=== PATIENT | female | born 1945 | race Caucasian/White ===

== ENCOUNTER → 2017-04-04 | Outpatient (CLI) | payer MEDICARE ==
--- NOTE | 2017-04-04 14:03 | MM ---
Reason for exam: follow-up at short interval from prior study. Last mammogram was performed 6 months ago. History: Patient is postmenopausal. Family history of breast cancer in sister at age 50. Benign US LT VAD breast biopsy of the left breast, May 16, 2012. Benign core biopsy of the left breast, 2009. 2 excisional biopsies of the left breast. Took hormonal contraceptives for 5 years. Took estrogen for 31 years. Physical Findings: Nurse did not find any significant physical abnormalities on exam. MG 3D Diag Mammo W/Cad LT CC and MLO view(s) were taken of the left breast. Prior study comparison: September 28, 2016, left breast US breast workup LT. September 27, 2016, bilateral MG 3d screening mammo w/cad. July 04, 2015, bilateral MG screening mammo w CAD. June 16, 2014, bilateral MG screening mammo w CAD. Stable grouped calcifications adjacent to the patient's 3 o'clock biopsy clip. No significant new findings when compared with previous films. These results were verbally communicated with the patient and result sheet given to the patient on 04/04/17. ASSESSMENT: Negative, BI-RAD 1 RECOMMENDATION: Return to routine screening mammogram schedule for both breasts. Back on schedule.
== END | disposition home or self-care (01) ==
LOC: RADMAMWWP 12:53
PROVIDERS: ATTEND Internal Medicine
DX: R92.8 Other abnormal and inconclusive findings on diagnostic imaging of breast (principal)
CPT/HCPCS: G0206; G0279

== ENCOUNTER → 2017-04-17 | Outpatient (CLI) | payer MEDICARE ==
--- NOTE | 2017-04-17 14:17 | US ---
EXAMINATION TYPE: US kidneys/renal and bladder DATE OF EXAM: 04/17/2017 COMPARISON: 09/21 US CLINICAL HISTORY: 71-year-old female R30.0 DYSURIA. Large habitus, incontinence, recurring renal and bladder infections. TECHNIQUE: Multiple sonographic images of the kidneys and bladder were obtained. FINDINGS: Right Kidney: 10.0 x 5.8 x 5.4cm with mild hydronephrosis. There is renal cortical thinning and lobu lated kidney contour. Left Kidney: 11.5 x 6.1 x 6.2cm with mild hydronephrosis. There is renal cortical thinning and lobul ated contour. There is also a 1.4 cm cortical cyst at the mid to upper pole. Initial urine distended bladder shows no gross abnormality. Either ureteral jet is seen during the co urse of the exam. There is not much emptying of the bladder with voiding. Post Void Residual Volume: 327ml, increased. IMPRESSION: 1. Mild bilateral hydronephrosis. 2. Parenchymal changes suggesting underlying chronic medical renal disease. 3. Neither ureteral jet was seen during the course of the exam. 4. Marked urinary retention (post void bladder volume 327 mL). Consider catheterization if indicated.
== END | disposition home or self-care (01) ==
LOC: RADUSWWP 12:10
PROVIDERS: ATTEND Internal Medicine
DX: N13.30 Unspecified hydronephrosis (principal); R33.9 Retention of urine, unspecified; N28.89 Other specified disorders of kidney and ureter
CPT/HCPCS: 76770

== ENCOUNTER → 2017-11-30 | Outpatient (CLI) | payer MEDICARE ==
--- NOTE | 2017-11-30 14:13 | MM ---
Reason for exam: clinical finding. Last mammogram was performed 8 months ago. History: Patient is postmenopausal. Family history of breast cancer in sister at age 50. Benign US LT VAD breast biopsy of the left breast, May 16, 2012. Benign core biopsy of the left breast, 2009. 2 excisional biopsies of the left breast. Took hormonal contraceptives for 5 years. Took estrogen for 31 years. Indicated problem(s): pain in the left breast. Physical Findings: Nurse did not find any significant physical abnormalities on exam. MG 3D Diag Mammo W/Cad ANGELINE Bilateral CC and MLO view(s) were taken. Prior study comparison: April 04, 2017, left breast MG 3d diag mammo w/cad LT. September 27, 2016, bilateral MG 3d screening mammo w/cad. There are scattered fibroglandular densities. Benign oil cyst calcification on the left breast. Previous mammotome biopsy in the left breast. Asymmetric density centrally right MLO view does not persist on 3D images or the end compression MLO. These results were verbally communicated with the patient and result sheet given to the patient on 11/30/17. ASSESSMENT: Negative, BI-RAD 1 RECOMMENDATION: Routine screening mammogram of both breasts in 1 year.
== END | disposition home or self-care (01) ==
LOC: RADMAMWWP 13:03
PROVIDERS: ATTEND Internal Medicine
DX: N64.4 Mastodynia (principal)
CPT/HCPCS: 77066; G0279

== ENCOUNTER → 2018-06-25 | Outpatient (CLI) | payer MEDICARE ==
--- NOTE | 2018-06-25 23:15 | CT ---
EXAMINATION TYPE: CT abdomen pelvis wo con DATE OF EXAM: 06/25/2018 COMPARISON: 06/03/2015 HISTORY: 72-year-old female right sided pain with history of bowel/bladder fistula CT DLP: 1116 mGycm. Automated exposure control for dose reduction was used. TECHNIQUE: Contiguous axial scanning of the abdomen and pelvis without IV contrast. Coronal and sagit candido reconstructions performed. FINDINGS: Heart normal size without pericardial effusion. Coronary vessel calcifications are present. Calcified peripheral left basilar pulmonary nodule compatible with prior granulomatous disease. Tiny hiatal hernia. Noncontrast appearance of the liver, adrenal glands, spleen, and pancreas show no gross abnormality. Gallbladder surgically absent. Bilateral mild renal cortical thinning and bilateral extrarenal pelves are unchanged. Stable 1.4 cm c ortical cyst anterolateral left kidney. Moderate atherosclerotic calcifications abdominal aorta and iliac arteries. No dilated small bowel, free fluid, or free air. Moderate ingested debris within the stomach. No mesenteric or retroperitoneal lymphadenopathy. Mild stool burden with scattered mild colonic diverticulosis. Prior resection and reanastomosis along the mid to distal sigmoid. Streak and beam hardening artifact from the patient's right hip total arthroplasty limiting assessmen t of the pelvis. There is pelvic floor relaxation with bulging convexity of the biliary ninth musculature and projecti on of the inferior margin of the bladder approximately 4 cm below the pubococcygeal line. No abnormal fluid collection in the pelvis or pelvic lymphadenopathy. Uterus surgically absent. Ovaries not sakshi rly seen. Nodularity within the subcutaneous fat along the buttocks suggesting prior injections. Bones: Right hip total arthroplasty. Mild degenerative changes of the hips. No osseous destructive pr ocess. IMPRESSION: 1. Interval resection and reanastomosis along the mid to distal sigmoid colon. 2. Fairly marked pelvic floor relaxation with the inferior margin of the bladder located approximate ly 4 cm below the pubococcygeal line. 3. Mild scattered colonic diverticulosis.
== END | disposition home or self-care (01) ==
LOC: RADCTMAIN 16:27
PROVIDERS: ATTEND Internal Medicine
DX: K57.30 Diverticulosis of large intestine without perforation or abscess without bleeding (principal)
CPT/HCPCS: 74176

== ENCOUNTER → 2019-01-30 | Outpatient (CLI) | payer MEDICARE ==
--- NOTE | 2019-01-30 11:40 | MM ---
Reason for exam: additional evaluation requested from prior study. Last mammogram was performed 1 year and 2 months ago. History: Patient is postmenopausal. Family history of breast cancer in sister at age 50. Benign US LT VAD breast biopsy of the left breast, May 16, 2012. Benign core biopsy of the left breast, 2009. 2 excisional biopsies of the left breast. Took hormonal contraceptives for 5 years. Took estrogen for 31 years. Physical Findings: Nurse did not find any significant physical abnormalities on exam. MG 3D Diag Mammo W/Cad ANGELINE Bilateral CC and MLO view(s) were taken. XCCL view(s) were taken of the left breast. Prior study comparison: November 30, 2017, bilateral MG 3d diag mammo w/cad ANGELINE. April 04, 2017, left breast MG 3d diag mammo w/cad LT. There are scattered fibroglandular densities. Left biopsy marker noted adjacent to calcifications. These results were verbally communicated with the patient and result sheet given to the patient on 01/30/19. ASSESSMENT: Benign, BI-RAD 2 RECOMMENDATION: Routine screening mammogram of both breasts in 1 year.
== END | disposition home or self-care (01) ==
LOC: RADMAMWWP 09:57
PROVIDERS: ATTEND Internal Medicine
DX: N60.11 Diffuse cystic mastopathy of right breast (principal); N60.12 Diffuse cystic mastopathy of left breast
CPT/HCPCS: 77066; G0279; 77062

== ENCOUNTER → 2019-06-12 | Outpatient (CLI) | payer MEDICARE | END | disposition home or self-care (01) | LOC: LABPAT 13:53 | PROVIDERS: ATTEND Obstetrics & Gynecology | DX: Z01.812 Encounter for preprocedural laboratory examination (principal) | CPT/HCPCS: 93005 ==

== ENCOUNTER → 2019-06-12 | Outpatient (CLI) | payer MEDICARE ==
--- NOTE | 2019-06-13 06:56 | ECHOF ---
Referral Reason:R10.9 Unspecified abdominal pain, R01.1 Cardiac MEASUREMENTS -------- HEIGHT: 165.1 cm WEIGHT: 96.2 kg BP: IVSd: 1.4 cm (0.6 - 1.1) LVIDd: 4.8 cm (3.9 - 5.3) LVPWd: 1.4 cm (0.6 - 1.1) IVSs: 1.4 cm LVIDs: 3.5 cm LVPWs: 1.5 cm LA Diam: 3.7 cm (2.7 - 3.8) LAESV Index (A-L): 30.32 ml/m Ao Diam: 2.5 cm (2.0 - 3.7) AV Cusp: 1.5 cm (1.5 - 2.6) LA Diam: 3.9 cm (2.7 - 3.8) MV EXCURSION: 20.477 mm (> 18.000) MV EF SLOPE: 32 mm/s (70 - 150) EPSS: 0.6 cm MV E Kar: 0.63 m/s MV DecT: 181 ms MV A Kar: 0.86 m/s MV E/A Ratio: 0.73 AV maxP.68 mmHg AV meanP.76 mmHg RAP: 5.00 mmHg RVSP: 22.70 mmHg FINDINGS -------- Sinus rhythm. This was a technically adequate study. The left ventricular size is normal. There is moderate concentric left ventricular hypertrophy. O verall left ventricular systolic function is normal with, an EF between 55 - 60 %. The right ventricle is normal in size. The left atrium is mildly dilated. LA is midly dilated 29-33ml/m2. The right atrial size is normal. There is mild aortic stenosis present. Peak/mean gradient across the Aortic Valve is 16.68mmHg / 7. 76mmHg. Mild mitral annular calcification present. Mild mitral regurgitation is present. Mild tricuspid regurgitation present. There is no evidence of pulmonary hypertension. The right v entricular systolic pressure, as measured by Doppler, is 22.70mmHg. There is no pulmonic regurgitation present. The aortic root size is normal. There is no pericardial effusion. CONCLUSIONS -------- 1. Sinus rhythm. 2. This was a technically adequate study. 3. The left ventricular size is normal. 4. There is moderate concentric left ventricular hypertrophy. 5. Overall left ventricular systolic function is normal with, an EF between 55 - 60 %. 6. The right ventricle is normal in size. 7. The left atrium is mildly dilated. 8. LA is midly dilated 29-33ml/m2. 9. The right atrial size is normal. 10. There is mild aortic stenosis present. 11. Peak/mean gradient across the Aortic Valve is 16.68mmHg / 7.76mmHg. 12. Mild mitral annular calcification present. 13. Mild mitral regurgitation is present. 14. Mild tricuspid regurgitation present. 15. There is no evidence of pulmonary hypertension. 16. The right ventricular systolic pressure, as measured by Doppler, is 22.70mmHg. 17. There is no pulmonic regurgitation present. 18. The aortic root size is normal. 19. There is no pericardial effusion. DRIVER'S EDUCATION INSTRUCTOR: Hanna Ferraro RDCS
--- NOTE | 2019-06-13 08:15 | US ---
EXAMINATION TYPE: US kidneys/renal and bladder DATE OF EXAM: 06/12/2019 COMPARISON: 7 CLINICAL HISTORY: R10.9 Unspecified abdominal pain, R01.1 Cardiac. Pain. EXAM MEASUREMENTS: Right Kidney: 9.5 x 4.9 x 4.1 cm Left Kidney: 11 x 4.4 x 4.5 cm Right Kidney: No hydronephrosis or masses seen Left Kidney: Hypoechoic area seen mid pole 1.8 x 1.4 x .7 cm. Bladder: wnl Bilateral Jets seen: No There is no evidence for hydronephrosis at this point in time. No nephrolithiasis is seen. The urin walker bladder is anechoic. IMPRESSION: No evidence of overt hydronephrosis today's exam. Hypoechoic nodule in the left kidney likely related to small renal cyst
== END | disposition home or self-care (01) ==
LOC: RADECHMAIN 14:47
PROVIDERS: ATTEND Internal Medicine
DX: I08.1 Rheumatic disorders of both mitral and tricuspid valves (principal); R10.9 Unspecified abdominal pain
CPT/HCPCS: 76770; 93306

== ENCOUNTER → 2019-06-17 | Outpatient (CLI) | payer MEDICARE ==
[2019-06-17 15:08] LABS: Basophils % (A) 1 %; Eosinophils # (A) 0.2 k/uL (0-0.7); Eosinophils % (A) 4 %; HCT 43.2 % (34.0-46.0); HGB 14.1 gm/dL (11.4-16.0); Lymphocytes # (A) 1.4 k/uL (1.0-4.8); Lymphocytes % (A) 32 %; MCH 29.5 pg (25.0-35.0); MCHC 32.6 g/dL (31.0-37.0); MCV 90.6 fL (80.0-100.0); Mean Platelet Volume 6.9; Monocytes # (A) 0.3 k/uL (0-1.0); Monocytes % (A) 6 %; Neutrophils # (A) 2.5 k/uL (1.3-7.7); Neutrophils % (A) 55 %; Platelet Count 325 k/uL (150-450); RBC 4.77 m/uL (3.80-5.40); RDW 14.5 % (11.5-15.5); WBC 4.5 k/uL (3.8-10.6)
[2019-06-17 15:17] LABS: Potassium 3.9 mmol/L (3.5-5.1)
== END ==
LOC: LABATLAS 13:46
PROVIDERS: ATTEND Obstetrics & Gynecology
DX: Z01.812 Encounter for preprocedural laboratory examination (principal); N81.10 Cystocele, unspecified
CPT/HCPCS: 36415; 80051; 82565; 84520; 85025; 87086

== ENCOUNTER 2019-06-24 06:01 | Day surgery (SDC) | payer MEDICARE ==
[~2019-06-24 06:01] MED LIST: DEXAMETHASONE SOD PHOSPHATE 10 MG/ML 1 ML VIAL IV ONE; LIDOCAINE 1% 20 ML VIAL (10MG/ML) FOR IV START INTRADERMA PRN; ONDANSETRON 4 MG/2 ML VIAL IVP ONE
[2019-06-24 06:34] LABS: Glucose,Whole Blood 94 mg/dL (75-99)
[2019-06-24] MEDS ORDERED: LACTATED RINGERS 1,000 ML IV ONE ×2 (06:35→09:19)
[2019-06-24] MEDS ORDERED: PROPOFOL 10 MG/ML 20 ML VIAL IV ONE (07:20)
[2019-06-24] MEDS ORDERED: fentaNYL (PF) 50 MCG/ML 2 ML AMP ONE (07:20)
[2019-06-24] MEDS ORDERED: ePHEDrine SULFATE/0.9% NACL/PF 50 MG/5 ML SYRINGE IV ONE (07:20)
[2019-06-24] MEDS ORDERED: LIDOCAINE 1% INJ 10MG/ML (20 ML MDV) ONE (07:20)
[2019-06-24] MEDS ORDERED: MIDAZOLAM 2 MG/2 ML VIAL ONE (07:20)
[2019-06-24] MEDS ORDERED: METOCLOPRAMIDE 5 MG/ML 2 ML VIAL IVP PRN (07:25)
[2019-06-24] MEDS ORDERED: IBUPROFEN 600 MG TAB PO PRN (07:25)
[2019-06-24] MEDS ORDERED: ONDANSETRON 4 MG/2 ML VIAL IVP PRN (07:25)
[2019-06-24] MEDS ORDERED: diphenhydrAMINE 50 MG/ML 1 ML VIAL IVP PRN (07:25)
[2019-06-24] MEDS ORDERED: SIMETHICONE 80 MG CHEWABLE PO PRN (07:25)
[2019-06-24] MEDS ORDERED: VASOPRESSIN 20 UNIT/ML 1 ML VIAL SQ ONE (07:50)
[2019-06-24] MEDS ORDERED: BACITRACIN 500 UNIT/GM OINT 28.4 GM TUBE TOPICAL ONE (08:00)
--- NOTE | 2019-06-24 08:25 | P.OP ---
Date of Procedure: 06/24/19 Preoperative Diagnosis: #1. Symptomatic grade 3 cystocele #2. Recurrent urinary tract infections Postoperative Diagnosis: Same plus #3. Likely neurogenic urinary retention Procedure(s) Performed: #1. Anterior colporrhaphy Anesthesia: other (Gen. by LMA) Surgeon: Evangelista Goncalves Assisted Living Assistant #1: Annita Soria Estimated Blood Loss (ml): 5 IV fluids (ml): 400 Urine output (ml): 600 Pathology: none sent Condition: stable Disposition: PACU Operative Findings: Preoperatively, the patient was found to have a grade 3 cystocele present with reasonable apical support as well as support of the rectum. She additionally has large hemorrhoids present. Prior to beginning the surgery, she was catheterized of 600 mL of clear lizzy urine despite having emptied her bladder immediately prior to proceeding to the operating room. Repair itself appeared to be excellent and urine was clear at the end of the case. Description of Procedure: The patient was prepped and draped in usual fashion after general anesthesia was administered by the anesthesiologist. A weighted speculum was placed and the bladder drained of approximate 600 mL of clear lizzy urine suggesting the possibility of a neurogenic cause for urinary retention given that she had voided immediately prior to proceeding to the operating room. The apical uterosacral dimples were grasped with Allis clamps bilaterally and the vesicovaginal mucosa infused with diluted vasopressin solution, 20 units in 60 mL of saline. A transverse incision was made in the apex of the vagina from dimple to dimple allowing replacement of the Allises onto the incision. The vesicovaginal mucosa was undermined in the midline from the apex of the vagina to the urethral apex and divided using a Metzenbaum scissors. The mucosa was re flected from the underlying tissues were bluntly and sharply. Serial Stephanie plication stitches were placed from the urethral apex to the apex of the vagina using 2-0 Vicryl. Once the defect had been entirely closed, the vaginal mucosa was trimmed and then closed with a running locking stitch of 2-0 Vicryl from apex to apex without difficulty. The catheter was placed and there was minimal but clear urine noted. The vagina was packed with one-inch iodophor gauze covered with bacitracin ointment. Estimated blood loss for the entire case was approximate 5 mL. There were no complications. All sponge, instrument, and needle counts were correct. The patient tolerated the procedure well and proceeded to the recovery room in stable condition.
[2019-06-24] MEDS: KETOROLAC 30 MG/ML 1 ML VIAL IVP PRN ×2 (08:48→16:35)
[2019-06-24] MEDS ORDERED: MEPERIDINE 50 MG/ML SYRINGE IVP ONE (09:01)
[2019-06-24] MEDS: LACTATED RINGERS 1,000 ML IV SCH ×3 (10:55→23:30)
[2019-06-24 16:15] VITALS: BMI 35.0
[2019-06-24] MEDS: SENNOSIDES-DOCUSATE SODIUM 1 EACH TAB PO SCH (23:04)
[2019-06-25] MEDS: SENNOSIDES-DOCUSATE SODIUM 1 EACH TAB PO SCH ×3 (03:35→12:55)
[2019-06-25] MEDS: KETOROLAC 30 MG/ML 1 ML VIAL IVP PRN (04:43)
[2019-06-25] MEDS: LACTATED RINGERS 1,000 ML IV SCH (04:50)
[2019-06-25 07:26] LABS: Basophils % (A) 0 %; Eosinophils # (A) 0.1 k/uL (0-0.7); Eosinophils % (A) 1 %; HCT 37.4 % (34.0-46.0); HGB 12.5 gm/dL (11.4-16.0); Lymphocytes # (A) 1.3 k/uL (1.0-4.8); Lymphocytes % (A) 15 %; MCH 29.8 pg (25.0-35.0); MCHC 33.4 g/dL (31.0-37.0); MCV 89.2 fL (80.0-100.0); Mean Platelet Volume 6.8; Monocytes # (A) 0.5 k/uL (0-1.0); Monocytes % (A) 6 %; Neutrophils # (A) 6.7 k/uL (1.3-7.7); Neutrophils % (A) 77 %; Platelet Count 286 k/uL (150-450); RDW 13.2 % (11.5-15.5); WBC 8.7 k/uL (3.8-10.6)
--- NOTE | 2019-06-25 08:49 | P.DS ---
Providers Expected date of discharge: 06/25/19 Attending physician: Evangelista Goncalves Primary care physician: Shahid Stewart - Discharge Diagnosis(es) (1) Cystocele Current Visit: Yes Status: Acute Hospital Course: The patient is a 73-year-old woman who presented to the office with complaint of cystocele causing discomfort and an additional concern of with inability to adequately empty her bladder. She does have a urologist who feels that some of her problem is the anatomy itself making it more difficult to completely empty. We did have a discussion regarding the potential problem of a neurogenic bladder as the source of her retention as well. Nevertheless, the patient requested surgical repair. She was taken the operating room where she underwent surgical repair of a symptomatic grade 3 cystocele and uncomplicated fashion. Her postoperative course was unremarkable with vital signs remaining stable and her temperature was afebrile throughout. The morning following surgery, she had her packing and Torres catheter removed. She was able to void more than 200 mL of urine with a residual less than 100 and was thus deemed stable for discharge having tolerated regular diet and having no other concerns. She was discharged home to follow-up in the office in 2 weeks for recheck and 6 weeks routinely. Discharge instructions included primarily abstaining from any straining or heavy lifting for the next 6 weeks time. She is additionally instructed to do no driving until off of all pain medications or 2 weeks' time, whichever came first. She also is instructed to have nothing in the vagina for at least 6 weeks time. She understood her instructions and agrees to follow up as noted above. Discharge medications included any home medications as well as [id number] analgesic pain medications. She was additionally instructed to continue using Estrace cream 1-2 times weekly over the next several weeks to aid in healing. Discharge hemoglobin was stable at above 12.0. Procedures: #1. Anterior colporrhaphy Patient Condition at Discharge: Stable Plan - Discharge Summary Discharge Rx Participant: No New Discharge Prescriptions: No Action Famotidine [Pepcid] 40 mg PO BID Albuterol Sulfate [Proventil Hfa] 1 - 2 puff INHALATION RT-Q6H PRN PRN Reason: sob ALPRAZolam [Xanax] 0.25 mg PO BID PRN PRN Reason: Vertigo NIFEdipine XL [Procardia XL] 30 mg PO DAILY Ezetimibe [Zetia] 10 mg PO DAILY Potassium Chloride 20 meq PO BID Cholecalciferol [Vitamin D3 (25 Mcg = 1000 Iu)] 2,000 unit PO DAILY@1200 Multivit-Min/FA/Lycopen/Lutein [Centrum Silver Tablet] 1 each PO DAILY metFORMIN HCL [Glucophage] 500 mg PO DAILY Aspirin 81 mg PO HS Vitamin B Complex 1 tab PO DAILY Magnesium Chloride [Slow Mag] 64 mg PO DAILY Niacin [Niaspan] 500 mg PO DAILY Cranberry Fruit Extract [Cranberry] 200 mg PO BID Furosemide [Lasix] 20 mg PO DAILY Biotin 2 tab PO DAILY Estradiol Cream [Estrace Cream 0.01%] 1 gm VAGINAL DIRECTED Discharge Medication List ALPRAZolam [Xanax] 0.25 mg PO BID PRN 02/17/14 [History] Albuterol Sulfate [Proventil Hfa] 1 - 2 puff INHALATION RT-Q6H PRN 02/17/14 [History] Ezetimibe [Zetia] 10 mg PO DAILY 02/17/14 [History] Famotidine [Pepcid] 40 mg PO BID 02/17/14 [History] NIFEdipine XL [Procardia XL] 30 mg PO DAILY 02/17/14 [History] Potassium Chloride 20 meq PO BID 02/17/14 [History] Aspirin 81 mg PO HS 07/30/15 [History] Cholecalciferol [Vitamin D3 (25 Mcg = 1000 Iu)] 2,000 unit PO DAILY@1200 07/30/15 [History] Multivit-Min/FA/Lycopen/Lutein [Centrum Silver Tablet] 1 each PO DAILY 07/30/15 [History] metFORMIN HCL [Glucophage] 500 mg PO DAILY 07/30/15 [History] Biotin 2 tab PO DAILY 06/14/19 [History] Cranberry Fruit Extract [Cranberry] 200 mg PO BID 06/14/19 [History] Estradiol Cream [Estrace Cream 0.01%] 1 gm VAGINAL DIRECTED 06/14/19 [History] Furosemide [Lasix] 20 mg PO DAILY 06/14/19 [History] Magnesium Chloride [Slow Mag] 64 mg PO DAILY 06/14/19 [History] Niacin [Niaspan] 500 mg PO DAILY 06/14/19 [History] Vitamin B Complex 1 tab PO DAILY 06/14/19 [History] Follow up Appointment(s)/Referral(s): Evangelista Goncalves MD [STAFF PHYSICIAN] - 2 Weeks Discharge Disposition: HOME SELF-CARE
[2019-06-25 08:54] VITALS: PULSE 64
[2019-06-25 08:55] VITALS: BP 138/67; RESP 20; TEMP 98.4
[2019-06-25] MEDS ORDERED: ACETAMINOPHEN TAB 500 MG TAB PO PRN (11:17)
== END 2019-06-25 13:05 | disposition home or self-care (01) ==
LOC: OR 06:01 → 4FBP 08:59 → OR 06-25 13:05
PROVIDERS: ATTEND Obstetrics & Gynecology
DX: N81.10 Cystocele, unspecified (principal); Z87.440 Personal history of urinary (tract) infections; J45.909 Unspecified asthma, uncomplicated; E78.00 Pure hypercholesterolemia, unspecified; I10 Essential (primary) hypertension; E78.5 Hyperlipidemia, unspecified; Z86.73 Personal history of transient ischemic attack (TIA), and cerebral infarction without residual deficits; Z96.649 Presence of unspecified artificial hip joint; Z90.49 Acquired absence of other specified parts of digestive tract; E66.9 Obesity, unspecified; Z88.5 Allergy status to narcotic agent; Z88.8 Allergy status to other drugs, medicaments and biological substances; Z88.1 Allergy status to other antibiotic agents; Z91.041 Radiographic dye allergy status; Z82.49 Family history of ischemic heart disease and other diseases of the circulatory system; Z84.1 Family history of disorders of kidney and ureter; Z83.6 Family history of other diseases of the respiratory system; Z87.891 Personal history of nicotine dependence; Z68.35 Body mass index [BMI] 35.0-35.9, adult; Z79.84 Long term (current) use of oral hypoglycemic drugs; Z79.899 Other long term (current) drug therapy; Z79.82 Long term (current) use of aspirin
CPT/HCPCS: 86900; 86901; 85025; 86850; 57240; J2250; J1200; J1100; J2175; J0690; J2405; J2001; J3010; J1885 ×2; J2704

== ENCOUNTER 2019-12-09 13:25 | Emergency (ER) | payer MEDICARE ==
[2019-12-09 13:30] VITALS: TEMP 98.3
[2019-12-09] MEDS ORDERED: NITROGLYCERIN OINT 1 INCH/GM PACKET TOPICAL STA (14:06)
[2019-12-09] MEDS ORDERED: ASPIRIN 81 MG PO STA (14:06)
[2019-12-09 14:21] LABS: Basophils # (A) 0.1 k/uL (0-0.2); Basophils % (A) 1 %; Eosinophils # (A) 0.2 k/uL (0-0.7); Eosinophils % (A) 3 %; HCT 47.3 % (34.0-46.0); HGB 15.5 gm/dL (11.4-16.0); Lymphocytes % (A) 27 %; MCH 29.8 pg (25.0-35.0); MCHC 32.7 g/dL (31.0-37.0); MCV 91.2 fL (80.0-100.0); Mean Platelet Volume 7.2; Monocytes # (A) 0.3 k/uL (0-1.0); Monocytes % (A) 4 %; Neutrophils # (A) 4.9 k/uL (1.3-7.7); Neutrophils % (A) 64 %; Platelet Count 319 k/uL (150-450); RBC 5.19 m/uL (3.80-5.40); RDW 13.2 % (11.5-15.5); WBC 7.6 k/uL (3.8-10.6)
[2019-12-09 14:26] LABS: INR 0.9 (<1.2); Partial Thromboplastin Time 23.2 sec (22.0-30.0); Prothrombin Time 9.4 sec (9.0-12.0)
[2019-12-09 14:34] LABS: Albumin 4.7 g/dL (3.5-5.0); Calcium 9.9 mg/dL (8.4-10.2); Magnesium 2.1 mg/dL (1.6-2.3); Potassium 4.2 mmol/L (3.5-5.1); Total Bilirubin 0.4 mg/dL (0.2-1.3)
--- NOTE | 2019-12-09 14:51 | XR ---
EXAMINATION TYPE: XR chest 2V DATE OF EXAM: 12/09/2019 COMPARISON: 07/30/2015 TECHNIQUE: PA and lateral views submitted. HISTORY: Chest pain FINDINGS: The lungs are clear and there is no pneumothorax, pleural effusion, or focal pneumonia. Biapical pl eural thickening. Calcified lymph node in the left costophrenic angle. Surgical clips right upper julian drant. IMPRESSION: 1. No acute process.
--- NOTE | 2019-12-09 15:02 | ED ---
General Adult HPI - General Chief complaint: Dizziness Stated complaint: neuro/poss stroke Time Seen by Provider: 12/09/19 13:30 Source: patient, RN notes reviewed, old records reviewed Mode of arrival: wheelchair Limitations: no limitations - History of Present Illness Initial comments: This is a 74-year-old female who comes in stating that she has had some episodes of dizziness that, and lasts a few minutes and then go away. Patient states she also has some blurred vision when this occurs. Patient states she also has had some chest palpitations while this is occurring. Patient states she did not feel like she is given a passout but she had to hold onto something because she felt as though she might follow her. She's had multiple previous episodes over the last week but today's episode occurred in [facility]. Patient denies any chest pain. Patient denies any difficulty breathing or shortness of breath. Patient denies any recent fever chills or cough. Patient states he has no abdominal pain. Patient denies any nausea vomiting. Patient denies any headache or numbness or weakness - Related Data Home Medications Medication Instructions Recorded Confirmed ALPRAZolam [Xanax] 0.25 mg PO BID PRN 02/17/14 06/14/19 Albuterol Sulfate [Proventil Hfa] 1 - 2 puff INHALATION RT-Q6H PRN 02/17/14 06/14/19 Ezetimibe [Zetia] 10 mg PO DAILY 02/17/14 06/14/19 Famotidine [Pepcid] 40 mg PO BID 02/17/14 06/14/19 NIFEdipine XL [Procardia XL] 30 mg PO DAILY 02/17/14 06/14/19 Potassium Chloride 20 meq PO BID 02/17/14 06/14/19 Aspirin 81 mg PO HS 07/30/15 06/14/19 Cholecalciferol [Vitamin D3 (25 2,000 unit PO DAILY@1200 07/30/15 06/14/19 Mcg = 1000 Iu)] Multivit-Min/FA/Lycopen/Lutein 1 each PO DAILY 07/30/15 06/14/19 [Centrum Silver Tablet] metFORMIN HCL [Glucophage] 500 mg PO DAILY 07/30/15 06/14/19 Biotin 2 tab PO DAILY 06/14/19 06/14/19 Cranberry Fruit Extract [Cranberry] 200 mg PO BID 06/14/19 06/14/19 Estradiol Cream [Estrace Cream 1 gm VAGINAL DIRECTED 06/14/19 06/14/19 0.01%] Furosemide [Lasix] 20 mg PO DAILY 06/14/19 06/14/19 Magnesium Chloride [Slow Mag] 64 mg PO DAILY 06/14/19 06/14/19 Niacin [Niaspan] 500 mg PO DAILY 06/14/19 06/14/19 Vitamin B Complex 1 tab PO DAILY 06/14/19 06/14/19 Allergies Allergy/AdvReac Type Severity Reaction Status Date / Time adhesive Allergy skin Verified 12/09/19 13:31 blisters Influenza Virus Vaccines Allergy Unknown Verified 12/09/19 13:31 Iodinated Contrast Media Allergy Anaphylaxis Verified 12/09/19 13:31 [Iodinated Contrast Media - IV Dye] morphine Allergy Unknown Verified 12/09/19 13:31 pneumococcal vaccine Allergy Unknown Verified 12/09/19 13:31 povidone-iodine Allergy Rash/Hives Verified 12/09/19 13:31 [From Betadine] soap [From Betadine] Allergy Rash/Hives Verified 12/09/19 13:31 codeine AdvReac Nausea & Verified 12/09/19 13:31 Vomiting hydromorphone HCl AdvReac Nausea & Verified 12/09/19 13:31 [From Dilaudid] Vomiting antibiotics AdvReac Unknown Uncoded 12/09/19 13:31 Review of Systems ROS Statement: Those systems with pertinent positive or pertinent negative responses have been documented in the HPI. ROS Other: All systems not noted in ROS Statement are negative. Past Medical History Past Medical History: Hyperlipidemia, Hypertension Additional Past Medical History / Comment(s): hypoglycemia, arrythmia hx., h- pylori hx., hx. 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 History of Any Multi-Drug Resistant Organisms: None Reported Past Surgical History: Appendectomy, Breast Surgery, Section, Cholecystectomy, Heart Catheterization, Hysterectomy, Joint Replacement Additional Past Surgical History / Comment(s): right hip surg(HAS SEVERE INFECTION-NOT MRSA-, AFTER FIRST SX) x 3 in last 7 mos.RT CAROTID ENDARTERECTOMY, X 5 BX LT, BREAST BENIGN, RT BREAST X2 LUMPS REMOVED(BENIGN), CATARACTS, BENIGN TUMOR REMOVED RT ELBOW AREA. Past Anesthesia/Blood Transfusion Reactions: Motion Sickness, Postoperative Nausea & Vomiting (PONV) Additional Past Anesthesia/Blood Transfusion Reaction / Comment(s): severe ponv Past Psychological History: No Psychological Hx Reported Smoking Status: Former smoker Past Alcohol Use History: None Reported Past Drug Use History: None Reported - Past Family History Mother Family Medical History: Congestive Heart Failure (CHF), COPD, Deep Vein Thrombosis (DVT), Pulmonary Embolus Sister(s) Family Medical History: Blood Disorder, Cancer Additional Family Medical History / Comment(s): pancreatic cancer,brain cancer. sister states has hemophilia Father Family Medical History: Renal Disease Additional Family Medical History / Comment(s): age 28 from aortic aneurysm General Exam - General Exam Comments Initial Comments: GENERAL: Patient is well-developed and well-nourished. Patient is nontoxic and well- hydrated and is in mild distress. ENT: Neck is soft and supple. No significant lymphadenopathy is noted. Oropharynx is clear. Moist mucous membranes. Neck has full range of motion without eliciting any pain. EYES: The sclera were anicteric and conjunctiva were pink and moist. Extraocular movements were intact and pupils were equal round and reactive to light. Eyelids were unremarkable. PULMONARY: Unlabored respirations. Good breath sounds bilaterally. No audible rales rhonchi or wheezing was noted. CARDIOVASCULAR: There is a regular rate and rhythm without any murmurs gallops or rubs. ABDOMEN: Soft and nontender with normal bowel sounds. SKIN: Skin is clear with no lesions or rashes and otherwise unremarkable. NEUROLOGIC: Patient is alert and oriented x3. Cranial nerves II through XII are grossly intact. Motor and sensory are also intact. Normal speech, volume and content. Symmetrical smile. MUSCULOSKELETAL: Normal extremities with adequate strength and full range of motion. No lower extremity swelling or edema. No calf tenderness. LYMPHATICS: No significant lymphadenopathy is noted PSYCHIATRIC: Normal psychiatric evaluation. Limitations: no limitations Course Vital Signs 12/09/19 12/09/19 12/09/19 13:28 14:54 15:30 Temperature 98.3 F Pulse Rate 68 54 L Respiratory 18 16 Rate Blood Pressure 177/76 148/65 163/63 O2 Sat by Pulse 98 100 98 Oximetry 12/09/19 16:00 Temperature Pulse Rate 61 Respiratory 19 Rate Blood Pressure 165/64 O2 Sat by Pulse 97 Oximetry Medical Decision Making - Medical Decision Making EKG shows sinus bradycardia 53 bpm IA interval is 166 QRS is 152 QT interval 460 QTC is 431 patient has a left bundle branch block. Chest heaviness. Patient remained asymptomatic throughout her ED stay. I spoke with some physicians agreed to admit the patient admitted the patient wrote admitting orders and consult cardiology. - Lab Data Result diagrams: 12/09/19 14:08 12/09/19 14:08 Lab Results 12/09/19 12/09/19 12/09/19 Range/Units 14:08 14:08 14:08 WBC 7.6 (3.8-10.6) k/uL RBC 5.19 (3.80-5.40) m/uL Hgb 15.5 (11.4-16.0) gm/dL Hct 47.3 H (34.0-46.0) % MCV 91.2 (80.0-100.0) fL MCH 29.8 (25.0-35.0) pg MCHC 32.7 (31.0-37.0) g/dL RDW 13.2 (11.5-15.5) % Plt Count 319 (150-450) k/uL Neutrophils % 64 % Lymphocytes % 27 % Monocytes % 4 % Eosinophils % 3 % Basophils % 1 % Neutrophils # 4.9 (1.3-7.7) k/uL Lymphocytes # 2.0 (1.0-4.8) k/uL Monocytes # 0.3 (0-1.0) k/uL Eosinophils # 0.2 (0-0.7) k/uL Basophils # 0.1 (0-0.2) k/uL PT 9.4 (9.0-12.0) sec INR 0.9 (<1.2) APTT 23.2 (22.0-30.0) sec Sodium 140 (137-145) mmol/L Potassium 4.2 (3.5-5.1) mmol/L Chloride 101 (98-107) mmol/L Carbon Dioxide 30 (22-30) mmol/L Anion Gap 9 mmol/L BUN 24 H (7-17) mg/dL Creatinine 0.80 (0.52-1.04) mg/dL Est GFR (CKD-EPI)AfAm 83 (>60 ml/min/1.73 sqM) Est GFR (CKD-EPI)NonAf 72 (>60 ml/min/1.73 sqM) Glucose 105 H (74-99) mg/dL Calcium 9.9 (8.4-10.2) mg/dL Magnesium 2.1 (1.6-2.3) mg/dL Total Bilirubin 0.4 (0.2-1.3) mg/dL AST 35 (14-36) U/L ALT 19 (4-34) U/L Alkaline Phosphatase 92 (38-126) U/L Troponin I (0.000-0.034) ng/mL Total Protein 8.0 (6.3-8.2) g/dL Albumin 4.7 (3.5-5.0) g/dL TSH 0.134 L (0.465-4.680) mIU/L Free T4 1.00 (0.78-2.19) ng/dL 12/09/19 Range/Units 14:08 WBC (3.8-10.6) k/uL RBC (3.80-5.40) m/uL Hgb (11.4-16.0) gm/dL Hct (34.0-46.0) % MCV (80.0-100.0) fL MCH (25.0-35.0) pg MCHC (31.0-37.0) g/dL RDW (11.5-15.5) % Plt Count (150-450) k/uL Neutrophils % % Lymphocytes % % Monocytes % % Eosinophils % % Basophils % % Neutrophils # (1.3-7.7) k/uL Lymphocytes # (1.0-4.8) k/uL Monocytes # (0-1.0) k/uL Eosinophils # (0-0.7) k/uL Basophils # (0-0.2) k/uL PT (9.0-12.0) sec INR (<1.2) APTT (22.0-30.0) sec Sodium (137-145) mmol/L Potassium (3.5-5.1) mmol/L Chloride (98-107) mmol/L Carbon Dioxide (22-30) mmol/L Anion Gap mmol/L BUN (7-17) mg/dL Creatinine (0.52-1.04) mg/dL Est GFR (CKD-EPI)AfAm (>60 ml/min/1.73 sqM) Est GFR (CKD-EPI)NonAf (>60 ml/min/1.73 sqM) Glucose (74-99) mg/dL Calcium (8.4-10.2) mg/dL Magnesium (1.6-2.3) mg/dL Total Bilirubin (0.2-1.3) mg/dL AST (14-36) U/L ALT (4-34) U/L Alkaline Phosphatase (38-126) U/L Troponin I <0.012 (0.000-0.034) ng/mL Total Protein (6.3-8.2) g/dL Albumin (3.5-5.0) g/dL TSH (0.465-4.680) mIU/L Free T4 (0.78-2.19) ng/dL Disposition Clinical Impression: Chest pain, Dizziness Disposition: ADMITTED IP TO THIS [facility] Referrals: Shahid Stewart MD [Primary Care Provider] - 1-2 days Time of Disposition: 16:15
[2019-12-09] MEDS ORDERED: SODIUM CHLORIDE 0.9% 500 ML 500 ML IV ONE (15:31)
[2019-12-09 16:03] VITALS: BP 165/64; PULSE 61; RESP 19
[2019-12-09] MEDS ORDERED: ACETAMINOPHEN TAB 325 MG TAB PO STA (16:14)
[2019-12-09] MEDS ORDERED: NITROGLYCERIN SL TABS 0.4 MG TAB SUBLINGUAL PRN (16:19)
[2019-12-09] MEDS ORDERED: NALOXONE 0.4 MG/ML 1 ML VIAL IV PRN (17:14)
[2019-12-09] MEDS ORDERED: ALPRAZolam 0.25 MG TAB PO PRN (17:15)
--- NOTE | 2019-12-09 17:29 | P.HPIM ---
History of Present Illness H&P Date: 12/09/19 Chief Complaint: Chest pain 74-year-old female who comes in stating that she has had some episodes of dizziness that, and lasts a few minutes and then go away. During these episodes she experiences right-sided headache, slurred speech, blurred vision, chest pressure, shortness of breath, palpitations, severe dizziness that feels like lightheadedness and imbalance where she has to hold onto something to prevent falling and passing out. She thought that those episodes might be due to low sugars but she checked her blood sugars yesterday and they were normal. Those spells have been occurring over the past several weeks. Patient denies any recent fever chills or cough. Patient states he has no abdominal pain. Patient denies any nausea vomiting. Patient denies focal numbness or weakness. Patient does have history of bilateral carotid stenosis, she is status post right-sided carotid endarterectomy. She states that she follows up with vascular surgery and did a regular checkup every 6 months, on the left side she has 75% stenosis, no intervention was recommended for that. Review of Systems Complete review of system performed, pertinent positives per HPI otherwise negative Past Medical History Past Medical History: Hyperlipidemia, Hypertension Additional Past Medical History / Comment(s): hypoglycemia, arrythmia hx., h- pylori hx., hx. 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 History of Any Multi-Drug Resistant Organisms: None Reported Past Surgical History: Appendectomy, Breast Surgery, Section, Cholecystectomy, Heart Catheterization, Hysterectomy, Joint Replacement Additional Past Surgical History / Comment(s): right hip surg(HAS SEVERE INFECTION-NOT MRSA-, AFTER FIRST SX) x 3 in last 7 mos.RT CAROTID ENDARTERECTOMY, X 5 BX LT, BREAST BENIGN, RT BREAST X2 LUMPS REMOVED(BENIGN), CATARACTS, BENIGN TUMOR REMOVED RT ELBOW AREA. Past Anesthesia/Blood Transfusion Reactions: Motion Sickness, Postoperative Nausea & Vomiting (PONV) Additional Past Anesthesia/Blood Transfusion Reaction / Comment(s): severe ponv Past Psychological History: No Psychological Hx Reported Smoking Status: Former smoker Past Alcohol Use History: None Reported Past Drug Use History: None Reported - Past Family History Mother Family Medical History: Congestive Heart Failure (CHF), COPD, Deep Vein Thrombos is (DVT), Pulmonary Embolus Sister(s) Family Medical History: Blood Disorder, Cancer Additional Family Medical History / Comment(s): pancreatic cancer,brain cancer. sister states has hemophilia Father Family Medical History: Renal Disease Additional Family Medical History / Comment(s): age 28 from aortic aneurysm Medications and Allergies Home Medications Medication Instructions Recorded Confirmed Type ALPRAZolam [Xanax] 0.25 mg PO BID PRN 02/17/14 06/14/19 History Albuterol Sulfate [Proventil Hfa] 1 - 2 puff INHALATION RT-Q6H PRN 02/17/14 06/14/19 History Ezetimibe [Zetia] 10 mg PO DAILY 02/17/14 06/14/19 History Famotidine [Pepcid] 40 mg PO BID 02/17/14 06/14/19 History NIFEdipine XL [Procardia XL] 30 mg PO DAILY 02/17/14 06/14/19 History Potassium Chloride 20 meq PO BID 02/17/14 06/14/19 History Aspirin 81 mg PO HS 07/30/15 06/14/19 History Cholecalciferol [Vitamin D3 (25 2,000 unit PO DAILY@1200 07/30/15 06/14/19 History Mcg = 1000 Iu)] Multivit-Min/FA/Lycopen/Lutein 1 each PO DAILY 07/30/15 06/14/19 History [Centrum Silver Tablet] metFORMIN HCL [Glucophage] 500 mg PO DAILY 07/30/15 06/14/19 History Biotin 2 tab PO DAILY 06/14/19 06/14/19 History Cranberry Fruit Extract [Cranberry] 200 mg PO BID 06/14/19 06/14/19 History Estradiol Cream [Estrace Cream 1 gm VAGINAL DIRECTED 06/14/19 06/14/19 History 0.01%] Furosemide [Lasix] 20 mg PO DAILY 06/14/19 06/14/19 History Magnesium Chloride [Slow Mag] 64 mg PO DAILY 06/14/19 06/14/19 History Niacin [Niaspan] 500 mg PO DAILY 06/14/19 06/14/19 History Vitamin B Complex 1 tab PO DAILY 06/14/19 06/14/19 History Allergies Allergy/AdvReac Type Severity Reaction Status Date / Time adhesive Allergy skin Verified 12/09/19 13:31 blisters Influenza Virus Vaccines Allergy Unknown Verified 12/09/19 13:31 Iodinated Contrast Media Allergy Anaphylaxis Verified 12/09/19 13:31 [Iodinated Contrast Media - IV Dye] morphine Allergy Unknown Verified 12/09/19 13:31 pneumococcal vaccine Allergy Unknown Verified 12/09/19 13:31 povidone-iodine Allergy Rash/Hives Verified 12/09/19 13:31 [From Betadine] soap [From Betadine] Allergy Rash/Hives Verified 12/09/19 13:31 codeine AdvReac Nausea & Verified 12/09/19 13:31 Vomiting hydromorphone HCl AdvReac Nausea & Verified 12/09/19 13:31 [From Dilaudid] Vomiting antibiotics AdvReac Unknown Uncoded 12/09/19 13:31 Physical Exam Vitals: Vital Signs Temp Pulse Resp BP Pulse Ox 12/09/19 16:00 61 19 165/64 97 12/09/19 15:30 163/63 98 12/09/19 14:54 54 L 16 148/65 100 12/09/19 13:28 98.3 F 68 18 177/76 98 Intake and Output 12/09/19 12/09/19 12/09/19 06:59 14:59 22:59 Other: Weight 92.986 kg Constitutional: No acute distress, conversant, pleasant Eyes:Anicteric sclerae, moist conjunctiva, no lid-lag, PERRLA, ENMT: Oropharynx clear, no erythema, exudates Neck: Supple, FROM, no masses, or JVD, No carotid bruits, No thyromegaly Lungs: Clear to auscultation, Clear to percussion, Normal respiratory effort, no accessory muscle use Cardiovascular: Heart regular in rate and rhythm, No murmurs, gallops, or rubs, No peripheral edema Abdominal: Soft, Nontender, no guarding, rebound or rigidity, Normoactive bowel sounds, No hepatomegaly, No splenomegaly, No palpable mass Skin: Normal temperature, tone, texture, turgor, no induration, No subcutaneous nodules, No rash, lesions, No ulcers Extremities: No digital cyanosis, No clubbing, Pedal pulses intact and symmetrical, Radial pulses intact and symmetrical, No calf tenderness Psychiatric: Alert and oriented to person, place and time, appropriate affect, intact judgement Neuro: Muscles Strength 5/5 in all 4 extremities, Sensation to light touch grossly present throughout, Cranial nerves II-XII grossly intact, no focal sensory deficits Results CBC & Chem 7: 12/09/19 14:08 12/09/19 14:08 Labs: Abnormal Lab Results - Last 24 Hours (Table) 12/09/19 12/09/19 Range/Units 14:08 14:08 Hct 47.3 H (34.0-46.0) % BUN 24 H (7-17) mg/dL Glucose 105 H (74-99) mg/dL TSH 0.134 L (0.465-4.680) mIU/L Assessment and Plan Plan: Blurred vision, slurred speech, right-sided headaches Symptoms could be related to her chronic migraine, rule out TIA/stroke MRI brain Carotid Doppler Echo Monitor on telemetry Palpitations Rule out arrhythmias Monitor in telemetry Chronic History of carotid stenosis Hyperlipidemia, Hypertension L4-L5 BULGING DISC CHEMICAL INDUCED ASTHMA All stable Resume meds She'll be admitted to observation, Expected length of stay less than 2 midnights
[2019-12-09] MEDS ORDERED: INSULIN ASPART (NovoLOG) 100 UNIT/ML VIAL SQ SCH (17:30)
--- NOTE | 2019-12-09 18:34 | MR ---
EXAMINATION TYPE: MR brain wo con DATE OF EXAM: 12/09/2019 COMPARISON: 01/12/2013 HISTORY: Dizziness. Headache. Multiplanar multiecho imaging of the brain was performed without contrast. There is cerebral cortical atrophy. There is no mass effect nor midline shift. There is no sign of in tracranial hemorrhage. Corpus callosum appears intact. Brainstem is intact. Diffusion images show no sign of acute cortical infarct. There are few scattered white matter high signal foci that measure up to 4 mm in both cerebral hemispheres. Total number is less than 10. Sella turcica appears normal. IMPRESSION: Mild atrophy. There are a few scattered relatively small white matter high signal foci which are nons pecific. No significant change compared to old exam. No acute intracranial abnormality.
[2019-12-09] MEDS ORDERED: FAMOTIDINE 20 MG TAB PO SCH (21:00)
[2019-12-09] MEDS ORDERED: NITROGLYCERIN OINT 1 INCH/GM PACKET TOPICAL SCH (21:00)
[2019-12-09] MEDS ORDERED: ASPIRIN 81 MG PO SCH (21:00)
[2019-12-10] MEDS ORDERED: FUROSEMIDE 20 MG TAB PO SCH (09:00)
[2019-12-10] MEDS ORDERED: metFORMIN 500 MG TAB PO SCH (09:00)
[2019-12-10] MEDS ORDERED: ASPIRIN 325 MG TAB PO SCH (09:00)
[2019-12-10] MEDS ORDERED: EZETIMIBE 10 MG TAB PO SCH (09:00)
[2019-12-10] MEDS ORDERED: NIFEdipine XL 30 MG TAB.ER.24 PO SCH (09:00)
--- NOTE | 2019-12-11 19:34 | P.PN ---
Progress Note - Text Progress Note Date: 12/11/19 Of note patient left AMA from the emergency department.
== END 2019-12-09 19:43 | disposition home or self-care (01) ==
LOC: EC 13:25 → UNDOADMOB 16:19 → 1SOBS 16:19 → EC 19:43
DX: R42 Dizziness and giddiness (principal); R07.89 Other chest pain; R00.1 Bradycardia, unspecified; I44.7 Left bundle-branch block, unspecified; H53.8 Other visual disturbances; R00.2 Palpitations; E78.5 Hyperlipidemia, unspecified; I10 Essential (primary) hypertension; Z95.818 Presence of other cardiac implants and grafts; Z96.89 Presence of other specified functional implants; Z87.891 Personal history of nicotine dependence; Z82.49 Family history of ischemic heart disease and other diseases of the circulatory system; Z79.82 Long term (current) use of aspirin; Z79.84 Long term (current) use of oral hypoglycemic drugs; Z79.890 Hormone replacement therapy; Z79.899 Other long term (current) drug therapy; Z91.048 Other nonmedicinal substance allergy status; Z88.7 Allergy status to serum and vaccine; Z91.041 Radiographic dye allergy status; Z88.5 Allergy status to narcotic agent; Z88.1 Allergy status to other antibiotic agents
CPT/HCPCS: 36415; 70551; 71046; 80053; 83735; 84439; 84443; 84484; 85025; 85610; 85730; 93005; 96360; 99285

== ENCOUNTER 2020-01-05 15:20 | Emergency (ER) | payer MEDICARE ==
--- NOTE | 2020-01-05 15:41 | ED ---
General Adult HPI - General Chief complaint: Fall Stated complaint: Fall Time Seen by Provider: 01/05/20 15:40 Source: patient, family, EMS Mode of arrival: EMS Limitations: no limitations - History of Present Illness Initial comments: Patient presents the ED by ambulance for evaluation with her at bedside. Patient was placed in a c-collar by EMS. Patient reports that she went downstairs in her basement to put in a load of laundry this afternoon when she "turned my ankle", causing her to fall down. Patient states that she had a brief episode of LOC after falling. Patient states that she is unsure if she sustained a head injury. Patient is currently complaining of having neck pain, upper back pain and lower back pain. Patient states that she was able to get herself back up the stairs when she regained consciousness. Patient's states that he left her for about 1.5-2 hours this afternoon, and when he returned, he found her on the floor. He states that after the patient told him what had happened, he called for an ambulance. Patient denies any other injury or site of pain, fever or chills, cough or cold symptoms, dysuria or urinary symptoms, headache, focal numbness/weakness/neuro deficit, visual changes, speech difficulty, chest pain, dyspnea, palpitations, abdominal pain, nausea/vomiting/diarrhea, bloody or melanotic stool, or any other symptoms or complaints. Patient states that she is unsure of her last tetanus shot. - Related Data Home Medications Medication Instructions Recorded Confirmed Albuterol Sulfate [Proventil Hfa] 2 puff INHALATION RT-QID PRN 02/17/14 12/09/19 Ezetimibe [Zetia] 10 mg PO DAILY 02/17/14 12/09/19 Famotidine [Pepcid] 40 mg PO BID 02/17/14 12/09/19 NIFEdipine XL [Procardia XL] 30 mg PO DAILY 02/17/14 12/09/19 Potassium Chloride 20 meq PO BID 02/17/14 12/09/19 Aspirin 162 mg PO HS 07/30/15 12/09/19 Cholecalciferol [Vitamin D3 (25 2,000 unit PO DAILY 07/30/15 12/09/19 Mcg = 1000 Iu)] Multivit-Min/FA/Lycopen/Lutein 1 tab PO DAILY 07/30/15 12/09/19 [Centrum Silver Tablet] metFORMIN HCL [Glucophage] 500 mg PO DAILY 07/30/15 12/09/19 Biotin 10,000 mcg PO DAILY 06/14/19 12/09/19 Estradiol Cream [Estrace Cream 1 gm VAGINAL MOFR 06/14/19 12/09/19 0.01%] Vitamin B Complex 1 tab PO DAILY 06/14/19 12/09/19 Albuterol Nebulized [Ventolin 2.5 mg INHALATION RT-QID PRN 12/09/19 12/09/19 Nebulized] Celecoxib [CeleBREX] 200 mg PO DAILY PRN 12/09/19 12/09/19 Clotrimazole/Betamethasone Dip 1 applic TOPICAL BID PRN 12/09/19 12/09/19 [Lotrisone Cream] Cranberry Fruit Extract [Cranberry] 500 mg PO BID 12/09/19 12/09/19 Diclofenac Sodium [Voltaren Gel] 2 - 4 gram TOPICAL QID PRN 12/09/19 12/09/19 Fluocinolone Acetonide Oil 5 drops BOTH EARS BID PRN 12/09/19 12/09/19 [Dermotic] Fluticasone/Salmeterol [Advair 1 puff INHALATION RT-BID 12/09/19 12/09/19 250-50 Diskus] Furosemide [Lasix] 20 mg PO DAILY 12/09/19 12/09/19 Hydrocortisone Cream 1 applic TOPICAL BID PRN 12/09/19 12/09/19 [Hydrocortisone 1% Cream] Ketoconazole 2% Cream [Nizoral 2%] 1 applic TOPICAL DAILY PRN 12/09/19 12/09/19 Lactobacillus Acidophilus 460 mg PO DAILY 12/09/19 12/09/19 [Florajen] Niacin 500 mg PO DAILY 12/09/19 12/09/19 Polyethylene Glycol 3350 [Miralax] 17 gm PO DAILY 12/09/19 12/09/19 Sennosides-Docusate Sodium 2 tab PO DAILY@1400 12/09/19 12/09/19 [Senokot-S] Vitamin E 400 unit PO DAILY 12/09/19 12/09/19 Allergies Allergy/AdvReac Type Severity Reaction Status Date / Time adhesive Allergy skin Verified 12/09/19 17:40 blisters Influenza Virus Vaccines Allergy Unknown Verified 12/09/19 17:40 Iodinated Contrast Media Allergy Anaphylaxis Verified 12/09/19 17:40 [Iodinated Contrast Media - IV Dye] morphine Allergy Unknown Verified 12/09/19 17:40 pneumococcal vaccine Allergy Unknown Verified 12/09/19 17:40 povidone-iodine Allergy Rash/Hives Verified 12/09/19 17:40 [From Betadine] soap [From Betadine] Allergy Rash/Hives Verified 12/09/19 17:40 codeine AdvReac Nausea & Verified 12/09/19 17:40 Vomiting hydromorphone HCl AdvReac Nausea & Verified 12/09/19 17:40 [From Dilaudid] Vomiting antibiotics AdvReac Unknown Uncoded 12/09/19 17:40 Review of Systems ROS Statement: Those systems with pertinent positive or pertinent negative responses have been documented in the HPI. ROS Other: All systems not noted in ROS Statement are negative. Past Medical History Past Medical History: Hyperlipidemia, Hypertension Additional Past Medical History / Comment(s): hypoglycemia, arrythmia hx., h- pylori hx., hx. 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 History of Any Multi-Drug Resistant Organisms: None Reported Past Surgical History: Appendectomy, Breast Surgery, Section, Cholecystectomy, Heart Catheterization, Hysterectomy, Joint Replacement Additional Past Surgical History / Comment(s): right hip surg(HAS SEVERE INFECTION-NOT MRSA-, AFTER FIRST SX) x 3 in last 7 mos.RT CAROTID ENDARTERECTOMY, X 5 BX LT, BREAST BENIGN, RT BREAST X2 LUMPS REMOVED(BENIGN), CATARACTS, BENIGN TUMOR REMOVED RT ELBOW AREA. Past Anesthesia/Blood Transfusion Reactions: Motion Sickness, Postoperative Nausea & Vomiting (PONV) Additional Past Anesthesia/Blood Transfusion Reaction / Comment(s): severe ponv Past Psychological History: No Psychological Hx Reported Smoking Status: Former smoker Past Alcohol Use History: None Reported Past Drug Use History: None Reported - Past Family History Mother Family Medical History: Congestive Heart Failure (CHF), COPD, Deep Vein Thrombosis (DVT), Pulmonary Embolus Sister(s) Family Medical History: Blood Disorder, Cancer Additional Family Medical History / Comment(s): pancreatic cancer,brain cancer. sister states has hemophilia Father Family Medical History: Renal Disease Additional Family Medical History / Comment(s): age 28 from aortic aneurysm General Exam Limitations: no limitations General appearance: alert, in no apparent distress Head exam: Present: atraumatic, normocephalic Eye exam: Present: normal appearance, PERRL, EOMI ENT exam: Present: mucous membranes moist, TM's normal bilaterally Neck exam: Present: other (C-collar is in place; trachea is in midline; diffuse posterior neck tenderness; no step-off deformity is appreciated) Respiratory exam: Present: normal lung sounds bilaterally. Absent: respiratory distress, wheezes, rales, rhonchi, chest wall tenderness Cardiovascular Exam: Present: regular rate, normal rhythm, normal heart sounds, other (Normal radial and dorsalis pedis pulses bilaterally) GI/Abdominal exam: Present: soft. Absent: distended, tenderness, guarding Extremities exam: Present: other (Pelvis is stable and nontender; patient has full range motion at bilateral hips; an abrasion is noted to the ventral surface of the patient's left first toe). Absent: tenderness, pedal edema, calf tenderness Back exam: Present: normal inspection, other (Patient has diffuse tenderness along her spinal column; no step-off deformity is appreciated) Neurological exam: Present: alert, oriented X3, CN II-XII intact. Absent: motor sensory deficit Psychiatric exam: Present: anxious Skin exam: Present: warm, dry, normal color Course Vital Signs 01/05/20 15:22 Temperature 98.2 F Pulse Rate 72 Respiratory 18 Rate Blood Pressure 217/91 O2 Sat by Pulse 96 Oximetry - Reevaluation(s) Reevaluation #1: 01/05/20 18:19 Patient denies development of any new pain or symptoms while in the ED. Patient remains alert and breathing comfortably. Patient and are aware of the patient's test results, and patient feels comfortable going home with her at this time. EKG Findings - EKG Comments: EKG Findings:: Normal sinus rhythm, ventricular rate of 65 bpm, no ectopy, normal [place] interval, normal QT interval, QRS duration of 148 ms, left bundle bra nch block, no significant change from 12/09/2019 EKG Medical Decision Making - Medical Decision Making Patient's labs are fairly unremarkable. Patient's imaging studies are only remarkable for a right L1 transverse process fracture. I suspect that the patient may have suffered a concussion. Patient and were counseled about vertebral transverse process fractures and concussions. Patient was clearly explained return and follow-up instructions. Patient was instructed to return to the ED should she develop new or worsening pain, chest pain, dyspnea, vomiting, feeling dizzy or faint, or new or worsening symptoms. She was instructed to avoid any contact activities, and to follow up closely with her primary care provider. She feels comfortable with this plan. - Lab Data Result diagrams: 01/05/20 15:20 01/05/20 15:20 Lab Results 01/05/20 01/05/20 01/05/20 Range/Units 15:20 15:20 15:20 WBC 9.9 (3.8-10.6) k/uL RBC 5.14 (3.80-5.40) m/uL Hgb 15.2 (11.4-16.0) gm/dL Hct 46.4 H (34.0-46.0) % MCV 90.4 (80.0-100.0) fL MCH 29.7 (25.0-35.0) pg MCHC 32.8 (31.0-37.0) g/dL RDW 13.2 (11.5-15.5) % Plt Count 369 (150-450) k/uL Neutrophils % 74 % Lymphocytes % 17 % Monocytes % 7 % Eosinophils % 0 % Basophils % 1 % Neutrophils # 7.4 (1.3-7.7) k/uL Lymphocytes # 1.7 (1.0-4.8) k/uL Monocytes # 0.7 (0-1.0) k/uL Eosinophils # 0.0 (0-0.7) k/uL Basophils # 0.1 (0-0.2) k/uL PT 9.6 (9.0-12.0) sec INR 0.9 (<1.2) APTT 22.3 (22.0-30.0) sec Sodium 136 L (137-145) mmol/L Potassium 4.1 (3.5-5.1) mmol/L Chloride 99 (98-107) mmol/L Carbon Dioxide 29 (22-30) mmol/L Anion Gap 8 mmol/L BUN 32 H (7-17) mg/dL Creatinine 0.77 (0.52-1.04) mg/dL Est GFR (CKD-EPI)AfAm 87 (>60 ml/min/1.73 sqM) Est GFR (CKD-EPI)NonAf 75 (>60 ml/min/1.73 sqM) Glucose 108 H (74-99) mg/dL POC Glucose (mg/dL) (75-99) mg/dL POC Glu Mica Builder ID Calcium 10.2 (8.4-10.2) mg/dL Total Bilirubin 0.5 (0.2-1.3) mg/dL AST 33 (14-36) U/L ALT 21 (4-34) U/L Alkaline Phosphatase 97 (38-126) U/L Troponin I (0.000-0.034) ng/mL Total Protein 7.6 (6.3-8.2) g/dL Albumin 4.4 (3.5-5.0) g/dL 01/05/20 01/05/20 Range/Units 15:20 18:14 WBC (3.8-10.6) k/uL RBC (3.80-5.40) m/uL Hgb (11.4-16.0) gm/dL Hct (34.0-46.0) % MCV (80.0-100.0) fL MCH (25.0-35.0) pg MCHC (31.0-37.0) g/dL RDW (11.5-15.5) % Plt Count (150-450) k/uL Neutrophils % % Lymphocytes % % Monocytes % % Eosinophils % % Basophils % % Neutrophils # (1.3-7.7) k/uL Lymphocytes # (1.0-4.8) k/uL Monocytes # (0-1.0) k/uL Eosinophils # (0-0.7) k/uL Basophils # (0-0.2) k/uL PT (9.0-12.0) sec INR (<1.2) APTT (22.0-30.0) sec Sodium (137-145) mmol/L Potassium (3.5-5.1) mmol/L Chloride (98-107) mmol/L Carbon Dioxide (22-30) mmol/L Anion Gap mmol/L BUN (7-17) mg/dL Creatinine (0.52-1.04) mg/dL Est GFR (CKD-EPI)AfAm (>60 ml/min/1.73 sqM) Est GFR (CKD-EPI)NonAf (>60 ml/min/1.73 sqM) Glucose (74-99) mg/dL POC Glucose (mg/dL) 81 (75-99) mg/dL POC Glu Mica Builder Ciel[place]oun Calcium (8.4-10.2) mg/dL Total Bilirubin (0.2-1.3) mg/dL AST (14-36) U/L ALT (4-34) U/L Alkaline Phosphatase (38-126) U/L Troponin I <0.012 (0.000-0.034) ng/mL Total Protein (6.3-8.2) g/dL Albumin (3.5-5.0) g/dL - Radiology Data Radiology results: report reviewed (Noncontrast head CT shows no acute intracranial abnormality; noncontrast cervical spine CT is negative for acute fracture or dislocation, but does show an incidental 1.2 cm left thyroid nodule; noncontrast CT thoracic/lumbar spine shows a nondisplaced transverse process fracture on the right of L1), image reviewed (Chest x-ray is negative) Disposition Clinical Impression: Fall, Neck pain, Back pain, Toe abrasion, Lumbar transverse process fracture Narrative: Suspected concussion Disposition: HOME SELF-CARE Condition: Stable Instructions (If sedation given, give patient instructions): Concussion (ED), Abrasion (ED), Back Pain (ED), Fall Prevention (ED), Neck Pain (ED) Additional Instructions: Return to the ER immediately should you develop new or worsening pain, chest pain, shortness of breath, feeling dizzy or faint, vomiting, or new or worsening symptoms. Follow up closely with your primary care provider. Is patient prescribed a controlled substance at d/c from ED?: No Referrals: None,Stated [REFERRING] - 1-2 days Time of Disposition: 18:21
[2020-01-05] MEDS ORDERED: MORPHINE SULFATE 4 MG/ML SYRINGE IV STA (15:50)
[2020-01-05] MEDS ORDERED: ONDANSETRON 4 MG/2 ML VIAL IVP STA (15:50)
[2020-01-05] MEDS ORDERED: DIPH,PERTUS(ACELL)TETVAC-LF 0.5 ML VIAL IM ONE (15:53)
[2020-01-05 16:19] LABS: Basophils # (A) 0.1 k/uL (0-0.2); Basophils % (A) 1 %; Eosinophils % (A) 0 %; HCT 46.4 % (34.0-46.0); HGB 15.2 gm/dL (11.4-16.0); Lymphocytes # (A) 1.7 k/uL (1.0-4.8); Lymphocytes % (A) 17 %; MCH 29.7 pg (25.0-35.0); MCHC 32.8 g/dL (31.0-37.0); MCV 90.4 fL (80.0-100.0); Mean Platelet Volume 7.2; Monocytes # (A) 0.7 k/uL (0-1.0); Monocytes % (A) 7 %; Neutrophils # (A) 7.4 k/uL (1.3-7.7); Neutrophils % (A) 74 %; Platelet Count 369 k/uL (150-450); RBC 5.14 m/uL (3.80-5.40); RDW 13.2 % (11.5-15.5); WBC 9.9 k/uL (3.8-10.6)
[2020-01-05 16:37] LABS: Albumin 4.4 g/dL (3.5-5.0); Calcium 10.2 mg/dL (8.4-10.2); Potassium 4.1 mmol/L (3.5-5.1); Total Bilirubin 0.5 mg/dL (0.2-1.3); Total Protein 7.6 g/dL (6.3-8.2)
[2020-01-05 16:38] LABS: INR 0.9 (<1.2); Partial Thromboplastin Time 22.3 sec (22.0-30.0); Prothrombin Time 9.6 sec (9.0-12.0)
--- NOTE | 2020-01-05 17:12 | CT ---
EXAMINATION TYPE: CT brain cspine wo con DATE OF EXAM: 01/05/2020 COMPARISON: 08/12/2016 HISTORY: fall with subsequent head and neck pain CT DLP: 1401.8 mGycm. Automated Exposure Control for Dose Reduction was Utilized. TECHNIQUE: CT scan of the head and cervical spine are performed without contrast. FINDINGS: There is no acute intracranial hemorrhage, mass effect, or midline shift identified. The ventricles and sulci are symmetrically prominent compatible with age-related volume loss. The globe s are intact and the visualized sinuses are clear. Cervical spine is visualized in its entirety from C1 through upper thoracic levels and demonstrates s atisfactory alignment without evidence of acute fracture or dislocation. Prevertebral soft tissue ap pears within normal limits. Mild multilevel degenerative change of the spine with small posterior dis c osteophyte complex at C5-C6. Straightening of usual cervical lordosis less likely positional. The C 1-C2 articulation is unremarkable. Atherosclerosis noted of the left carotid artery. Incidentally not ed indeterminate 1.2 cm left thyroid nodule and overall heterogeneity of the enlarged thyroid gland. Mild atelectasis in the right lung apex. IMPRESSION: 1. There is no acute fracture or dislocation evident in the cervical spine. 2. No acute intracranial hemorrhage, mass effect, or midline shift is seen. 3. Incidentally noted 1.2 cm left thyroid nodule. Nonemergent follow-up thyroid ultrasound is recomme nded for further characterization. Thyroid gland is overall heterogenous and enlarged.
--- NOTE | 2020-01-05 17:21 | CT ---
EXAMINATION TYPE: CT thor lumbar spine wo con DATE OF EXAM: 01/05/2020 COMPARISON: CT abdomen pelvis dated 06/25/2018 HISTORY: fall with subsequent back pain CT DLP: 1186 mGycm Automated exposure control for dose reduction was used. TECHNIQUE: Standard unenhanced CT was performed of the thoracolumbar spine. FINDINGS: No compression deformity is seen of the thoracolumbar spine. Overall mild multilevel degenerative samra nge. There is a lucent lesion seen of the T2 vertebral body measuring 1.3 cm in sagittal image 37. Mi nimal multilevel facet arthropathy and small anterior osteophytes. Few levels of vacuum disc disease. Subtle fracture deformity is seen of the transverse process of L1 on the right on image 109. This is not well-corticated and therefore could be acute. Correlate for point tenderness. Visualized portions of the lungs are well aerated. The pulmonary artery is enlarged measuring 3.4 cm suggesting underlying pulmonary arterial hypertension. Coronary calcifications and cardiomegaly are p artially visualized. Lobular contour of the left kidney is seen with fluid attenuated 1.6 cm left satya al cyst. There is blunting of the left major calyces and engorgement of the renal pelvis. Findings ar e similar on the right. Mild bilateral hydronephrosis of indeterminate etiology. Right inferior pole cortical renal cyst measures 1.1 cm. Extensive atherosclerosis of the abdominal aorta and its branche s. Gallbladder is surgically absent. Lucency in the left hemipelvis on the last image in the sacrum o n image 169 could relate to volume averaging or lytic lesion. IMPRESSION: 1. NONDISPLACED TRANSVERSE PROCESS FRACTURE ON THE RIGHT OF L1 WITHOUT CALLUS FORMATION. CORRELATE FO R POINT TENDERNESS TO DETERMINE ACUITY 2. NO ACUTE COMPRESSION DEFORMITY OF THE THORACOLUMBAR SPINE. 3. LUCENT LESION OF L2 IS STABLE DATING BACK TO 2018 AND LUCENT LESION OF THE LEFT HEMISACRUM IS ALSO RELATIVELY STABLE FROM 2018 ALTHOUGH ONLY PARTIALLY VISUALIZED ON TODAY'S EXAM.
--- NOTE | 2020-01-05 17:54 | XR ---
EXAMINATION TYPE: XR chest 2V DATE OF EXAM: 01/05/2020 COMPARISON: 12/09/2019 HISTORY: Altered mental status after fall TECHNIQUE: Frontal and lateral views of the chest are obtained. FINDINGS: There is no focal air space opacity, pleural effusion, or pneumothorax seen. Stable calci fied left basilar granuloma. The cardiac silhouette size is within normal limits. The osseous struc tures are intact. IMPRESSION: No acute cardiopulmonary process.
[2020-01-05 18:15] LABS: Glucose,Whole Blood 81 mg/dL (75-99)
[2020-01-05 18:44] VITALS: BP 158/70; PULSE 70; RESP 16; TEMP 98.4
== END 2020-01-05 18:43 | disposition home or self-care (01) ==
LOC: EC 15:20
DX: S32.019A Unspecified fracture of first lumbar vertebra, initial encounter for closed fracture (principal); S90.412A Abrasion, left great toe, initial encounter; M54.2 Cervicalgia; M54.6 Pain in thoracic spine; E78.5 Hyperlipidemia, unspecified; I10 Essential (primary) hypertension; J45.998 Other asthma; Z87.891 Personal history of nicotine dependence; Z88.1 Allergy status to other antibiotic agents; Z88.5 Allergy status to narcotic agent; Z88.7 Allergy status to serum and vaccine; Z91.041 Radiographic dye allergy status; Z91.048 Other nonmedicinal substance allergy status; Z79.51 Long term (current) use of inhaled steroids; Z79.82 Long term (current) use of aspirin; Z79.84 Long term (current) use of oral hypoglycemic drugs; Z79.899 Other long term (current) drug therapy; Z86.39 Personal history of other endocrine, nutritional and metabolic disease; W19.XXXA Unspecified fall, initial encounter; Y93.89 Activity, other specified; Y92.000 Kitchen of unspecified non-institutional (private) residence as the place of occurrence of the external cause; Z53.20 Procedure and treatment not carried out because of patient's decision for unspecified reasons
CPT/HCPCS: 36415; 80053; 84484; 85025; 85610; 85730; 71046; 72128; 72125; 72131; 70450; 99284; 96374; J2405

== ENCOUNTER → 2020-03-20 | Outpatient (CLI) | payer MEDICARE ==
--- NOTE | 2020-03-20 14:02 | US ---
EXAMINATION TYPE: US thyroid st tissue head/neck DATE OF EXAM: 03/20/2020 COMPARISON: NONE CLINICAL HISTORY: E04.1 nontoxic single thyroid nodule. GLAND SIZE: Right Lobe: 4.6 x 1.8 x 1.4 cm Overall Parenchyma: heterogenous Left Lobe: 4.7 x 1.8 x 1.5 cm Overall Parenchyma: heterogeneous Isthmus Thickness: 0.5 cm NODULES RIGHT: # of nodules measured on right: Innumerable subcentimeter nodules visualized, largest two me asurin. 1.8 X 1.0 x 1.5 cm hypoechoic mixed nodule at the lower pole with well-defined margins; . This nodule is wider than tall and shows intranodular vascularity. Prior size: No previous 2. 1.3 X 0.9 x 1.1 cm hypoechoic cystic nodule at the upper pole with well-defined margins; . This nodule is wider than tall and shows no intranodular vascularity. Prior size: No previous LEFT: # of nodules measured on left: Innumerable subcentimeter nodules visualized, largest two me asurin. 1.6 X 1.3 x 1.4 cm hypoechoic mixed nodule at the lower pole with well-defined margins; . This nodule is wider than tall and shows intranodular vascularity. Prior size: No previous 2. 1.1 X 0.9 x 1.1 cm hypoechoic cystic nodule at the upper pole with well-defined margins; . This nodule is wider than tall and shows no intranodular vascularity. Prior size: No previous ISTHMUS: # of nodules measured in the isthmus: 0 Bilateral neck scanned, no evidence of lymphadenopathy. Innumerable bilateral thyroid nodules IMPRESSION: 1. Numerous bilateral thyroid nodules compatible with multinodular thyroid. Largest nodules measure 1 .8 cm on the right and 1.67 m on the left. 2. Correlate for thyroiditis.
== END | disposition home or self-care (01) ==
LOC: RADUSWWP 13:22
PROVIDERS: ATTEND Internal Medicine
DX: E04.2 Nontoxic multinodular goiter (principal)
CPT/HCPCS: 76536

== ENCOUNTER → 2020-05-12 | Outpatient (CLI) | payer MEDICARE ==
--- NOTE | 2020-05-12 11:08 | MM ---
Reason for exam: additional evaluation requested from prior study. Last mammogram was performed 1 year and 3 months ago. History: Patient is postmenopausal. Family history of breast cancer in sister at age 50. Benign US LT VAD breast biopsy of the left breast, May 16, 2012. Benign core biopsy of the left breast, 2009. 2 excisional biopsies of the left breast. Took hormonal contraceptives for 5 years. Took estrogen for 31 years. Physical Findings: Nurse did not find any significant physical abnormalities on exam. MG 3D Diag Mammo W/Cad ANGELINE Bilateral CC and MLO view(s) were taken. XCCL view(s) were taken of the left breast. Prior study comparison: January 30, 2019, bilateral MG 3d diag mammo w/cad ANGELINE. November 30, 2017, bilateral MG 3d diag mammo w/cad ANGELINE. The breast tissue is almost entirely fat. Stable benign calcifications. Previous mammotome biopsy in the left breast. There is no discrete abnormality. No significant new findings when compared with previous films. These results were verbally communicated with the patient and result sheet given to the patient on 05/12/20. ASSESSMENT: Benign, BI-RAD 2 RECOMMENDATION: Routine screening mammogram of both breasts in 1 year. Manage patient on a clinical basis.
== END | disposition home or self-care (01) ==
LOC: RADMAMWWP 10:21
PROVIDERS: ATTEND Internal Medicine
DX: N64.4 Mastodynia (principal)
CPT/HCPCS: 77066; G0279; 77062

== ENCOUNTER 2020-09-06 22:59 | Inpatient (IN) | payer MEDICARE ==
[2020-09-06] MEDS ORDERED: SODIUM CHLORIDE 0.9% 500 ML 500 ML IV STA (23:15)
[2020-09-06] MEDS ORDERED: fentaNYL (PF) 50 MCG/ML 2 ML AMP IVP STA (23:28)
[2020-09-06] MEDS ORDERED: ONDANSETRON 4 MG/2 ML VIAL IVP STA (23:29)
[2020-09-06 23:53] LABS: Basophils # (A) 0.1 k/uL (0-0.2); Basophils % (A) 2 %; Eosinophils # (A) 0.1 k/uL (0-0.7); Eosinophils % (A) 2 %; HCT 47.4 % (34.0-46.0); HGB 15.9 gm/dL (11.4-16.0); Lymphocytes # (A) 1.5 k/uL (1.0-4.8); Lymphocytes % (A) 29 %; MCH 30.5 pg (25.0-35.0); MCHC 33.5 g/dL (31.0-37.0); MCV 90.9 fL (80.0-100.0); Mean Platelet Volume 6.8; Monocytes # (A) 0.3 k/uL (0-1.0); Monocytes % (A) 6 %; Neutrophils # (A) 2.9 k/uL (1.3-7.7); Neutrophils % (A) 57 %; Platelet Count 382 k/uL (150-450); RBC 5.22 m/uL (3.80-5.40); RDW 13.9 % (11.5-15.5); WBC 5.1 k/uL (3.8-10.6)
[2020-09-07 00:07] LABS: INR 0.9 (<1.2); Prothrombin Time 9.6 sec (9.0-12.0)
--- NOTE | 2020-09-07 00:14 | CT ---
EXAMINATION TYPE: CT abdomen pelvis wo con DATE OF EXAM: 09/07/2020 COMPARISON: 06/25/2018 HISTORY: Abd Pain CT DLP: 1317.80 mGycm Automated exposure control for dose reduction was used. Lung bases are clear. There is no pleural effusion. Heart size is normal. There is no pericardial eff usion. There are clips from cholecystectomy. Liver shows no focal defect. Spleen is intact. The stomach is i ntact. There is no evidence of pancreatic mass. The bile ducts are not dilated. Common bile duct is p rominent and measures 10 mm. There is no adrenal mass. Kidneys show normal size. There is no hydronephrosis. Ureters are not dilat ed. There is 1.5 cm cortical cyst anterior left kidney. There is no retroperitoneal adenopathy. Bladd er distends smoothly. There is no inguinal hernia. There is no free fluid in the pelvis. There is rig ht hip prosthesis. There is no evidence of pelvic mass. There is no evidence of thickened appendix. There is fat stranding and wall thickening involving a lo op of mid small bowel. There are some extraluminal air bubbles adjacent to the small bowel. There are clips apparently from sigmoid colon resection. I see no evidence of a bowel obstruction. The lumbar vertebra have normal alignment. There is no compression fracture. Bony pelvis is intact. IMPRESSION: Inflammatory changes with wall thickening and localized perforation of small bowel with mesenteric ai r bubbles in the mid abdomen. There are a few small bowel diverticula. This could relate to diverticulitis or nonspecific enteritis. There are a few large bowel diverticula without diverticulitis. Abnormalities appear new compared to old exam.
[2020-09-07 00:15] LABS: Partial Thromboplastin Time 19.7 sec (22.0-30.0)
[2020-09-07] MEDS ORDERED: metroNIDAZOLE-NS PMX 500 MG in SALINE 1 100ML.BAG IVPB STA (00:24)
[2020-09-07] MEDS ORDERED: cefTRIAXone IN SWFI 1,000 MG/10 ML SYRINGE IVP STA (00:24)
[2020-09-07 00:34] LABS: Calcium 10.2 mg/dL (8.4-10.2); Total Bilirubin 0.6 mg/dL (0.2-1.3)
--- NOTE | 2020-09-07 00:48 | ED ---
Abdominal Pain HPI - General Chief Complaint: Abdominal Pain Stated Complaint: LAY Time Seen by Provider: 09/06/20 23:00 Source: patient Mode of arrival: wheelchair Limitations: no limitations - History of Present Illness Initial Comments: Patient is a 75-year-old female past medical history asthma, hypertension, hyperlipidemia and diverticulitis who presents emergency room with reported epigastric abdominal pain. States that the pain started several days ago. Last night it got worse when she attempted to go to sleep. States that she woke up screaming in pain. Reports that the pain radiates up to her chest and down to her lower abdomen. No history of similar in the past. He does not take any medications for her symptoms. Admits to nausea with bilious vomiting. No fevers or chills. Denies hematemesis. Reports to constipation. No diarrhea or melenic stools. Admits to increased frequency of urination. Patient has had cholecystectomy, hysterectomy and appendectomy. Also reports to bowel resection, cystocele and rectocele repair. No other alleviating, precipitating or modifying factors - Related Data Home Medications Medication Instructions Recorded Confirmed Albuterol Sulfate [Proventil Hfa] 2 puff INHALATION RT-QID PRN 02/17/14 09/07/20 Ezetimibe [Zetia] 10 mg PO DAILY 02/17/14 09/07/20 Famotidine [Pepcid] 40 mg PO BID 02/17/14 09/07/20 NIFEdipine XL [Procardia XL] 30 mg PO DAILY 02/17/14 09/07/20 Potassium Chloride 20 meq PO BID 02/17/14 09/07/20 Aspirin 162 mg PO HS 07/30/15 09/07/20 Cholecalciferol [Vitamin D3 (25 2,000 unit PO DAILY 07/30/15 09/07/20 Mcg = 1000 Iu)] Multivit-Min/FA/Lycopen/Lutein 1 tab PO DAILY 07/30/15 09/07/20 [Centrum Silver Tablet] Biotin 10,000 mcg PO DAILY 06/14/19 09/07/20 Vitamin B Complex 1 tab PO DAILY 06/14/19 09/07/20 Albuterol Nebulized [Ventolin 2.5 mg INHALATION RT-QID PRN 12/09/19 09/07/20 Nebulized] Celecoxib [CeleBREX] 200 mg PO DAILY PRN 12/09/19 09/07/20 Clotrimazole/Betamethasone Dip 1 applic TOPICAL BID PRN 12/09/19 09/07/20 [Lotrisone Cream] Cranberry Fruit Extract [Cranberry] 500 mg PO BID 12/09/19 09/07/20 Diclofenac Sodium [Voltaren Gel] 2 - 4 gram TOPICAL QID PRN 12/09/19 09/07/20 Fluocinolone Acetonide Oil 5 drops BOTH EARS BID PRN 12/09/19 09/07/20 [Dermotic] Fluticasone/Salmeterol [Advair 1 puff INHALATION RT-BID 12/09/19 09/07/20 250-50 Diskus] Furosemide [Lasix] 20 mg PO DAILY 12/09/19 09/07/20 Hydrocortisone Cream 1 applic TOPICAL BID PRN 12/09/19 09/07/20 [Hydrocortisone 1% Cream] Ketoconazole 2% Cream [Nizoral 2%] 1 applic TOPICAL DAILY PRN 12/09/19 09/07/20 Lactobacillus Acidophilus 460 mg PO DAILY 12/09/19 09/07/20 [Florajen] Niacin 500 mg PO DAILY 12/09/19 09/07/20 Sennosides-Docusate Sodium 2 tab PO DAILY@1400 12/09/19 09/07/20 [Senokot-S] Vitamin E 400 unit PO DAILY 12/09/19 09/07/20 polyethylene glycoL 3350 [Miralax] 17 gm PO DAILY 12/09/19 09/07/20 Estrogens, Conjugated Cream 0.5 applicator VAGINAL MOWEFR 09/07/20 09/07/20 [Premarin Cream] Allergies Allergy/AdvReac Type Severity Reaction Status Date / Time adhesive Allergy skin Verified 09/07/20 06:40 blisters Influenza Virus Vaccines Allergy Unknown Verified 09/07/20 06:40 Iodinated Contrast Media Allergy Anaphylaxis Verified 09/07/20 06:40 [Iodinated Contrast Media - IV Dye] morphine Allergy Unknown Verified 09/07/20 06:40 pneumococcal vaccine Allergy Unknown Verified 09/07/20 06:40 povidone-iodine Allergy Rash/Hives Verified 09/07/20 06:40 [From Betadine] soap [From Betadine] Allergy Rash/Hives Verified 09/07/20 06:40 codeine AdvReac Nausea & Verified 09/07/20 06:40 Vomiting hydromorphone HCl AdvReac Nausea & Verified 09/07/20 06:40 [From Dilaudid] Vomiting antibiotics AdvReac Unknown Uncoded 09/07/20 06:40 Review of Systems ROS Statement: Those systems with pertinent positive or pertinent negative responses have been documented in the HPI. ROS Other: All systems not noted in ROS Statement are negative. Past Medical History Past Medical History: Asthma, Hyperlipidemia, Hypertension Additional Past Medical History / Comment(s): hypoglycemia, arrythmia hx., h- pylori hx., hx. 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 History of Any Multi-Drug Resistant Organisms: None Reported Past Surgical History: Appendectomy, Breast Surgery, Section, Cholecystectomy, Heart Catheterization, Hysterectomy, Joint Replacement Additional Past Surgical History / Comment(s): right hip surg(HAS SEVERE INFECTION-NOT MRSA-, AFTER FIRST SX) x 3 in last 7 mos.RT CAROTID ENDARTERECTOMY, X 5 BX LT, BREAST BENIGN, RT BREAST X2 LUMPS REMOVED(BENIGN), CATARACTS, BENIGN TUMOR REMOVED RT ELBOW AREA. Past Anesthesia/Blood Transfusion Reactions: Motion Sickness, Postoperative Nausea & Vomiting (PONV) Additional Past Anesthesia/Blood Transfusion Reaction / Comment(s): severe ponv Past Psychological History: No Psychological Hx Reported Smoking Status: Never smoker Past Alcohol Use History: None Reported Past Drug Use History: None Reported - Past Family History Mother Family Medical History: Congestive Heart Failure (CHF), COPD, Deep Vein Thrombo sis (DVT), Pulmonary Embolus Sister(s) Family Medical History: Blood Disorder, Cancer Additional Family Medical History / Comment(s): pancreatic cancer,brain cancer. sister states has hemophilia Father Family Medical History: Renal Disease Additional Family Medical History / Comment(s): age 28 from aortic aneurysm General Exam Limitations: no limitations General appearance: alert, in distress Head exam: Present: atraumatic, normocephalic, normal inspection Eye exam: Present: normal appearance, PERRL, EOMI. Absent: scleral icterus, conjunctival injection, periorbital swelling Neck exam: Present: normal inspection. Absent: tenderness, meningismus, lymphadenopathy Respiratory exam: Present: normal lung sounds bilaterally. Absent: respiratory distress, wheezes, rales, rhonchi, stridor Cardiovascular Exam: Present: regular rate, normal rhythm, normal heart sounds. Absent: systolic murmur, diastolic murmur, rubs, gallop, clicks GI/Abdominal exam: Present: distended, tenderness (epigastric) Extremities exam: Present: normal inspection, full ROM, normal capillary refill. Absent: tenderness, pedal edema, joint swelling, calf tenderness Back exam: Present: normal inspection Psychiatric exam: Present: anxious Skin exam: Present: warm Course Vital Signs 09/06/20 09/07/20 09/07/20 23:00 00:00 01:00 Temperature 98.2 F Pulse Rate 93 75 80 Respiratory 22 16 18 Rate Blood Pressure 223/96 179/83 O2 Sat by Pulse 99 97 96 Oximetry 09/07/20 09/07/20 03:35 07:00 Temperature 99.4 F 100.7 F H Pulse Rate 89 102 H Respiratory 16 16 Rate Blood Pressure 156/76 131/54 O2 Sat by Pulse 96 95 Oximetry - Reevaluation(s) Reevaluation #1: Paged Dr. Ledesma 09/07/20 01:34 Reevaluation #2: Spoke with Dr. Ledesma who agreed to admit the patient - antibiotics, pain meds, antiemetics 09/07/20 01:43 Medical Decision Making - Medical Decision Making Upon arrival the patient is placed into room 3. A thorough history and physical exam was performed. Patient does have multiple drug ALLERGIES. Peripheral IV is established and she is given 100 g of fentanyl as well as 4 mg of Zofran. Laboratory studies were conducted and the patient went or a CT for abdomen and pelvis without contrast that she states that if she does have contrast she will have a cardiac arrest. Laboratory studies are unremarkable. Patient has yet to provide a urine sample. CT of the patient's abdomen and pelvis does demonstrate inflammatory changes with wall thickening and localized perforation of small bowel with mesenteric air bubbles in the mid abdomen. The results are discussed with the patient. I also discussed them with Dr. Ledesma. He recommends antibiotics, pain control and antiemetics. Patient will be admitted to his service and he will evaluate the patient. This is discussed with the patient. She is made nothing by mouth and she is currently awaiting evaluation by Dr. Ledesma - Lab Data Result diagrams: 09/11/20 08:44 09/11/20 08:44 Lab Results 09/06/20 09/06/20 09/06/20 Range/Units 23:33 23:33 23:33 WBC 5.1 (3.8-10.6) k/uL RBC 5.22 (3.80-5.40) m/uL Hgb 15.9 (11.4-16.0) gm/dL Hct 47.4 H (34.0-46.0) % MCV 90.9 (80.0-100.0) fL MCH 30.5 (25.0-35.0) pg MCHC 33.5 (31.0-37.0) g/dL RDW 13.9 (11.5-15.5) % Plt Count 382 (150-450) k/uL MPV 6.8 Neutrophils % 57 % Lymphocytes % 29 % Monocytes % 6 % Eosinophils % 2 % Basophils % 2 % Neutrophils # 2.9 (1.3-7.7) k/uL Lymphocytes # 1.5 (1.0-4.8) k/uL Monocytes # 0.3 (0-1.0) k/uL Eosinophils # 0.1 (0-0.7) k/uL Basophils # 0.1 (0-0.2) k/uL PT 9.6 (9.0-12.0) sec INR 0.9 (<1.2) APTT 19.7 L (22.0-30.0) sec Sodium 134 L (137-145) mmol/L Potassium 4.8 (3.5-5.1) mmol/L Chloride 102 (98-107) mmol/L Carbon Dioxide 28 (22-30) mmol/L Anion Gap 4 mmol/L BUN 26 H (7-17) mg/dL Creatinine 0.85 (0.52-1.04) mg/dL Est GFR (CKD-EPI)AfAm 77 (>60 ml/min/1.73 sqM) Est GFR (CKD-EPI)NonAf 67 (>60 ml/min/1.73 sqM) Glucose 115 H (74-99) mg/dL Plasma Lactic Acid Mark (0.7-2.0) mmol/L Calcium 10.2 (8.4-10.2) mg/dL Total Bilirubin 0.6 (0.2-1.3) mg/dL AST 53 H (14-36) U/L ALT 24 (4-34) U/L Alkaline Phosphatase 65 (38-126) U/L Troponin I (0.000-0.034) ng/mL Total Protein 7.1 (6.3-8.2) g/dL Albumin 3.8 (3.5-5.0) g/dL Lipase 223 (23-300) U/L Urine Color Urine Appearance (Clear) Urine pH (5.0-8.0) Ur Specific [place] (1.001-1.035) Urine Protein (Negative) Urine Glucose (UA) (Negative) Urine Ketones (Negative) Urine Blood (Negative) Urine Nitrite (Negative) Urine Bilirubin (Negative) Urine Urobilinogen (<2.0) mg/dL Ur Leukocyte Esterase (Negative) 09/06/20 09/06/20 09/06/20 Range/Units 23:33 23:33 23:40 WBC (3.8-10.6) k/uL RBC (3.80-5.40) m/uL Hgb (11.4-16.0) gm/dL Hct (34.0-46.0) % MCV (80.0-100.0) fL MCH (25.0-35.0) pg MCHC (31.0-37.0) g/dL RDW (11.5-15.5) % Plt Count (150-450) k/uL MPV Neutrophils % % Lymphocytes % % Monocytes % % Eosinophils % % Basophils % % Neutrophils # (1.3-7.7) k/uL Lymphocytes # (1.0-4.8) k/uL Monocytes # (0-1.0) k/uL Eosinophils # (0-0.7) k/uL Basophils # (0-0.2) k/uL PT (9.0-12.0) sec INR (<1.2) APTT (22.0-30.0) sec Sodium (137-145) mmol/L Potassium (3.5-5.1) mmol/L Chloride (98-107) mmol/L Carbon Dioxide (22-30) mmol/L Anion Gap mmol/L BUN (7-17) mg/dL Creatinine (0.52-1.04) mg/dL Est GFR (CKD-EPI)AfAm (>60 ml/min/1.73 sqM) Est GFR (CKD-EPI)NonAf (>60 ml/min/1.73 sqM) Glucose (74-99) mg/dL Plasma Lactic Acid Mark 1.1 (0.7-2.0) mmol/L Calcium (8.4-10.2) mg/dL Total Bilirubin (0.2-1.3) mg/dL AST (14-36) U/L ALT (4-34) U/L Alkaline Phosphatase (38-126) U/L Troponin I <0.012 (0.000-0.034) ng/mL Total Protein (6.3-8.2) g/dL Albumin (3.5-5.0) g/dL Lipase (23-300) U/L Urine Color Light Yellow Urine Appearance Clear (Clear) Urine pH 6.5 (5.0-8.0) Ur Specific [place] 1.007 (1.001-1.035) Urine Protein Negative (Negative) Urine Glucose (UA) Negative (Negative) Urine Ketones 1+ H (Negative) Urine Blood Negative (Negative) Urine Nitrite Negative (Negative) Urine Bilirubin Negative (Negative) Urine Urobilinogen <2.0 (<2.0) mg/dL Ur Leukocyte Esterase Negative (Negative) - EKG Data EKG Comments: EKG demonstrates a sinus rhythm with occasional PVCs. Rate of 82. ID interval 144. QRS 140. QTC of 436. Left bundle branch block present which was present on patient's previous EKG. Negative for sgarbossa criteria Disposition Clinical Impression: Abdominal pain, Perforated small intestine, Diverticulitis Disposition: ADMITTED IP TO THIS [facility] Condition: Serious Is patient prescribed a controlled substance at d/c from ED?: No Decision to Admit Reason: Admit from EC Decision Date: 09/07/20 Decision Time: 01:44
[2020-09-07] MEDS ORDERED: METOCLOPRAMIDE 5 MG/ML 2 ML VIAL IVP STA (00:51)
[2020-09-07] MEDS ORDERED: diphenhydrAMINE 50 MG/ML 1 ML VIAL IVP STA (00:51)
[2020-09-07 01:18] LABS: Albumin 3.8 g/dL (3.5-5.0); Potassium 4.8 mmol/L (3.5-5.1); Total Protein 7.1 g/dL (6.3-8.2)
[2020-09-07] MEDS ORDERED: NALOXONE 0.4 MG/ML 1 ML VIAL IV PRN ×2 (01:46→14:20)
[2020-09-07] MEDS: SODIUM CHLORIDE 0.9% 1,000 ML IV SCH ×3 (03:38→21:11)
[2020-09-07] MEDS: fentaNYL (PF) 50 MCG/ML 2 ML AMP IVP PRN ×2 (03:38→14:22)
[2020-09-07] MEDS ORDERED: ACETAMINOPHEN IV (For NPO) 1,000 MG in EMPTY BAG 1 BAG IVPB STA (07:09)
[2020-09-07] MEDS ORDERED: ALBUTEROL NEBULIZED 2.5 MG/3 ML INHALATION PRN (09:27)
[2020-09-07] MEDS ORDERED: ALBUTEROL HFA INHALER INHALATION PRN (09:27)
[2020-09-07] MEDS: metroNIDAZOLE-NS PMX 500 MG in SALINE 1 100ML.BAG IVPB SCH ×2 (09:40→17:38)
--- NOTE | 2020-09-07 09:49 | P.GSHP ---
History of Present Illness H&P Date: 09/07/20 CHIEF COMPLAINT: Abdominal pain HISTORY OF PRESENT ILLNESS: This is a 75-year-old female with a known history of diverticulitis with prior bowel resection about 4 years ago, peptic ulcer disease, cholecystectomy, appendectomy, hysterectomy and bladder suspension. She also has a history of asthma, hypertension, hyperlipidemia and diverticulitis. Patient presented to the emergency room with complaints of epigastric abdominal pain. She reports she's had this pain for about one week. She felt that her abdomen was going to "burst." Patient reports that her stomach is been distended and is hurting all over now. She had not been having satisfied bowel movements. Yesterday she took a enema and her abdominal pain increased. She is rating her pain a 10 out of 10. She is currently an 8 out of 10. She had been vomiting fecal material. She had a computed tomography scan of the abdomen and pelvis completed showing inflammatory changes with wall thickening and localized perforation of small bowel with mesenteric air bubbles in the mid abdomen. There are a few small bowel diverticula. This could relate to diverticulitis or nonspecific enteritis. Patient had a temp of 100.7 on admission. She is scheduled for exploratory laparotomy today. She denies any cardiac history. PAST MEDICAL HISTORY: See list. PAST SURGICAL HISTORY: See list. MEDICATIONS: See list. ALLERGIES: See list. SOCIAL HISTORY: No illicit drug use. REVIEW OF SYSTEMS: CONSTITUTIONAL: Denies fever or chills. HEENT: Denies blurred vision, vision changes, or eye pain. Denies hemoptysis CARDIOVASCULAR: Denies chest pain or pressure. RESPIRATORY: No shortness of breath. GASTROINTESTINAL: See HPI for pertinent findings HEMATOLOGIC: Denies bleeding disorders. GENITOURINARY: Denies any blood in urine or increased urinary frequency. SKIN: Denies pruitis. Denies rash. PHYSICAL EXAM: VITAL SIGNS: Reviewed GENERAL: Well-developed in no acute distress. HEENT: No sclera icterus. Extraocular movements grossly intact. Moist buccal mucosa. Head is atraumatic, normocephalic. No nasal drainage. ABDOMEN: Soft. Distended. Diffuse tenderness but more so on the epigastric area. NEUROLOGIC: Alert and oriented. Cranial nerves II through XII grossly intact. LABORATORY DATA: WBC 5.1 hemoglobin 15.9 platelets 382 sodium 134 potassium 4.8 glucose 115 lactic 1.1 AST 53 ALT 24 troponin negative lipase 223 IMAGING: computed tomography scan of the abdomen and pelvis completed showing inflammatory changes with wall thickening and localized perforation of small bowel with mesenteric air bubbles in the mid abdomen. There are a few small bowel diverticula. This could relate to diverticulitis or nonspecific enteritis. ASSESSMENT: 1. Small bowel perforation 2. Epigastric abdominal pain 3. Prior history of diverticulitis and bowel resection 4. Prior history of peptic ulcer disease PLAN: -Keep patient nothing by mouth -Patient scheduled for exploratory laparotomy today with Dr. Ledesma -Patient started on IV Zosyn and IV Flagyl -Increase IV fluids to 125 mL per hour -Consult medicine for medical management -IV Tylenol added for pain Physician Schedule Planning Manager note has been reviewed by physician. Signing provider agrees with the documented findings, assessment, and plan of care. Past Medical History Past Medical History: Asthma, Hyperlipidemia, Hypertension Additional Past Medical History / Comment(s): hypoglycemia, arrythmia hx., h- pylori hx., hx. 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 History of Any Multi-Drug Resistant Organisms: None Reported Past Surgical History: Appendectomy, Breast Surgery, Section, Cholecystectomy, Heart Catheterization, Hysterectomy, Joint Replacement Additional Past Surgical History / Comment(s): right hip surg(HAS SEVERE INFECTION-NOT MRSA-, AFTER FIRST SX) x 3 in last 7 mos.RT CAROTID ENDARTERECTOMY, X 5 BX LT, BREAST BENIGN, RT BREAST X2 LUMPS REMOVED(BENIGN), CATARACTS, BENIGN TUMOR REMOVED RT ELBOW AREA. Past Anesthesia/Blood Transfusion Reactions: Motion Sickness, Postoperative N ausea & Vomiting (PONV) Additional Past Anesthesia/Blood Transfusion Reaction / Comment(s): severe ponv Past Psychological History: No Psychological Hx Reported Smoking Status: Never smoker Past Alcohol Use History: None Reported Past Drug Use History: None Reported - Past Family History Mother Family Medical History: Congestive Heart Failure (CHF), COPD, Deep Vein Thrombosis (DVT), Pulmonary Embolus Sister(s) Family Medical History: Blood Disorder, Cancer Additional Family Medical History / Comment(s): pancreatic cancer,brain cancer. sister states has hemophilia Father Family Medical History: Renal Disease Additional Family Medical History / Comment(s): age 28 from aortic aneurysm Medications and Allergies Home Medications Medication Instructions Recorded Confirmed Type Albuterol Sulfate [Proventil Hfa] 2 puff INHALATION RT-QID PRN 02/17/14 09/07/20 History Ezetimibe [Zetia] 10 mg PO DAILY 02/17/14 09/07/20 History Famotidine [Pepcid] 40 mg PO BID 02/17/14 09/07/20 History NIFEdipine XL [Procardia XL] 30 mg PO DAILY 02/17/14 09/07/20 History Potassium Chloride 20 meq PO BID 02/17/14 09/07/20 History Aspirin 162 mg PO HS 07/30/15 09/07/20 History Cholecalciferol [Vitamin D3 (25 2,000 unit PO DAILY 07/30/15 09/07/20 History Mcg = 1000 Iu)] Multivit-Min/FA/Lycopen/Lutein 1 tab PO DAILY 07/30/15 09/07/20 History [Centrum Silver Tablet] Biotin 10,000 mcg PO DAILY 06/14/19 09/07/20 History Vitamin B Complex 1 tab PO DAILY 06/14/19 09/07/20 History Albuterol Nebulized [Ventolin 2.5 mg INHALATION RT-QID PRN 12/09/19 09/07/20 History Nebulized] Celecoxib [CeleBREX] 200 mg PO DAILY PRN 12/09/19 09/07/20 History Clotrimazole/Betamethasone Dip 1 applic TOPICAL BID PRN 12/09/19 09/07/20 History [Lotrisone Cream] Cranberry Fruit Extract [Cranberry] 500 mg PO BID 12/09/19 09/07/20 History Diclofenac Sodium [Voltaren Gel] 2 - 4 gram TOPICAL QID PRN 12/09/19 09/07/20 History Fluocinolone Acetonide Oil 5 drops BOTH EARS BID PRN 12/09/19 09/07/20 History [Dermotic] Fluticasone/Salmeterol [Advair 1 puff INHALATION RT-BID 12/09/19 09/07/20 History 250-50 Diskus] Furosemide [Lasix] 20 mg PO DAILY 12/09/19 09/07/20 History Hydrocortisone Cream 1 applic TOPICAL BID PRN 12/09/19 09/07/20 History [Hydrocortisone 1% Cream] Ketoconazole 2% Cream [Nizoral 2%] 1 applic TOPICAL DAILY PRN 12/09/19 09/07/20 History Lactobacillus Acidophilus 460 mg PO DAILY 12/09/19 09/07/20 History [Florajen] Niacin 500 mg PO DAILY 12/09/19 09/07/20 History Sennosides-Docusate Sodium 2 tab PO DAILY@1400 12/09/19 09/07/20 History [Senokot-S] Vitamin E 400 unit PO DAILY 12/09/19 09/07/20 History polyethylene glycoL 3350 [Miralax] 17 gm PO DAILY 12/09/19 09/07/20 History Estrogens, Conjugated Cream 0.5 applicator VAGINAL MOWEFR 09/07/20 09/07/20 History [Premarin Cream] Allergies Allergy/AdvReac Type Severity Reaction Status Date / Time adhesive Allergy skin Verified 09/07/20 06:40 blisters Influenza Virus Vaccines Allergy Unknown Verified 09/07/20 06:40 Iodinated Contrast Media Allergy Anaphylaxis Verified 09/07/20 06:40 [Iodinated Contrast Media - IV Dye] morphine Allergy Unknown Verified 09/07/20 06:40 pneumococcal vaccine Allergy Unknown Verified 09/07/20 06:40 povidone-iodine Allergy Rash/Hives Verified 09/07/20 06:40 [From Betadine] soap [From Betadine] Allergy Rash/Hives Verified 09/07/20 06:40 codeine AdvReac Nausea & Verified 09/07/20 06:40 Vomiting hydromorphone HCl AdvReac Nausea & Verified 09/07/20 06:40 [From Dilaudid] Vomiting antibiotics AdvReac Unknown Uncoded 09/07/20 06:40 Surgical - Exam Vital Signs Temp Pulse Resp BP Pulse Ox 98.2 F 93 22 223/96 99 09/06/20 23:00 09/06/20 23:00 09/06/20 23:00 09/06/20 23:00 09/06/20 23:00 Results - Labs 09/06/20 23:33 09/06/20 23:33 Abnormal Lab Results - Last 24 Hours (Table) 09/06/20 09/06/20 09/06/20 Range/Units 23:33 23:33 23:33 Hct 47.4 H (34.0-46.0) % APTT 19.7 L (22.0-30.0) sec Sodium 134 L (137-145) mmol/L BUN 26 H (7-17) mg/dL Glucose 115 H (74-99) mg/dL AST 53 H (14-36) U/L Diabetes panel 09/06/20 Range/Units 23:33 Sodium 134 L (137-145) mmol/L Potassium 4.8 (3.5-5.1) mmol/L Chloride 102 (98-107) mmol/L Carbon Dioxide 28 (22-30) mmol/L BUN 26 H (7-17) mg/dL Creatinine 0.85 (0.52-1.04) mg/dL Glucose 115 H (74-99) mg/dL Calcium 10.2 (8.4-10.2) mg/dL AST 53 H (14-36) U/L ALT 24 (4-34) U/L Alkaline Phosphatase 65 (38-126) U/L Total Protein 7.1 (6.3-8.2) g/dL Albumin 3.8 (3.5-5.0) g/dL Calcium panel 09/06/20 Range/Units 23:33 Calcium 10.2 (8.4-10.2) mg/dL Albumin 3.8 (3.5-5.0) g/dL Pituitary panel 09/06/20 Range/Units 23:33 Sodium 134 L (137-145) mmol/L Potassium 4.8 (3.5-5.1) mmol/L Chloride 102 (98-107) mmol/L Carbon Dioxide 28 (22-30) mmol/L BUN 26 H (7-17) mg/dL Creatinine 0.85 (0.52-1.04) mg/dL Glucose 115 H (74-99) mg/dL Calcium 10.2 (8.4-10.2) mg/dL Adrenal panel 09/06/20 Range/Units 23:33 Sodium 134 L (137-145) mmol/L Potassium 4.8 (3.5-5.1) mmol/L Chloride 102 (98-107) mmol/L Carbon Dioxide 28 (22-30) mmol/L BUN 26 H (7-17) mg/dL Creatinine 0.85 (0.52-1.04) mg/dL Glucose 115 H (74-99) mg/dL Calcium 10.2 (8.4-10.2) mg/dL Total Bilirubin 0.6 (0.2-1.3) mg/dL AST 53 H (14-36) U/L ALT 24 (4-34) U/L Alkaline Phosphatase 65 (38-126) U/L Total Protein 7.1 (6.3-8.2) g/dL Albumin 3.8 (3.5-5.0) g/dL
[2020-09-07] MEDS: PANTOPRAZOLE 40 MG/10 ML VIAL IVP SCH (10:00)
[2020-09-07] MEDS ORDERED: IV FLUID CONTINUATION 400 ML IV ONE (10:31)
[2020-09-07] MEDS ORDERED: HEPARIN SODIUM,PORCINE 5,000 UNIT/ML 1 ML VIAL ONE (11:10)
[2020-09-07] MEDS: PIPERACILLIN-TAZOBACTAM 3.375 GM in SODIUM CHLORIDE 0.9% 100 ML IVPB SCH ×3 (11:10→17:37)
[2020-09-07] MEDS ORDERED: DEXAMETHASONE SOD PHOSPHATE 4 MG/ML 1 ML VIAL IV ONE (11:12)
[2020-09-07] MEDS ORDERED: ONDANSETRON 4 MG/2 ML VIAL IVP ONE (11:13)
[2020-09-07] MEDS ORDERED: HEPARIN SODIUM,PORCINE 5,000 UNIT/ML 1 ML VIAL SQ ONE (11:27)
[2020-09-07] MEDS ORDERED: ROCURONIUM 10 MG/ML (10 ML VIAL) IV ONE (12:06)
[2020-09-07] MEDS ORDERED: NEOSTIGMINE 1 MG/ML 10 ML VIAL ONE (12:06)
[2020-09-07] MEDS ORDERED: PROPOFOL 10 MG/ML 20 ML VIAL IV ONE (12:06)
[2020-09-07] MEDS ORDERED: GLYCOPYRROLATE 0.2 MG/ML 2 ML VIAL ONE (12:06)
[2020-09-07] MEDS ORDERED: SUCCINYLCHOLINE CHLORIDE 100 MG/5 ML SYR IV ONE (12:06)
[2020-09-07] MEDS ORDERED: fentaNYL (PF) 50 MCG/ML 2 ML AMP ONE (12:06)
[2020-09-07] MEDS ORDERED: LIDOCAINE 1% INJ 10MG/ML (20 ML MDV) ONE (12:06)
[2020-09-07] MEDS ORDERED: LACTATED RINGERS 1,000 ML IV ONE ×3 (12:35→14:20)
[2020-09-07] MEDS ORDERED: fentaNYL (PF) 50 MCG/ML 2 ML AMP IVP ONE (13:55)
--- NOTE | 2020-09-07 14:18 | P.OP ---
Date of Procedure: 09/07/20 Preoperative Diagnosis: Small bowel perforation Postoperative Diagnosis: Small bowel perforation Procedure(s) Performed: Exploratory laparotomy Lysis of adhesion Small bowel resection Anesthesia: FRANCISCO Surgeon: Remi Ledesma Estimated Blood Loss (ml): 10 Pathology: other (Jejunum, omentum) Condition: stable Disposition: PACU Description of Procedure: The patient was placed on the operating table in the supine position. She received general anesthesia. Her abdomen was prepped and draped in usual sterile fashion. The abdomen was entered through a midline incision. There were adhesions from her. Laparotomy scar. These were lysed with sharp dissection. The omentum was then dissected off the abdominal wall. The small bowel examined. And appeared to be evidence of a perforation just distal to ligament of Treitz and the proximal jejunum. This point the small bowel was divided proximally distally using the BENJAMIN stapler and then using the Enseal device the mesentery the bowel was divided and then the specimen sent to pathology. A [id number] functional end-to-end staple anastomosis was then created using the BENJAMIN and TA stapler. A 3-0 GI silk sutures as a crotch stitch. The abdomen was areas of bleeding seen. The omentum was examined there is a nonviable piece of omentum which was transected with the incidental device. The abdomen was entered no bleeding seen. The fascia was then closed with looped #1 PDS suture. Skin was closed redd. Patient top she will was sent to recovery room in stable condition.
[2020-09-07] MEDS ORDERED: PROMETHAZINE 25 MG TAB PO PRN (14:20)
[2020-09-07] MEDS ORDERED: METOCLOPRAMIDE 5 MG/ML 2 ML VIAL IVP PRN (14:20)
[2020-09-07] MEDS ORDERED: ALBUTEROL NEBULIZED 1.25 MG/3 ML INHALATION ONE (14:23)
[2020-09-07] MEDS: ACETAMINOPHEN IV (For NPO) 1,000 MG in EMPTY BAG 1 BAG IVPB SCH ×2 (17:16→21:10)
[2020-09-07] MEDS: ONDANSETRON 4 MG/2 ML VIAL IVP PRN (17:26)
[2020-09-07] MEDS: HYDROmorphone 0.5 MG/0.5 ML SYRINGE IVP PRN (17:27)
[2020-09-07] MEDS: KETOROLAC 15 MG/ML 1 ML VIAL IVP SCH (17:28)
[2020-09-07] MEDS: SYMBICORT 80-4.5 MCG INHALER INHALATION SCH (21:24)
--- NOTE | 2020-09-07 22:20 | P.CONS ---
History of Present Illness - Reason for Consult Consult date: 09/07/20 medical management Requesting physician: Remi Ledesma - Chief Complaint Abdominal pain - History of Present Illness Consultation: This is a pleasant 75-year-old patient of Dr. Shahid Stewart. 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 Patient started having abdominal pain for about a week the progressively got worse she notices abdomen to become more distended. Yesterday evening she went to lie down and woke up with severe pain in the abdomen and going up in the chest. Started having nausea vomiting with what she described as a fecal matter. Never had Trinity pain. Came into the ER. It showed inflammatory changes within the and wall thickening and localized perforation small bowel admin centric air bubbles in the midabdomen. Just proximal to the jejunum that was perforation. A [id number] functional end-to-end stapled anastomosis of dissection was carried out. Postprocedure patient laying in bed. Somewhat tired but able to answer some questions. Review of systems: GEN.: Tired EYES: [None] HEENT: [None] NECK: [None] RESPIRATORY: [None] CARDIOVASCULAR: [None] GASTROINTESTINAL: [As above] GENITOURINARY: [None] MUSCULOSKELETAL: [None] LYMPHATICS: [None] HEMATOLOGICAL: [None] PSYCHIATRY: [None] NEUROLOGICAL: [None] Past medical history to include: Asthma, hyperlipidemia, hypertension, L4-L5 herniated disc, left carotid 70% blockage, Social history: Does not smoke. No alcohol. . Physical examination: VITAL SIGNS: 98.6, 77, 16, 116/60, 94% on 2 L GENERAL: BMI 35.8, laying in bed, tired somnolent but arousable. EYES: Pupils equal. Conjunctiva normal. HEENT: External appearance of nose and ears normal, oral cavity grossly normal. NECK: JVD not raised; masses not palpable. HEART: First and second heart sounds are normal; no edema. LUNGS:[ Respiratory rate normal; decreased breath sounds. ABDOMEN: Soft, tender, midline incision is a dressing and a binder, liver spleen not palpable, no masses palpable. PSYCH: Sleepy but arousablel. NEUROLOGICAL: Cranial nerves grossly intact; no facial asymmetry, power and sensation grossly intact. LYMPHATICS: No lymph nodes palpable in the axilla and neck INVESTIGATIONS, reviewed in the clinical context: White count 5.1 hemoglobin 15.9 platelets 382 potassium 4.8 creatinine 0.85 Computed tomography scan of the abdomen-perforated small bowel Assessment: -Acute perforation of small bowel just proximal to the jejunum, with small bowel resection with end-to-end anastomosis. -Possibly secondary peritonitis from bowel perforation -Moderate persistent asthma -Hyperlipidemia -Essential hypertension -Chronic L4-L5 herniated disc -Obesity BMI 35.8 -Primary osteoarthritis Plan: Patient has been nothing by mouth today. Getting IV fluids. Pain control in place. Home medications be resumed except for oral medications. Patient is on IV Flagyl and Zosyn. Thank you Dr. Ledesma Past Medical History Past Medical History: Asthma, Hyperlipidemia, Hypertension Additional Past Medical History / Comment(s): hypoglycemia, arrythmia hx., h- pylori hx., hx. 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 History of Any Multi-Drug Resistant Organisms: None Reported Past Surgical History: Appendectomy, Breast Surgery, Section, Cholecystectomy, Heart Catheterization, Hysterectomy, Joint Replacement Additional Past Surgical History / Comment(s): right hip surg(HAS SEVERE INFECTION-NOT MRSA-, AFTER FIRST SX) x 3 in last 7 mos.RT CAROTID ENDARTERECTOMY, X 5 BX LT, BREAST BENIGN, RT BREAST X2 LUMPS REMOVED(BENIGN), CATARACTS, BENIGN TUMOR REMOVED RT ELBOW AREA. Past Anesthesia/Blood Transfusion Reactions: Motion Sickness, Postoperative Naus ea & Vomiting (PONV) Additional Past Anesthesia/Blood Transfusion Reaction / Comm: severe ponv Past Psychological History: No Psychological Hx Reported Smoking Status: Never smoker Past Alcohol Use History: None Reported Past Drug Use History: None Reported - Past Family History Mother Family Medical History: Congestive Heart Failure (CHF), COPD, Deep Vein Thrombosis (DVT), Pulmonary Embolus Sister(s) Family Medical History: Blood Disorder, Cancer Additional Family Medical History / Comment(s): pancreatic cancer,brain cancer. sister states has hemophilia Father Family Medical History: Renal Disease Additional Family Medical History / Comment(s): age 28 from aortic aneurysm Medications and Allergies Home Medications Medication Instructions Recorded Confirmed Type Albuterol Sulfate [Proventil Hfa] 2 puff INHALATION RT-QID PRN 02/17/14 09/07/20 History Ezetimibe [Zetia] 10 mg PO DAILY 02/17/14 09/07/20 History Famotidine [Pepcid] 40 mg PO BID 02/17/14 09/07/20 History NIFEdipine XL [Procardia XL] 30 mg PO DAILY 02/17/14 09/07/20 History Potassium Chloride 20 meq PO BID 02/17/14 09/07/20 History Aspirin 162 mg PO HS 07/30/15 09/07/20 History Cholecalciferol [Vitamin D3 (25 2,000 unit PO DAILY 07/30/15 09/07/20 History Mcg = 1000 Iu)] Multivit-Min/FA/Lycopen/Lutein 1 tab PO DAILY 07/30/15 09/07/20 History [Centrum Silver Tablet] Biotin 10,000 mcg PO DAILY 06/14/19 09/07/20 History Vitamin B Complex 1 tab PO DAILY 06/14/19 09/07/20 History Albuterol Nebulized [Ventolin 2.5 mg INHALATION RT-QID PRN 12/09/19 09/07/20 History Nebulized] Celecoxib [CeleBREX] 200 mg PO DAILY PRN 12/09/19 09/07/20 History Clotrimazole/Betamethasone Dip 1 applic TOPICAL BID PRN 12/09/19 09/07/20 History [Lotrisone Cream] Cranberry Fruit Extract [Cranberry] 500 mg PO BID 12/09/19 09/07/20 History Diclofenac Sodium [Voltaren Gel] 2 - 4 gram TOPICAL QID PRN 12/09/19 09/07/20 History Fluocinolone Acetonide Oil 5 drops BOTH EARS BID PRN 12/09/19 09/07/20 History [Dermotic] Fluticasone/Salmeterol [Advair 1 puff INHALATION RT-BID 12/09/19 09/07/20 History 250-50 Diskus] Furosemide [Lasix] 20 mg PO DAILY 12/09/19 09/07/20 History Hydrocortisone Cream 1 applic TOPICAL BID PRN 12/09/19 09/07/20 History [Hydrocortisone 1% Cream] Ketoconazole 2% Cream [Nizoral 2%] 1 applic TOPICAL DAILY PRN 12/09/19 09/07/20 History Lactobacillus Acidophilus 460 mg PO DAILY 12/09/19 09/07/20 History [Florajen] Niacin 500 mg PO DAILY 12/09/19 09/07/20 History Sennosides-Docusate Sodium 2 tab PO DAILY@1400 12/09/19 09/07/20 History [Senokot-S] Vitamin E 400 unit PO DAILY 12/09/19 09/07/20 History polyethylene glycoL 3350 [Miralax] 17 gm PO DAILY 12/09/19 09/07/20 History Estrogens, Conjugated Cream 0.5 applicator VAGINAL MOWEFR 09/07/20 09/07/20 History [Premarin Cream] Allergies Allergy/AdvReac Type Severity Reaction Status Date / Time adhesive Allergy skin Verified 09/07/20 06:40 blisters Influenza Virus Vaccines Allergy Unknown Verified 09/07/20 06:40 Iodinated Contrast Media Allergy Anaphylaxis Verified 09/07/20 06:40 [Iodinated Contrast Media - IV Dye] morphine Allergy Unknown Verified 09/07/20 06:40 pneumococcal vaccine Allergy Unknown Verified 09/07/20 06:40 povidone-iodine Allergy Rash/Hives Verified 09/07/20 06:40 [From Betadine] soap [From Betadine] Allergy Rash/Hives Verified 09/07/20 06:40 codeine AdvReac Nausea & Verified 09/07/20 06:40 Vomiting hydromorphone HCl AdvReac Nausea & Verified 09/07/20 06:40 [From Dilaudid] Vomiting antibiotics AdvReac Unknown Uncoded 09/07/20 06:40 Physical Exam Vitals: Vital Signs Temp Pulse Pulse Resp BP BP Pulse Ox 09/07/20 07:46 98.9 F 105 H 19 116/71 99 09/07/20 07:00 100.7 F H 102 H 16 131/54 95 09/07/20 03:35 99.4 F 89 16 156/76 96 09/07/20 01:00 80 18 179/83 96 09/07/20 00:00 75 16 97 09/06/20 23:00 98.2 F 93 22 223/96 99 Intake and Output 09/06/20 09/07/20 09/07/20 22:59 06:59 14:59 Other: Weight 97.522 kg Results CBC & Chem 7: 09/06/20 23:33 09/06/20 23:33 Labs: Abnormal Lab Results - Last 24 Hours (Table) 09/06/20 09/06/20 09/06/20 Range/Units 23:33 23:33 23:33 Hct 47.4 H (34.0-46.0) % APTT 19.7 L (22.0-30.0) sec Sodium 134 L (137-145) mmol/L BUN 26 H (7-17) mg/dL Glucose 115 H (74-99) mg/dL AST 53 H (14-36) U/L
[2020-09-08] MEDS: KETOROLAC 15 MG/ML 1 ML VIAL IVP SCH ×5 (01:57→23:36)
[2020-09-08] MEDS: metroNIDAZOLE-NS PMX 500 MG in SALINE 1 100ML.BAG IVPB SCH ×4 (02:00→23:35)
[2020-09-08] MEDS: PIPERACILLIN-TAZOBACTAM 3.375 GM in SODIUM CHLORIDE 0.9% 100 ML IVPB SCH ×4 (02:00→23:36)
[2020-09-08] MEDS: SODIUM CHLORIDE 0.9% 1,000 ML IV SCH ×3 (02:56→20:17)
[2020-09-08] MEDS: ACETAMINOPHEN IV (For NPO) 1,000 MG in EMPTY BAG 1 BAG IVPB SCH ×2 (03:01→10:46)
[2020-09-08 06:47] LABS: Basophils % (A) 0 %; Eosinophils % (A) 0 %; HCT 40.6 % (34.0-46.0); HGB 13.6 gm/dL (11.4-16.0); Lymphocytes # (A) 0.7 k/uL (1.0-4.8); Lymphocytes % (A) 7 %; MCH 31.4 pg (25.0-35.0); MCHC 33.5 g/dL (31.0-37.0); MCV 93.7 fL (80.0-100.0); Mean Platelet Volume 7.2; Monocytes # (A) 0.4 k/uL (0-1.0); Monocytes % (A) 4 %; Neutrophils # (A) 8.9 k/uL (1.3-7.7); Neutrophils % (A) 88 %; Platelet Count 282 k/uL (150-450); RBC 4.34 m/uL (3.80-5.40); RDW 14.3 % (11.5-15.5); WBC 10.1 k/uL (3.8-10.6)
[2020-09-08] MEDS: SYMBICORT 80-4.5 MCG INHALER INHALATION SCH ×2 (07:23→19:16)
[2020-09-08] MEDS: ENOXAPARIN 40 MG/0.4 ML SYRINGE SQ SCH (08:19)
[2020-09-08] MEDS: PANTOPRAZOLE 40 MG/10 ML VIAL IVP SCH (08:19)
[2020-09-08] MEDS: NIFEdipine XL 30 MG TAB.ER.24 PO SCH (08:20)
[2020-09-08 08:24] LABS: Glucose,Whole Blood 112 mg/dL (75-99)
[2020-09-08 10:14] LABS: African American GFR (CKD) 71.5 (60.0-200.0); Albumin 2.9 g/dL (3.80-4.90); Albumin/Globulin Ratio 1.93 (1.60-3.17); Anion Gap 5.6 mmol/L (4.00-12.00); BUN/Creat Ratio 27.78 Ratio (12.00-20.00); Calcium 8.7 mg/dL (8.7-10.3); Carbon Dioxide 24.4 mmol/L (21.6-31.8); Globulin 1.5 g/dL (1.6-3.3); Non-African American GFR(CKD) 61.7 (60.0-200.0); Potassium 4.5 mmol/L (3.5-5.5); Total Bilirubin 0.4 mg/dL (0.2-1.2); Total Protein 4.4 g/dL (6.2-8.2)
--- NOTE | 2020-09-08 13:18 | P.PN ---
Subjective Progress Note Date: 09/08/20 CHIEF COMPLAINT: Small bowel perforation HISTORY OF PRESENT ILLNESS: Patient is status post exploratory laparotomy, lysis of adhesions and small bowel resection for small bowel perforation. Postop day #1. Patient reports her pain is controlled. She denies any nausea or vomiting. She is currently on a clear liquid diet. Denies any flatus or bowel movement yet. Patient reevaluated this afternoon because she her dressing was saturated with blood. She has 2 areas of better losing blood 1 at the distal aspect of the incision and one above the umbilicus. Patient is afebrile. Hemoglobin 13.6 WBC 10.1 PHYSICAL EXAM: VITAL SIGNS: Reviewed. GENERAL: Well-developed in no acute distress. HEENT: No sclera icterus. Extraocular movements grossly intact. Moist buccal mucosa. Head is atraumatic, normocephalic. ABDOMEN: Soft. Nondistended. There are 2 areas of the incision sites that are oozing blood. One is at the distal aspect and the other above the umbilicus. NEUROLOGIC: Alert and oriented. Cranial nerves II through XII grossly intact. ASSESSMENT: 1. Small bowel perforation status post exploratory laparotomy, lysis of adhesions and small bowel resection. Postop day #1 PLAN: -Continue IV antibiotics -Medicine consult appreciated -Incision site will be covered with gauze and ABDs. And patient is to wear abdominal binder -Encourage incentive spirometer use -Continue clear liquid diet Physician Aircraft [employer] note has been reviewed by physician. Signing provider agrees with the documented findings, assessment, and plan of care. Objective - Vital Signs Vital signs: Vital Signs Temp 97.7 F 09/08/20 08:00 Pulse 64 09/08/20 08:00 Resp 20 09/08/20 08:00 BP 134/72 09/08/20 08:00 Pulse Ox 94 L 09/08/20 08:00 Intake & Output 09/07/20 09/08/20 09/08/20 18:59 06:59 18:59 Intake Total 1400 Output Total 400 350 Balance 1000 -350 Weight 97.522 kg Intake: IV 1400 Output: Urine 350 350 Estimated Blood Loss 50 Other: Voiding Method Indwelling Catheter Indwelling Catheter # Bowel Movements 0 - Labs CBC & Chem 7: 09/08/20 05:45 09/08/20 05:45 Labs: Abnormal Lab Results - Last 24 Hours (Table) 09/08/20 09/08/20 09/08/20 Range/Units 05:45 05:45 08:13 Neutrophils # 8.9 H (1.3-7.7) k/uL Lymphocytes # 0.7 L (1.0-4.8) k/uL BUN/Creatinine Ratio 27.78 H (12.00-20.00) Ratio Glucose 131 H (70-110) mg/dL POC Glucose (mg/dL) 112 H (75-99) mg/dL Alkaline Phosphatase 40 L (41-126) U/L Total Protein 4.4 L (6.2-8.2) g/dL Albumin 2.90 L (3.80-4.90) g/dL Globulin 1.5 L (1.6-3.3) g/dL Microbiology - Last 24 Hours (Table) 09/07/20 00:23 Blood Culture - Preliminary Blood No Growth after 24 hours
[2020-09-08] MEDS: ONDANSETRON 4 MG/2 ML VIAL IVP PRN (14:35)
--- NOTE | 2020-09-08 20:03 | P.PN ---
Progress Note - Text Progress Note Date: 09/08/20 - Chief Complaint Abdominal pain Consultation: This is a pleasant 75-year-old patient of Dr. Shahid Stewart. 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 Patient started having abdominal pain for about a week the progressively got worse she notices abdomen to become more distended. Yesterday evening she went to lie down and woke up with severe pain in the abdomen and going up in the chest. Started having nausea vomiting with what she described as a fecal matter. Never had Trinity pain. Came into the ER. It showed inflammatory changes within the and wall thickening and localized perforation small bowel admin centric air bubbles in the midabdomen. Just proximal to the jejunum that was perforation. A [id number] functional end-to-end stapled anastomosis of dissection was carried out. Today-laying in bed. Some drainage of blood from the lower incision site. Dressing pad on the same. Surgery elevated. Did sit up in a chair. No nausea vomiting. Did not pass any flatus Review of systems: Was done for constitutional, cardiovascular, GI, pulmonary. relevant finding as above Active Medications Hydrocodone Bitart/Acetaminophen (Hydrocodone/Apap 5-325mg 1 Each Tab) 2 each PO Q6HR PRN PRN Reason: Moderate to Severe Pain Albuterol Sulfate (Albuterol Nebulized 2.5 Mg/3 Ml) 2.5 mg INHALATION RT-QID PRN PRN Reason: Abdominal Distention Budesonide/Formoterol Fumarate (Symbicort 80-4.5 Mcg Inhaler) 2 puff INHALATION RT-BID [facility] Last Admin: 09/08/20 19:16 Dose: 2 puff Documented by: Enoxaparin Sodium (Enoxaparin 40 Mg/0.4 Ml Syringe) 40 mg SQ DAILY [facility] Last Admin: 09/08/20 08:19 Dose: 40 mg Documented by: Fentanyl Citrate (Fentanyl (Pf) 50 Mcg/Ml 2 Ml Amp) 50 mcg IVP ONCE PRN PRN Reason: Severe Pain Last Admin: 09/07/20 14:22 Dose: 50 mcg Documented by: Hydromorphone HCl (Hydromorphone 0.5 Mg/0.5 Ml Syringe) 0.5 mg IVP Q3HR PRN PRN Reason: Moderate to Severe Pain Last Admin: 09/07/20 17:27 Dose: 0.5 mg Documented by: Sodium Chloride (Saline 0.9%) 1,000 mls @ 125 mls/hr IV .Q8H [facility] Last Admin: 09/08/20 17:24 Dose: 125 mls/hr Documented by: Piperacillin Sod/Tazobactam (Sod 3.375 gm/ Sodium Chloride) 100 mls @ 25 mls/hr IVPB Q8HR [facility] Last Admin: 09/08/20 17:31 Dose: 25 mls/hr Documented by: Metronidazole 500 mg/ IV (Solution) 100 mls @ 100 mls/hr IVPB Q8HR [facility] Last Admin: 09/08/20 17:17 Dose: 100 mls/hr Documented by: Ketorolac Tromethamine (Ketorolac 15 Mg/Ml 1 Ml Vial) 15 mg IVP Q6HR [facility] Stop: 09/09/20 12:01 Last Admin: 09/08/20 17:23 Dose: 15 mg Documented by: Metoclopramide HCl (Metoclopramide 5 Mg/Ml 2 Ml Vial) 10 mg IVP Q6H PRN PRN Reason: Nausea And Vomiting Naloxone HCl (Naloxone 0.4 Mg/Ml 1 Ml Vial) 0.2 mg IV Q2M PRN PRN Reason: Opioid Reversal Naloxone HCl (Naloxone 0.4 Mg/Ml 1 Ml Vial) 0.2 mg IV Q2M PRN PRN Reason: Opioid Reversal Nifedipine (Nifedipine Xl 30 Mg Tab.Er.24) 30 mg PO DAILY [facility] Last Admin: 09/08/20 08:20 Dose: 30 mg Documented by: Ondansetron HCl (Ondansetron 4 Mg/2 Ml Vial) 4 mg IVP Q8HR PRN PRN Reason: Nausea And Vomiting Last Admin: 09/08/20 14:35 Dose: 4 mg Documented by: Ondansetron HCl (Ondansetron 4 Mg/2 Ml Vial) 4 mg IVP Q6HR PRN PRN Reason: Nausea And Vomiting Pantoprazole Sodium (Pantoprazole 40 Mg/10 Ml Vial) 40 mg IVP DAILY [facility] Last Admin: 09/08/20 08:19 Dose: 40 mg Documented by: Promethazine HCl (Promethazine 25 Mg Tab) 12.5 mg PO Q6HR PRN PRN Reason: Nausea And Vomiting . Physical examination: VITAL SIGNS: 98.0, 72, 18, 153/69, 93% on room air GENERAL: BMI 35.8, laying in bed, tired awake EYES: Pupils equal. Conjunctiva normal. NECK: JVD not raised; masses not palpable. HEART: First and second heart sounds are normal; no edema. LUNGS:[ Respiratory rate normal; decreased breath sounds. ABDOMEN: Soft, tender, midline incision with dressing and a binder, liver spleen not palpable, no masses palpable. PSYCH: Alert and oriented 3, mood and affect normal. INVESTIGATIONS, reviewed in the clinical context: White count 10.1 hemoglobin 13.6 potassium 4.5 creatinine 0.9 White count 5.1 hemoglobin 15.9 platelets 382 potassium 4.8 creatinine 0.85 Computed tomography scan of the abdomen-perforated small bowel Assessment: -Acute perforation of small bowel just proximal to the jejunum, with small bowel resection with end-to-end anastomosis. -Possibly secondary peritonitis from bowel perforation -Moderate persistent asthma -Hyperlipidemia -Essential hypertension -Chronic L4-L5 herniated disc -Obesity BMI 35.8 -Primary osteoarthritis Plan: Continue IV Flagyl and Zosyn. IV fluids. Started on clear liquids. Discussed with patient. Thank you Dr. Ledesma
[2020-09-08] MEDS: HYDROcodone/APAP 5-325MG 1 EACH TAB PO PRN (21:41)
[2020-09-08] MEDS: HYDROmorphone 0.5 MG/0.5 ML SYRINGE IVP PRN (21:54)
[2020-09-09] MEDS: SODIUM CHLORIDE 0.9% 1,000 ML IV SCH ×3 (03:59→21:25)
[2020-09-09] MEDS: KETOROLAC 15 MG/ML 1 ML VIAL IVP SCH ×2 (05:00→12:22)
[2020-09-09] MEDS: ONDANSETRON 4 MG/2 ML VIAL IVP PRN ×2 (05:01→18:15)
[2020-09-09 07:39] LABS: Basophils % (A) 0 %; Eosinophils # (A) 0.1 k/uL (0-0.7); Eosinophils % (A) 2 %; HCT 36.9 % (34.0-46.0); HGB 11.9 gm/dL (11.4-16.0); Lymphocytes # (A) 0.7 k/uL (1.0-4.8); Lymphocytes % (A) 9 %; MCHC 32.3 g/dL (31.0-37.0); Monocytes # (A) 0.3 k/uL (0-1.0); Monocytes % (A) 4 %; Neutrophils % (A) 85 %; Platelet Count 260 k/uL (150-450); RBC 3.85 m/uL (3.80-5.40); RDW 14.2 % (11.5-15.5); WBC 8.2 k/uL (3.8-10.6)
[2020-09-09] MEDS: SYMBICORT 80-4.5 MCG INHALER INHALATION SCH ×2 (07:59→19:17)
[2020-09-09] MEDS: metroNIDAZOLE-NS PMX 500 MG in SALINE 1 100ML.BAG IVPB SCH ×3 (08:45→23:15)
[2020-09-09] MEDS: PANTOPRAZOLE 40 MG/10 ML VIAL IVP SCH (08:47)
[2020-09-09] MEDS: ENOXAPARIN 40 MG/0.4 ML SYRINGE SQ SCH (08:47)
[2020-09-09] MEDS: NIFEdipine XL 30 MG TAB.ER.24 PO SCH (08:47)
--- NOTE | 2020-09-09 11:09 | P.PN ---
Subjective Progress Note Date: 09/09/20 CHIEF COMPLAINT: Small bowel perforation HISTORY OF PRESENT ILLNESS: Patient is status post exploratory laparotomy, lysis of adhesions and small bowel resection for small bowel perforation. Patient reports her pain is controlled. She denies any nausea or vomiting. She is currently on a clear liquid diet. Denies any flatus or bowel movement yet. Patient has had some bleeding from her incision. The bleeding that was at the umbilicus above the umbilicus is resolved. She still had small amount of bleeding from the the distal incision. Afebrile. WBC 8.2 hemoglobin 11.9 PHYSICAL EXAM: VITAL SIGNS: Reviewed. GENERAL: Well-developed in no acute distress. HEENT: No sclera icterus. Extraocular movements grossly intact. Moist buccal mucosa. Head is atraumatic, normocephalic. ABDOMEN: Soft. Nondistended. Incision site clean dry and intact. There is a small area at the distal aspects of incision that has had a small amount of blood leaking. NEUROLOGIC: Alert and oriented. Cranial nerves II through XII grossly intact. ASSESSMENT: 1. Small bowel perforation status post exploratory laparotomy, lysis of adhesions and small bowel resection. Postop day #2 PLAN: -Continue IV antibiotics -Medicine consult appreciated -Incision site will be covered with gauze and ABDs. And patient is to wear abdominal binder -Encourage incentive spirometer use -Continue clear liquid diet -Encourage patient to ambulate Physician [employer] note has been reviewed by physician. Signing provider agrees with the documented findings, assessment, and plan of care. Objective - Vital Signs Vital signs: Vital Signs Temp 98.3 F 09/09/20 07:34 Pulse 58 L 09/09/20 07:34 Resp 18 09/09/20 07:34 BP 138/63 09/09/20 07:34 Pulse Ox 98 09/09/20 07:34 Intake & Output 09/08/20 09/09/20 09/09/20 18:59 06:59 18:59 Intake Total 500 Output Total 450 Balance -450 500 Intake: Oral 500 Output: Urine 450 Other: Voiding Method Indwelling Catheter Indwelling Catheter Bedside Commode # Voids 1 # Bowel Movements 0 0 - Labs CBC & Chem 7: 09/09/20 07:18 09/08/20 05:45 Labs: Abnormal Lab Results - Last 24 Hours (Table) 09/09/20 Range/Units 07:18 Lymphocytes # 0.7 L (1.0-4.8) k/uL Microbiology - Last 24 Hours (Table) 09/07/20 00:23 Blood Culture - Preliminary Blood No Growth after 48 hours
[2020-09-09 11:24] LABS: African American GFR (CKD) 96.9 (60.0-200.0); Albumin 2.8 g/dL (3.80-4.90); Albumin/Globulin Ratio 1.75 (1.60-3.17); Anion Gap 7.1 mmol/L (4.00-12.00); Calcium 8.1 mg/dL (8.7-10.3); Carbon Dioxide 24.9 mmol/L (21.6-31.8); Globulin 1.6 g/dL (1.6-3.3); Non-African American GFR(CKD) 83.6 (60.0-200.0); Total Bilirubin 0.4 mg/dL (0.3-1.2); Total Protein 4.4 g/dL (6.2-8.2)
[2020-09-09] MEDS: HYDROcodone/APAP 5-325MG 1 EACH TAB PO PRN (13:38)
[2020-09-09] MEDS: HYDROmorphone 0.5 MG/0.5 ML SYRINGE IVP PRN (16:19)
[2020-09-09] MEDS: PIPERACILLIN-TAZOBACTAM 3.375 GM in SODIUM CHLORIDE 0.9% 100 ML IVPB SCH ×2 (16:19→23:15)
--- NOTE | 2020-09-09 22:17 | P.PN ---
Progress Note - Text Progress Note Date: 09/09/20 - Chief Complaint Abdominal pain Consultation: This is a pleasant 75-year-old patient of Dr. Shahid Stewart. 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 Patient started having abdominal pain for about a week the progressively got worse she notices abdomen to become more distended. Yesterday evening she went to lie down and woke up with severe pain in the abdomen and going up in the chest. Started having nausea vomiting with what she described as a fecal matter. Never had Trinity pain. Came into the ER. It showed inflammatory changes within the and wall thickening and localized perforation small bowel admin centric air bubbles in the midabdomen. Just proximal to the jejunum that was perforation. A [id number] functional end-to-end stapled anastomosis of dissection was carried out. Today-l patient was started on clear liquids yesterday. Some abdominal pain. Has been up in a chair. Has not posterity flatus. No nausea vomiting. Pain control. Review of systems: Was done for constitutional, cardiovascular, GI, pulmonary. relevant finding as above Active Medications Hydrocodone Bitart/Acetaminophen (Hydrocodone/Apap 5-325mg 1 Each Tab) 2 each PO Q6HR PRN PRN Reason: Moderate to Severe Pain Albuterol Sulfate (Albuterol Nebulized 2.5 Mg/3 Ml) 2.5 mg INHALATION RT-QID PRN PRN Reason: Abdominal Distention Budesonide/Formoterol Fumarate (Symbicort 80-4.5 Mcg Inhaler) 2 puff INHALATION RT-BID [facility] Last Admin: 09/09/20 19:17 Dose: Not Given Documented by: Enoxaparin Sodium (Enoxaparin 40 Mg/0.4 Ml Syringe) 40 mg SQ DAILY [facility] Last Admin: 09/09/20 08:47 Dose: 40 mg Documented by: Fentanyl Citrate (Fentanyl (Pf) 50 Mcg/Ml 2 Ml Amp) 50 mcg IVP ONCE PRN PRN Reason: Severe Pain Last Admin: 09/07/20 14:22 Dose: 50 mcg Documented by: Hydromorphone HCl (Hydromorphone 0.5 Mg/0.5 Ml Syringe) 0.5 mg IVP Q3HR PRN PRN Reason: Moderate to Severe Pain Last Admin: 09/09/20 16:19 Dose: 0.5 mg Documented by: Sodium Chloride (Saline 0.9%) 1,000 mls @ 125 mls/hr IV .Q8H [facility] Last Admin: 09/09/20 21:25 Dose: Not Given Documented by: Piperacillin Sod/Tazobactam (Sod 3.375 gm/ Sodium Chloride) 100 mls @ 25 mls/hr IVPB Q8HR [facility] Last Admin: 09/09/20 16:19 Dose: 25 mls/hr Documented by: Metronidazole 500 mg/ IV (Solution) 100 mls @ 100 mls/hr IVPB Q8HR [facility] Last Admin: 09/09/20 15:35 Dose: 100 mls/hr Documented by: Metoclopramide HCl (Metoclopramide 5 Mg/Ml 2 Ml Vial) 10 mg IVP Q6H PRN PRN Reason: Nausea And Vomiting Last Admin: 09/08/20 21:41 Dose: 10 mg Documented by: Naloxone HCl (Naloxone 0.4 Mg/Ml 1 Ml Vial) 0.2 mg IV Q2M PRN PRN Reason: Opioid Reversal Naloxone HCl (Naloxone 0.4 Mg/Ml 1 Ml Vial) 0.2 mg IV Q2M PRN PRN Reason: Opioid Reversal Nifedipine (Nifedipine Xl 30 Mg Tab.Er.24) 30 mg PO DAILY [facility] Last Admin: 09/09/20 08:47 Dose: 30 mg Documented by: Ondansetron HCl (Ondansetron 4 Mg/2 Ml Vial) 4 mg IVP Q8HR PRN PRN Reason: Nausea And Vomiting Last Admin: 09/09/20 18:15 Dose: 4 mg Documented by: Ondansetron HCl (Ondansetron 4 Mg/2 Ml Vial) 4 mg IVP Q6HR PRN PRN Reason: Nausea And Vomiting Pantoprazole Sodium (Pantoprazole 40 Mg/10 Ml Vial) 40 mg IVP DAILY [facility] Last Admin: 09/09/20 08:47 Dose: 40 mg Documented by: Promethazine HCl (Promethazine 25 Mg Tab) 12.5 mg PO Q6HR PRN PRN Reason: Nausea And Vomiting Physical examination: VITAL SIGNS: 98, 77, 18, 155/69, 95% on room air GENERAL: BMI 35.8, laying in bed, awake EYES: Pupils equal. Conjunctiva normal. NECK: JVD not raised; masses not palpable. HEART: First and second heart sounds are normal; no edema. LUNGS:[ Respiratory rate normal; decreased breath sounds. ABDOMEN: Soft, tender, midline incision with dressing and a binder, liver spleen not palpable, no masses palpable. PSYCH: Alert and oriented 3, mood and affect normal. INVESTIGATIONS, reviewed in the clinical context: White count 8.2 hemoglobin 11.9 potassium 4 creatinine 0.7 Previous testing White count 5.1 hemoglobin 15.9 platelets 382 potassium 4.8 creatinine 0.85 Computed tomography scan of the abdomen-perforated small bowel Assessment: -Acute perforation of small bowel just proximal to the jejunum, with small bowel resection with end-to-end anastomosis. -secondary peritonitis from bowel perforation -Moderate persistent asthma -Hyperlipidemia -Essential hypertension -Chronic L4-L5 herniated disc -Obesity BMI 35.8 -Primary osteoarthritis -Acute postprocedure blood loss anemia, expected from surgery Plan: Continue IV Flagyl and Zosyn. IV fluids. Continue clear liquids. Activity as tolerated. Thank you Dr. Ledesma
[2020-09-10] MEDS: ONDANSETRON 4 MG/2 ML VIAL IVP PRN ×2 (04:26→21:08)
[2020-09-10] MEDS: HYDROmorphone 0.5 MG/0.5 ML SYRINGE IVP PRN (04:27)
[2020-09-10] MEDS: SODIUM CHLORIDE 0.9% 1,000 ML IV SCH ×2 (05:08→13:57)
[2020-09-10 06:18] LABS: Basophils % (A) 1 %; Eosinophils # (A) 0.1 k/uL (0-0.7); Eosinophils % (A) 2 %; HCT 38.3 % (34.0-46.0); HGB 12.8 gm/dL (11.4-16.0); Lymphocytes # (A) 0.7 k/uL (1.0-4.8); Lymphocytes % (A) 11 %; MCH 31.6 pg (25.0-35.0); MCHC 33.4 g/dL (31.0-37.0); MCV 94.6 fL (80.0-100.0); Mean Platelet Volume 6.9; Monocytes # (A) 0.4 k/uL (0-1.0); Monocytes % (A) 6 %; Neutrophils # (A) 5.4 k/uL (1.3-7.7); Neutrophils % (A) 80 %; Platelet Count 293 k/uL (150-450); RBC 4.05 m/uL (3.80-5.40); RDW 14.2 % (11.5-15.5); WBC 6.7 k/uL (3.8-10.6)
[2020-09-10] MEDS: SYMBICORT 80-4.5 MCG INHALER INHALATION SCH ×2 (07:40→20:52)
[2020-09-10] MEDS: PIPERACILLIN-TAZOBACTAM 3.375 GM in SODIUM CHLORIDE 0.9% 100 ML IVPB SCH ×3 (07:41→23:46)
[2020-09-10] MEDS: metroNIDAZOLE-NS PMX 500 MG in SALINE 1 100ML.BAG IVPB SCH ×3 (07:41→23:43)
[2020-09-10] MEDS: PANTOPRAZOLE 40 MG/10 ML VIAL IVP SCH (09:19)
[2020-09-10] MEDS: ENOXAPARIN 40 MG/0.4 ML SYRINGE SQ SCH (09:19)
[2020-09-10] MEDS: NIFEdipine XL 30 MG TAB.ER.24 PO SCH (09:19)
[2020-09-10 09:56] LABS: African American GFR (CKD) 101.9 (60.0-200.0); Albumin 2.9 g/dL (3.80-4.90); Albumin/Globulin Ratio 1.81 (1.60-3.17); Anion Gap 7.4 mmol/L (4.00-12.00); Calcium 8.2 mg/dL (8.7-10.3); Carbon Dioxide 26.6 mmol/L (21.6-31.8); Globulin 1.6 g/dL (1.6-3.3); Non-African American GFR(CKD) 87.9 (60.0-200.0); Potassium 3.4 mmol/L (3.5-5.5); Total Bilirubin 0.5 mg/dL (0.3-1.2); Total Protein 4.5 g/dL (6.2-8.2)
--- NOTE | 2020-09-10 10:35 | P.PN ---
Subjective Progress Note Date: 09/10/20 CHIEF COMPLAINT: Small bowel perforation HISTORY OF PRESENT ILLNESS: Patient is status post exploratory laparotomy, lysis of adhesions and small bowel resection for small bowel perforation. Patient is complaining of abdominal pain. She refuses to take [place] because it makes her sick. The nursing staff has diluted the IV Dilaudid. She had severe nausea yesterday after the Dilaudid. She denies passing gas or bowel movement. She's worked with physical therapy. She is currently on a clear liquid diet. Patient has decreased appetite. She reports only eating a Popsicle throughout the day. Afebrile. WBC 6.7 hemoglobin 12.8 PHYSICAL EXAM: VITAL SIGNS: Reviewed. GENERAL: Well-developed in no acute distress. HEENT: No sclera icterus. Extraocular movements grossly intact. Moist buccal mucosa. Head is atraumatic, normocephalic. ABDOMEN: Soft. Nondistended. Incision site clean dry and intact. There is blood noted on the dressing at the distal aspect of the incision. NEUROLOGIC: Alert and oriented. Cranial nerves II through XII grossly intact. ASSESSMENT: 1. Small bowel perforation status post exploratory laparotomy, lysis of adhesions and small bowel resection. Postop day #3 PLAN: -Continue IV antibiotics -Incision site will be covered with gauze and ABDs. And patient is to wear abdominal binder -Encourage incentive spirometer use -Continue clear liquid diet -Encourage patient to ambulate -Add oral Tylenol to help with pain -Decreased IV fluids to 50 mL an hour Physician Waste Elimination note has been reviewed by physician. Signing provider agrees with the documented findings, assessment, and plan of care. Objective - Vital Signs Vital signs: Vital Signs Temp 98.3 F 09/10/20 07:59 Pulse 73 09/10/20 07:59 Resp 14 09/10/20 07:59 BP 176/73 09/10/20 07:59 Pulse Ox 95 09/10/20 07:59 Intake & Output 09/09/20 09/10/20 09/10/20 18:59 06:59 18:59 Intake Total 1450 Balance 1450 Intake: Intake, IV Titration 1450 Amount Piperacillin-Tazobactam 3 100 .375 gm In Sodium Chloride 0.9% 100 ml @ 25 mls/hr IVPB Q8HR [facility] Rx# :[id number] Sodium Chloride 0.9% 1, 1250 000 ml @ 125 mls/hr IV . Q8H [facility] Rx#:[id number] metroNIDAZOLE-NS PMX 500 100 mg In Saline 1 100ml.bag @ 100 mls/hr IVPB Q8HR [facility] Rx#:[id number] Other: Voiding Method Bedside Commode Bedside Commode Bedside Commode # Voids 4 2 - Labs CBC & Chem 7: 09/10/20 05:54 09/10/20 05:54 Labs: Abnormal Lab Results - Last 24 Hours (Table) 09/09/20 09/10/20 09/10/20 Range/Units 07:18 05:54 05:54 Lymphocytes # 0.7 L (1.0-4.8) k/uL Potassium 3.4 L (3.5-5.5) mmol/L BUN/Creatinine Ratio 30.00 H (12.00-20.00) Ratio Calcium 8.1 L 8.2 L (8.7-10.3) mg/dL Total Protein 4.4 L 4.5 L (6.2-8.2) g/dL Albumin 2.80 L 2.90 L (3.80-4.90) g/dL Microbiology - Last 24 Hours (Table) 09/07/20 00:23 Blood Culture - Preliminary Blood No Growth after 72 hours
[2020-09-10] MEDS: ACETAMINOPHEN TAB 500 MG TAB PO PRN ×2 (13:55→21:13)
--- NOTE | 2020-09-10 21:34 | P.PN ---
Progress Note - Text Progress Note Date: 09/10/20 - Chief Complaint Abdominal pain Consultation: This is a pleasant 75-year-old patient of Dr. Shahid Stewart. 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 Patient started having abdominal pain for about a week the progressively got worse she notices abdomen to become more distended. Yesterday evening she went to lie down and woke up with severe pain in the abdomen and going up in the chest. Started having nausea vomiting with what she described as a fecal matter. Never had Trinity pain. Came into the ER. It showed inflammatory changes within the and wall thickening and localized perforation small bowel admin centric air bubbles in the midabdomen. Just proximal to the jejunum that was perforation. A [id number] functional end-to-end stapled anastomosis of dissection was carried out. Today-. Remains on a clear liquid diet. Has been up in a chair and ambulating. Not had any flatus. Pain control. Review of systems: Was done for constitutional, cardiovascular, GI, pulmonary. relevant finding as above Active Medications Acetaminophen (Acetaminophen Tab 500 Mg Tab) 1,000 mg PO Q6HR PRN PRN Reason: Fever and/ or Mild Pain Last Admin: 09/10/20 21:13 Dose: 1,000 mg Documented by: Hydrocodone Bitart/Acetaminophen (Hydrocodone/Apap 5-325mg 1 Each Tab) 2 each PO Q6HR PRN PRN Reason: Moderate to Severe Pain Albuterol Sulfate (Albuterol Nebulized 2.5 Mg/3 Ml) 2.5 mg INHALATION RT-QID PRN PRN Reason: Abdominal Distention Budesonide/Formoterol Fumarate (Symbicort 80-4.5 Mcg Inhaler) 2 puff INHALATION RT-BID [facility] Last Admin: 09/10/20 20:52 Dose: 2 puff Documented by: Enoxaparin Sodium (Enoxaparin 40 Mg/0.4 Ml Syringe) 40 mg SQ DAILY [facility] Last Admin: 09/10/20 09:19 Dose: 40 mg Documented by: Fentanyl Citrate (Fentanyl (Pf) 50 Mcg/Ml 2 Ml Amp) 50 mcg IVP ONCE PRN PRN Reason: Severe Pain Last Admin: 09/07/20 14:22 Dose: 50 mcg Documented by: Hydromorphone HCl (Hydromorphone 0.5 Mg/0.5 Ml Syringe) 0.5 mg IVP Q3HR PRN PRN Reason: Moderate to Severe Pain Last Admin: 09/10/20 04:27 Dose: 0.5 mg Documented by: Piperacillin Sod/Tazobactam (Sod 3.375 gm/ Sodium Chloride) 100 mls @ 25 mls/hr IVPB Q8HR [facility] Last Admin: 09/10/20 16:07 Dose: 25 mls/hr Documented by: Metronidazole 500 mg/ IV (Solution) 100 mls @ 100 mls/hr IVPB Q8HR [facility] Last Admin: 09/10/20 16:07 Dose: 100 mls/hr Documented by: Sodium Chloride (Saline 0.9%) 1,000 mls @ 50 mls/hr IV .Q20H [facility] Last Admin: 09/10/20 13:57 Dose: 50 mls/hr Documented by: Metoclopramide HCl (Metoclopramide 5 Mg/Ml 2 Ml Vial) 10 mg IVP Q6H PRN PRN Reason: Nausea And Vomiting Last Admin: 09/08/20 21:41 Dose: 10 mg Documented by: Naloxone HCl (Naloxone 0.4 Mg/Ml 1 Ml Vial) 0.2 mg IV Q2M PRN PRN Reason: Opioid Reversal Naloxone HCl (Naloxone 0.4 Mg/Ml 1 Ml Vial) 0.2 mg IV Q2M PRN PRN Reason: Opioid Reversal Nifedipine (Nifedipine Xl 30 Mg Tab.Er.24) 30 mg PO DAILY [facility] Last Admin: 09/10/20 09:19 Dose: 30 mg Documented by: Ondansetron HCl (Ondansetron 4 Mg/2 Ml Vial) 4 mg IVP Q8HR PRN PRN Reason: Nausea And Vomiting Last Admin: 09/10/20 21:08 Dose: 4 mg Documented by: Ondansetron HCl (Ondansetron 4 Mg/2 Ml Vial) 4 mg IVP Q6HR PRN PRN Reason: Nausea And Vomiting Pantoprazole Sodium (Pantoprazole 40 Mg/10 Ml Vial) 40 mg IVP DAILY [facility] Last Admin: 09/10/20 09:19 Dose: 40 mg Documented by: Promethazine HCl (Promethazine 25 Mg Tab) 12.5 mg PO Q6HR PRN PRN Reason: Nausea And Vomiting Physical examination: VITAL SIGNS: 98.1, 73, 18, 147/74, 98% room air GENERAL: BMI 35.8, laying in bed, awake EYES: Pupils equal. Conjunctiva normal. NECK: JVD not raised; masses not palpable. HEART: First and second heart sounds are normal; no edema. LUNGS:[ Respiratory rate normal; decreased breath sounds. ABDOMEN: Soft, tender, midline incision with dressing and a binder, liver spleen not palpable, no masses palpable. Sluggish bowel sounds PSYCH: Alert and oriented 3, mood and affect normal. INVESTIGATIONS, reviewed in the clinical context: September 10: White count 6.7 hemoglobin 12.8 potassium 3.4 creatinine 0.6 White count 8.2 hemoglobin 11.9 potassium 4 creatinine 0.7 Previous testing White count 5.1 hemoglobin 15.9 platelets 382 potassium 4.8 creatinine 0.85 Computed tomography scan of the abdomen-perforated small bowel Assessment: -Acute perforation of small bowel just proximal to the jejunum, with small bowel resection with end-to-end anastomosis. -secondary peritonitis from bowel perforation -Moderate persistent asthma -Hyperlipidemia -Essential hypertension -Chronic L4-L5 herniated disc -Obesity BMI 35.8 -Primary osteoarthritis -Acute postprocedure blood loss anemia, expected from surgery Plan: Continue IV Flagyl and Zosyn. IV fluids. Continue clear liquids. Chewing gum prescribed. Discussed with patient Thank you Dr. Ledesma
[2020-09-11 00:12] LABS: Appearance,Urine Clear (Clear); Bilirubin,Urine Negative (Negative); Blood,Urine Negative (Negative); Color,Urine Light Yellow; Glucose,Urine (UA) Negative (Negative); Ketones,Urine 1+ (Negative); Leukocyte Esterase,Urine Negative (Negative); Nitrite,Urine Negative (Negative); PH, Urine 6.5 (5.0-8.0); Protein,Urine Negative (Negative); Specific Gravity,Urine 1.007 (1.001-1.035); Urobilinogen,Urine <2.0 mg/dL (<2.0)
[2020-09-11 06:27] LABS: Glucose,Whole Blood 89 mg/dL (75-99)
[2020-09-11] MEDS: SYMBICORT 80-4.5 MCG INHALER INHALATION SCH ×2 (07:43→20:18)
[2020-09-11 07:47] LABS: Glucose,Whole Blood 111 mg/dL (75-99)
[2020-09-11] MEDS ORDERED: POTASSIUM CHLORIDE ER 20 MEQ TAB.ER PO STA ×3 (08:04→10:27)
[2020-09-11] MEDS: ONDANSETRON 4 MG/2 ML VIAL IVP PRN ×2 (08:10→21:47)
[2020-09-11] MEDS: PANTOPRAZOLE 40 MG/10 ML VIAL IVP SCH (08:10)
[2020-09-11] MEDS: PIPERACILLIN-TAZOBACTAM 3.375 GM in SODIUM CHLORIDE 0.9% 100 ML IVPB SCH ×3 (08:11→23:46)
[2020-09-11] MEDS: metroNIDAZOLE-NS PMX 500 MG in SALINE 1 100ML.BAG IVPB SCH ×3 (08:11→23:46)
[2020-09-11 09:25] LABS: African American GFR (CKD) >90 (>60 ml/min/1.73 sqM); Anion Gap 4 mmol/L; Blood Urea Nitrogen 9 mg/dL (7-17); Calcium 8.6 mg/dL (8.4-10.2); Carbon Dioxide 34 mmol/L (22-30); Chloride 101 mmol/L (98-107); Glucose 105 mg/dL (74-99); Non-African American GFR(CKD) 85 (>60 ml/min/1.73 sqM); Potassium 3.3 mmol/L (3.5-5.1); Sodium 139 mmol/L (137-145)
[2020-09-11] MEDS: ACETAMINOPHEN TAB 500 MG TAB PO PRN ×2 (09:38→16:35)
[2020-09-11] MEDS: ENOXAPARIN 40 MG/0.4 ML SYRINGE SQ SCH (09:43)
[2020-09-11] MEDS: NIFEdipine XL 30 MG TAB.ER.24 PO SCH (09:43)
[2020-09-11] MEDS: SODIUM CHLORIDE 0.9% 1,000 ML IV SCH (10:28)
--- NOTE | 2020-09-11 11:29 | CONS ---
CONSULTATION Mrs. Gupta is a 75-year-old female who presented on September 06, 2020 with symptoms of abdominal discomfort, back discomfort and chest discomfort, was found to have a perforated viscus, underwent surgical intervention by Dr. Ledesma on September 07, 2020. Cardiology consultation was requested because of episode of rapid heartbeat. The patient has been followed by Dr. Fisher, has had a history of heart murmur, but no other cardiac history. She has some dyspnea on exertion but no chest discomfort. She has history of asthma. No significant peripheral edema. No PND. No orthopnea. She has been complaining of the rapid heartbeat when she got up of from her bed to go to the chair and feels dizzy with that. She is not on the monitor, nor had an EKG during that time. She denies any chest discomfort. She has no prior history of documented arrhythmia. Her surgical intervention showed she underwent a small bowel resection with lysis of adhesion for perforation of her small bowel. Her coronary risk factors are positive for hypertension. She is nondiabetic, nonsmoker. MEDICATION: At home included Procardia XL 30 mg daily, Lasix 20 mg daily, Proventil, Ventolin. REVIEW OF SYSTEMS: RESPIRATORY SYSTEM: She has history of bronchial asthma. She gets steroids at times. GI SYSTEM: She had the recent abdominal pain, ruptured viscus, no prior history of GI bleeding. SYSTEM: No dysuria or hematuria. NERVOUS SYSTEM: No history of seizure. PHYSICAL EXAMINATION: A 75-year-old female, alert, oriented, in no apparent distress. Blood pressure running in the 140s to 170s with a heart rate this morning of 80s at times it is documented at 102, afebrile. HEAD: Normocephalic. EYES: Sclerae nonicteric. NECK: Good upstroke with transmitted murmur. LUNGS: Clear to auscultation. HEART: Regular rate and rhythm, S1, S2. No S3 with systolic ejection murmur, 2/6 early to mid peaking, no diastolic murmur. ABDOMEN: Soft, mild tenderness. Positive bowel sounds. EXTREMITIES: No edema. LAB DATA: Revealed BUN and creatinine of 9 and 0.68, potassium 3.3 hemoglobin of 12.8. EKG on admission showed a sinus mechanism with left bundle branch block and rare PVCs. IMPRESSION: 1. Status post perforated viscus with small-bowel resection. 2. Episode of tachycardia probably sinus tachycardia when she gets op. No documented atrial fibrillation or ventricular ectopic activity. 3. Aortic valve murmur. 4. History of hypertension. RECOMMENDATION: I will obtain echocardiogram to evaluate her aortic valve. I will obtain an EKG. Will put on the on telemetry and depending on results of testing, further recommendation will be made. Thank you for this consult. Will follow with you. MMODL / IJN: [id number] /
[2020-09-11 11:38] LABS: Glucose,Whole Blood 90 mg/dL (75-99)
--- NOTE | 2020-09-11 11:40 | P.PN ---
Subjective Progress Note Date: 09/11/20 CHIEF COMPLAINT: Small bowel perforation HISTORY OF PRESENT ILLNESS: Patient is status post exploratory laparotomy, lysis of adhesions and small bowel resection for small bowel perforation. Patient is complaining of abdominal pain. Has been using the Tylenol and IV Dilaudid which has helped. She is complaining of urinary frequency. Urine culture was ordered. Post void checked no evidence of urinary retention. Patient became tachycardic with a heart rate into the 150s with ambulating from bed to the commode. Cardiology is on consult. Patient is being placed on telemetry monitoring and EKG is ordered. Her potassium of 3.3 is being replaced. She's currently on a clear liquid diet. She reports having bowel movement and passing gas. She's also been complaining of nausea. Afebrile. CBC pending creatinine 0.6 magnesium 1.7 PHYSICAL EXAM: VITAL SIGNS: Reviewed. GENERAL: Well-developed in no acute distress. HEENT: No sclera icterus. Extraocular movements grossly intact. Moist buccal mucosa. Head is atraumatic, normocephalic. ABDOMEN: Soft. Nondistended. Incision site clean dry and intact. There is blood noted on the dressing at the distal aspect of the incision. Suprapubic bruising NEUROLOGIC: Alert and oriented. Cranial nerves II through XII grossly intact. ASSESSMENT: 1. Small bowel perforation status post exploratory laparotomy, lysis of adhesions and small bowel resection. Postop day #4 2. Hypokalemia and hypomagnesemia 3. Tachycardia PLAN: -Hep-Lock IV fluids -Replace potassium and magnesium -Cardiology on consult for tachycardia -Follow up on urine culture -Continue IV antibiotics -Incision site will be covered with gauze and ABDs. And patient is to wear abdominal binder -Encourage incentive spirometer use -Encourage patient to ambulate -Add oral Tylenol to help with pain -DVT prophylaxis Lovenox and GI prophylaxis Protonix Physician Immunologist note has been reviewed by physician. Signing provider agrees with the documented findings, assessment, and plan of care. Objective - Vital Signs Vital signs: Vital Signs Temp 98.5 F 09/11/20 09:00 Pulse 79 09/11/20 10:34 Resp 18 09/11/20 09:00 BP 145/82 09/11/20 09:00 Pulse Ox 95 09/11/20 09:00 Intake & Output 12/12/2609/11/20 09/11/20 18:59 06:59 18:59 Intake Total 950 Output Total 50 Balance 900 Intake: Intake, IV Titration 700 Amount Piperacillin-Tazobactam 3 100 .375 gm In Sodium Chloride 0.9% 100 ml @ 25 mls/hr IVPB Q8HR [facility] Rx# :[id number] Sodium Chloride 0.9% 1, 500 000 ml @ 50 mls/hr IV . Q20H [facility] Rx#:[id number] metroNIDAZOLE-NS PMX 500 100 mg In Saline 1 100ml.bag @ 100 mls/hr IVPB Q8HR [facility] Rx#:[id number] Oral 250 Output: Urine 50 Other: Voiding Method Bedside Commode Bedside Commode Bedside Commode # Voids 1 - Labs CBC & Chem 7: 09/10/20 05:54 09/11/20 08:44 Labs: Abnormal Lab Results - Last 24 Hours (Table) 09/06/20 09/11/20 09/11/20 Range/Units 23:40 07:46 08:44 Potassium 3.3 L (3.5-5.1) mmol/L Carbon Dioxide 34 H (22-30) mmol/L Glucose 105 H (74-99) mg/dL POC Glucose (mg/dL) 111 H (75-99) mg/dL Urine Ketones 1+ H (Negative) Microbiology - Last 24 Hours (Table) 09/07/20 00:23 Blood Culture - Preliminary Blood No Growth after 96 hours
--- NOTE | 2020-09-11 12:00 | ECHOF ---
Referral Reason:as MEASUREMENTS -------- HEIGHT: 165.1 cm WEIGHT: 97.5 kg BP: 171/76 RVIDd: 2.8 cm (< 3.3) IVSd: 1.4 cm (0.6 - 1.1) LVIDd: 3.9 cm (3.9 - 5.3) LVPWd: 1.4 cm (0.6 - 1.1) IVSs: 1.7 cm LVIDs: 3.3 cm LVPWs: 1.8 cm LA Diam: 3.5 cm (2.7 - 3.8) LAESV Index (A-L): 27.01 ml/m Ao Diam: 3.1 cm (2.0 - 3.7) AV Cusp: 1.9 cm (1.5 - 2.6) MV EXCURSION: 16.920 mm (> 18.000) MV EF SLOPE: 46 mm/s (70 - 150) EPSS: 0.5 cm MV E Kar: 0.80 m/s MV DecT: 243 ms MV A Kar: 1.01 m/s MV E/A Ratio: 0.80 AV maxP.01 mmHg AV meanP.25 mmHg FINDINGS -------- Sinus rhythm. This was a technically adequate study. The left ventricular size is normal. There is moderate concentric left ventricular hypertrophy. O verall left ventricular systolic function is low-normal with, an EF between 50 - 55 %. The right ventricle is normal in size. Normal LA size by volume 22+/-6 ml/m2. The right atrial size is normal. There is mild aortic valve sclerosis. There is mild aortic stenosis present. Peak/mean gradient a cross the Aortic Valve is 16.01mmHg / 8.25mmHg. Mild mitral annular calcification present. Mild mitral regurgitation is present. The tricuspid valve appears structurally normal. Trace tricuspid regurgitation present. Trace/mild (physiologic) pulmonic regurgitation. The aortic root size is normal. IVC Not well visulized. There is no pericardial effusion. CONCLUSIONS -------- 1. There is moderate concentric left ventricular hypertrophy. 2. Overall left ventricular systolic function is low-normal with, an EF between 50 - 55 %. 3. There is mild aortic stenosis present. 4. Peak/mean gradient across the Aortic Valve is 16.01mmHg / 8.25mmHg. 5. Mild mitral annular calcification present. 6. Mild mitral regurgitation is present. 7. Trace/mild (physiologic) pulmonic regurgitation. PAN DEVULCANIZER HELPER: Carolyn Krishna RDCS
[2020-09-11 12:13] LABS: Basophils # (A) 0.1 k/uL (0-0.2); Basophils % (A) 1 %; Eosinophils # (A) 0.1 k/uL (0-0.7); Eosinophils % (A) 2 %; HCT 45.1 % (34.0-46.0); HGB 14.7 gm/dL (11.4-16.0); Lymphocytes # (A) 0.9 k/uL (1.0-4.8); Lymphocytes % (A) 12 %; MCH 31.2 pg (25.0-35.0); MCHC 32.5 g/dL (31.0-37.0); Mean Platelet Volume 7.8; Monocytes # (A) 0.5 k/uL (0-1.0); Monocytes % (A) 6 %; Neutrophils % (A) 77 %; Platelet Count 340 k/uL (150-450); RDW 14.3 % (11.5-15.5); WBC 7.8 k/uL (3.8-10.6)
[2020-09-11] MEDS ORDERED: MAGNESIUM SULFATE-D5W PMX 1 GM in DEXTROSE/WATER 1 100ML.BAG IVPB ONE (13:00)
[2020-09-11 16:17] LABS: Glucose,Whole Blood 100 mg/dL (75-99)
[2020-09-11] MEDS: HYDROmorphone 0.5 MG/0.5 ML SYRINGE IVP PRN (21:53)
--- NOTE | 2020-09-11 22:34 | P.PN ---
Progress Note - Text Progress Note Date: 09/11/20 - Chief Complaint Abdominal pain Consultation: This is a pleasant 75-year-old patient of Dr. Shahid Stewart. 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 Patient started having abdominal pain for about a week the progressively got worse she notices abdomen to become more distended. Yesterday evening she went to lie down and woke up with severe pain in the abdomen and going up in the chest. Started having nausea vomiting with what she described as a fecal matter. Never had Trinity pain. Came into the ER. It showed inflammatory changes within the and wall thickening and localized perforation small bowel admin centric air bubbles in the midabdomen. Just proximal to the jejunum that was perforation. A [id number] functional end-to-end stapled anastomosis of dissection was carried out. Today-. Patient had a good bowel movement today. With flatus. Also went into rapid heart rate this morning.. Cardiology was consulted. Patient had some dizziness. Review of systems: Was done for constitutional, cardiovascular, GI, pulmonary. relevant finding as above Active Medications Acetaminophen (Acetaminophen Tab 500 Mg Tab) 1,000 mg PO Q6HR PRN PRN Reason: Fever and/ or Mild Pain Last Admin: 09/11/20 16:35 Dose: 1,000 mg Documented by: Hydrocodone Bitart/Acetaminophen (Hydrocodone/Apap 5-325mg 1 Each Tab) 2 each PO Q6HR PRN PRN Reason: Moderate to Severe Pain Albuterol Sulfate (Albuterol Nebulized 2.5 Mg/3 Ml) 2.5 mg INHALATION RT-QID PRN PRN Reason: Abdominal Distention Budesonide/Formoterol Fumarate (Symbicort 80-4.5 Mcg Inhaler) 2 puff INHALATION RT-BID [facility] Last Admin: 09/11/20 20:18 Dose: 2 puff Documented by: Enoxaparin Sodium (Enoxaparin 40 Mg/0.4 Ml Syringe) 40 mg SQ DAILY [facility] Last Admin: 09/11/20 09:43 Dose: 40 mg Documented by: Fentanyl Citrate (Fentanyl (Pf) 50 Mcg/Ml 2 Ml Amp) 50 mcg IVP ONCE PRN PRN Reason: Severe Pain Last Admin: 09/07/20 14:22 Dose: 50 mcg Documented by: Hydromorphone HCl (Hydromorphone 0.5 Mg/0.5 Ml Syringe) 0.5 mg IVP Q3HR PRN PRN Reason: Moderate to Severe Pain Last Admin: 09/11/20 21:53 Dose: 0.5 mg Documented by: Piperacillin Sod/Tazobactam (Sod 3.375 gm/ Sodium Chloride) 100 mls @ 25 mls/hr IVPB Q8HR [facility] Last Admin: 09/11/20 16:35 Dose: 25 mls/hr Documented by: Metronidazole 500 mg/ IV (Solution) 100 mls @ 100 mls/hr IVPB Q8HR [facility] Last Admin: 09/11/20 16:36 Dose: 100 mls/hr Documented by: Metoclopramide HCl (Metoclopramide 5 Mg/Ml 2 Ml Vial) 10 mg IVP Q6H PRN PRN Reason: Nausea And Vomiting Last Admin: 09/08/20 21:41 Dose: 10 mg Documented by: Naloxone HCl (Naloxone 0.4 Mg/Ml 1 Ml Vial) 0.2 mg IV Q2M PRN PRN Reason: Opioid Reversal Naloxone HCl (Naloxone 0.4 Mg/Ml 1 Ml Vial) 0.2 mg IV Q2M PRN PRN Reason: Opioid Reversal Nifedipine (Nifedipine Xl 30 Mg Tab.Er.24) 30 mg PO DAILY [facility] Last Admin: 09/11/20 09:43 Dose: 30 mg Documented by: Ondansetron HCl (Ondansetron 4 Mg/2 Ml Vial) 4 mg IVP Q8HR PRN PRN Reason: Nausea And Vomiting Last Admin: 09/11/20 21:47 Dose: 4 mg Documented by: Ondansetron HCl (Ondansetron 4 Mg/2 Ml Vial) 4 mg IVP Q6HR PRN PRN Reason: Nausea And Vomiting Last Admin: 09/11/20 08:10 Dose: 4 mg Documented by: Pantoprazole Sodium (Pantoprazole 40 Mg/10 Ml Vial) 40 mg IVP DAILY [facility] Last Admin: 09/11/20 08:10 Dose: 40 mg Documented by: Promethazine HCl (Promethazine 25 Mg Tab) 12.5 mg PO Q6HR PRN PRN Reason: Nausea And Vomiting Physical examination: VITAL SIGNS: 98.5, 79, 18, on 4582, 95% room air GENERAL: BMI 35.8, laying in bed, awake EYES: Pupils equal. Conjunctiva normal. NECK: JVD not raised; masses not palpable. HEART: First and second heart sounds are normal; no edema. LUNGS:[ Respiratory rate normal; decreased breath sounds. ABDOMEN: Soft, tender, midline incision with dressing and a binder, liver spleen not palpable, no masses palpable. -abdominal binder PSYCH: Alert and oriented 3, mood and affect normal. INVESTIGATIONS, reviewed in the clinical context: 2-D echocardiogram-EF 50-55%. Ordered concentric LVH September 10: White count 6.7 hemoglobin 12.8 potassium 3.4 creatinine 0.6 White count 8.2 hemoglobin 11.9 potassium 4 creatinine 0.7 Previous testing White count 5.1 hemoglobin 15.9 platelets 382 potassium 4.8 creatinine 0.85 Computed tomography scan of the abdomen-perforated small bowel Assessment: -Acute perforation of small bowel just proximal to the jejunum, with small bowel resection with end-to-end anastomosis-abdominal binder. -Possible sinus tachycardia -secondary peritonitis from bowel perforation -Moderate persistent asthma -Hyperlipidemia -Essential hypertension -Hypertensive heart disease -Chronic L4-L5 herniated disc -Obesity BMI 35.8 -Primary osteoarthritis -Acute postprocedure blood loss anemia, expected from surgery Plan: Continue IV Flagyl and Zosyn. Had a good bowel movement. Diet advanced. Doing much better. Thank you Dr. Ledesma
[2020-09-12] MEDS: ACETAMINOPHEN TAB 500 MG TAB PO PRN (01:16)
[2020-09-12] MEDS: HYDROcodone/APAP 5-325MG 1 EACH TAB PO PRN ×3 (04:15→12:32)
[2020-09-12 06:47] LABS: African American GFR (CKD) >90 (>60 ml/min/1.73 sqM); Anion Gap 4 mmol/L; Blood Urea Nitrogen 9 mg/dL (7-17); Calcium 8.7 mg/dL (8.4-10.2); Carbon Dioxide 34 mmol/L (22-30); Chloride 100 mmol/L (98-107); Glucose 104 mg/dL (74-99); Magnesium 1.9 mg/dL (1.6-2.3); Non-African American GFR(CKD) 79 (>60 ml/min/1.73 sqM); Potassium 3.3 mmol/L (3.5-5.1); Sodium 138 mmol/L (137-145)
[2020-09-12 07:09] LABS: Glucose,Whole Blood 84 mg/dL (75-99)
[2020-09-12] MEDS: SYMBICORT 80-4.5 MCG INHALER INHALATION SCH ×2 (07:39→19:09)
[2020-09-12] MEDS ORDERED: POTASSIUM CHLORIDE ER 20 MEQ TAB.ER PO STA (07:54)
--- NOTE | 2020-09-12 09:33 | P.PN ---
Subjective Progress Note Date: 09/12/20 CHIEF COMPLAINT: Tachycardia HISTORY OF PRESENT ILLNESS: Patient is status post exploratory laparotomy, lysis of adhesions, and small bowel resection with Dr. Ledesma on 09/07/2020. Patient examined this morning at the bedside. She reports significant abdominal pain this morning. She also reports posterior neck pain. Per telemetry, patient having runs of SVT overnight. This morning the patient is maintaining sinus mechanism with a heart rate in the 80s. Echocardiogram completed revealed an ejection fraction 50-55%, mild aortic stenosis, and mild mitral regurgitation. Potassium 3.3. Magnesium 1.9. PHYSICAL EXAM: VITAL SIGNS: Reviewed. GENERAL: Well-developed in no acute distress. NECK: Supple. No JVD or thyromegaly LUNGS: Respirations even and unlabored. Lungs diminished. HEART: Regular rate and rhythm. S1 and S2 heard. Systolic murmur noted. EXTREMITIES: Normal range of motion. No clubbing or cyanosis. Peripheral p ulses intact. No lower extremity edema ASSESSMENT: Small bowel perforation, status post exposure laparotomy, lysis of adhesions, and small bowel resection Postoperative tachycardia, with runs of SVT Hypertension Hypokalemia Hypomagnesemia PLAN: Continue telemetry monitoring Begin metoprolol 25 mg twice a day Replace potassium Further recommendations pending patient's course Nurse practitioner note has been reviewed by physician. Signing provider agrees with the documented findings, assessment, and plan of care. Objective - Vital Signs Vital signs: Vital Signs Temp 98.1 F 09/12/20 02:30 Pulse 92 09/12/20 02:30 Resp 20 09/12/20 02:30 BP 171/75 09/12/20 02:30 Pulse Ox 95 09/12/20 02:30 Intake & Output 09/11/20 09/12/20 09/12/20 18:59 06:59 18:59 Intake Total 320 Balance 320 Intake: Intake, IV Titration 200 Amount Piperacillin-Tazobactam 3 100 .375 gm In Sodium Chloride 0.9% 100 ml @ 25 mls/hr IVPB Q8HR [facility] Rx# :[id number] metroNIDAZOLE-NS PMX 500 100 mg In Saline 1 100ml.bag @ 100 mls/hr IVPB Q8HR [facility] Rx#:[id number] Oral 120 Other: Voiding Method Bedside Commode Bedside Commode # Voids 3 # Bowel Movements 2 - Labs CBC & Chem 7: 09/11/20 08:44 09/12/20 06:11 Labs: Abnormal Lab Results - Last 24 Hours (Table) 09/11/20 09/11/20 09/11/20 Range/Units 08:44 08:44 16:16 Lymphocytes # 0.9 L (1.0-4.8) k/uL Potassium 3.3 L (3.5-5.1) mmol/L Carbon Dioxide 34 H (22-30) mmol/L Glucose 105 H (74-99) mg/dL POC Glucose (mg/dL) 100 H (75-99) mg/dL 09/12/20 Range/Units 06:11 Lymphocytes # (1.0-4.8) k/uL Potassium 3.3 L (3.5-5.1) mmol/L Carbon Dioxide 34 H (22-30) mmol/L Glucose 104 H (74-99) mg/dL POC Glucose (mg/dL) (75-99) mg/dL Microbiology - Last 24 Hours (Table) 09/07/20 00:23 Blood Culture - Preliminary Blood No Growth after 120 hours 09/10/20 23:40 Urine Culture - Preliminary Urine,Clean Catch
[2020-09-12] MEDS: PIPERACILLIN-TAZOBACTAM 3.375 GM in SODIUM CHLORIDE 0.9% 100 ML IVPB SCH ×2 (09:53→16:48)
[2020-09-12] MEDS: metroNIDAZOLE-NS PMX 500 MG in SALINE 1 100ML.BAG IVPB SCH ×2 (09:54→16:48)
[2020-09-12] MEDS: METOPROLOL TARTRATE 25 MG TAB PO SCH (09:58)
[2020-09-12] MEDS: ENOXAPARIN 40 MG/0.4 ML SYRINGE SQ SCH (09:58)
[2020-09-12] MEDS: NIFEdipine XL 30 MG TAB.ER.24 PO SCH (09:58)
[2020-09-12] MEDS: DICLOFENAC SODIUM GEL 100 GM TUBE TOPICAL SCH ×3 (09:59→16:48)
[2020-09-12] MEDS ORDERED: MAGNESIUM SULFATE-D5W PMX 1 GM in DEXTROSE/WATER 1 100ML.BAG IVPB ONE (10:00)
--- NOTE | 2020-09-12 11:24 | P.PN ---
Progress Note - Text Progress Note Date: 09/12/20 Patient's complaints of abdominal pain. She is having flatus and bowel movements. On exam vital signs are stable. Abdomen soft. Probable abdominal wall strain and postoperative pain. Patient will T supportive care.
[2020-09-12 12:17] LABS: Glucose,Whole Blood 111 mg/dL (75-99)
[2020-09-12] MEDS: MAGNESIUM SULFATE-D5W PMX 1 GM in DEXTROSE/WATER 1 100ML.BAG IVPB SCH ×2 (12:45→12:46)
[2020-09-12 16:56] LABS: Glucose,Whole Blood 126 mg/dL (75-99)
[2020-09-12 21:41] LABS: Glucose,Whole Blood 144 mg/dL (75-99)
--- NOTE | 2020-09-12 23:06 | P.PN ---
Progress Note - Text Progress Note Date: 09/12/20 - Chief Complaint Abdominal pain Consultation: This is a pleasant 75-year-old patient of Dr. Shahid Stewart. 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 Patient started having abdominal pain for about a week the progressively got worse she notices abdomen to become more distended. Yesterday evening she went to lie down and woke up with severe pain in the abdomen and going up in the chest. Started having nausea vomiting with what she described as a fecal matter. Never had Trinity pain. Came into the ER. It showed inflammatory changes within the and wall thickening and localized perforation small bowel admin centric air bubbles in the midabdomen. Just proximal to the jejunum that was perforation. A [id number] functional end-to-end stapled anastomosis of dissection was carried out. Has had a good bowel movement. Had a run of SVT. Today-. No new issues. Comfortable. Oral intake fair. Review of systems: Was done for constitutional, cardiovascular, GI, pulmonary. relevant finding as above Active Medications Acetaminophen (Acetaminophen Tab 500 Mg Tab) 1,000 mg PO Q6HR PRN PRN Reason: Fever and/ or Mild Pain Last Admin: 09/12/20 01:16 Dose: 1,000 mg Documented by: Hydrocodone Bitart/Acetaminophen (Hydrocodone/Apap 5-325mg 1 Each Tab) 2 each PO Q6HR PRN PRN Reason: Moderate to Severe Pain Last Admin: 09/12/20 12:32 Dose: 2 each Documented by: Albuterol Sulfate (Albuterol Nebulized 2.5 Mg/3 Ml) 2.5 mg INHALATION RT-QID PRN PRN Reason: Abdominal Distention Budesonide/Formoterol Fumarate (Symbicort 80-4.5 Mcg Inhaler) 2 puff INHALATION RT-BID [facility] Last Admin: 09/12/20 19:09 Dose: Not Given Documented by: Diclofenac Sodium (Diclofenac Sodium Gel 100 Gm Tube) 2 gm TOPICAL QID [facility] Last Admin: 09/12/20 16:48 Dose: 2 gm Documented by: Enoxaparin Sodium (Enoxaparin 40 Mg/0.4 Ml Syringe) 40 mg SQ DAILY [facility] Last Admin: 09/12/20 09:58 Dose: 40 mg Documented by: Fentanyl Citrate (Fentanyl (Pf) 50 Mcg/Ml 2 Ml Amp) 50 mcg IVP ONCE PRN PRN Reason: Severe Pain Last Admin: 09/07/20 14:22 Dose: 50 mcg Documented by: Hydromorphone HCl (Hydromorphone 0.5 Mg/0.5 Ml Syringe) 0.5 mg IVP Q3HR PRN PRN Reason: Moderate to Severe Pain Last Admin: 09/11/20 21:53 Dose: 0.5 mg Documented by: Piperacillin Sod/Tazobactam (Sod 3.375 gm/ Sodium Chloride) 100 mls @ 25 mls/hr IVPB Q8HR [facility] Last Admin: 09/12/20 16:48 Dose: 25 mls/hr Documented by: Metronidazole 500 mg/ IV (Solution) 100 mls @ 100 mls/hr IVPB Q8HR [facility] Last Admin: 09/12/20 16:48 Dose: 100 mls/hr Documented by: Metoprolol Tartrate (Metoprolol Tartrate 25 Mg Tab) 25 mg PO BID [facility] Last Admin: 09/12/20 09:58 Dose: 25 mg Documented by: Naloxone HCl (Naloxone 0.4 Mg/Ml 1 Ml Vial) 0.2 mg IV Q2M PRN PRN Reason: Opioid Reversal Nifedipine (Nifedipine Xl 30 Mg Tab.Er.24) 30 mg PO DAILY [facility] Last Admin: 09/12/20 09:58 Dose: 30 mg Documented by: Ondansetron HCl (Ondansetron 4 Mg/2 Ml Vial) 4 mg IVP Q6HR PRN PRN Reason: Nausea And Vomiting Last Admin: 09/11/20 08:10 Dose: 4 mg Documented by: Promethazine HCl (Promethazine 25 Mg Tab) 12.5 mg PO Q6HR PRN PRN Reason: Nausea And Vomiting Physical examination: VITAL SIGNS: 98.2, 72, 18, 126/69, 95% room air GENERAL: BMI 35.8, laying in bed, awake EYES: Pupils equal. Conjunctiva normal. NECK: JVD not raised; masses not palpable. HEART: First and second heart sounds are normal; no edema. LUNGS:[ Respiratory rate normal; decreased breath sounds. ABDOMEN: Soft, tender, midline incision with dressing and a binder, liver spleen not palpable, no masses palpable. -abdominal binder PSYCH: Alert and oriented 3, mood and affect normal. INVESTIGATIONS, reviewed in the clinical context: September 12: Potassium 3.3 creatinine 0.74 2-D echocardiogram-EF 50-55%. Ordered concentric LVH September 10: White count 6.7 hemoglobin 12.8 potassium 3.4 creatinine 0.6 White count 8.2 hemoglobin 11.9 potassium 4 creatinine 0.7 Previous testing White count 5.1 hemoglobin 15.9 platelets 382 potassium 4.8 creatinine 0.85 Computed tomography scan of the abdomen-perforated small bowel Assessment: -Acute perforation of small bowel just proximal to the jejunum, with small bowel resection with end-to-end anastomosis-abdominal binder. -Paroxysmal SVT-started on Lopressor -secondary peritonitis from bowel perforation -Moderate persistent asthma -Hyperlipidemia -Essential hypertension -Hypertensive heart disease -Chronic L4-L5 herniated disc -Obesity BMI 35.8 -Primary osteoarthritis -Acute postprocedure blood loss anemia, expected from surgery Plan: Continue IV Flagyl and Zosyn. Lopressor added. Doing well. Ambulating. Thank you Dr. Ledesma
[2020-09-13] MEDS: DICLOFENAC SODIUM GEL 100 GM TUBE TOPICAL SCH ×6 (00:27→22:55)
[2020-09-13] MEDS: METOPROLOL TARTRATE 25 MG TAB PO SCH ×3 (00:28→21:15)
[2020-09-13] MEDS: metroNIDAZOLE-NS PMX 500 MG in SALINE 1 100ML.BAG IVPB SCH ×3 (00:56→16:11)
[2020-09-13] MEDS: PIPERACILLIN-TAZOBACTAM 3.375 GM in SODIUM CHLORIDE 0.9% 100 ML IVPB SCH ×3 (00:59→16:12)
[2020-09-13] MEDS: ONDANSETRON 4 MG/2 ML VIAL IVP PRN (01:54)
[2020-09-13] MEDS: HYDROcodone/APAP 5-325MG 1 EACH TAB PO PRN ×4 (01:55→22:52)
[2020-09-13 07:26] LABS: Glucose,Whole Blood 102 mg/dL (75-99)
[2020-09-13] MEDS: SYMBICORT 80-4.5 MCG INHALER INHALATION SCH ×2 (07:31→19:55)
--- NOTE | 2020-09-13 09:09 | P.PN ---
Subjective Progress Note Date: 09/13/20 CHIEF COMPLAINT: Tachycardia HISTORY OF PRESENT ILLNESS: Patient is status post exploratory laparotomy, lysis of adhesions, and small bowel resection with Dr. Ledesma on 09/07/2020. Patient examined this morning at the bedside. Patient states her abdominal pain has significantly improved today. She denies chest pain or pressure. Denies shortness of breath. She denies feeling any further palpitations. Per nursing, patient had 1 short run of SVT this morning. PHYSICAL EXAM: VITAL SIGNS: Reviewed. GENERAL: Well-developed in no acute distress. NECK: Supple. No JVD or thyromegaly LUNGS: Respirations even and unlabored. Lungs diminished. HEART: Regular rate and rhythm. S1 and S2 heard. Systolic murmur noted. EXTREMITIES: Normal range of motion. No clubbing or cyanosis. Peripheral pulses intact. Trace bilateral lower extremity edema ASSESSMENT: Small bowel perforation, status post exposure laparotomy, lysis of adhesions, and small bowel resection Postoperative tachycardia, with runs of SVT Hypertension Hypokalemia Hypomagnesemia PLAN: Continue telemetry monitoring Continue metoprolol 25 mg twice a day Await morning BMP results Further recommendations pending patient's course Nurse practitioner note has been reviewed by physician. Signing provider agrees with the documented findings, assessment, and plan of care. Objective - Vital Signs Vital signs: Vital Signs Temp 97.6 F 09/13/20 06:02 Pulse 62 09/13/20 06:02 Resp 17 09/13/20 06:02 BP 122/71 09/13/20 06:02 Pulse Ox 94 L 09/13/20 06:02 Intake & Output 09/12/20 09/13/20 09/13/20 18:59 06:59 18:59 Intake Total 200 680 Balance 200 680 Intake: Intake, IV Titration 200 Amount Piperacillin-Tazobactam 3 100 .375 gm In Sodium Chloride 0.9% 100 ml @ 25 mls/hr IVPB Q8HR [facility] Rx# :[id number] metroNIDAZOLE-NS PMX 500 100 mg In Saline 1 100ml.bag @ 100 mls/hr IVPB Q8HR [facility] Rx#:[id number] Oral 480 Other 200 Other: Voiding Method Bedside Commode Bedside Commode Diaper # Voids 2 1 - Labs CBC & Chem 7: 09/11/20 08:44 09/12/20 06:11 Labs: Abnormal Lab Results - Last 24 Hours (Table) 09/12/20 09/12/20 09/12/20 Range/Units 12:16 16:55 21:36 POC Glucose (mg/dL) 111 H 126 H 144 H (75-99) mg/dL 09/13/20 Range/Units 07:25 POC Glucose (mg/dL) 102 H (75-99) mg/dL Microbiology - Last 24 Hours (Table) 09/07/20 00:23 Blood Culture - Final Blood No Growth after 144 hours 09/10/20 23:40 Urine Culture - Final Urine,Clean Catch
[2020-09-13 10:33] LABS: African American GFR (CKD) 101.9 (60.0-200.0); Anion Gap 7.9 mmol/L (4.00-12.00); BUN/Creat Ratio 23.33 Ratio (12.00-20.00); Carbon Dioxide 26.1 mmol/L (21.6-31.8); Magnesium 2.1 mg/dL (1.5-2.4); Non-African American GFR(CKD) 87.9 (60.0-200.0); Potassium 3.7 mmol/L (3.5-5.5)
[2020-09-13] MEDS: NIFEdipine XL 30 MG TAB.ER.24 PO SCH (11:16)
[2020-09-13] MEDS: ENOXAPARIN 40 MG/0.4 ML SYRINGE SQ SCH (11:16)
--- NOTE | 2020-09-13 11:27 | P.PN ---
Progress Note - Text Progress Note Date: 09/13/20 The patient states she is having trouble swallowing. She is unable to eat. On exam vital signs are stable. Abdomen soft. Incisions clean and intact. Patiently placed on a soft full liquid diet. We will reassess her in the a.m.
[2020-09-13 12:18] LABS: Glucose,Whole Blood 103 mg/dL (75-99)
[2020-09-13 16:55] LABS: Glucose,Whole Blood 121 mg/dL (75-99)
[2020-09-13 20:53] LABS: Glucose,Whole Blood 168 mg/dL (75-99)
[2020-09-14] MEDS: metroNIDAZOLE-NS PMX 500 MG in SALINE 1 100ML.BAG IVPB SCH ×4 (00:05→23:14)
[2020-09-14] MEDS: PIPERACILLIN-TAZOBACTAM 3.375 GM in SODIUM CHLORIDE 0.9% 100 ML IVPB SCH ×3 (00:05→16:00)
[2020-09-14] MEDS: HYDROcodone/APAP 5-325MG 1 EACH TAB PO PRN ×4 (06:17→20:25)
[2020-09-14 07:16] LABS: Glucose,Whole Blood 97 mg/dL (75-99)
[2020-09-14] MEDS: DICLOFENAC SODIUM GEL 100 GM TUBE TOPICAL SCH ×4 (09:03→22:50)
[2020-09-14] MEDS: ENOXAPARIN 40 MG/0.4 ML SYRINGE SQ SCH (09:04)
[2020-09-14 09:14] LABS: Glucose,Whole Blood 143 mg/dL (75-99)
[2020-09-14] MEDS: SYMBICORT 80-4.5 MCG INHALER INHALATION SCH (09:45)
[2020-09-14] MEDS: NIFEdipine XL 30 MG TAB.ER.24 PO SCH (09:50)
[2020-09-14] MEDS: METOPROLOL TARTRATE 25 MG TAB PO SCH (09:50)
[2020-09-14] MEDS: METOPROLOL TARTRATE 12.5 MG TAB PO SCH ×2 (09:51→20:25)
--- NOTE | 2020-09-14 10:08 | P.PN ---
Progress Note - Text Progress Note Date: 09/13/20 - Chief Complaint Abdominal pain Consultation: This is a pleasant 75-year-old patient of Dr. Shahid Stewart. 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 Patient started having abdominal pain for about a week the progressively got worse she notices abdomen to become more distended. Yesterday evening she went to lie down and woke up with severe pain in the abdomen and going up in the chest. Started having nausea vomiting with what she described as a fecal matter. Never had Trinity pain. Came into the ER. It showed inflammatory changes within the and wall thickening and localized perforation small bowel admin centric air bubbles in the midabdomen. Just proximal to the jejunum that was perforation. A [id number] functional end-to-end stapled anastomosis of dissection was carried out. Has had a good bowel movement. Had a run of SVT. Seen by cardiology. Put on beta wojciech. Today-. Better. Had a good bowel movement. Pain control. No nausea vomiting. No further arrhythmias. Has been out of bed. Ambulating. Review of systems: Was done for constitutional, cardiovascular, GI, pulmonary. relevant finding as above Current medications reviewed in today's electronic records Physical examination: VITAL SIGNS: 97.6, 62, 17, 122/71, 94% on room air GENERAL: BMI 35.8, laying in bed, comfortable EYES: Pupils equal. Conjunctiva normal. NECK: JVD not raised; masses not palpable. HEART: First and second heart sounds are normal; no edema. LUNGS:[ Respiratory rate normal; decreased breath sounds. ABDOMEN: Soft, tender, midline incision with dressing and a binder, liver spleen not palpable, no masses palpable. -abdominal binder PSYCH: Alert and oriented 3, mood and affect normal. INVESTIGATIONS, reviewed in the clinical context: September 13: Potassium 3.7 creatinine 0.6 September 12: Potassium 3.3 creatinine 0.74 2-D echocardiogram-EF 50-55%. Ordered concentric LVH September 10: White count 6.7 hemoglobin 12.8 potassium 3.4 creatinine 0.6 White count 8.2 hemoglobin 11.9 potassium 4 creatinine 0.7 Previous testing White count 5.1 hemoglobin 15.9 platelets 382 potassium 4.8 creatinine 0.85 Computed tomography scan of the abdomen-perforated small bowel Assessment: -Acute perforation of small bowel just proximal to the jejunum, with small bowel resection with end-to-end anastomosis-abdominal binder. -Paroxysmal SVT-started on Lopressor -secondary peritonitis from bowel perforation-clinically improved -Moderate persistent asthma -Hyperlipidemia -Essential hypertension -Hypertensive heart disease -Chronic L4-L5 herniated disc -Obesity BMI 35.8 -Primary osteoarthritis -Acute postprocedure blood loss anemia, as expected from surgery Plan: Continue IV Flagyl and Zosyn. Lopressor . Medically stable. DC when okay with Dr. Ledesma. Discussed with patient. Continue to ambulate. Thank you Dr. Ledesma
--- NOTE | 2020-09-14 10:22 | P.PN ---
<WellsDelma Luz Maria - Last Filed: 09/14/20 10:19> Subjective Progress Note Date: 09/14/20 CHIEF COMPLAINT: Tachycardia HISTORY OF PRESENT ILLNESS: Patient is status post exploratory laparotomy, lysis of adhesions, and small bowel resection with Dr. Ledesma on 09/07/2020. Patient examined this morning at the bedside. She denies chest pain or pressure. Denies shortness of breath. She denies feeling any further palpitations. The patients nurse states she was told in report the patients heart rate had been going down into the 20s overnight. PHYSICAL EXAM: VITAL SIGNS: Reviewed. GENERAL: Well-developed in no acute distress. NECK: Supple. No JVD or thyromegaly LUNGS: Respirations even and unlabored. Lungs diminished. HEART: Regular rate and rhythm. S1 and S2 heard. Systolic murmur noted. EXTREMITIES: Normal range of motion. No clubbing or cyanosis. Peripheral pulses intact. Trace bilateral lower extremity edema ASSESSMENT: Small bowel perforation, status post exploratory laparotomy, lysis of adhesions, and small bowel resection Postoperative tachycardia, with runs of SVT Hypertension Hypokalemia Hypomagnesemia PLAN: Continue telemetry monitoring Telemetry monitoring reviewed. Patients heart rate has not been under 50 for the last 24 hours. Verified with surgery tech on 3S who also verified no significant bradycardia. However, due to patients heart rate running on the lower side at times, will decrease metoprolol to 12.5mg Further recommendations pending patient's course Nurse practitioner note has been reviewed by physician. Signing provider agrees with the documented findings, assessment, and plan of care. Objective - Vital Signs Vital signs: Vital Signs Temp 97.3 F L 09/14/20 06:11 Pulse 60 09/14/20 02:00 Resp 18 09/14/20 02:00 BP 111/57 09/14/20 02:00 Pulse Ox 92 L 09/14/20 02:00 Intake & Output 09/13/20 09/14/20 09/14/20 18:59 06:59 18:59 Intake Total 200 Balance 200 Intake: Other 200 Other: # Voids 1 3 # Bowel Movements 1 - Labs CBC & Chem 7: 09/11/20 08:44 09/13/20 05:41 Labs: Abnormal Lab Results - Last 24 Hours (Table) 09/13/20 09/13/20 09/13/20 Range/Units 05:41 12:17 16:54 BUN/Creatinine Ratio 23.33 H (12.00-20.00) Ratio Glucose 115 H (70-110) mg/dL POC Glucose (mg/dL) 103 H 121 H (75-99) mg/dL Calcium 8.0 L (8.7-10.3) mg/dL 09/13/20 09/14/20 Range/Units 20:52 09:12 BUN/Creatinine Ratio (12.00-20.00) Ratio Glucose (70-110) mg/dL POC Glucose (mg/dL) 168 H 143 H (75-99) mg/dL Calcium (8.7-10.3) mg/dL <Yonny Davis - Last Filed: 09/14/20 17:28> Subjective No significant bradycardia/pauses noted. We will continue metoprolol 12.5 mg twice a day. No further recommendations from a cardiology standpoint. Please call with any questions. Yonny Davis D.O. Objective - Vital Signs Vital signs: Vital Signs Temp 97.9 F 09/14/20 12:33 Pulse 67 09/14/20 12:33 Resp 17 09/14/20 12:33 BP 164/74 09/14/20 12:33 Pulse Ox 93 L 09/14/20 12:33 Intake & Output 09/13/20 09/14/20 09/14/20 18:59 06:59 18:59 Intake Total 200 Balance 200 Weight 97.522 kg Intake: Other 200 Other: # Voids 1 3 # Bowel Movements 1 - Labs CBC & Chem 7: 09/11/20 08:44 09/13/20 05:41 Labs: Abnormal Lab Results - Last 24 Hours (Table) 09/13/20 09/14/20 09/14/20 Range/Units 20:52 09:12 11:23 POC Glucose (mg/dL) 168 H 143 H 112 H (75-99) mg/dL 09/14/20 Range/Units 17:01 POC Glucose (mg/dL) 116 H (75-99) mg/dL
[2020-09-14 11:24] LABS: Glucose,Whole Blood 112 mg/dL (75-99)
--- NOTE | 2020-09-14 11:34 | P.PN ---
Subjective Progress Note Date: 09/14/20 CHIEF COMPLAINT: Small bowel perforation HISTORY OF PRESENT ILLNESS: Patient is status post exploratory laparotomy, lysis of adhesions and small bowel resection for small bowel perforation on 09/07/2020. Patient reports her abdominal pain is controlled. She is having bowel movements and passing gas. She did report some nausea. She is requesting to be advanced to a regular diet. Apparently over the weekend she had some difficulty with swallowing and was diet was decreased to a full liquid. Patient reports that her swallowing is back to normal and she will be started on regular diet. She's afebrile. She is followed by cardiology for postop tachycardia. Apparently there have been some bradycardia and metoprolol has been decreased. PHYSICAL EXAM: VITAL SIGNS: Reviewed. GENERAL: Well-developed in no acute distress. HEENT: No sclera icterus. Extraocular movements grossly intact. Moist buccal mucosa. Head is atraumatic, normocephalic. ABDOMEN: Soft. Nondistended. Incision site clean dry and intact. NEUROLOGIC: Alert and oriented. Cranial nerves II through XII grossly intact. ASSESSMENT: 1. Small bowel perforation status post exploratory laparotomy, lysis of adhesions and small bowel resection. 2. Hypokalemia and hypomagnesemia. Resolved 3. Postoperative Tachycardia followed by cardiology PLAN: -Advance diet to regular -Continue antibiotics -Encouraged patient to ambulate -Encouraged patient to use incentive spirometer -DVT prophylaxis Lovenox and GI prophylaxis Protonix Physician Lmft note has been reviewed by physician. Signing provider agrees with the documented findings, assessment, and plan of care. Objective - Vital Signs Vital signs: Vital Signs Temp 97.1 F L 09/14/20 08:00 Pulse 94 09/14/20 08:00 Resp 18 09/14/20 08:00 BP 145/65 09/14/20 08:00 Pulse Ox 94 L 09/14/20 08:00 Intake & Output 09/13/20 09/14/20 09/14/20 18:59 06:59 18:59 Intake Total 200 Balance 200 Intake: Other 200 Other: # Voids 1 3 # Bowel Movements 1 - Labs CBC & Chem 7: 09/11/20 08:44 09/13/20 05:41 Labs: Abnormal Lab Results - Last 24 Hours (Table) 09/13/20 09/13/20 09/13/20 Range/Units 12:17 16:54 20:52 POC Glucose (mg/dL) 103 H 121 H 168 H (75-99) mg/dL 09/14/20 09/14/20 Range/Units 09:12 11:23 POC Glucose (mg/dL) 143 H 112 H (75-99) mg/dL
[2020-09-14 12:49] VITALS: BMI 35.7
[2020-09-14 17:02] LABS: Glucose,Whole Blood 116 mg/dL (75-99)
[2020-09-14 20:25] LABS: Glucose,Whole Blood 157 mg/dL (75-99)
[2020-09-14] MEDS: BACITRACIN OINT 1 EACH PACKET TOPICAL SCH (20:25)
[2020-09-15] MEDS: PIPERACILLIN-TAZOBACTAM 3.375 GM in SODIUM CHLORIDE 0.9% 100 ML IVPB SCH ×3 (00:41→16:06)
[2020-09-15] MEDS: SYMBICORT 80-4.5 MCG INHALER INHALATION SCH ×3 (02:36→19:22)
[2020-09-15] MEDS: HYDROcodone/APAP 5-325MG 1 EACH TAB PO PRN ×3 (02:49→21:23)
[2020-09-15] MEDS: metroNIDAZOLE-NS PMX 500 MG in SALINE 1 100ML.BAG IVPB SCH ×2 (07:17→16:05)
[2020-09-15] MEDS: BACITRACIN OINT 1 EACH PACKET TOPICAL SCH ×2 (08:37→22:17)
[2020-09-15] MEDS: ENOXAPARIN 40 MG/0.4 ML SYRINGE SQ SCH (08:37)
[2020-09-15] MEDS: METOPROLOL TARTRATE 12.5 MG TAB PO SCH ×2 (08:38→21:24)
[2020-09-15] MEDS: NIFEdipine XL 30 MG TAB.ER.24 PO SCH (08:39)
[2020-09-15] MEDS: DICLOFENAC SODIUM GEL 100 GM TUBE TOPICAL SCH ×4 (08:47→23:33)
--- NOTE | 2020-09-15 10:41 | P.PN ---
Progress Note - Text Progress Note Date: 09/14/20 - Chief Complaint Abdominal pain Consultation: This is a pleasant 75-year-old patient of Dr. Shahid Stewart. 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 Patient started having abdominal pain for about a week the progressively got worse she notices abdomen to become more distended. Yesterday evening she went to lie down and woke up with severe pain in the abdomen and going up in the chest. Started having nausea vomiting with what she described as a fecal matter. Never had Trniity pain. Came into the ER. It showed inflammatory changes within the and wall thickening and localized perforation small bowel admin centric air bubbles in the midabdomen. Just proximal to the jejunum that was perforation. A [id number] functional end-to-end stapled anastomosis of dissection was carried out. Has had a good bowel movement. Had a run of SVT. Seen by cardiology. Put on beta wojciech. Today-. Continues to feel better. No palpitation. Oral intake fair. Having bowel movements. Abdominal pain reasonably controlled. Review of systems: Was done for constitutional, cardiovascular, GI, pulmonary. relevant finding as above Current medications reviewed in today's electronic records Physical examination: VITAL SIGNS: 97.9, 67, 17, 164 was 74, 93% room air GENERAL: BMI 35.8, laying in bed, comfortable EYES: Pupils equal. Conjunctiva normal. NECK: JVD not raised; masses not palpable. HEART: First and second heart sounds are normal; no edema. LUNGS:[ Respiratory rate normal; decreased breath sounds. ABDOMEN: Soft, tender, midline incision with dressing and a binder, liver spleen not palpable, no masses palpable. -abdominal binder PSYCH: Alert and oriented 3, mood and affect normal. INVESTIGATIONS, reviewed in the clinical context: September 13: Potassium 3.7 creatinine 0.6 September 12: Potassium 3.3 creatinine 0.74 2-D echocardiogram-EF 50-55%. Ordered concentric LVH September 10: White count 6.7 hemoglobin 12.8 potassium 3.4 creatinine 0.6 White count 8.2 hemoglobin 11.9 potassium 4 creatinine 0.7 Previous testing White count 5.1 hemoglobin 15.9 platelets 382 potassium 4.8 creatinine 0.85 Computed tomography scan of the abdomen-perforated small bowel Assessment: -Acute perforation of small bowel just proximal to the jejunum, with small bowel resection with end-to-end anastomosis-abdominal binder. -Paroxysmal SVT-started on Lopressor -secondary peritonitis from bowel perforation-clinically improved -Moderate persistent asthma -Hyperlipidemia -Essential hypertension -Hypertensive heart disease -Chronic L4-L5 herniated disc -Obesity BMI 35.8 -Primary osteoarthritis -Acute postprocedure blood loss anemia, as expected from surgery Plan: Continue IV Flagyl and Zosyn. Lopressor . Medically stable. Discussed with delio james. Coming along well.. Thank you Dr. Ledesma
--- NOTE | 2020-09-15 10:41 | P.PN ---
Subjective Progress Note Date: 09/15/20 CHIEF COMPLAINT: Small bowel perforation HISTORY OF PRESENT ILLNESS: Patient is status post exploratory laparotomy, lysis of adhesions and small bowel resection for small bowel perforation on 09/07/2020. Patient reports her abdominal pain is controlled. She is having bowel movements and passing gas. She is tolerating regular diet. She is up and ambulating in the hallway with physical therapy. Patient has skin tears in the lower left abdomen. Bacitracin ointment is being applied. Afebrile PHYSICAL EXAM: VITAL SIGNS: Reviewed. GENERAL: Well-developed in no acute distress. HEENT: No sclera icterus. Extraocular movements grossly intact. Moist buccal mucosa. Head is atraumatic, normocephalic. ABDOMEN: Soft. Nondistended. Incision site clean dry and intact. NEUROLOGIC: Alert and oriented. Cranial nerves II through XII grossly intact. ASSESSMENT: 1. Small bowel perforation status post exploratory laparotomy, lysis of adhesions and small bowel resection. 2. Hypokalemia and hypomagnesemia. Resolved 3. Postoperative Tachycardia followed by cardiology PLAN: -Continue regular diet -Continue antibiotics -Encouraged patient to ambulate -Encouraged patient to use incentive spirometer -Anticipate possible discharge tomorrow -DVT prophylaxis Lovenox and GI prophylaxis Protonix Physician Pantograph Engraver note has been reviewed by physician. Signing provider agrees with the documented findings, assessment, and plan of care. Objective - Vital Signs Vital signs: Vital Signs Temp 97.9 F 09/15/20 08:30 Pulse 64 09/15/20 08:30 Resp 18 09/15/20 08:30 BP 146/73 09/15/20 08:30 Pulse Ox 94 L 09/15/20 08:30 Intake & Output 09/14/20 09/15/20 09/15/20 18:59 06:59 18:59 Intake Total 610 Output Total 900 Balance -290 Weight 97.522 kg Intake: Intake, IV Titration 270 Amount Lactated Ringers 1,000 ml 70 @ 0 mls/hr IV [facility] Rx#:[id number] Piperacillin-Tazobactam 3 100 .375 gm In Sodium Chloride 0.9% 100 ml @ 25 mls/hr IVPB Q8HR [facility] Rx# :[id number] metroNIDAZOLE-NS PMX 500 100 mg In Saline 1 100ml.bag @ 100 mls/hr IVPB Q8HR [facility] Rx#:[id number] Oral 340 Output: Urine 900 Other: Voiding Method Bedside Commode Bedside Commode Diaper Diaper # Voids 4 # Bowel Movements 0 - Labs CBC & Chem 7: 09/11/20 08:44 09/13/20 05:41 Labs: Abnormal Lab Results - Last 24 Hours (Table) 09/14/20 09/14/20 09/14/20 Range/Units 11:23 17:01 20:23 POC Glucose (mg/dL) 112 H 116 H 157 H (75-99) mg/dL
--- NOTE | 2020-09-15 23:15 | P.PN ---
Progress Note - Text Progress Note Date: 09/15/20 - Chief Complaint Abdominal pain Consultation: This is a pleasant 75-year-old patient of Dr. Shahid Stewart. 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 Patient started having abdominal pain for about a week the progressively got worse she notices abdomen to become more distended. Yesterday evening she went to lie down and woke up with severe pain in the abdomen and going up in the chest. Started having nausea vomiting with what she described as a fecal matter. Never had Trinity pain. Came into the ER. It showed inflammatory changes within the and wall thickening and localized perforation small bowel admin centric air bubbles in the midabdomen. Just proximal to the jejunum that was perforation. A [id number] functional end-to-end stapled anastomosis of dissection was carried out. Has had a good bowel movement. Had a run of SVT. Seen by cardiology. Put on beta wojciech. Today-. Oral intake fair. Had bowel movements. Has been out of bed. No nausea vomiting. Some abdominal pain. Review of systems: Was done for constitutional, cardiovascular, GI, pulmonary. relevant finding as above Active Medications Acetaminophen (Acetaminophen Tab 500 Mg Tab) 1,000 mg PO Q6HR PRN PRN Reason: Fever and/ or Mild Pain Last Admin: 09/12/20 01:16 Dose: 1,000 mg Documented by: Hydrocodone Bitart/Acetaminophen (Hydrocodone/Apap 5-325mg 1 Each Tab) 2 each PO Q6HR PRN PRN Reason: Moderate to Severe Pain Last Admin: 09/15/20 21:23 Dose: 1 each Documented by: Albuterol Sulfate (Albuterol Nebulized 2.5 Mg/3 Ml) 2.5 mg INHALATION RT-QID PRN PRN Reason: Abdominal Distention Bacitracin (Bacitracin Oint 1 Each Packet) 1 each TOPICAL BID [facility] Last Admin: 09/15/20 22:17 Dose: 1 each Documented by: Budesonide/Formoterol Fumarate (Symbicort 80-4.5 Mcg Inhaler) 2 puff INHALATION RT-BID [facility] Last Admin: 09/15/20 19:22 Dose: 2 puff Documented by: Diclofenac Sodium (Diclofenac Sodium Gel 100 Gm Tube) 2 gm TOPICAL QID [facility] Last Admin: 09/15/20 17:29 Dose: Not Given Documented by: Enoxaparin Sodium (Enoxaparin 40 Mg/0.4 Ml Syringe) 40 mg SQ DAILY [facility] Last Admin: 09/15/20 08:37 Dose: 40 mg Documented by: Fentanyl Citrate (Fentanyl (Pf) 50 Mcg/Ml 2 Ml Amp) 50 mcg IVP ONCE PRN PRN Reason: Severe Pain Last Admin: 09/07/20 14:22 Dose: 50 mcg Documented by: Hydromorphone HCl (Hydromorphone 0.5 Mg/0.5 Ml Syringe) 0.5 mg IVP Q3HR PRN PRN Reason: Moderate to Severe Pain Last Admin: 09/11/20 21:53 Dose: 0.5 mg Documented by: Piperacillin Sod/Tazobactam (Sod 3.375 gm/ Sodium Chloride) 100 mls @ 25 mls/hr IVPB Q8HR [facility] Last Admin: 09/15/20 16:06 Dose: 25 mls/hr Documented by: Metoprolol Tartrate (Metoprolol Tartrate 12.5 Mg Tab) 12.5 mg PO BID [facility] Last Admin: 09/15/20 21:24 Dose: 12.5 mg Documented by: Metronidazole (Metronidazole 500 Mg Tab) 500 mg PO Q8HR [facility] Naloxone HCl (Naloxone 0.4 Mg/Ml 1 Ml Vial) 0.2 mg IV Q2M PRN PRN Reason: Opioid Reversal Nifedipine (Nifedipine Xl 30 Mg Tab.Er.24) 30 mg PO DAILY [facility] Last Admin: 09/15/20 08:39 Dose: 30 mg Documented by: Ondansetron HCl (Ondansetron 4 Mg/2 Ml Vial) 4 mg IVP Q6HR PRN PRN Reason: Nausea And Vomiting Last Admin: 09/13/20 01:54 Dose: 4 mg Documented by: Promethazine HCl (Promethazine 25 Mg Tab) 12.5 mg PO Q6HR PRN PRN Reason: Nausea And Vomiting Last Admin: 09/13/20 17:06 Dose: 12.5 mg Documented by: Physical examination: VITAL SIGNS: 97.8, 62, 20, 169/71, 93% on room air GENERAL: BMI 35.8, laying in bed, comfortable EYES: Pupils equal. Conjunctiva normal. NECK: JVD not raised; masses not palpable. HEART: First and second heart sounds are normal; no edema. LUNGS:[ Respiratory rate normal; decreased breath sounds. ABDOMEN: Soft, tender, midline incision with dressing and a binder, liver spleen not palpable, no masses palpable. -abdominal binder PSYCH: Alert and oriented 3, mood and affect normal. INVESTIGATIONS, reviewed in the clinical context: September 13: Potassium 3.7 creatinine 0.6 September 12: Potassium 3.3 creatinine 0.74 2-D echocardiogram-EF 50-55%. Ordered concentric LVH September 10: White count 6.7 hemoglobin 12.8 potassium 3.4 creatinine 0.6 White count 8.2 hemoglobin 11.9 potassium 4 creatinine 0.7 Previous testing White count 5.1 hemoglobin 15.9 platelets 382 potassium 4.8 creatinine 0.85 Computed tomography scan of the abdomen-perforated small bowel Assessment: -Acute perforation of small bowel just proximal to the jejunum, with small bowel resection with end-to-end anastomosis-abdominal binder. -Paroxysmal SVT-started on Lopressor -secondary peritonitis from bowel perforation-clinically improved -Moderate persistent asthma -Hyperlipidemia -Essential hypertension -Hypertensive heart disease -Chronic L4-L5 herniated disc -Obesity BMI 35.8 -Primary osteoarthritis -Acute postprocedure blood loss anemia, as expected from surgery Plan: Continue IV Flagyl and Zosyn. Will DC Procardia XL. Increase Lopressor 25 mg twice a day. Thank you Dr. Ledesma
[2020-09-16] MEDS: PIPERACILLIN-TAZOBACTAM 3.375 GM in SODIUM CHLORIDE 0.9% 100 ML IVPB SCH ×3 (01:43→16:32)
[2020-09-16] MEDS: metroNIDAZOLE 500 MG TAB PO SCH ×3 (01:43→16:27)
[2020-09-16] MEDS: HYDROcodone/APAP 5-325MG 1 EACH TAB PO PRN ×2 (03:26→20:35)
[2020-09-16 07:58] LABS: Glucose,Whole Blood 94 mg/dL (75-99)
[2020-09-16] MEDS ORDERED: MORPHINE SULFATE 2 MG/ML SYRINGE IVP STA (08:03)
[2020-09-16] MEDS ORDERED: NITROGLYCERIN SL TABS 0.4 MG TAB SUBLINGUAL PRN (08:04)
[2020-09-16] MEDS ORDERED: HYDROmorphone 1 MG/ML 1 ML SYRINGE ONE (08:05)
[2020-09-16] MEDS ORDERED: NITROGLYCERIN SL TABS 0.4 MG TAB SUBLINGUAL ONE (08:06)
[2020-09-16] MEDS: SYMBICORT 80-4.5 MCG INHALER INHALATION SCH ×2 (08:12→19:18)
[2020-09-16] MEDS: METOPROLOL TARTRATE 25 MG TAB PO SCH ×2 (08:22→20:36)
[2020-09-16] MEDS: METOPROLOL TARTRATE 12.5 MG TAB PO SCH ×2 (08:22→20:36)
[2020-09-16] MEDS: ENOXAPARIN 40 MG/0.4 ML SYRINGE SQ SCH (08:24)
[2020-09-16] MEDS: DICLOFENAC SODIUM GEL 100 GM TUBE TOPICAL SCH ×4 (08:29→20:38)
[2020-09-16] MEDS: BACITRACIN OINT 1 EACH PACKET TOPICAL SCH ×2 (08:29→20:36)
--- NOTE | 2020-09-16 08:32 | XR ---
EXAMINATION TYPE: XR chest 1V portable DATE OF EXAM: 09/16/2020 COMPARISON: 01/05/2020 HISTORY: Chest pain TECHNIQUE: Single frontal view of the chest is obtained. FINDINGS: Subsegmental changes at the left lung base with small left effusion. Patchy right lower lo be the infiltrate. No pneumothorax. No interstitial edema. Heart size normal. Calcified nodule seen on the prior exam in the left lower lobe may be obscured by underlying consolid ation. IMPRESSION: 1. Patchy bilateral infiltrate with small left effusion.
[2020-09-16 08:38] LABS: ALT 31 U/L (4-34); AST 31 U/L (14-36); African American GFR (CKD) >90 (>60 ml/min/1.73 sqM); Albumin 3.6 g/dL (3.5-5.0); Alkaline Phosphatase 68 U/L (38-126); Anion Gap 8 mmol/L; Blood Urea Nitrogen 10 mg/dL (7-17); Calcium 9.7 mg/dL (8.4-10.2); Carbon Dioxide 28 mmol/L (22-30); Chloride 102 mmol/L (98-107); Globulin 3.5 g/dL; Glucose 106 mg/dL (74-99); Non-African American GFR(CKD) 85 (>60 ml/min/1.73 sqM); Potassium 4.2 mmol/L (3.5-5.1); Sodium 138 mmol/L (137-145); Total Bilirubin 0.6 mg/dL (0.2-1.3); Total Protein 7.1 g/dL (6.3-8.2)
[2020-09-16 08:50] LABS: Creatine Kinase 41 U/L (30-135)
[2020-09-16] MEDS ORDERED: HEPARIN SODIUM,PORCINE 10,000 UNIT/ML 1 ML VIAL IV ONE (09:02)
[2020-09-16] MEDS ORDERED: HEPARIN SODIUM,PORCINE 5,000 UNIT/ML 1 ML VIAL IV PRN (09:02)
[2020-09-16 09:03] LABS: Basophils # (A) 0.1 k/uL (0-0.2); Basophils % (A) 1 %; Creatine Kinase MB 0.3 ng/mL (0.0-2.4); Eosinophils # (A) 0.1 k/uL (0-0.7); Eosinophils % (A) 2 %; HCT 44.4 % (34.0-46.0); HGB 14.6 gm/dL (11.4-16.0); Lymphocytes # (A) 1.9 k/uL (1.0-4.8); Lymphocytes % (A) 22 %; MCH 31.1 pg (25.0-35.0); MCHC 32.9 g/dL (31.0-37.0); MCV 94.5 fL (80.0-100.0); Mean Platelet Volume 7.5; Monocytes # (A) 0.5 k/uL (0-1.0); Monocytes % (A) 5 %; Neutrophils # (A) 6.1 k/uL (1.3-7.7); Neutrophils % (A) 68 %; Platelet Count 666 k/uL (150-450); RDW 14.4 % (11.5-15.5); Troponin I <0.012 ng/mL (0.000-0.034); WBC 8.9 k/uL (3.8-10.6)
[2020-09-16] MEDS ORDERED: HEPARIN SOD,PORK IN 0.45% NACL 25,000 UNIT in 0.45% NACL 1 250ML.BAG IV SCH (09:15)
[2020-09-16] MEDS ORDERED: predniSONE 50 MG TAB PO STA (09:15)
[2020-09-16 09:21] LABS: INR 0.9 (<1.2); Partial Thromboplastin Time 23.8 sec (22.0-30.0); Prothrombin Time 9.4 sec (9.0-12.0)
--- NOTE | 2020-09-16 09:48 | CT ---
EXAMINATION TYPE: CT brain wo con DATE OF EXAM: 09/16/2020 COMPARISON: 01/05/2020 INDICATION: Altered mental status DLP: 961.00 mGycm, Automated exposure control for dose reduction was used. CONTRAST: None CT of the brain is performed utilizing 3 mm thick sections through the posterior fossa and 3 mm thick sections through the remaining calvarium. Study is performed within 24 hours of arrival to the hosp [facility]. No abnormal hyperdensity is present to suggest an acute intracranial hemorrhage. No mass lesion is evident. No acute infarcts are evident. Ventricles and sulci are appropriate for the patient age. Paranasal sinuses and mastoid air cells within the [id number] are clear. IMPRESSIONS: 1. No acute intracranial process.
[2020-09-16] MEDS: ONDANSETRON 4 MG/2 ML VIAL IVP PRN (09:52)
--- NOTE | 2020-09-16 10:20 | US ---
EXAMINATION TYPE: US venous doppler duplex LE BI DATE OF EXAM: 09/16/2020 10:05 AM COMPARISON: NONE CLINICAL HISTORY: r/o DVT. acute chest pain with h/o PE, SIDE PERFORMED: Bilateral TECHNIQUE: The lower extremity deep venous system is examined utilizing real time linear array sonog kevin with graded compression, doppler sonography and color-flow sonography. VESSELS IMAGED: Common Femoral Vein Deep Femoral Vein Greater Saphenous Vein * Femoral Vein Popliteal Vein Small Saphenous Vein * Proximal Calf Veins (* superficial vessels) Right Leg: Negative for DVT Left Leg: Negative for DVT, unable to assess CFV for compression imaging due to patient's pain level and vomiting during exam, otherwise good blood flow with full compression seen through the rest of t he leg. IMPRESSION: 1. No evidence of DVT as visualized. Note is made that there is limited assessment of the left common femoral vein as discussed above. Otherwise no DVT as visualized.
[2020-09-16] MEDS ORDERED: ASPIRIN 81 MG PO STA (10:25)
--- NOTE | 2020-09-16 10:31 | P.PN ---
Subjective CHIEF COMPLAINT: Tachycardia, chest pain HISTORY OF PRESENT ILLNESS: Patient is status post exploratory laparotomy, l ysis of adhesions, and small bowel resection with Dr. Ledesma on 09/07/2020. A rapid response was called secondary to patient having acute chest pain this morning. She admits to feeling weak all over, severe left-sided chest pressure which is not reproducible, associated with some shortness breath. She denies any prior cardiac history. Vital signs were reviewed with blood pressure and actually 189/72 with a heart rate of 80 bpm. Blood pressures were checked in both arms with a 7 mmHg difference. Patient was given some nitroglycerin and Dilaudid with mild improvement. A CTA was ordered however patient states she had a cardiac arrest with prior CT angiogram of the kidneys a few years ago and therefore has not had any repeat imaging. No bleeding from surgical site noted. PHYSICAL EXAM: VITAL SIGNS: Reviewed. GENERAL: Well-developed in mild to moderate acute distress. Obese NECK: Supple. No JVD or thyromegaly LUNGS: Respirations even and unlabored. Lungs diminished. HEART: Regular rate and rhythm. S1 and S2 heard. Systolic murmur noted. EXTREMITIES: Normal range of motion. No clubbing or cyanosis. Peripheral pulses intact. Trace bilateral lower extremity edema ASSESSMENT: Small bowel perforation, status post exploratory laparotomy, lysis of adhesions, and small bowel resection Postoperative tachycardia, with runs of SVT Hypertension Hypokalemia Hypomagnesemia Acute chest pain. EKG shows left bundle branch block with nonspecific ST-T wave abnormalities which is chronic. Consideration of possible PE and a CTA was att empted however patient does have contrast allergy with apparent cardiac arrest, questionable anaphylaxis however no significant rash or lip swelling previously per patient. PLAN: D-dimer noted to be elevated. We will start a heparin drip, aspirin. Discussed concern of possible PE and therefore recommendations for CTA. Patient would like a full prep for possible contrast and therefore we will give steroids, Benadryl. Additionally check lower extremity ultrasound to rule out DVT. Continue to trend troponins. Echocardiogram reviewed and shows ejection fraction 50-50% without obvious wall motion abnormality. No significant dissection noted on somewhat limited aortic arch view. Continue to monitor closely. Objective - Vital Signs Vital signs: Vital Signs Temp 98.2 F 09/16/20 08:31 Pulse 66 09/16/20 08:46 Resp 16 09/16/20 08:46 BP 162/74 09/16/20 08:46 Pulse Ox 100 09/16/20 08:46 Intake & Output 09/15/20 09/16/20 09/16/20 18:59 06:59 18:59 Intake Total 240 Output Total 700 Balance 240 -700 Intake: Oral 240 Output: Urine 700 Other: Voiding Method Bedside Commode Bedside Commode Diaper Diaper # Voids 1 - Labs CBC & Chem 7: 09/16/20 08:06 09/16/20 08:06 Labs: Abnormal Lab Results - Last 24 Hours (Table) 09/16/20 09/16/20 09/16/20 Range/Units 08:06 08:06 08:14 Plt Count 666 H (150-450) k/uL D-Dimer 4.15 H (<0.60) mg/L FEU Glucose 106 H (74-99) mg/dL
--- NOTE | 2020-09-16 10:55 | ECHOF ---
Referral Reason:SOB MEASUREMENTS -------- HEIGHT: 165.1 cm WEIGHT: 97.5 kg BP: 151/77 FINDINGS -------- Sinus rhythm. This was a technically adequate study. The left ventricular size is normal. There is mild concentric left ventricular hypertrophy. Overa ll left ventricular systolic function is low-normal with, an EF between 50 - 55 %. There is no pericardial effusion. CONCLUSIONS -------- 1. The left ventricular size is normal. 2. There is mild concentric left ventricular hypertrophy. 3. Overall left ventricular systolic function is low-normal with, an EF between 50 - 55 %. 4. There is no pericardial effusion. CRATING AND MOVING ESTIMATOR: Carolyn Krishna RDCS
[2020-09-16 11:25] LABS: African American GFR (CKD) 101.9 (60.0-200.0); Anion Gap 4.3 mmol/L (4.00-12.00); Calcium 8.7 mg/dL (8.7-10.3); Carbon Dioxide 31.7 mmol/L (21.6-31.8); Non-African American GFR(CKD) 87.9 (60.0-200.0)
--- NOTE | 2020-09-16 11:36 | P.PN ---
Subjective Progress Note Date: 09/16/20 CHIEF COMPLAINT: Small bowel perforation HISTORY OF PRESENT ILLNESS: Patient seen and examined with Dr. Ledesma. Patient is status post exploratory laparotomy, lysis of adhesions and small bowel resection for small bowel perforation on 09/07/2020. Patient had chest pain with shortness of breath this morning. She apparently also had some weakness on one side of her body. D-dimer was elevated. A CTA of the chest was ordered to rule out PE. However, patient has had ALLERGY to the iodine. And ALLERGY prep has been ordered so the patient can proceed with a CTA of the chest. In the meantime cardiology has placed her on a heparin drip. She denies any abdominal pain. Afebrile. WBC 8.9 hemoglobin 14.6 d-dimer 4.15 pulmonary negative Echo shows an EF of 50-55% CT of the brain negative Venous Doppler Negative for DVT bilaterally PHYSICAL EXAM: VITAL SIGNS: Reviewed. GENERAL: Well-developed in no acute distress. HEENT: No sclera icterus. Extraocular movements grossly intact. Moist buccal mucosa. Head is atraumatic, normocephalic. ABDOMEN: Soft. Nondistended. Incision site clean dry and intact. NEUROLOGIC: Alert and oriented. Cranial nerves II through XII grossly intact. ASSESSMENT: 1. Small bowel perforation status post exploratory laparotomy, lysis of adhesions and small bowel resection. 2. Hypokalemia and hypomagnesemia. Resolved 3. Postoperative Tachycardia followed by cardiology 4. Episode of acute chest pain being evaluated by cardiology. Cardiology has o rdered CTA of the chest to rule out PE PLAN: -Continue regular diet -Continue antibiotics -Encouraged patient to ambulate -Encouraged patient to use incentive spirometer -DVT prophylaxis Lovenox and GI prophylaxis Protonix Physician Duct Maker note has been reviewed by physician. Signing provider agrees with the documented findings, assessment, and plan of care. Objective - Vital Signs Vital signs: Vital Signs Temp 98.2 F 09/16/20 08:31 Pulse 66 09/16/20 08:46 Resp 16 09/16/20 08:46 BP 162/74 09/16/20 08:46 Pulse Ox 100 09/16/20 08:46 Intake & Output 09/15/20 09/16/20 09/16/20 18:59 06:59 18:59 Intake Total 240 Output Total 700 Balance 240 -700 Intake: Oral 240 Output: Urine 700 Other: Voiding Method Bedside Commode Bedside Commode Diaper Diaper # Voids 1 - Labs CBC & Chem 7: 09/16/20 08:06 09/16/20 08:06 Labs: Abnormal Lab Results - Last 24 Hours (Table) 09/16/20 09/16/20 09/16/20 Range/Units 04:14 08:06 08:06 Plt Count 666 H (150-450) k/uL D-Dimer (<0.60) mg/L FEU Glucose 116 H 106 H (70-110) mg/dL 09/16/20 Range/Units 08:14 Plt Count (150-450) k/uL D-Dimer 4.15 H (<0.60) mg/L FEU Glucose (70-110) mg/dL
--- NOTE | 2020-09-16 17:35 | NM ---
EXAMINATION TYPE: NM pul vent and perfuse DATE OF EXAM: 09/16/2020 COMPARISON: 01/24/2012 HISTORY: TECHNIQUE: Utilizing inhalation of 67 mCi Tc 99m DTPA aerosol and intravenous injection of 5.1 mCi o f Tc 99m MAA, ventilation and perfusion images are acquired post injection in multiple projections. FINDINGS: There is a small matching defect in the superior segment left lower lobe on the left posterior obliqu e view. There is no ventilation/perfusion mismatch. There is fairly normal perfusion of the remaining lung garcia. IMPRESSION: Small matched defect in the superior segment left lower lobe. This appears new compared to old exam. There is low probability of pulmonary embolism.
[2020-09-16] MEDS ORDERED: diphenhydrAMINE 50 MG/ML 1 ML VIAL IVP ONE (21:30)
[2020-09-16] MEDS ORDERED: predniSONE 50 MG TAB PO ONE (21:30)
--- NOTE | 2020-09-16 23:59 | P.PN ---
Progress Note - Text Progress Note Date: 09/16/20 - Chief Complaint Abdominal pain Consultation: This is a pleasant 75-year-old patient of Dr. Shahid Stewart. 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 Patient started having abdominal pain for about a week the progressively got worse she notices abdomen to become more distended. Yesterday evening she went to lie down and woke up with severe pain in the abdomen and going up in the chest. Started having nausea vomiting with what she described as a fecal matter. Never had Trinity pain. Came into the ER. It showed inflammatory changes within the and wall thickening and localized perforation small bowel admin centric air bubbles in the midabdomen. Just proximal to the jejunum that was perforation. A [id number]-[id number] functional end-to-end stapled anastomosis of dissection was carried out. Has had a good bowel movement. Had a run of SVT. Seen by cardiology. Put on beta wojciech. Today-. This morning had an episode of chest tightness and some pain. Cardiology was called. Feeling better later. Some response to nitroglycerin.. Review of systems: Was done for constitutional, cardiovascular, GI, pulmonary. relevant finding as above Active Medications Acetaminophen (Acetaminophen Tab 500 Mg Tab) 1,000 mg PO Q6HR PRN PRN Reason: Fever and/ or Mild Pain Last Admin: 09/12/20 01:16 Dose: 1,000 mg Documented by: Hydrocodone Bitart/Acetaminophen (Hydrocodone/Apap 5-325mg 1 Each Tab) 2 each PO Q6HR PRN PRN Reason: Moderate to Severe Pain Last Admin: 09/16/20 20:35 Dose: 1 each Documented by: Albuterol Sulfate (Albuterol Nebulized 2.5 Mg/3 Ml) 2.5 mg INHALATION RT-QID PRN PRN Reason: Abdominal Distention Aspirin (Aspirin 81 Mg) 81 mg PO DAILY [facility] Bacitracin (Bacitracin Oint 1 Each Packet) 1 each TOPICAL BID [facility] Last Admin: 09/16/20 20:36 Dose: 1 each Documented by: Budesonide/Formoterol Fumarate (Symbicort 80-4.5 Mcg Inhaler) 2 puff INHALATION RT-BID [facility] Last Admin: 09/16/20 19:18 Dose: 2 puff Documented by: Diclofenac Sodium (Diclofenac Sodium Gel 100 Gm Tube) 2 gm TOPICAL QID [facility] Last Admin: 09/16/20 20:38 Dose: Not Given Documented by: Enoxaparin Sodium (Enoxaparin 40 Mg/0.4 Ml Syringe) 40 mg SQ DAILY [facility] Last Admin: 09/16/20 08:24 Dose: 40 mg Documented by: Fentanyl Citrate (Fentanyl (Pf) 50 Mcg/Ml 2 Ml Amp) 50 mcg IVP ONCE PRN PRN Reason: Severe Pain Last Admin: 09/07/20 14:22 Dose: 50 mcg Documented by: Hydromorphone HCl (Hydromorphone 0.5 Mg/0.5 Ml Syringe) 0.5 mg IVP Q3HR PRN PRN Reason: Moderate to Severe Pain Last Admin: 09/11/20 21:53 Dose: 0.5 mg Documented by: Piperacillin Sod/Tazobactam (Sod 3.375 gm/ Sodium Chloride) 100 mls @ 25 mls/hr IVPB Q8HR [facility] Last Admin: 09/16/20 16:32 Dose: 25 mls/hr Documented by: Metoprolol Tartrate (Metoprolol Tartrate 12.5 Mg Tab) 12.5 mg PO BID [facility] Last Admin: 09/16/20 20:36 Dose: 12.5 mg Documented by: Metoprolol Tartrate (Metoprolol Tartrate 25 Mg Tab) 25 mg PO BID [facility] Last Admin: 09/16/20 20:36 Dose: 25 mg Documented by: Metronidazole (Metronidazole 500 Mg Tab) 500 mg PO Q8HR [facility] Last Admin: 09/16/20 16:27 Dose: Not Given Documented by: Naloxone HCl (Naloxone 0.4 Mg/Ml 1 Ml Vial) 0.2 mg IV Q2M PRN PRN Reason: Opioid Reversal Nitroglycerin (Nitroglycerin Sl Tabs 0.4 Mg Tab) 0.4 mg SUBLINGUAL Q5M PRN PRN Reason: Chest Pain Ondansetron HCl (Ondansetron 4 Mg/2 Ml Vial) 4 mg IVP Q6HR PRN PRN Reason: Nausea And Vomiting Last Admin: 09/16/20 09:52 Dose: 4 mg Documented by: Promethazine HCl (Promethazine 25 Mg Tab) 12.5 mg PO Q6HR PRN PRN Reason: Nausea And Vomiting Last Admin: 09/13/20 17:06 Dose: 12.5 mg Documented by: Physical examination: VITAL SIGNS: 97.4, 62, 18, 163 with 86, 92% room air GENERAL: BMI 35.8, sitting up, comfortable EYES: Pupils equal. Conjunctiva normal. NECK: JVD not raised; masses not palpable. HEART: First and second heart sounds are normal; no edema. LUNGS:[ Respiratory rate normal; decreased breath sounds. ABDOMEN: Soft, tender, midline incision with dressing and a binder, liver spleen not palpable, no masses palpable. -abdominal binder PSYCH: Alert and oriented 3, mood and affect bit anxious INVESTIGATIONS, reviewed in the clinical context: September 16: White count 8.9 hemoglobin 14.6 d-dimer 4.15 potassium 4.2 creatinine 0.68. Troponin I 3 negative VQ scan: Low probability Venous Doppler lower extremity-negative for DVT Limited echocardiogram-unremarkable Computed tomography scan of the brain-negative September 13: Potassium 3.7 creatinine 0.6 September 12: Potassium 3.3 creatinine 0.74 2-D echocardiogram-EF 50-55%. Ordered concentric LVH September 10: White count 6.7 hemoglobin 12.8 potassium 3.4 creatinine 0.6 White count 8.2 hemoglobin 11.9 potassium 4 creatinine 0.7 Previous testing White count 5.1 hemoglobin 15.9 platelets 382 potassium 4.8 creatinine 0.85 Computed tomography scan of the abdomen-perforated small bowel Assessment: -Acute perforation of small bowel just proximal to the jejunum, with small bowel resection with end-to-end anastomosis-abdominal binder. -Paroxysmal SVT-started on Lopressor -secondary peritonitis from bowel perforation-clinically improved -Moderate persistent asthma -Hyperlipidemia -Essential hypertension -Hypertensive heart disease -Chronic L4-L5 herniated disc -Obesity BMI 35.8 -Primary osteoarthritis -Acute postprocedure blood loss anemia, as expected from surgery -Episode of chest pain this morning. VQ scan low probability. Troponin is negative. Could be muscular skeletal pain. Plan: Continue by mouth Flagyl and Zosyn. Lopressor increased to 37.5 twice daily. Patient reassured. Thank you Dr. Ledesma
[2020-09-17] MEDS: PIPERACILLIN-TAZOBACTAM 3.375 GM in SODIUM CHLORIDE 0.9% 100 ML IVPB SCH ×2 (00:22→08:42)
[2020-09-17] MEDS: metroNIDAZOLE 500 MG TAB PO SCH ×2 (00:34→09:19)
[2020-09-17 03:22] LABS: Basophils % (A) 0 %; Eosinophils # (A) 0.1 k/uL (0-0.7); Eosinophils % (A) 1 %; HCT 40.8 % (34.0-46.0); HGB 12.5 gm/dL (11.4-16.0); Lymphocytes # (A) 0.6 k/uL (1.0-4.8); Lymphocytes % (A) 7 %; MCHC 30.6 g/dL (31.0-37.0); MCV 94.7 fL (80.0-100.0); Mean Platelet Volume 7.3; Monocytes # (A) 0.2 k/uL (0-1.0); Monocytes % (A) 2 %; Neutrophils # (A) 8.2 k/uL (1.3-7.7); Neutrophils % (A) 90 %; Platelet Count 656 k/uL (150-450); RBC 4.31 m/uL (3.80-5.40); RDW 14.7 % (11.5-15.5); WBC 9.1 k/uL (3.8-10.6)
[2020-09-17] MEDS: ACETAMINOPHEN TAB 500 MG TAB PO PRN (05:38)
[2020-09-17] MEDS: SYMBICORT 80-4.5 MCG INHALER INHALATION SCH (07:16)
[2020-09-17] MEDS: DICLOFENAC SODIUM GEL 100 GM TUBE TOPICAL SCH ×2 (09:00→13:24)
[2020-09-17] MEDS ORDERED: ASPIRIN 81 MG PO SCH (09:00)
[2020-09-17] MEDS: HYDROcodone/APAP 5-325MG 1 EACH TAB PO PRN (09:03)
[2020-09-17] MEDS: METOPROLOL TARTRATE 25 MG TAB PO SCH (09:06)
[2020-09-17] MEDS: METOPROLOL TARTRATE 12.5 MG TAB PO SCH (09:06)
[2020-09-17] MEDS: BACITRACIN OINT 1 EACH PACKET TOPICAL SCH (09:09)
[2020-09-17] MEDS: ENOXAPARIN 40 MG/0.4 ML SYRINGE SQ SCH (09:09)
[2020-09-17 10:26] VITALS: TEMP 98
--- NOTE | 2020-09-17 11:04 | P.PN ---
Subjective CHIEF COMPLAINT: Tachycardia, chest pain HISTORY OF PRESENT ILLNESS: Patient is status post exploratory laparotomy, lysis of adhesions, and small bowel resection with Dr. Ledesma on 09/07/2020. Patient had workup yesterday for episode of chest pain, shortness breath. She did have problem with a CT angiogram with prior apparent cardiac arrest and therefore lower extremity ultrasound was performed which showed no DVT as well as a VQ scan which showed low probability of PE. Heparin drip was stopped yesterday. She admits to feeling much better and denies any further chest pain or shortness breath. She believes this may have been a reaction of what she calls "extreme asthma" as she has sensitivities to this in the past. Overall however she is feeling better without any shortness breath and is anxious to go home. PHYSICAL EXAM: VITAL SIGNS: Reviewed. GENERAL: Well-developed in no acute distress. Obese NECK: Supple. No JVD or thyromegaly LUNGS: Respirations even and unlabored. Lungs diminished. HEART: Regular rate and rhythm. S1 and S2 heard. Systolic murmur noted. EXTREMITIES: Normal range of motion. No clubbing or cyanosis. Peripheral pulses intact. ASSESSMENT: Small bowel perforation, status post exploratory laparotomy, lysis of adhesions, and small bowel resection Postoperative tachycardia, with runs of SVT Hypertension Hypokalemia Hypomagnesemia Acute chest pain on 09/16/2020. Patient appeared in significant distress at the time however workup including a VQ scan, troponins, echocardiogram and lower extremity Dopplers were all negative. Patient relates this to possible "extreme asthma" however may also be a component of anxiety. PLAN: As above, workup including echocardiogram, troponins, VQ scan and lower extremity Doppler were all negative for any acute process. D-dimer likely elevated related to recent surgery. Patient is now chest pain-free and no significant shortness breath. Patient appears stable for discharge home from a cardiology standpoint. Please call with any questions. Objective - Vital Signs Vital signs: Vital Signs Temp 98.0 F 09/17/20 10:22 Pulse 58 L 09/17/20 10:22 Resp 16 09/17/20 10:22 BP 166/76 09/17/20 10:22 Pulse Ox 99 09/17/20 10:22 Intake & Output 09/16/20 09/17/20 09/17/20 18:59 06:59 18:59 Intake Total 162.082 Output Total 400 750 Balance -400 -587.918 Intake: Intake, IV Titration 162.082 Amount Heparin Sod,Pork in 0.45% 162.082 NaCl 25,000 unit In 0.45 % NaCl 1 250ml.bag @ 18 UNITS/KG/HR 17.554 mls/hr IV [id number] CHRISTOPHER Rx#: [id number] Output: Urine 400 750 Other: # Bowel Movements 1 - Labs CBC & Chem 7: 09/17/20 02:52 09/16/20 08:06 Labs: Abnormal Lab Results - Last 24 Hours (Table) 09/16/20 09/16/20 09/17/20 Range/Units 04:14 16:51 02:52 MCHC 30.6 L (31.0-37.0) g/dL Plt Count 656 H (150-450) k/uL Neutrophils # 8.2 H (1.3-7.7) k/uL Lymphocytes # 0.6 L (1.0-4.8) k/uL APTT >200.0 H* (22.0-30.0) sec Glucose 116 H (70-110) mg/dL 09/17/20 Range/Units 02:52 MCHC (31.0-37.0) g/dL Plt Count (150-450) k/uL Neutrophils # (1.3-7.7) k/uL Lymphocytes # (1.0-4.8) k/uL APTT 50.0 H (22.0-30.0) sec Glucose (70-110) mg/dL
[2020-09-17 14:37] VITALS: BP 146/61; PULSE 60; RESP 20
--- NOTE | 2020-09-17 14:39 | P.DS ---
Providers Date of admission: 09/07/20 01:46 Expected date of discharge: 09/17/20 Attending physician: Remi Ledesma Consults: 09/07/20 08:23 Consult Physician Routine Consulting Provider: Quincy Mora Consult Reason/Comments: medical management Do you want consulting provider notified?: Yes 09/11/20 07:39 Consult Physician Routine Consulting Provider: Jasmeet La Consult Reason/Comments: tachycardia Do you want consulting provider notified?: Yes Primary care physician: Shahid Stewart Hospital Course: Discharge diagnosis 1. Small bowel perforation status post exploratory laparotomy, lysis of adhesions and small bowel resection. 2. Hypokalemia and hypomagnesemia. Resolved 3. Postoperative Tachycardia followed by cardiology 4. Episode of acute chest pain evaluated by cardiology. VQ scan negative for PE. Patient had echo, troponins VQ scan and lower extremity Doppler that were all negative for any acute process. Cardiology felt that the d-dimer was likely elevated related to recent surgery. Patient is now chest pain-free and no shortness of breath. Hospital course This is a 75-year-old female who presented to the emergency room with complaints of epigastric abdominal pain. She reports she's had this pain for about one week. She felt that her abdomen was going to "burst." Patient reports that her stomach is been distended and is hurting all over now. She had not been having satisfied bowel movements. Yesterday she took a enema and her abdominal pain increased. She is rating her pain a 10 out of 10. She is currently an 8 out of 10. She had been vomiting fecal material. She had a computed tomography scan of the abdomen and pelvis completed showing inflammatory changes with wall thickening and localized perforation of small bowel with mesenteric air bubbles in the mid abdomen. There are a few small bowel diverticula. This could relate to diverticulitis or nonspecific enteritis. Patient is status post exploratory laparotomy, lysis of adhesions and small bowel resection for small bowel perforation. Patient is reporting that her pain is controlled. She has been up and ambulating. She is tolerating diet and having bowel movements. She is afebrile. She was seen by cardiology during this admission due to postoperative tachycardia as well as an episode of chest pain. Her cardiac workup was negative and cardiology has cleared her for discharge. Patient is stable for discharge. Please refer to chart for any further details. Physician [employer] Customer Experience Specialist note has been reviewed by physician. Signing provider agrees with the documented findings, assessment, and plan of care. Patient Condition at Discharge: Stable Plan - Discharge Summary Discharge Rx Participant: Yes New Discharge Prescriptions: New Docusate [Colace] 100 mg PO BID #30 capsule HYDROcodone/APAP 7.5-325MG [Rutherford 7.5-325] 1 tab PO Q6HR PRN 3 Days #12 tab PRN Reason: Pain Bacitracin/Polymyx Oint [Polysporin] 1 applic TOPICAL BID #1 tube Continue Albuterol Sulfate [Proventil Hfa] 2 puff INHALATION RT-QID PRN PRN Reason: Shortness Of Breath Albuterol Nebulized [Ventolin Nebulized] 2.5 mg INHALATION RT-QID PRN PRN Reason: Abdominal Distention Ketoconazole 2% Cream [Nizoral 2%] 1 applic TOPICAL DAILY PRN PRN Reason: Rash No Action Famotidine [Pepcid] 40 mg PO BID NIFEdipine XL [Procardia XL] 30 mg PO DAILY Ezetimibe [Zetia] 10 mg PO DAILY Potassium Chloride 20 meq PO BID Cholecalciferol [Vitamin D3 (25 Mcg = 1000 Iu)] 2,000 unit PO DAILY Multivit-Min/FA/Lycopen/Lutein [Centrum Silver Tablet] 1 tab PO DAILY Aspirin 162 mg PO HS Vitamin B Complex 1 tab PO DAILY Biotin 10,000 mcg PO DAILY Celecoxib [CeleBREX] 200 mg PO DAILY PRN PRN Reason: Pain Clotrimazole/Betamethasone Dip [Lotrisone Cream] 1 applic TOPICAL BID PRN PRN Reason: Skin Irritation Cranberry Fruit Extract [Cranberry] 500 mg PO BID Fluocinolone Acetonide Oil [Dermotic] 5 drops BOTH EARS BID PRN PRN Reason: ITCHING EARS Fluticasone/Salmeterol [Advair 250-50 Diskus] 1 puff INHALATION RT-BID Furosemide [Lasix] 20 mg PO DAILY Hydrocortisone Cream [Hydrocortisone 1% Cream] 1 applic TOPICAL BID PRN PRN Reason: Rash Lactobacillus Acidophilus [Florajen] 460 mg PO DAILY Niacin 500 mg PO DAILY polyethylene glycoL 3350 [Miralax] 17 gm PO DAILY Vitamin E 400 unit PO DAILY Diclofenac Sodium [Voltaren Gel] 2 - 4 gram TOPICAL QID PRN PRN Reason: Pain Sennosides-Docusate Sodium [Senokot-S] 2 tab PO DAILY@1400 Estrogens, Conjugated Cream [Premarin Cream] 0.5 applicator VAGINAL MOWEFR Discharge Medication List Albuterol Sulfate [Proventil Hfa] 2 puff INHALATION RT-QID PRN 02/17/14 [History] Ezetimibe [Zetia] 10 mg PO DAILY 02/17/14 [History] Famotidine [Pepcid] 40 mg PO BID 02/17/14 [History] NIFEdipine XL [Procardia XL] 30 mg PO DAILY 02/17/14 [History] Potassium Chloride 20 meq PO BID 02/17/14 [History] Aspirin 162 mg PO HS 07/30/15 [History] Cholecalciferol [Vitamin D3 (25 Mcg = 1000 Iu)] 2,000 unit PO DAILY 07/30/15 [History] Multivit-Min/FA/Lycopen/Lutein [Centrum Silver Tablet] 1 tab PO DAILY 07/30/15 [History] Biotin 10,000 mcg PO DAILY 06/14/19 [History] Vitamin B Complex 1 tab PO DAILY 06/14/19 [History] Albuterol Nebulized [Ventolin Nebulized] 2.5 mg INHALATION RT-QID PRN 12/09/19 [History] Celecoxib [CeleBREX] 200 mg PO DAILY PRN 12/09/19 [History] Clotrimazole/Betamethasone Dip [Lotrisone Cream] 1 applic TOPICAL BID PRN 12/09/19 [History] Cranberry Fruit Extract [Cranberry] 500 mg PO BID 12/09/19 [History] Diclofenac Sodium [Voltaren Gel] 2 - 4 gram TOPICAL QID PRN 12/09/19 [History] Fluocinolone Acetonide Oil [Dermotic] 5 drops BOTH EARS BID PRN 12/09/19 [History] Fluticasone/Salmeterol [Advair 250-50 Diskus] 1 puff INHALATION RT-BID 12/09/19 [History] Furosemide [Lasix] 20 mg PO DAILY 12/09/19 [History] Hydrocortisone Cream [Hydrocortisone 1% Cream] 1 applic TOPICAL BID PRN 12/09/19 [History] Ketoconazole 2% Cream [Nizoral 2%] 1 applic TOPICAL DAILY PRN 12/09/19 [History] Lactobacillus Acidophilus [Florajen] 460 mg PO DAILY 12/09/19 [History] Niacin 500 mg PO DAILY 12/09/19 [History] Sennosides-Docusate Sodium [Senokot-S] 2 tab PO DAILY@1400 12/09/19 [History] Vitamin E 400 unit PO DAILY 12/09/19 [History] polyethylene glycoL 3350 [Miralax] 17 gm PO DAILY 12/09/19 [History] Estrogens, Conjugated Cream [Premarin Cream] 0.5 applicator VAGINAL MOWEFR 09/07/20 [History] Bacitracin/Polymyx Oint [Polysporin] 1 applic TOPICAL BID #1 tube 09/17/20 [Rx] Docusate [Colace] 100 mg PO BID #30 capsule 09/17/20 [Rx] HYDROcodone/APAP 7.5-325MG [Rutherford 7.5-325] 1 tab PO Q6HR PRN 3 Days #12 tab 09/17/20 [Rx] Follow up Appointment(s)/Referral(s): [facility], [NON-STAFF] - 1 Week [facility] [NON-STAFF] - As Needed (walker) Shahid Stewart MD [Primary Care Provider] - 1-2 days (could not get through to office.patient can call and schedule own appt.) Remi Ledesma MD [STAFF PHYSICIAN] - 09/24/20 2:10 pm Activity/Diet/Wound Care/Special Instructions: Medicine service to complete med rec No driving while taking Rutherford No lifting over 10 pounds You may shower. No soaking or tub baths for 2 weeks Very light activity until you are reevaluated at your follow up appointment with your surgeon Diet regular Discharge Disposition: HOME SELF-CARE
--- NOTE | 2020-09-17 23:44 | P.PN ---
Progress Note - Text Progress Note Date: 09/17/20 - Chief Complaint Abdominal pain Consultation: This is a pleasant 75-year-old patient of Dr. Shahid Stewart. 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 Patient started having abdominal pain for about a week the progressively got worse she notices abdomen to become more distended. Yesterday evening she went to lie down and woke up with severe pain in the abdomen and going up in the chest. Started having nausea vomiting with what she described as a fecal matter. Never had Trinity pain. Came into the ER. It showed inflammatory changes within the and wall thickening and localized perforation small bowel admin centric air bubbles in the midabdomen. Just proximal to the jejunum that was perforation. A [id number] functional end-to-end stapled anastomosis of dissection was carried out. Has had a good bowel movement. Had a run of SVT. Seen by cardiology. Put on beta wojciech. Patient had an episode of chest tightness. PE was ruled out. EKG unremarkable. Troponin is negative. Today-. Comfortable. Sitting up in a chair. Oral intake fair. No chest pain. Review of systems: Was done for constitutional, cardiovascular, GI, pulmonary. relevant finding as above Current medications reviewed in today's electronic record Physical examination: VITAL SIGNS: GENERAL: BMI 35.8, sitting up, comfortable EYES: Pupils equal. Conjunctiva normal. NECK: JVD not raised; masses not palpable. HEART: First and second heart sounds are normal; no edema. LUNGS:[ Respiratory rate normal; decreased breath sounds. ABDOMEN: Soft, tender, midline incision with dressing and a binder, liver spleen not palpable, no masses palpable. -abdominal binder PSYCH: Alert and oriented 3, mood and affect bit anxious INVESTIGATIONS, reviewed in the clinical context: September 16: White count 8.9 hemoglobin 14.6 d-dimer 4.15 potassium 4.2 creatinine 0.68. Troponin I 3 negative VQ scan: Low probability Venous Doppler lower extremity-negative for DVT Limited echocardiogram-unremarkable Computed tomography scan of the brain-negative September 13: Potassium 3.7 creatinine 0.6 September 12: Potassium 3.3 creatinine 0.74 2-D echocardiogram-EF 50-55%. Ordered concentric LVH September 10: White count 6.7 hemoglobin 12.8 potassium 3.4 creatinine 0.6 White count 8.2 hemoglobin 11.9 potassium 4 creatinine 0.7 Previous testing White count 5.1 hemoglobin 15.9 platelets 382 potassium 4.8 creatinine 0.85 Computed tomography scan of the abdomen-perforated small bowel Assessment: -Acute perforation of small bowel just proximal to the jejunum, with small bowel resection with end-to-end anastomosis-abdominal binder. -Paroxysmal SVT-started on Lopressor -secondary peritonitis from bowel perforation-clinically improved -Moderate persistent asthma -Hyperlipidemia -Essential hypertension -Hypertensive heart disease -Chronic L4-L5 herniated disc -Obesity BMI 35.8 -Primary osteoarthritis -Acute postprocedure blood loss anemia, as expected from surgery -Episode of chest pain this morning. VQ scan low probability. Troponin is negative. Could be muscular skeletal pain. Plan: Care was discussed with the patient. Questions answered. Antibiotics were Dr. Ledesma. Otherwise patient doing well. Thank you Dr. Ledesma
--- NOTE | 2020-09-19 07:28 | CDI ---
Documentation Clarification Form Date: 09/19/2020 07:18:00 AM From: Naty Jordan Phone: If you have a question about this query, please contact Shellie Coon Roofing Foreman at [phone] between 8am and 5pm. Admit Date: 09/07/2020 01:46:00 AM Patient Name: Mary Alice Gupta Visit Number: [id number] Discharge Date: 09/17/2020 03:45:00 PM ATTENTION: The Clinical Documentation Specialists (CDI) and [facility] Coding Staff appreciate your assistance in clarifying documentation. Please respond to the clarification below the line at the bottom and electronically sign. The CDI & [facility] Coding staff will review the response and follow-up if needed. Please note: Queries are made part of the Legal Health Record. If you have any questions, please contact the author of this message via ITS. Dr. Remi Ledesma Documentation in the Operative Report included: Lysis of adhesions from her laparotomy scar. Patient with prior abdominal surgeries. Please clarify if lysis of adhesions was extensive. History/Risk factors: previous history of cholecystectomy, hysterectomy, appendectomy, bowel resection Pre-Operative Diagnosis: Small bowel perforation Postoperative Diagnosis: Small bowel perforation Treatment: Lysis of adhesions In order to capture the severity of condition, please specify the following: Extensive Lysis of adhesions Non extensive lysis of adhesions Unable to determine: Other: Extensive lysis of adhesions MTDD
== END 2020-09-17 15:45 | disposition home or self-care (01) | DRG 330 ==
LOC: EC 22:59 → 5NMEDONC 09-07 01:46
PROVIDERS: ADMIT Surgery; ATTEND Surgery
PROC: 0DBA0ZZ Excision of Jejunum, Open Approach (ICD-10-PCS; principal; 2020-09-07 16:25)
PROC: 0DNW0ZZ Release Peritoneum, Open Approach (ICD-10-PCS; principal; 2020-09-07 16:25)
PROC: 05HF33Z Insertion of Infusion Device into Left Cephalic Vein, Percutaneous Approach (ICD-10-PCS; 2020-09-11 15:20)
PROC: 05HD33Z Insertion of Infusion Device into Right Cephalic Vein, Percutaneous Approach (ICD-10-PCS; 2020-09-15)
DX: K57.00 Diverticulitis of small intestine with perforation and abscess without bleeding (principal); I47.1 Supraventricular tachycardia; D62 Acute posthemorrhagic anemia; K59.00 Constipation, unspecified; K52.9 Noninfective gastroenteritis and colitis, unspecified; J45.40 Moderate persistent asthma, uncomplicated; M19.91 Primary osteoarthritis, unspecified site; K66.0 Peritoneal adhesions (postprocedural) (postinfection); M51.26 Other intervertebral disc displacement, lumbar region; E66.9 Obesity, unspecified; E78.5 Hyperlipidemia, unspecified; E83.42 Hypomagnesemia; E87.6 Hypokalemia; I11.9 Hypertensive heart disease without heart failure; I44.7 Left bundle-branch block, unspecified; R13.10 Dysphagia, unspecified; Z68.35 Body mass index [BMI] 35.0-35.9, adult; E04.1 Nontoxic single thyroid nodule; Z90.49 Acquired absence of other specified parts of digestive tract; Z98.49 Cataract extraction status, unspecified eye; Z79.82 Long term (current) use of aspirin; Z79.899 Other long term (current) drug therapy; Z80.0 Family history of malignant neoplasm of digestive organs; Z80.8 Family history of malignant neoplasm of other organs or systems; Z82.49 Family history of ischemic heart disease and other diseases of the circulatory system; Z82.5 Family history of asthma and other chronic lower respiratory diseases; Z83.2 Family history of diseases of the blood and blood-forming organs and certain disorders involving the immune mechanism; Z84.1 Family history of disorders of kidney and ureter; Z86.74 Personal history of sudden cardiac arrest; Z87.11 Personal history of peptic ulcer disease; Z91.041 Radiographic dye allergy status; Z88.9 Allergy status to unspecified drugs, medicaments and biological substances; Z88.5 Allergy status to narcotic agent; Z88.7 Allergy status to serum and vaccine; Z88.8 Allergy status to other drugs, medicaments and biological substances; Z88.1 Allergy status to other antibiotic agents; Z90.710 Acquired absence of both cervix and uterus
CPT/HCPCS: 36410; 36415; 70450; 71045; 74176; 76937; 78582; 80048; 80053; 81003; 82550; 82553; 83605; 83690; 83735; 84484; 85025; 85379; 85610; 85730; 87040; 87086; 88305; 88307; 93005; 93306; 93308; 93970; 94640; 94760; 96365; 96375; 96376; 99285

== ENCOUNTER → 2020-12-14 | Outpatient (CLI) | payer MEDICARE ==
--- NOTE | 2020-12-14 09:56 | US ---
EXAMINATION TYPE: US venous doppler duplex LE LT DATE OF EXAM: 12/14/2020 9:43 AM COMPARISON: 09/16/2020 CLINICAL HISTORY: 75-year-old female M79.662 Pain in left lower leg. Superficial vein ruptured latera l left leg/assess varicosities SIDE PERFORMED: Left TECHNIQUE: The lower extremity deep venous system is examined utilizing real time linear array sonog kevin with graded compression, doppler sonography and color-flow sonography. VESSELS IMAGED: Common Femoral Vein Deep Femoral Vein Greater Saphenous Vein * Femoral Vein Popliteal Vein Small Saphenous Vein * Proximal Calf Veins Posterior tibial veins (* superficial vessels) Left Leg: Negative for DVT. Tortuous, very superficial and compressible veins imaged are noted at ar ea of concern. IMPRESSION: 1. Patent superficial varicosities noted along the patient's lateral left leg at the site of concern. 2. No evidence for DVT within the left lower extremity.
== END | disposition home or self-care (01) ==
LOC: RADUSWWP 09:14
PROVIDERS: ATTEND Family Medicine
DX: I83.92 Asymptomatic varicose veins of left lower extremity (principal)

== ENCOUNTER → 2021-08-27 | Outpatient (CLI) | payer MEDICARE ==
--- NOTE | 2021-08-30 12:37 | MM ---
Reason for exam: additional evaluation requested from prior study. Last mammogram was performed 1 year and 3 months ago. History: Patient is postmenopausal. Family history of breast cancer in sister at age 50. Benign US LT VAD breast biopsy of the left breast, May 16, 2012. Benign core biopsy of the left breast, 2009. 2 excisional biopsies of the left breast. Took hormonal contraceptives for 5 years. Took estrogen for 31 years. Physical Findings: Nurse did not find any significant physical abnormalities on exam. MG 3D Diag Mammo W/Cad ANGELINE Bilateral CC and MLO view(s) were taken. Prior study comparison: May 12, 2020, bilateral MG 3d diag mammo w/cad ANGELINE. January 30, 2019, bilateral MG 3d diag mammo w/cad ANGELINE. There are scattered fibroglandular densities. Previous mammotome biopsy in the left breast. Stable adjacent oil cyst calcification. Small central superior asymmetric density left MLO view does not persist on 3D images. ASSESSMENT: Negative, BI-RAD 1 RECOMMENDATION: Routine screening mammogram of both breasts in 1 year.
== END | disposition home or self-care (01) ==
LOC: RADMAMWWP 13:59
PROVIDERS: ATTEND Family Medicine
DX: N60.02 Solitary cyst of left breast (principal); R92.8 Other abnormal and inconclusive findings on diagnostic imaging of breast; Z80.3 Family history of malignant neoplasm of breast; Z78.0 Asymptomatic menopausal state
CPT/HCPCS: 77066; G0279; 77062

== ENCOUNTER → 2021-09-06 | Outpatient (CLI) | payer MEDICARE ==
--- NOTE | 2021-09-06 12:07 | CT ---
EXAMINATION TYPE: CT brain wo con DATE OF EXAM: 09/06/2021 COMPARISON: 09/16/2020 INDICATION: Injury 3-4 weeks ago. Weakness and memory loss DLP: 1054.2 mGycm, Automated exposure control for dose reduction was used. CONTRAST: None CT of the brain is performed utilizing 3 mm thick sections through the posterior fossa and 3 mm thick sections through the remaining calvarium. Study is performed within 24 hours of arrival to the hosp [facility]. No abnormal hyperdensity is present to suggest an acute intracranial hemorrhage. No mass lesion is evident. No acute infarcts are evident. Periventricular white matter hypodensity may be present. This nonspeci fic could be related to chronic white matter ischemic changes. Ventricles and sulci are prominent for the patient age. Paranasal sinuses and mastoid air cells within the [id number] are clear. IMPRESSIONS: 1. Some age-related atrophy with chronic appearing periventricular white matter ischemic changes. M RI could be performed if closer evaluation would be of benefit.
== END | disposition home or self-care (01) ==
LOC: RADCTMAIN 11:36
PROVIDERS: ATTEND Family Medicine
DX: R53.1 Weakness (principal); R41.3 Other amnesia; S09.90XA Unspecified injury of head, initial encounter
CPT/HCPCS: 70450

== ENCOUNTER 2021-12-05 11:34 | Inpatient (IN) | payer MEDICARE ==
[2021-12-05] MEDS ORDERED: ACETAMINOPHEN TAB 500 MG TAB PO STA (12:32)
--- NOTE | 2021-12-05 12:37 | ED ---
General Adult HPI - General Chief complaint: Upper Respiratory Infection Stated complaint: Nausea Time Seen by Provider: 12/05/21 11:59 Source: patient Mode of arrival: EMS Limitations: no limitations - History of Present Illness Initial comments: Dictation was produced using [employer] dictation software. please excuse any grammatical, word or spelling errors. Chief Complaint: 76-year-old female presents with fever, cough and total body pain for the last 2 days. History of Present Illness: This 68-year-old female she presents to emergency department for cough, body aches, hip pain and back pain. She fell a few days ago. She states she's been having body aches cough for the last 3-4 days. She'll size accompany chills. Patient has any obvious sick exposures. No diarrhea. She does feel nauseated has poor appetite. Denies any chest pain. Slight shortness of breath. She states her cough productive of bloody sputum. Denies any abdominal pain. No rectal pain. Denies any rash. She states she fell recently and was on the ground for several minutes. EMS was called off the back of her the recommended she come to the emergency department or patient refused at that time. Today she called and was is brought to the ER today. The ROS documented in this emergency department record has been reviewed and confirmed by me. Those systems with pertinent positive or negative responses have been documented in the HPI. All other systems are other negative and/or noncontributory. PHYSICAL EXAM: General Impression: Alert and oriented x3, malaise HEENT: Normocephalic atraumatic, extra-ocular movements intact, pupils equal and reactive to light bilaterally, mucous membranes moist. Cardiovascular: Heart regular rate and rhythm Chest: Able to complete full sentences, no retractions, no tachypnea, clear breath sounds bilaterally Abdomen: abdomen soft, non-tender, non-distended, no organomegaly Musculoskeletal: Pulses present and equal in all extremities, no peripheral edema Motor: no focal deficits noted Neurological: CN II-XII grossly intact, no focal motor or sensory deficits noted Skin: Intact with no visualized rashes Psych: Normal affect and mood ED course: 76-year-old female presents to the emergency department for infectious symptoms and fall. She does complain of some hip pain. No obvious gross deformities on physical exam. Vital signs upon arrival shows temperature 100.6. Patient is 80% 2 L nasal cannula. Laboratory evaluation obtained. CBC shows leukopenia. Low lymphocytes. Metabolic panel shows hyponatremia 1:30. Rest metabolic panel within acceptable limits. Patient is COVID-19 positive. Chest x-ray shows bilateral lung infiltrates consistent with virus. Computed tomography scan of the head and C- spine shows no traumatic injuries. CT of the abdomen and pelvis shows no trau matic injuries. Patient given 10 mg of IV Decadron. Patient vitals were repeat check. She is 83% on room air. Patient placed back on nasal cannula oxygen [facility] Pulmonology be consulted. There are no evidence of occult fractures on CT of the pelvis and femur x-rays. EKG interpretation: Ventricular rate 92, sinus rhythm,. 160, QRS 132, QTC 395. No DE prolongation, no QTC prolongation, no ST or T-wave changes noted. EKG compared to 09/06/2020 showing no changes. Overall, this EKG is unremarkable - Related Data Home Medications Medication Instructions Recorded Confirmed Albuterol Sulfate [Proventil Hfa] 2 puff INHALATION RT-QID PRN 02/17/14 12/05/21 Ezetimibe [Zetia] 10 mg PO DAILY 02/17/14 12/05/21 Potassium Chloride 20 meq PO BID 02/17/14 12/05/21 Cholecalciferol [Vitamin D3 (25 2,000 unit PO DAILY 07/30/15 12/05/21 Mcg = 1000 Iu)] Vitamin B Complex 1 tab PO DAILY 06/14/19 12/05/21 Furosemide [Lasix] 20 mg PO DAILY 12/09/19 12/05/21 Hydrocortisone Cream 1 applic TOPICAL BID PRN 12/09/19 12/05/21 [Hydrocortisone 1% Cream] Lactobacillus Acidophilus 460 mg PO DAILY 12/09/19 12/05/21 [Florajen] Niacin 500 mg PO DAILY PRN 12/09/19 12/05/21 Vitamin E 400 unit PO DAILY 12/09/19 12/05/21 Famotidine [Pepcid] 40 mg PO BID 12/05/21 12/05/21 Ipratropium-Albuterol Nebulize 3 ml INHALATION RT-QID PRN 12/05/21 12/05/21 [Duoneb 0.5 mg-3 mg/3 ml Soln] NIFEdipine [NIFEdipine ER] 30 mg PO DAILY 12/05/21 12/05/21 Allergies Allergy/AdvReac Type Severity Reaction Status Date / Time adhesive Allergy skin Verified 12/05/21 13:31 blisters Influenza Virus Vaccines Allergy Unknown Verified 12/05/21 13:31 Iodinated Contrast Media Allergy Anaphylaxis Verified 12/05/21 13:31 [Iodinated Contrast Media - IV Dye] morphine Allergy Unknown Verified 12/05/21 13:31 pneumococcal vaccine Allergy Unknown Verified 12/05/21 13:31 povidone-iodine Allergy Rash/Hives Verified 12/05/21 13:31 [From Betadine] soap [From Betadine] Allergy Rash/Hives Verified 12/05/21 13:31 codeine AdvReac Nausea & Verified 12/05/21 13:31 Vomiting hydromorphone HCl AdvReac Nausea & Verified 12/05/21 13:31 [From Dilaudid] Vomiting antibiotics AdvReac Unknown Uncoded 09/07/20 06:40 Review of Systems ROS Statement: Those systems with pertinent positive or pertinent negative responses have been documented in the HPI. ROS Other: All systems not noted in ROS Statement are negative. Past Medical History Past Medical History: Asthma, Hyperlipidemia, Hypertension Additional Past Medical History / Comment(s): hypoglycemia, arrythmia hx., h- pylori hx., hx. 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 History of Any Multi-Drug Resistant Organisms: None Reported Past Surgical History: Appendectomy, Breast Surgery, Section, Cholec ystectomy, Heart Catheterization, Hysterectomy, Joint Replacement Additional Past Surgical History / Comment(s): right hip surg(HAS SEVERE INFECTION-NOT MRSA-, AFTER FIRST SX) x 3 in last 7 mos.RT CAROTID ENDARTERECTOMY, X 5 BX LT, BREAST BENIGN, RT BREAST X2 LUMPS REMOVED(BENIGN), CATARACTS, BENIGN TUMOR REMOVED RT ELBOW AREA. Past Anesthesia/Blood Transfusion Reactions: Motion Sickness, Postoperative Nausea & Vomiting (PONV) Additional Past Anesthesia/Blood Transfusion Reaction / Comment(s): severe ponv Past Psychological History: No Psychological Hx Reported Smoking Status: Never smoker Past Alcohol Use History: None Reported Past Drug Use History: None Reported - Past Family History Mother Family Medical History: Congestive Heart Failure (CHF), COPD, Deep Vein Thrombosis (DVT), Pulmonary Embolus Sister(s) Family Medical History: Blood Disorder, Cancer Additional Family Medical History / Comment(s): pancreatic cancer,brain cancer. sister states has hemophilia Father Family Medical History: Renal Disease Additional Family Medical History / Comment(s): age 28 from aortic aneurysm General Exam Limitations: no limitations Course Vital Signs 12/05/21 12/05/21 12/05/21 11:42 12:22 13:34 Temperature 100.6 F H 101.6 F H Pulse Rate 95 92 100 Respiratory 24 20 20 Rate Blood Pressure 130/54 103/62 105/62 O2 Sat by Pulse 92 L 88 L 98 Oximetry 12/05/21 12/05/21 12/05/21 14:09 14:11 14:34 Temperature Pulse Rate 86 Respiratory 18 Rate Blood Pressure 128/54 O2 Sat by Pulse 93 L 83 L 91 L Oximetry 12/05/21 16:00 Temperature 97.8 F Pulse Rate 93 Respiratory 20 Rate Blood Pressure 154/67 O2 Sat by Pulse 95 Oximetry Medical Decision Making - Lab Data Result diagrams: 12/05/21 12:53 12/05/21 12:53 Lab Results 12/05/21 12/05/21 12/05/21 Range/Units 12:18 12:53 12:53 WBC 3.6 L (3.8-10.6) k/uL RBC 4.97 (3.80-5.40) m/uL Hgb 15.6 (11.4-16.0) gm/dL Hct 46.9 H (34.0-46.0) % MCV 94.3 (80.0-100.0) fL MCH 31.4 (25.0-35.0) pg MCHC 33.4 (31.0-37.0) g/dL RDW 12.8 (11.5-15.5) % Plt Count 359 (150-450) k/uL MPV 7.5 Neutrophils % 80 % Lymphocytes % 14 % Monocytes % 3 % Eosinophils % 0 % Basophils % 1 % Neutrophils # 2.8 (1.3-7.7) k/uL Lymphocytes # 0.5 L (1.0-4.8) k/uL Monocytes # 0.1 (0-1.0) k/uL Eosinophils # 0.0 (0-0.7) k/uL Basophils # 0.0 (0-0.2) k/uL Sodium 130 L (137-145) mmol/L Potassium 4.1 (3.5-5.1) mmol/L Chloride 97 L (98-107) mmol/L Carbon Dioxide 27 (22-30) mmol/L Anion Gap 6 mmol/L BUN 18 H (7-17) mg/dL Creatinine 0.77 (0.52-1.04) mg/dL Est GFR (CKD-EPI)AfAm 86 (>60 ml/min/1.73 sqM) Est GFR (CKD-EPI)NonAf 74 (>60 ml/min/1.73 sqM) Glucose 93 (74-99) mg/dL Plasma Lactic Acid Mark (0.7-2.0) mmol/L Calcium 8.2 L (8.4-10.2) mg/dL Magnesium 1.9 (1.6-2.3) mg/dL Creatine Kinase 86 (30-135) U/L NT-Pro-B Natriuret Pep pg/mL Influenza Type A (PCR) Not Detected (Not Detectd) Influenza Type B (PCR) Not Detected (Not Detectd) RSV (PCR) Not Detected (Not Detectd) SARS-CoV-2 (PCR) Detected A (Not Detectd) 12/05/21 12/05/21 Range/Units 12:53 12:53 WBC (3.8-10.6) k/uL RBC (3.80-5.40) m/uL Hgb (11.4-16.0) gm/dL Hct (34.0-46.0) % MCV (80.0-100.0) fL MCH (25.0-35.0) pg MCHC (31.0-37.0) g/dL RDW (11.5-15.5) % Plt Count (150-450) k/uL MPV Neutrophils % % Lymphocytes % % Monocytes % % Eosinophils % % Basophils % % Neutrophils # (1.3-7.7) k/uL Lymphocytes # (1.0-4.8) k/uL Monocytes # (0-1.0) k/uL Eosinophils # (0-0.7) k/uL Basophils # (0-0.2) k/uL Sodium (137-145) mmol/L Potassium (3.5-5.1) mmol/L Chloride (98-107) mmol/L Carbon Dioxide (22-30) mmol/L Anion Gap mmol/L BUN (7-17) mg/dL Creatinine (0.52-1.04) mg/dL Est GFR (CKD-EPI)AfAm (>60 ml/min/1.73 sqM) Est GFR (CKD-EPI)NonAf (>60 ml/min/1.73 sqM) Glucose (74-99) mg/dL Plasma Lactic Acid Mark 1.0 (0.7-2.0) mmol/L Calcium (8.4-10.2) mg/dL Magnesium (1.6-2.3) mg/dL Creatine Kinase (30-135) U/L NT-Pro-B Natriuret Pep 556 pg/mL Influenza Type A (PCR) (Not Detectd) Influenza Type B (PCR) (Not Detectd) RSV (PCR) (Not Detectd) SARS-CoV-2 (PCR) (Not Detectd) Critical Care Time Critical Care Time: Yes Total Critical Care Time: 33 Disposition Clinical Impression: COVID-19, Hypoxia Disposition: ADMITTED IP TO THIS [facility] Condition: Critical
--- NOTE | 2021-12-05 12:55 | XR ---
EXAMINATION TYPE: XR chest 1V portable DATE OF EXAM: 12/05/2021 COMPARISON: Chest x-ray dated 09/16/2020 HISTORY: Cough and fever, body aches TECHNIQUE: Single frontal view of the chest is obtained. FINDINGS: Bilateral patchy airspace disease is present. No evident pneumothorax or pleural effusion. Cardiac mediastinal silhouette is stable accounting for differences in technique. There are overlyin g artifacts. IMPRESSION: Consider Covid pneumonia.
[2021-12-05 13:08] LABS: Basophils % (A) 1 %; Eosinophils % (A) 0 %; HCT 46.9 % (34.0-46.0); HGB 15.6 gm/dL (11.4-16.0); Lymphocytes # (A) 0.5 k/uL (1.0-4.8); Lymphocytes % (A) 14 %; MCH 31.4 pg (25.0-35.0); MCHC 33.4 g/dL (31.0-37.0); MCV 94.3 fL (80.0-100.0); Mean Platelet Volume 7.5; Monocytes # (A) 0.1 k/uL (0-1.0); Monocytes % (A) 3 %; Neutrophils # (A) 2.8 k/uL (1.3-7.7); Neutrophils % (A) 80 %; Platelet Count 359 k/uL (150-450); RBC 4.97 m/uL (3.80-5.40); RDW 12.8 % (11.5-15.5); WBC 3.6 k/uL (3.8-10.6)
[2021-12-05 13:09] LABS: Influenza A Not Detected (Not Detectd); Influenza B Not Detected (Not Detectd)
[2021-12-05 13:19] LABS: Calcium 8.2 mg/dL (8.4-10.2); Magnesium 1.9 mg/dL (1.6-2.3); Potassium 4.1 mmol/L (3.5-5.1)
[2021-12-05] MEDS ORDERED: HYDROmorphone 0.5 MG/0.5 ML SYRINGE IVP STA (13:38)
[2021-12-05] MEDS ORDERED: DEXAMETHASONE SOD PHOSPHATE 10 MG/ML 1 ML VIAL IV STA (14:10)
--- NOTE | 2021-12-05 14:12 | CT ---
EXAMINATION TYPE: CT brain cspine wo con DATE OF EXAM: 12/05/2021 COMPARISON: 01/05/2020 HISTORY: Fall. CT DLP: 1401.2 mGycm Automated exposure control for dose reduction was used. There is cerebral cortical atrophy. There is no mass effect or midline shift. There is no sign of int racranial hemorrhage. The calvarium is intact. The skull base is intact. The cervical vertebra have normal alignment. There is narrowing of C5-6 disc space with mild spurring . There is hypertrophic mild facet arthropathy. IMPRESSION: There is cerebral atrophy without acute intracranial abnormality. No significant change compared to o ld exam. Minor degenerative changes in the cervical spine. No fracture. No change.
--- NOTE | 2021-12-05 14:34 | CT ---
EXAMINATION TYPE: CT abdomen pelvis wo con DATE OF EXAM: 12/05/2021 COMPARISON: 09/06/2020 HISTORY: Fall. Hip and back pain. CT DLP: 1188.4 mGycm Automated exposure control for dose reduction was used. Images obtained from the diaphragm to the floor the pelvis without contrast. There is some patchy atelectasis and infiltrate at both lung bases. Heart is borderline enlarged. The re is no pericardial effusion. There is no pleural effusion. There are clips from cholecystectomy. Liver and spleen are intact. Stomach is intact. The bile ducts are not dilated. There is no pancreatic mass. There is no adrenal mass. Kidneys show normal size and contour. There is no hydronephrosis. Ureters a re not dilated. There is no retroperitoneal adenopathy. Appendix not seen. No sign of thickened appen tyrell. The bladder distends smoothly. There is right hip prosthesis with metal artifact. There is no fr ee fluid in the pelvis. There are sigmoid diverticula. There is previous surgery apparently at the si gmoid rectal junction. There are surgical clips involving the distal small bowel with this single 3.8 cm dilated loop. There is no mesenteric edema. There is no ascites or free air. There is no evidence of a bowel obstru ction. Lumbar vertebrae have normal alignment. There is narrowing at L4-5 disc. Abdominal aorta is atheromat ous. There is 1 cm rounded hypodensity in the lower pole right kidney consistent with a cyst. Unchang ed. IMPRESSION: Previous surgery. No evidence of a bowel obstruction. No acute abnormality of the abdomen pelvis. There is bilateral lower lobe pneumonia and atelectasis which is new compared to old exam. There is c learing of the small bowel inflammatory changes in the mid abdomen compared to old exam.
[2021-12-05] MEDS ORDERED: ALBUTEROL NEBULIZED 2.5 MG/3 ML INHALATION PRN (15:11)
[2021-12-05] MEDS ORDERED: ACETAMINOPHEN TAB 325 MG TAB PO PRN (15:15)
[2021-12-05] MEDS ORDERED: NALOXONE 0.4 MG/ML 1 ML VIAL IV PRN (15:15)
--- NOTE | 2021-12-05 15:32 | P.HPIM ---
History of Present Illness H&P Date: 12/05/21 Chief Complaint: CC: shortness of breath and weakness Patient is a 76-year-old female with a past medical history of asthma, hyperlipidemia, hypertension, herniated disc, small bowel perforation status post resection who presents to the ED with shortness of breath, fever and weakness that has been progressing over the past 2 weeks. Patient states that she tested positive on 11/24/2091. Patient states that a couple days ago she fell off her bed and was not able to get up. She states that EMS came and tried to convince her to go to the hospital however she did not want go because she was scared of getting the COVID-19 vaccine. She thought that the hospital would force her to get the vaccine. Patient states that she is ALLERGIC to all vaccines. Patient's symptoms continued to progress after the fall so she decided to come in. She denies any diarrhea, nausea or vomiting, loss of taste or smell. She states that she is having fevers and chills. She stated that she is also producing thick sputum that is mixed with blood. In the ED patient was 82% on room air. When I went to see the patient she was 91% on 3 L nasal cannula. Patient's chest x-ray was consistent with COVID-19 pneumonia. Patient also had other imaging studies done to rule out trauma which were negative for any acute fractures. Patient was given dexamethasone and was referred for admission. Review of Systems 10 ROS reviewed and are negative except as noted in HPI Past Medical History Past Medical History: Asthma, Hyperlipidemia, Hypertension Additional Past Medical History / Comment(s): hypoglycemia, arrythmia hx., h- pylori hx., hx. 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 History of Any Multi-Drug Resistant Organisms: None Reported Past Surgical History: Appendectomy, Breast Surgery, Section, Cholecystectomy, Heart Catheterization, Hysterectomy, Joint Replacement Additional Past Surgical History / Comment(s): right hip surg(HAS SEVERE INFECTION-NOT MRSA-, AFTER FIRST SX) x 3 in last 7 mos.RT CAROTID ENDARTERECTOMY, X 5 BX LT, BREAST BENIGN, RT BREAST X2 LUMPS REMOVED(BENIGN), CATARACTS, BENIGN TUMOR REMOVED RT ELBOW AREA. Past Anesthesia/Blood Transfusion Reactions: Motion Sickness, Postoperative Nausea & Vomiting (PONV) Additional Past Anesthesia/Blood Transfusion Reaction / Comment(s): severe ponv Past Psychological History: No Psychological Hx Reported Smoking Status: Never smoker Past Alcohol Use History: None Reported Past Drug Use History: None Reported - Past Family History Mother Family Medical History: Congestive Heart Failure (CHF), COPD, Deep Vein Thrombos is (DVT), Pulmonary Embolus Sister(s) Family Medical History: Blood Disorder, Cancer Additional Family Medical History / Comment(s): pancreatic cancer,brain cancer. sister states has hemophilia Father Family Medical History: Renal Disease Additional Family Medical History / Comment(s): age 28 from aortic aneurysm Medications and Allergies Home Medications Medication Instructions Recorded Confirmed Type Albuterol Sulfate [Proventil Hfa] 2 puff INHALATION RT-QID PRN 02/17/14 12/05/21 History Ezetimibe [Zetia] 10 mg PO DAILY 02/17/14 12/05/21 History Potassium Chloride 20 meq PO BID 02/17/14 12/05/21 History Cholecalciferol [Vitamin D3 (25 2,000 unit PO DAILY 07/30/15 12/05/21 History Mcg = 1000 Iu)] Vitamin B Complex 1 tab PO DAILY 06/14/19 12/05/21 History Furosemide [Lasix] 20 mg PO DAILY 12/09/19 12/05/21 History Hydrocortisone Cream 1 applic TOPICAL BID PRN 12/09/19 12/05/21 History [Hydrocortisone 1% Cream] Lactobacillus Acidophilus 460 mg PO DAILY 12/09/19 12/05/21 History [Florajen] Niacin 500 mg PO DAILY PRN 12/09/19 12/05/21 History Vitamin E 400 unit PO DAILY 12/09/19 12/05/21 History Famotidine [Pepcid] 40 mg PO BID 12/05/21 12/05/21 History Ipratropium-Albuterol Nebulize 3 ml INHALATION RT-QID PRN 12/05/21 12/05/21 History [Duoneb 0.5 mg-3 mg/3 ml Soln] NIFEdipine [NIFEdipine ER] 30 mg PO DAILY 12/05/21 12/05/21 History Allergies Allergy/AdvReac Type Severity Reaction Status Date / Time adhesive Allergy skin Verified 12/05/21 13:31 blisters Influenza Virus Vaccines Allergy Unknown Verified 12/05/21 13:31 Iodinated Contrast Media Allergy Anaphylaxis Verified 12/05/21 13:31 [Iodinated Contrast Media - IV Dye] morphine Allergy Unknown Verified 12/05/21 13:31 pneumococcal vaccine Allergy Unknown Verified 12/05/21 13:31 povidone-iodine Allergy Rash/Hives Verified 12/05/21 13:31 [From Betadine] soap [From Betadine] Allergy Rash/Hives Verified 12/05/21 13:31 codeine AdvReac Nausea & Verified 12/05/21 13:31 Vomiting hydromorphone HCl AdvReac Nausea & Verified 12/05/21 13:31 [From Dilaudid] Vomiting antibiotics AdvReac Unknown Uncoded 09/07/20 06:40 Physical Exam Osteopathic Statement: *. No significant issues noted on an osteopathic structural exam other than those noted in the History and Physical/Consult. Vitals: Vital Signs Temp Pulse Resp BP Pulse Ox 12/05/21 14:34 86 18 128/54 91 L 12/05/21 14:11 83 L 12/05/21 14:09 93 L 12/05/21 13:34 101.6 F H 100 20 105/62 98 12/05/21 12:22 92 20 103/62 88 L 12/05/21 11:42 100.6 F H 95 24 130/54 92 L Intake and Output 12/05/21 12/05/21 12/05/21 06:59 14:59 22:59 Other: Weight 85.729 kg General: [Alert and oriented, well nourished, no acute distress, appears chronically debilitated]. Eye: [PERRL, EOMI, normal conjunctiva]. HENT: [Normocephalic, clear tympanic membranes, normal hearing, moist oral mucosa, no scleral icterus, no sinus tenderness]. Neck: [Supple, non-tender, no carotid bruits, no JVD, no lymphadenopathy]. Lungs: [Diminished breath sounds bilaterally]. Heart: [Normal rate, regular rhythm, no murmur, gallop or edema]. Abdomen: [Soft, non-tender, non-distended, normal bowel sounds, no masses]. Musculoskeletal: [Normal range of motion and strength, no tenderness or swelling]. Skin: [Bruises on right lower extremity]. Neurologic: [Awake, alert, and oriented X3, CN II-XII intact]. Psychiatric: [Cooperative, appropriate mood and affect], appears lethargic. Results CBC & Chem 7: 12/05/21 12:53 12/05/21 12:53 Labs: Abnormal Lab Results - Last 24 Hours (Table) 12/05/21 12/05/21 12/05/21 Range/Units 12:18 12:53 12:53 WBC 3.6 L (3.8-10.6) k/uL Hct 46.9 H (34.0-46.0) % Lymphocytes # 0.5 L (1.0-4.8) k/uL Sodium 130 L (137-145) mmol/L Chloride 97 L (98-107) mmol/L BUN 18 H (7-17) mg/dL Calcium 8.2 L (8.4-10.2) mg/dL SARS-CoV-2 (PCR) Detected A (Not Detectd) Assessment and Plan Assessment: Acute hypoxic respiratory failure COVID-19 pneumonia Rule out bacterial pneumonia Hemoptysis likely due to the above -Start dexamethasone -Patient out of window for remdesivir -Resume home dose Lasix to keep patient on the dry side -Albuterol inhaler -Tylenol for fever -We'll start patient on full dose anticoagulation as per NIH guidelines as well as [facility] guidelines -Check d-dimer, ferritin, CRP, pro-calcitonin -We'll start patient empirically on antibiotics. To consider stopping if procalcitonin is within normal limits -Consult pulmonology Recent fall and generalized weakness -Trauma workup in ED was negative -Check right femur x-ray -Pain control with [facility] -PT OT consult Asthma -Stable with no wheezing Hyperlipidemia -Resume Zetia Hypertension -Resume home meds CODE STATUS:full code DVT prophylaxis: Full dose Lovenox Discussed with: Patient, ER, rn Anticipated length of stay > than [address]: home versus SNF A total of 75 minutes was spent on the care of this complex patient more than 50% of the time was spent in counseling and care coordination.
[2021-12-05] MEDS ORDERED: HYDROcodone/APAP 5-325MG 1 EACH TAB PO PRN (15:37)
[2021-12-05] MEDS: SODIUM CHLORIDE 0.9% 1,000 ML IV SCH (15:47)
--- NOTE | 2021-12-05 15:50 | XR ---
EXAMINATION TYPE: XR femur RT DATE OF EXAM: 12/05/2021 COMPARISON: NONE HISTORY: Fall. Pain TECHNIQUE: 4 views FINDINGS: There is right hip prosthesis. Components appear in anatomic position. The knee joint appea rs intact. IMPRESSION: No fractures seen.
[2021-12-05] MEDS: ONDANSETRON 4 MG/2 ML VIAL IVP SCH (16:07)
[2021-12-05] MEDS: AZITHROMYCIN 500 MG TAB PO SCH (17:04)
[2021-12-05 19:07] LABS: C Reactive Protein 16.4 mg/dL (<1.0)
[2021-12-05] MEDS: ENOXAPARIN 100 MG/ML SYRINGE SQ SCH (20:42)
[2021-12-05] MEDS: FAMOTIDINE 20 MG TAB PO SCH (20:42)
[2021-12-05 22:15] LABS: Appearance,Urine Clear (Clear); Bacteria,Urine Rare /hpf; Bilirubin,Urine Negative (Negative); Blood,Urine Negative (Negative); Color,Urine Yellow; Glucose,Urine (UA) Negative (Negative); Ketones,Urine 1+ (Negative); Leukocyte Esterase,Urine Trace (Negative); Mucus,Urine Rare /hpf; Nitrite,Urine Negative (Negative); Protein,Urine 1+ (Negative); RBC,Urine <1 /hpf (0-5); Specific Gravity,Urine 1.017 (1.001-1.035); Squamous Epithelial Cell,Urine 3 /hpf (0-4); Urobilinogen,Urine <2.0 mg/dL (<2.0); WBC,Urine 5 /hpf (0-5)
[2021-12-06] MEDS: ONDANSETRON 4 MG/2 ML VIAL IVP SCH ×4 (01:20→23:23)
[2021-12-06] MEDS: FAMOTIDINE 20 MG TAB PO SCH (07:33)
[2021-12-06] MEDS: dexAMETHasone 2 MG TAB PO SCH (07:34)
[2021-12-06] MEDS: EZETIMIBE 10 MG TAB PO SCH (07:34)
[2021-12-06] MEDS: CHOLECALCIFEROL 25 MCG (1000 IU) TABLET PO SCH (07:35)
[2021-12-06] MEDS: ENOXAPARIN 100 MG/ML SYRINGE SQ SCH (07:36)
[2021-12-06] MEDS: ACETAMINOPHEN TAB 325 MG TAB PO PRN (07:50)
[2021-12-06] MEDS ORDERED: FUROSEMIDE 20 MG TAB PO SCH (09:00)
[2021-12-06] MEDS: NIFEdipine XL 30 MG TAB.ER.24 PO SCH (09:54)
[2021-12-06] MEDS: AZITHROMYCIN 500 MG TAB PO SCH (09:54)
[2021-12-06] MEDS ORDERED: PANTOPRAZOLE 40 MG/10 ML VIAL IVP SCH (12:00)
[2021-12-06] MEDS: KETOROLAC 30 MG/ML 1 ML VIAL IVP PRN ×2 (12:08→21:47)
[2021-12-06 12:17] LABS: HCT 45.6 % (34.0-46.0); HGB 15.3 gm/dL (11.4-16.0); MCH 31.4 pg (25.0-35.0); MCHC 33.6 g/dL (31.0-37.0); MCV 93.5 fL (80.0-100.0); Mean Platelet Volume 7.6; Platelet Count 380 k/uL (150-450); RBC 4.88 m/uL (3.80-5.40); RDW 12.3 % (11.5-15.5); WBC 5.7 k/uL (3.8-10.6)
[2021-12-06 12:31] LABS: Sodium 131 mmol/L (137-145)
[2021-12-06 12:34] LABS: ALT 37 U/L (4-34); AST 48 U/L (14-36); African American GFR (CKD) >90 (>60 ml/min/1.73 sqM); Albumin 2.7 g/dL (3.5-5.0); Alkaline Phosphatase 60 U/L (38-126); Anion Gap 6 mmol/L; Blood Urea Nitrogen 22 mg/dL (7-17); Calcium 8.4 mg/dL (8.4-10.2); Carbon Dioxide 24 mmol/L (22-30); Chloride 101 mmol/L (98-107); Globulin 2.8 g/dL; Glucose 216 mg/dL (74-99); LDH 1038 U/L (313-618); Non-African American GFR(CKD) 84 (>60 ml/min/1.73 sqM); Potassium 3.8 mmol/L (3.5-5.1); Total Bilirubin 0.4 mg/dL (0.2-1.3); Total Protein 5.5 g/dL (6.3-8.2)
--- NOTE | 2021-12-06 13:33 | P.CNPUL ---
History of Present Illness Consult date: 12/06/21 Reason for consult: dyspnea History of present illness: 76-year-old female patient who came into the hospital after feeling very weak and slept on the floor and she was unable to get up and for that reason she ended up coming into the hospital. She was well aware that she had a COVID 19 infection and this was diagnosed on 11/24/2021. Her also had the same infection. 4 recommend declined to come into the hospital. In fact it seems that her is doing better than her. The patient was having difficulties with dyspnea and generalized weakness and nausea and diminished appetite and overall weakness. She denies having any diarrhea. She denies having any emesis. No loss in the taste or smell. However, she was sitting very weak. She came into the hospital and the patient was found to have a pulse ox of 82%. Noted the patient was concerned of coming into the hospital because she thought that she will be forced with a COVID 19 vaccination in the hospital and this was one of the main reasons she ended up not showing up in the hospital earlier. Noted the patient is not vaccinated. In any rate, the chest x-rays showing diffuse breath and pulmonary infiltrates and the patient is currently on 3 L of oxygen by nasal cannula to maintain a pulse ox above 90%. She is awake and alert. Altered mentation. No headaches. No confusion. She is known to have chronic bronchial asthma which is mild intermittent in nature the patient has used albuterol on an as-needed basis. She has also history of hypertension and hyperlipidemia. She has chronic back pain and she has used a walker on and off and she is known to have an L4-L5 bulging disc. She also has a previous carotid endarterectomy on the right and ongoing disease on the left. Her white cell count is at 3.6 with a hemoglobin of 15.6, d-dimer is at 1.04, LDH level was 1125 peripheral Crestor level of 0.12 and a CRP level of 16.4. UA was negative. Influenza A and B was negative. RSV was also negative. Review of Systems Constitutional: Reports fatigue, Reports poor appetite, Reports weakness Eyes: denies as per HPI, denies blurred vision, denies bulging eye, denies decreased vision, denies diplopia, denies discharge, denies dry eye, denies irritation, denies itching, denies pain, denies photophobia, denies loss of peripheral vision, denies loss of vision, denies tunnel vision/blind spots Ears: deny: decreased hearing, ear discharge, earache, tinnitus Ears, nose, mouth and throat: Reports as per HPI Breasts: absent: as per HPI, change in shape, gynecomastia, masses, nipple discharge, pain, skin changes, swelling Cardiovascular: Reports decreased exercise tolerance Respiratory: Reports cough, Reports dyspnea Gastrointestinal: Reports as per HPI, Reports nausea Genitourinary: Reports as per HPI Menstruation: Reports as per HPI Musculoskeletal: Reports as per HPI Musculoskeletal: absent: ankle pain, ankle stiffness, ankle swelling, as per HPI, elbow pain, elbow stiffness, elbow swelling, foot pain, foot stiffness, foot swelling, hand pain, hand stiffness, hand swelling, hip pain, hip stiffness, hip swelling, knee pain, knee stiffness, knee swelling, shoulder pain, shoulder stiffness, shoulder swelling, wrist pain, wrist stiffness, wrist swelling Integumentary: Reports as per HPI Neurological: Reports as per HPI, Reports weakness Psychiatric: Reports as per HPI Endocrine: Reports as per HPI Hematologic/Lymphatic: Reports as per HPI Allergic/Immunologic: Reports as per HPI Past Medical History Past Medical History: Asthma, Hyperlipidemia, Hypertension Additional Past Medical History / Comment(s): Intermittent bronchial asthma, hypertension, hyperlipidemia, cardiac artery disease with previous endarterectomy on the right, history of peptic ulcer disease, history of thyroid nodules, history of lumbar disc disease with L4-L5 disease with chronic back pain, history of H. pylori positive, questionable history of a cardiac arrhythmia and exact type is not known, osteoarthritis, History of Any Multi-Drug Resistant Organisms: None Reported Past Surgical History: Appendectomy, Breast Surgery, Section, Cholecystectomy, Heart Catheterization, Hysterectomy, Joint Replacement Additional Past Surgical History / Comment(s): right hip surg(HAS SEVERE INFECTION-NOT MRSA-, AFTER FIRST SX) x 3 in last 7 mos.RT CAROTID ENDARTERECTOMY, X 5 BX LT, BREAST BENIGN, RT BREAST X2 LUMPS REMOVED(BENIGN), CATARACTS, BENIGN TUMOR REMOVED RT ELBOW AREA. Past Anesthesia/Blood Transfusion Reactions: Motion Sickness, Postoperative Nausea & Vomiting (PONV) Additional Past Anesthesia/Blood Transfusion Reaction / Comment(s): severe ponv Past Psychological History: No Psychological Hx Reported Smoking Status: Never smoker Past Alcohol Use History: None Reported Past Drug Use History: None Reported - Past Family History Mother Family Medical History: Congestive Heart Failure (CHF), COPD, Deep Vein Thrombosis (DVT), Pulmonary Embolus Sister(s) Family Medical History: Blood Disorder, Cancer Additional Family Medical History / Comment(s): pancreatic cancer,brain cancer. sister states has hemophilia Father Family Medical History: Renal Disease Additional Family Medical History / Comment(s): age 28 from aortic aneurysm Medications and Allergies Home Medications Medication Instructions Recorded Confirmed Type Albuterol Sulfate [Proventil Hfa] 2 puff INHALATION RT-QID PRN 02/17/14 12/05/21 History Ezetimibe [Zetia] 10 mg PO DAILY 02/17/14 12/05/21 History Potassium Chloride 20 meq PO BID 02/17/14 12/05/21 History Cholecalciferol [Vitamin D3 (25 2,000 unit PO DAILY 07/30/15 12/05/21 History Mcg = 1000 Iu)] Vitamin B Complex 1 tab PO DAILY 06/14/19 12/05/21 History Furosemide [Lasix] 20 mg PO DAILY 12/09/19 12/05/21 History Hydrocortisone Cream 1 applic TOPICAL BID PRN 12/09/19 12/05/21 History [Hydrocortisone 1% Cream] Lactobacillus Acidophilus 460 mg PO DAILY 12/09/19 12/05/21 History [Florajen] Niacin 500 mg PO DAILY PRN 12/09/19 12/05/21 History Vitamin E 400 unit PO DAILY 12/09/19 12/05/21 History Famotidine [Pepcid] 40 mg PO BID 12/05/21 12/05/21 History Ipratropium-Albuterol Nebulize 3 ml INHALATION RT-QID PRN 12/05/21 12/05/21 History [Duoneb 0.5 mg-3 mg/3 ml Soln] NIFEdipine [NIFEdipine ER] 30 mg PO DAILY 12/05/21 12/05/21 History Allergies Allergy/AdvReac Type Severity Reaction Status Date / Time adhesive Allergy skin Verified 12/05/21 13:31 blisters Influenza Virus Vaccines Allergy Unknown Verified 12/05/21 13:31 Iodinated Contrast Media Allergy Anaphylaxis Verified 12/05/21 13:31 [Iodinated Contrast Media - IV Dye] morphine Allergy Unknown Verified 12/05/21 13:31 pneumococcal vaccine Allergy Unknown Verified 12/05/21 13:31 povidone-iodine Allergy Rash/Hives Verified 12/05/21 13:31 [From Betadine] soap [From Betadine] Allergy Rash/Hives Verified 12/05/21 13:31 codeine AdvReac Nausea & Verified 12/05/21 13:31 Vomiting hydromorphone HCl AdvReac Nausea & Verified 12/05/21 13:31 [From Dilaudid] Vomiting antibiotics AdvReac Unknown Uncoded 09/07/20 06:40 Physical Exam Vitals: Vital Signs Temp Pulse Pulse Resp BP BP Pulse Ox 12/06/21 10:00 97.7 F 86 17 145/72 94 L 12/06/21 07:32 67 18 12/06/21 07:30 67 18 12/06/21 05:59 98.1 F 67 18 145/69 91 L 12/06/21 02:00 97.6 F 69 18 139/71 94 L 12/05/21 20:00 97.5 F L 64 18 114/70 95 12/05/21 17:18 97.7 F 80 24 174/77 95 12/05/21 16:00 97.8 F 93 20 154/67 95 12/05/21 14:34 86 18 128/54 91 L 12/05/21 14:11 83 L 12/05/21 14:09 93 L 12/05/21 13:34 101.6 F H 100 20 105/62 98 Intake and Output 12/05/21 12/06/21 12/06/21 22:59 06:59 14:59 Other: Voiding Method Bedside Commode Bedside Commode # Voids 3 1 Weight 85.729 kg Gen. appearance the patient is calm comfortable, currently on 3 L O2 nasal ca nnula, no signs of any respiratory distress Head exam was generally normal. There was no scleral icterus or corneal arcus. Mucous membranes were moist. Neck was supple and without jugular venous distension, thyromegaly, or carotid bruits. Carotids were easily palpable bilaterally. There was no adenopathy. Lungs sounds are diminished in the patient's strength is in the mid lower lung his bilaterally Heart sounds are positive for systolic ejection murmur grade 2/6 systolic the precordium, regular. No right ventricular heave or thrill Abdominal exam revealed normal bowel sounds. The abdomen was soft, non-tender, and without masses, organomegaly, or appreciable enlargement of the abdominal aorta. The patient is a midabdominal scar in the right upper quadrant scar and either from previous abdominal surgeries. No direct distention. No direct tenderness. No rebound tenderness. No guarding. Examination of the extremities revealed easily palpable radial, femoral and pedal pulses. There was no cyanosis, clubbing or edema. Examination of the skin revealed no evidence of significant rashes, suspicious appearing nevi or other concerning lesions. Neurologically, the patient is awake and alert and the patient does not have any focal neurological deficit. Cranial nerves are essentially intact. Results - Laboratory Findings CBC and BMP: 12/06/21 11:47 12/06/21 11:47 PT/INR, D-dimer D-Dimer 0.72 mg/L FEU (<0.60) H 12/06/21 11:47 Abnormal lab findings: Abnormal Labs 12/05/21 12/05/21 12/05/21 12:18 12:53 12:53 WBC 3.6 L Hct 46.9 H Lymphocytes # 0.5 L D-Dimer Sodium 130 L Chloride 97 L BUN 18 H Glucose Calcium 8.2 L Ferritin AST ALT Lactate Dehydrogenase C-Reactive Protein Total Protein Albumin Procalcitonin Urine Protein Urine Ketones Ur Leukocyte Esterase Urine Bacteria Urine Mucus SARS-CoV-2 (PCR) Detected A 12/05/21 12/05/21 12/05/21 16:00 16:00 16:00 WBC Hct Lymphocytes # D-Dimer 1.04 H Sodium Chloride BUN Glucose Calcium Ferritin 762.0 H AST ALT Lactate Dehydrogenase 1125 H C-Reactive Protein 16.4 H Total Protein Albumin Procalcitonin 0.12 H Urine Protein Urine Ketones Ur Leukocyte Esterase Urine Bacteria Urine Mucus SARS-CoV-2 (PCR) 12/05/21 12/06/21 12/06/21 22:00 11:47 11:47 WBC Hct Lymphocytes # D-Dimer 0.72 H Sodium 131 L Chloride BUN 22 H Glucose 216 H Calcium Ferritin AST 48 H ALT 37 H Lactate Dehydrogenase 1038 H C-Reactive Protein Total Protein 5.5 L Albumin 2.7 L Procalcitonin Urine Protein 1+ H Urine Ketones 1+ H Ur Leukocyte Esterase Trace H Urine Bacteria Rare H Urine Mucus Rare H SARS-CoV-2 (PCR) - Diagnostic Findings Chest x-ray: image reviewed Assessment and Plan Plan: 1 acute COVID 19 related pneumonia. The patient was diagnosed having a COVID 19 back in 11/24/2021 and she has not received any treatment. Noted the patient is not vaccinated. Inflammatory markers are mildly elevated. 2 acute hypoxic respiratory failure secondary to above 3 generalized weakness secondary to above with a episodes of fall without any traumatic injuries or skeletal injuries 4 mild intermittent bronchial asthma 5 hypertension 6 hyperlipidemia 7 lumbar degenerative disc disease 8 history of peptic ulcer disease 9 history of carotid artery disease Plan Oxygen will be offered and oxygen flow to be titrated to maintain saturation above 90% Anticoagulation per CDC protocol Decadron 6 mg IV every 24 hours Not a candidate for Remdesivir Resume all medications Monitor inflammatory markers Add multivitamins in regards to COVID 19 infection We'll continue to follow
--- NOTE | 2021-12-06 16:58 | P.PN ---
Subjective Progress Note Date: 12/06/21 (delayed charting seen at 1130) Principal diagnosis: Patient is a 76-year-old female with asthma, hypertension, dyslipidemia, and prior H. pylori who presented to the ER with complaints of weakness, fatigue, and shortness of breath. Patient had an essentially tested positive for: On 11/24/2021. At home she had fallen several days ago and called EMS to try to convince her to come to the hospital though she refused due to fear of having to get the COVID-19 vaccine. In the ER she underwent an extensive evaluation. She was found to be hypoxic with an O2 sat of 88% on 2 L nasal cannula. Her temperature was elevated at 100.6. Chest x-ray was consistent with COVID pneu monia. Initial laboratory analysis showed mildly elevated d-dimer at 1.04, sodium 1:30, BUN 18, ferritin 762, LDH 1125, and CRP 16.4. Pro-calcitonin was mildly elevated at 0.12. She was admitted started on IV antibiotics and dexamethasone. Pulmonary was consulted. She is not a candidate for REM secondary to being so far out Covid symptom, also not a candidate for monoclonal antibody as she is requiring inpatient admission. Patient seen and examined at that she complains of abdominal pain that is worse when coughing. She states her breathing is better and her level of fatigue is better. We discussed that she is not a candidate for monoclonal antibody and REM. Patient is aware. General: Ill appearing, no distress, appears at stated age Derm: warm, dry Head: atraumatic, normocephalic, symmetric Eyes: EOMI, no lid lag, anicteric sclera Mouth: no lip lesion, mucus membranes dry Cardiovascular: S1S2 reg, no murmur, positive posterior tibial pulse bilateral, Lungs: Rhonchi bilateral bases , no accessory muscle use Abdominal: soft, + tender to palpation epigastric, no guarding, no appreciable organomegaly Ext: no gross muscle atrophy, no edema, no contractures Neuro: CN II-XI grossly intact, no focal neuro deficits Psych: Alert, oriented, appropriate affect Assessment COVID-19 pneumonia Acute hypoxic respiratory failure Pleurisy Elevated d-dimer - Vitamin D -Full dose anticoagulation with Lovenox -Pulmonary recommendations -Dexamethasone day #2 -Toradol for pain Hyponatremia secondary to dehydration - IV fluids - hold lasix GERD -Change from Pepcid to IV Protonix HTN - procardia - follow BP HLD - resume niacin as outpatient - zetia DVT prophylaxis: Lovenox Discussed with: patient, nursing, Dr Maddox Anticipated discharge: in 2-[address]: home A total of 45 minutes was spent on the care of this complex patient more than 50% of the time was spent in counseling and care coordination. Patient is a 76-year-old female with asthma, hypertension, dyslipidemia, and prior H. pylori who presented to the ER with complaints of weakness, fatigue, and shortness of breath. Patient had an essentially tested positive for: On 11/24/2021. At home she had fallen several days ago and called EMS to try to convince her to come to the hospital though she refused due to fear of having to get the COVID-19 vaccine. In the ER she underwent an extensive evaluation. She was found to be hypoxic with an O2 sat of 88% on 2 L nasal cannula. Her temperature was elevated at 100.6. Chest x-ray was consistent with COVID pneumonia. Initial laboratory analysis showed mildly elevated d-dimer at 1.04, sodium 1:30, BUN 18, ferritin 762, LDH 1125, and CRP 16.4. Pro-calcitonin was mildly elevated at 0.12. She was admitted started on IV antibiotics and dexamethasone. Pulmonary was consulted. She is not a candidate for REM seconda ry to being so far out Covid symptom, also not a candidate for monoclonal antibody as she is requiring inpatient admission. Patient seen and examined at that she complains of abdominal pain that is worse when coughing. She states her breathing is better and her level of fatigue is better. We discussed that she is not a candidate for monoclonal antibody and REM. Patient is aware. General: Ill appearing, no distress], appears at stated age Derm: warm, dry Head: atraumatic, normocephalic, symmetric Eyes: EOMI, no lid lag, anicteric sclera Mouth: no lip lesion, mucus membranes dry Cardiovascular: S1S2 reg, no murmur, positive posterior tibial pulse bilateral, Lungs: Rhonchi bilateral bases , no accessory muscle use Abdominal: soft, + tender to palpation epigastric, no guarding, no appreciable organomegaly Ext: no gross muscle atrophy, no edema, no contractures Neuro: CN II-XI grossly intact, no focal neuro deficits Psych: Alert, oriented, appropriate affect COVID-19 pneumonia Acute hypoxic respiratory failure Pleurisy Elevated d-dimer - Vitamin D -Full dose anticoagulation with Lovenox -Pulmonary recommendations -Dexamethasone day #2 -Toradol for pain - Wean O2 as able - No need for abx with low procalcitonin Hyponatremia secondary to dehydration - IV fluids - hold lasix GERD -Change from Pepcid to IV Protonix HTN - procardia - follow BP HLD - resume niacin as outpatient - zetia DVT prophylaxis: Lovenox Discussed with: patient, nursing, Dr Maddox Anticipated discharge: in 2-[address]: home A total of 45 minutes was spent on the care of this complex patient more than 50% of the time was spent in counseling and care coordination. Objective - Vital Signs Vital signs: Vital Signs Temp 97.8 F 12/06/21 14:00 Pulse 66 12/06/21 14:00 Resp 17 12/06/21 14:00 BP 129/73 12/06/21 14:00 Pulse Ox 95 12/06/21 14:00 Intake & Output 12/05/21 12/06/21 12/06/21 18:59 06:59 18:59 Weight 85.729 kg Other: Voiding Method Bedside Commode Bedside Commode # Voids 3 1 - Labs CBC & Chem 7: 12/06/21 11:47 12/06/21 11:47 Labs: Abnormal Lab Results - Last 24 Hours (Table) 12/05/21 12/05/21 12/05/21 Range/Units 16:00 16:00 16:00 D-Dimer 1.04 H (<0.60) mg/L FEU Sodium (137-145) mmol/L BUN (7-17) mg/dL Glucose (74-99) mg/dL Ferritin 762.0 H (10.0-291.0) ng/mL AST (14-36) U/L ALT (4-34) U/L Lactate Dehydrogenase 1125 H (313-618) U/L C-Reactive Protein 16.4 H (<1.0) mg/dL Total Protein (6.3-8.2) g/dL Albumin (3.5-5.0) g/dL Procalcitonin 0.12 H (0.02-0.09) ng/mL Urine Protein (Negative) Urine Ketones (Negative) Ur Leukocyte Esterase (Negative) Urine Bacteria (None) /hpf Urine Mucus (None) /hpf 12/05/21 12/06/21 12/06/21 Range/Units 22:00 11:47 11:47 D-Dimer 0.72 H (<0.60) mg/L FEU Sodium 131 L (137-145) mmol/L BUN 22 H (7-17) mg/dL Glucose 216 H (74-99) mg/dL Ferritin (10.0-291.0) ng/mL AST 48 H (14-36) U/L ALT 37 H (4-34) U/L Lactate Dehydrogenase 1038 H (313-618) U/L C-Reactive Protein (<1.0) mg/dL Total Protein 5.5 L (6.3-8.2) g/dL Albumin 2.7 L (3.5-5.0) g/dL Procalcitonin (0.02-0.09) ng/mL Urine Protein 1+ H (Negative) Urine Ketones 1+ H (Negative) Ur Leukocyte Esterase Trace H (Negative) Urine Bacteria Rare H (None) /hpf Urine Mucus Rare H (None) /hpf Microbiology - Last 24 Hours (Table) 12/05/21 12:53 Blood Culture - Preliminary Blood No Growth after 24 hours
[2021-12-06] MEDS: SODIUM CHLORIDE 0.9% 1,000 ML IV SCH (23:27)
[2021-12-07] MEDS: ENOXAPARIN 100 MG/ML SYRINGE SQ SCH ×3 (02:15→21:14)
[2021-12-07] MEDS: EZETIMIBE 10 MG TAB PO SCH (08:27)
[2021-12-07] MEDS: PANTOPRAZOLE 40 MG TABLET PO SCH (08:27)
[2021-12-07] MEDS: dexAMETHasone 2 MG TAB PO SCH (08:27)
[2021-12-07] MEDS: NIFEdipine XL 30 MG TAB.ER.24 PO SCH (08:27)
[2021-12-07] MEDS: ONDANSETRON 4 MG/2 ML VIAL IVP SCH ×3 (08:28→23:24)
[2021-12-07] MEDS: CHOLECALCIFEROL 25 MCG (1000 IU) TABLET PO SCH (08:28)
--- NOTE | 2021-12-07 12:50 | P.PN ---
Subjective Progress Note Date: 12/07/21 76-year-old female patient who came into the hospital after feeling very weak and slept on the floor and she was unable to get up and for that reason she ended up coming into the hospital. She was well aware that she had a COVID 19 infection and this was diagnosed on 11/24/2021. Her also had the same infection. 4 recommend declined to come into the hospital. In fact it seems that her is doing better than her. The patient was having difficulties with dyspnea and generalized weakness and nausea and diminished appetite and overall weakness. She denies having any diarrhea. She denies having any emesis. No loss in the taste or smell. However, she was sitting very weak. She came into the hospital and the patient was found to have a pulse ox of 82%. Noted the patient was concerned of coming into the hospital because she thought that she will be forced with a COVID 19 vaccination in the hospital and this was one of the main reasons she ended up not showing up in the hospital earlier. Noted the patient is not vaccinated. In any rate, the chest x-rays showing diffuse breath and pulmonary infiltrates and the patient is currently on 3 L of oxygen by nasal cannula to maintain a pulse ox above 90%. She is awake and alert. Altered mentation. No headaches. No confusion. She is known to have chronic bronchial asthma which is mild intermittent in nature the patient has used albuterol on an as-needed basis. She has also history of hypertension and hyperlipidemia. She has chronic back pain and she has used a walker on and off and she is known to have an L4-L5 bulging disc. She also has a previous carotid endarterectomy on the right and ongoing disease on the left. Her white cell count is at 3.6 with a hemoglobin of 15.6, d-dimer is at 1.04, LDH level was 1125 peripheral Crestor level of 0.12 and a CRP level of 16.4. UA was negative. Influenza A and B was negative. RSV was also negative. 12/07/2021, seen the patient for a follow-up in the patient is relatively stable per no sedated and shortness of breath. No worsening shortness of breath compared to yesterday. She remains on oxygen at 3 L. Nevertheless, the patient is significantly weak. Oral intake remains quite low and the patient states that she hasn't had any appetite. No diarrhea for now. Meanwhile, the patient's echo is at 5.7 with a hemoglobin of 15.3. D-dimer is at 0.72. Renal function has been stable. LFTs are also stable. LDH level was 1038. ProBNP level was 556, pro calcitonin level is at 0.12. CRP level is at 16.4. UA was negative. The patient remains on a 6 Mg by Mouth on a Daily Basis. The Patient Is Also on Lovenox 90 Mg Subcu Every 12 Hours. No Signs of Any Acute Bleeding. She is on normal saline at the rate of 20 mL an hour. No altered mentation. She is quite lethargic. Objective - Vital Signs Vital signs: Vital Signs Temp 98.0 F 12/07/21 10:48 Pulse 72 12/07/21 10:48 Resp 17 12/07/21 10:48 BP 135/80 12/07/21 10:48 Pulse Ox 91 L 12/07/21 10:48 Intake & Output 12/06/21 12/07/21 12/07/21 18:59 06:59 18:59 Intake Total 290 Balance 290 Intake: Intake, IV Titration 290 Amount Sodium Chloride 0.9% 1, 240 000 ml @ 20 mls/hr IV . Q24H [facility] Rx#:[id number] cefTRIAXone 1 gm In 50 Sodium Chloride 0.9% 50 ml @ 100 mls/hr IVPB Q24HR [facility] Rx#:[id number] Other: Voiding Method Bedside Commode # Voids 1 1 - Exam Gen. appearance the patient is calm comfortable, currently on 3 L O2 nasal cannula, no signs of any respiratory distress Head exam was generally normal. There was no scleral icterus or corneal arcus. Mucous membranes were moist. Neck was supple and without jugular venous distension, thyromegaly, or carotid bruits. Carotids were easily palpable bilaterally. There was no adenopathy. Lungs sounds are diminished in the patient's strength is in the mid lower lung his bilaterally Heart sounds are positive for systolic ejection murmur grade 2/6 systolic the precordium, regular. No right ventricular heave or thrill Abdominal exam revealed normal bowel sounds. The abdomen was soft, non-tender, and without masses, organomegaly, or appreciable enlargement of the abdominal aorta. The patient is a midabdominal scar in the right upper quadrant scar and either from previous abdominal surgeries. No direct distention. No direct tenderness. No rebound tenderness. No guarding. Examination of the extremities revealed easily palpable radial, femoral and pedal pulses. There was no cyanosis, clubbing or edema. Examination of the skin revealed no evidence of significant rashes, suspicious appearing nevi or other concerning lesions. Neurologically, the patient is awake and alert and the patient does not have any focal neurological deficit. Cranial nerves are essentially intact. - Labs CBC & Chem 7: 12/06/21 11:47 12/06/21 11:47 Labs: Abnormal Lab Results - Last 24 Hours (Table) 12/06/21 Range/Units 11:47 BUN 22 H (7-17) mg/dL Glucose 216 H (74-99) mg/dL AST 48 H (14-36) U/L ALT 37 H (4-34) U/L Lactate Dehydrogenase 1038 H (313-618) U/L Total Protein 5.5 L (6.3-8.2) g/dL Albumin 2.7 L (3.5-5.0) g/dL Microbiology - Last 24 Hours (Table) 12/05/21 12:53 Blood Culture - Preliminary Blood No Growth after 24 hours Assessment and Plan Plan: 1 acute COVID 19 related pneumonia. The patient was diagnosed having a COVID 19 back in 11/24/2021 and she has not received any treatment. Noted the patient is not vaccinated. Inflammatory markers are mildly elevated.. Clinically the patient is stable. No interval worsening in the rest or status and the patient remains on 3 L of oxygen by nasal cannula, treated with Decadron and Lovenox. Not a candidate for Remdesivir. Her condition is stable for now. She is profoundly weak. 2 acute hypoxic respiratory failure secondary to above 3 generalized weakness secondary to above with a episodes of fall without any traumatic injuries or skeletal injuries 4 mild intermittent bronchial asthma 5 hypertension 6 hyperlipidemia 7 lumbar degenerative disc disease 8 history of peptic ulcer disease 9 history of carotid artery disease Plan Oxygen will be offered and oxygen flow to be titrated to maintain saturation above 90% Anticoagulation per CDC protocol, currently on therapeutic dose of Lovenox Decadron 6 mg by mouth every 24 hours Not a candidate for Remdesivir The patient is profoundly weak. She will benefit from rehabilitation. Increase oral intake as the patient continues to have a low appetite. Resume all medications Monitor inflammatory markers was noted and LDH level remains elevated. D-dimer is low. multivitamins in regards to COVID 19 infection We'll continue to follow
[2021-12-07] MEDS: KETOROLAC 30 MG/ML 1 ML VIAL IVP PRN ×2 (15:05→21:14)
[2021-12-07] MEDS: SODIUM CHLORIDE 0.9% 1,000 ML IV SCH (16:55)
--- NOTE | 2021-12-07 18:33 | P.PN ---
Subjective Progress Note Date: 12/07/21 (delayed charting seen at 1045) Principal diagnosis: weakness Patient is a 76-year-old female with asthma, hypertension, dyslipidemia, and prior H. pylori who presented to the ER with complaints of weakness, fatigue, and shortness of breath. Patient had an essentially tested positive for: On 11/24/2021. At home she had fallen several days ago and called EMS to try to convince her to come to the hospital though she refused due to fear of having to get the COVID-19 vaccine. In the ER she underwent an extensive evaluation. She was found to be hypoxic with an O2 sat of 88% on 2 L nasal cannula. Her temperature was elevated at 100.6. Chest x-ray was consistent with COVID pneumonia. Initial laboratory analysis showed mildly elevated d-dimer at 1.04, sodium 1:30, BUN 18, ferritin 762, LDH 1125, and CRP 16.4. Pro-calcitonin was mildly elevated at 0.12. She was admitted started on IV antibiotics and dexamethasone. Pulmonary was consulted. She is not a candidate for REM secondary to being so far out Covid symptom, also not a candidate for monoclonal antibody as she is requiring inpatient admission. Patient seen and examined at bedside. Her abdominal pain is better. She is no longer having indigestion. Her shortness of breath is better. She is still feeling very weak and lethargic. General: Ill appearing, no distress], appears at stated age Derm: warm, dry Head: atraumatic, normocephalic, symmetric Eyes: EOMI, no lid lag, anicteric sclera Mouth: no lip lesion, mucus membranes dry Cardiovascular: S1S2 reg, no murmur, positive posterior tibial pulse bilateral, Lungs: Decreased breath sounds bilateral bases , no accessory muscle use Abdominal: soft, nontender to palpation, no guarding, no appreciable organomegaly Ext: no gross muscle atrophy, no edema, no contractures Neuro: CN II-XI grossly intact, no focal neuro deficits Psych: Alert, oriented, appropriate affect COVID-19 pneumonia Acute hypoxic respiratory failure Pleurisy Elevated d-dimer - Vitamin D -Full dose anticoagulation with Lovenox -Pulmonary recommendations per guidelines -Dexamethasone day #3 -Toradol for pain - Wean O2 as able - No need for abx with low procalcitonin -Repeat Covid labs in a.m. and chest x-ray. Hyponatremia secondary to dehydration - hold lasix -Repeat in a.m. GERD -Continue with Protonix HTN - procardia - follow BP HLD - resume niacin as outpatient - zetia DVT prophylaxis: Lovenox Discussed with: patient, nursing Anticipated discharge: in 2-[address]: home A total of 35 minutes was spent on the care of this complex patient more than 50% of the time was spent in counseling and care coordination. Active Medications Acetaminophen (Acetaminophen Tab 325 Mg Tab) 650 mg PO Q4HR PRN PRN Reason: Fever>101 Last Admin: 12/06/21 07:50 Dose: 650 mg Documented by: Hydrocodone Bitart/Acetaminophen (Hydrocodone/Apap 5-325mg 1 Each Tab) 1 each PO Q6HR PRN PRN Reason: Pain Albuterol Sulfate (Albuterol Hfa Inhaler) 2 puff INHALATION RT-Q6H PRN PRN Reason: Shortness Of Breath Or Wheezing Cholecalciferol (Cholecalciferol 25 Mcg (1000 Iu) Tablet) 50 mcg PO DAILY [facility] Last Admin: 12/07/21 08:28 Dose: 50 mcg Documented by: Dexamethasone (Dexamethasone 2 Mg Tab) 6 mg PO DAILY [facility] Stop: 12/16/21 09:01 Last Admin: 12/07/21 08:27 Dose: 6 mg Documented by: Ezetimibe (Ezetimibe 10 Mg Tab) 10 mg PO DAILY [facility] Last Admin: 12/07/21 08:27 Dose: 10 mg Documented by: Enoxaparin Sodium (Enoxaparin 100 Mg/Ml Syringe) 90 mg SQ Q12HR [facility] Last Admin: 12/07/21 08:27 Dose: 90 mg Documented by: Sodium Chloride (Saline 0.9%) 1,000 mls @ 20 mls/hr IV .Q24H [facility] Last Admin: 12/07/21 16:55 Dose: Not Given Documented by: Ketorolac Tromethamine (Ketorolac 30 Mg/Ml 1 Ml Vial) 15 mg IVP Q6H PRN PRN Reason: Pain Stop: 12/11/21 11:48 Last Admin: 12/07/21 15:05 Dose: 15 mg Documented by: Naloxone HCl (Naloxone 0.4 Mg/Ml 1 Ml Vial) 0.2 mg IV Q2M PRN PRN Reason: Opioid Reversal Nifedipine (Nifedipine Xl 30 Mg Tab.Er.24) 30 mg PO DAILY [facility] Last Admin: 12/07/21 08:27 Dose: 30 mg Documented by: Ondansetron HCl (Ondansetron 4 Mg/2 Ml Vial) 4 mg IVP Q8HR [facility] Last Admin: 12/07/21 15:05 Dose: 4 mg Documented by: Pantoprazole Sodium (Pantoprazole 40 Mg Tablet) 40 mg PO AC-BRKFST [facility] Last Admin: 12/07/21 08:27 Dose: 40 mg Documented by: Objective - Vital Signs Vital signs: Vital Signs Temp 98.6 F 12/07/21 18:07 Pulse 72 12/07/21 18:07 Resp 18 12/07/21 18:07 BP 130/70 12/07/21 18:07 Pulse Ox 91 L 12/07/21 18:07 Intake & Output 12/06/21 12/07/21 12/07/21 18:59 06:59 18:59 Intake Total 290 200 Balance 290 200 Intake: Intake, IV Titration 290 200 Amount Sodium Chloride 0.9% 1, 240 200 000 ml @ 20 mls/hr IV . Q24H [facility] Rx#:[id number] cefTRIAXone 1 gm In 50 Sodium Chloride 0.9% 50 ml @ 100 mls/hr IVPB Q24HR [facility] Rx#:[id number] Other: Voiding Method Bedside Commode # Voids 1 1 - Labs CBC & Chem 7: 12/06/21 11:47 12/06/21 11:47 Labs: Microbiology - Last 24 Hours (Table) 12/05/21 12:53 Blood Culture - Preliminary Blood No Growth after 48 hours 12/06/21 11:47 Blood Culture - Preliminary Blood No Growth after 24 hours
[2021-12-07] MEDS: ACETAMINOPHEN TAB 325 MG TAB PO PRN (23:24)
[2021-12-08 06:00] LABS: HCT 44.6 % (34.0-46.0); HGB 14.7 gm/dL (11.4-16.0); MCH 31.1 pg (25.0-35.0); MCV 94.1 fL (80.0-100.0); Mean Platelet Volume 7.3; Platelet Count 413 k/uL (150-450); RBC 4.74 m/uL (3.80-5.40); RDW 12.3 % (11.5-15.5); WBC 5.2 k/uL (3.8-10.6)
[2021-12-08 06:11] LABS: ALT 39 U/L (4-34); AST 44 U/L (14-36); African American GFR (CKD) >90 (>60 ml/min/1.73 sqM); Albumin 2.5 g/dL (3.5-5.0); Albumin/Globulin Ratio 0.9; Alkaline Phosphatase 56 U/L (38-126); Anion Gap 6 mmol/L; Blood Urea Nitrogen 24 mg/dL (7-17); Calcium 8.5 mg/dL (8.4-10.2); Carbon Dioxide 24 mmol/L (22-30); Chloride 105 mmol/L (98-107); Globulin 2.8 g/dL; Glucose 122 mg/dL (74-99); LDH 1048 U/L (313-618); Non-African American GFR(CKD) 79 (>60 ml/min/1.73 sqM); Potassium 4.1 mmol/L (3.5-5.1); Sodium 135 mmol/L (137-145); Total Bilirubin 0.4 mg/dL (0.2-1.3); Total Protein 5.3 g/dL (6.3-8.2)
--- NOTE | 2021-12-08 08:15 | XR ---
EXAMINATION TYPE: XR chest 1V portable DATE OF EXAM: 12/08/2021 COMPARISON: Chest x-ray 12/05/2021 HISTORY: Covid infection, pneumonia TECHNIQUE: Single frontal view of the chest is obtained. FINDINGS: Bilateral patchy densities present within the lungs. No evident pneumothorax or pleural ef fusion. Cardiac mediastinal silhouette is stable. Aorta is dense. There are overlying leads. IMPRESSION: Findings consistent with patient's history of pneumonia
[2021-12-08] MEDS: ALBUTEROL HFA INHALER INHALATION PRN ×2 (08:53→16:35)
[2021-12-08] MEDS: dexAMETHasone 2 MG TAB PO SCH (09:53)
[2021-12-08] MEDS: EZETIMIBE 10 MG TAB PO SCH (09:53)
[2021-12-08] MEDS: ONDANSETRON 4 MG/2 ML VIAL IVP SCH ×3 (09:53→23:40)
[2021-12-08] MEDS: PANTOPRAZOLE 40 MG TABLET PO SCH (09:54)
[2021-12-08] MEDS: CHOLECALCIFEROL 25 MCG (1000 IU) TABLET PO SCH (09:54)
[2021-12-08] MEDS: ENOXAPARIN 100 MG/ML SYRINGE SQ SCH ×2 (09:54→21:17)
[2021-12-08] MEDS: NIFEdipine XL 30 MG TAB.ER.24 PO SCH (09:55)
[2021-12-08] MEDS: guaiFENesin 600 MG TABLET.ER PO SCH ×2 (11:38→21:17)
--- NOTE | 2021-12-08 12:36 | P.PN ---
Subjective Progress Note Date: 12/08/21 76-year-old female patient who came into the hospital after feeling very weak and slept on the floor and she was unable to get up and for that reason she ended up coming into the hospital. She was well aware that she had a COVID 19 infection and this was diagnosed on 11/24/2021. Her also had the same infection. 4 recommend declined to come into the hospital. In fact it seems that her is doing better than her. The patient was having difficulties with dyspnea and generalized weakness and nausea and diminished appetite and overall weakness. She denies having any diarrhea. She denies having any emesis. No loss in the taste or smell. However, she was sitting very weak. She came into the hospital and the patient was found to have a pulse ox of 82%. Noted the patient was concerned of coming into the hospital because she thought that she will be forced with a COVID 19 vaccination in the hospital and this was one of the main reasons she ended up not showing up in the hospital earlier. Noted the patient is not vaccinated. In any rate, the chest x-rays showing diffuse breath and pulmonary infiltrates and the patient is currently on 3 L of oxygen by nasal cannula to maintain a pulse ox above 90%. She is awake and alert. Altered mentation. No headaches. No confusion. She is known to have chronic bronchial asthma which is mild intermittent in nature the patient has used albuterol on an as-needed basis. She has also history of hypertension and hyperlipidemia. She has chronic back pain and she has used a walker on and off and she is known to have an L4-L5 bulging disc. She also has a previous carotid endarterectomy on the right and ongoing disease on the left. Her white cell count is at 3.6 with a hemoglobin of 15.6, d-dimer is at 1.04, LDH level was 1125 peripheral Crestor level of 0.12 and a CRP level of 16.4. UA was negative. Influenza A and B was negative. RSV was also negative. 12/07/2021, seen the patient for a follow-up in the patient is relatively stable per no sedated and shortness of breath. No worsening shortness of breath compared to yesterday. She remains on oxygen at 3 L. Nevertheless, the patient is significantly weak. Oral intake remains quite low and the patient states that she hasn't had any appetite. No diarrhea for now. Meanwhile, the patient's echo is at 5.7 with a hemoglobin of 15.3. D-dimer is at 0.72. Renal function has been stable. LFTs are also stable. LDH level was 1038. ProBNP level was 556, pro calcitonin level is at 0.12. CRP level is at 16.4. UA was negative. The patient remains on a 6 Mg by Mouth on a Daily Basis. The Patient Is Also on Lovenox 90 Mg Subcu Every 12 Hours. No Signs of Any Acute Bleeding. She is on normal saline at the rate of 20 mL an hour. No altered mentation. She is quite lethargic. 12/08/2021, seeing the patient for a follow-up. The patient is doing well. The patient is no specific complaints. She is gradually regaining her strength back and she was able to walk around with Dr. Eddy and I was told that the patient did not show any signs of any oxygen desaturation. Her pulse ox is 93% room in oxygen. The patient remains on Decadron. She is able to feed herself. She is able to get up out of bed by herself. Otherwise, the labs show white cell count of 5.2 with hemoglobin 14.7, d-dimer 00.7, sodium is at 135, BUN is a 24 with a creatinine of 0.7 and the LDH level is down to 1048. Her AST and ALP of 44 and 39 respectively. No focal neurological deficit at this point in time. Objective - Vital Signs Vital signs: Vital Signs Temp 98.1 F 12/08/21 11:37 Pulse 79 12/08/21 11:39 Resp 16 12/08/21 11:39 BP 148/71 12/08/21 11:39 Pulse Ox 93 L 12/08/21 11:39 Intake & Output 12/07/21 12/08/21 12/08/21 18:59 06:59 18:59 Intake Total 200 Balance 200 Intake: Intake, IV Titration 200 Amount Sodium Chloride 0.9% 1, 200 000 ml @ 20 mls/hr IV . Q24H [facility] Rx#:[id number] Other: Voiding Method Bedside Commode Bedside Commode # Voids 1 - Exam Gen. appearance the patient is calm comfortable, currently on room air oxygen Head exam was generally normal. There was no scleral icterus or corneal arcus. Mucous membranes were moist. Neck was supple and without jugular venous distension, thyromegaly, or carotid bruits. Carotids were easily palpable bilaterally. There was no adenopathy. Lungs sounds are diminished in the patient's strength is in the mid lower lung his bilaterally Heart sounds are positive for systolic ejection murmur grade 2/6 systolic the precordium, regular. No right ventricular heave or thrill Abdominal exam revealed normal bowel sounds. The abdomen was soft, non-tender, and without masses, organomegaly, or appreciable enlargement of the abdominal aorta. The patient is a midabdominal scar in the right upper quadrant scar and either from previous abdominal surgeries. No direct distention. No direct tenderness. No rebound tenderness. No guarding. Examination of the extremities revealed easily palpable radial, femoral and pedal pulses. There was no cyanosis, clubbing or edema. Examination of the skin revealed no evidence of significant rashes, suspicious appearing nevi or other concerning lesions. Neurologically, the patient is awake and alert and the patient does not have any focal neurological deficit. Cranial nerves are essentially intact. - Labs CBC & Chem 7: 12/08/21 05:22 12/08/21 05:22 Labs: Abnormal Lab Results - Last 24 Hours (Table) 12/08/21 12/08/21 Range/Units 05: 05:22 D-Dimer 0.71 H (<0.60) mg/L FEU Sodium 135 L (137-145) mmol/L BUN 24 H (7-17) mg/dL Glucose 122 H (74-99) mg/dL AST 44 H (14-36) U/L ALT 39 H (4-34) U/L Lactate Dehydrogenase 1048 H (313-618) U/L Total Protein 5.3 L (6.3-8.2) g/dL Albumin 2.5 L (3.5-5.0) g/dL Microbiology - Last 24 Hours (Table) 12/05/21 12:53 Blood Culture - Preliminary Blood No Growth after 48 hours 12/06/21 11:47 Blood Culture - Preliminary Blood No Growth after 24 hours Assessment and Plan Plan: 1 acute COVID 19 related pneumonia. The patient was diagnosed having a COVID 19 back in 11/24/2021 and she has not received any treatment. Noted the patient is not vaccinated. Inflammatory markers are mildly elevated.. The patient is currently on room air oxygen and she is not demonstrating any desaturations with activity. Her d-dimer is low. LDH remains slightly elevated. 2 acute hypoxic respiratory failure secondary to above, improved 3 generalized weakness secondary to above with a episodes of fall without any traumatic injuries or skeletal injuries, improved 4 mild intermittent bronchial asthma 5 hypertension 6 hyperlipidemia 7 lumbar degenerative disc disease 8 history of peptic ulcer disease 9 history of carotid artery disease Plan Do a walk test and make sure the patient continues to maintain a saturation above 90% while walking and Complete a course of Decadron 6 mg by mouth every 24 hours Possible discharge home today Resume all medications multivitamins in regards to COVID 19 infection We'll continue to follow this patient on an outpatient basis in 2-3 weeks time.
[2021-12-08] MEDS ORDERED: NIACIN TR 500 MG CAPLET PO PRN (16:39)
--- NOTE | 2021-12-08 16:43 | P.PN ---
Subjective Progress Note Date: 12/08/21 (Delayed charting seen at 0955) Principal diagnosis: weakness Patient is a 76-year-old female with asthma, hypertension, dyslipidemia, and prior H. pylori who presented to the ER with complaints of weakness, fatigue, and shortness of breath. Patient had an essentially tested positive for: On 11/24/2021. At home she had fallen several days ago and called EMS to try to convince her to come to the hospital though she refused due to fear of having to get the COVID-19 vaccine. In the ER she underwent an extensive evaluation. She was found to be hypoxic with an O2 sat of 88% on 2 L nasal cannula. Her temperature was elevated at 100.6. Chest x-ray was consistent with COVID pneumonia. Initial laboratory analysis showed mildly elevated d-dimer at 1.04, sodium 1:30, BUN 18, ferritin 762, LDH 1125, and CRP 16.4. Pro-calcitonin was mildly elevated at 0.12. She was admitted started on IV antibiotics and dexamethasone. Pulmonary was consulted. She is not a candidate for REM secondary to being so far out Covid symptom, also not a candidate for monoclonal antibody as she is requiring inpatient admission. She continued to progress well and she was quite weak. Patient seen and examined at bedside. She has been up and ambulating without difficulty. She slept well. She overall is feeling slightly better but still very drained. Shortness of breath is unchanged area and she does not want to go to rehab. General: Ill appearing, no distress], appears at stated age Derm: warm, dry Head: atraumatic, normocephalic, symmetric Eyes: EOMI, no lid lag, anicteric sclera Mouth: no lip lesion, mucus membranes dry Cardiovascular: S1S2 reg, no murmur, positive posterior tibial pulse bilateral, Lungs: Decreased breath sounds bilateral bases , no accessory muscle use Abdominal: soft, nontender to palpation, no guarding, no appreciable organomegaly Ext: no gross muscle atrophy, no edema, no contractures Neuro: CN II-XI grossly intact, no focal neuro deficits Psych: Alert, oriented, appropriate affect COVID-19 pneumonia Acute hypoxic respiratory failure Pleurisy Elevated d-dimer - Vitamin D -Full dose anticoagulation with Lovenox -Pulmonary recommendations per guidelines -Dexamethasone day #4 -Toradol for pain - Wean O2 as able - No need for abx with low procalcitonin -Repeat Covid labs in a.m. and chest x-ray. Hyponatremia secondary to dehydration, reesolved - resume lasix GERD -Continue with Protonix HTN - procardia - follow BP HLD - niacin - zetia I ambulated her and she had done well on the morning on 12/08 she re-ambulated with nursing in the afternoon her O2 sat dropped to 82% on room air. We will watch her overnight, consider discharge in a.m. with home O2. DVT prophylaxis: Lovenox Discussed with: patient, nursing Anticipated discharge: in am Anticipated discharge place: home A total of 32 minutes was spent on the care of this complex patient more than 50% of the time was spent in counseling and care coordination. Active Medications Generic Name Dose Route Start Last Admin Trade Name Freq PRN Reason Stop Dose Admin Acetaminophen 650 mg 12/05/21 15:11 12/07/21 23:24 Acetaminophen Tab 325 Mg Tab PO 650 mg Q4HR PRN Administration Fever>101 Hydrocodone Bitart/Acetaminophen 1 each 12/05/21 15:37 Hydrocodone/Apap 5-325mg 1 Each Tab PO Q6HR PRN Pain Albuterol Sulfate 2 puff 12/06/21 08:39 12/08/21 16:35 Albuterol Hfa Inhaler INHALATION 2 puff RT-Q6H PRN Administration Shortness Of Breath Or Wheezing Cholecalciferol 50 mcg 12/06/21 09:00 12/08/21 09:54 Cholecalciferol 25 Mcg (1000 Iu) Tablet PO 50 mcg DAILY CHRISTOPHER Administration Dexamethasone 6 mg 12/06/21 09:00 12/08/21 09:53 Dexamethasone 2 Mg Tab PO 12/16/21 09:01 6 mg DAILY CHRISTOPHER Administration Ezetimibe 10 mg 12/06/21 09:00 12/08/21 09:53 Ezetimibe 10 Mg Tab PO 10 mg DAILY CHRISTOPHER Administration Enoxaparin Sodium 90 mg 12/06/21 21:17 12/08/21 09:54 Enoxaparin 100 Mg/Ml Syringe SQ 90 mg Q12HR CHRISTOPHER Administration Guaifenesin 600 mg 12/08/21 09:45 12/08/21 11:38 Guaifenesin 600 Mg Tablet.Er PO 600 mg Q12HR CHRISTOPHER Administration Sodium Chloride 1,000 mls @ 20 mls/hr 12/05/21 15:15 12/07/21 16:55 Saline 0.9% IV Not Given .Q24H [facility] Ketorolac Tromethamine 15 mg 12/06/21 11:47 12/07/21 21:14 Ketorolac 30 Mg/Ml 1 Ml Vial IVP 12/11/21 11:48 15 mg Q6H PRN Administration Pain Naloxone HCl 0.2 mg 12/05/21 15:15 Naloxone 0.4 Mg/Ml 1 Ml Vial IV Q2M PRN Opioid Reversal Nifedipine 30 mg 12/06/21 09:00 12/08/21 09:55 Nifedipine Xl 30 Mg Tab.Er.24 PO 30 mg DAILY CHRISTOPHER Administration Ondansetron HCl 4 mg 12/05/21 16:00 12/08/21 09:53 Ondansetron 4 Mg/2 Ml Vial IVP Not Given Q8HR [facility] Pantoprazole Sodium 40 mg 12/07/21 07:30 12/08/21 09:54 Pantoprazole 40 Mg Tablet PO 40 mg [id number] CHRISTOPHER Administration Objective - Vital Signs Vital signs: Vital Signs Temp 97.9 F 12/08/21 14:00 Pulse 73 12/08/21 14:00 Resp 17 12/08/21 14:00 BP 127/73 12/08/21 14:00 Pulse Ox 97 12/08/21 14:00 Intake & Output 12/07/21 12/08/21 12/08/21 18:59 06:59 18:59 Intake Total 200 Balance 200 Intake: Intake, IV Titration 200 Amount Sodium Chloride 0.9% 1, 200 000 ml @ 20 mls/hr IV . Q24H [facility] Rx#:[id number] Other: Voiding Method Bedside Commode Bedside Commode # Voids 1 - Labs CBC & Chem 7: 12/08/21 05:22 12/08/21 05:22 Labs: Abnormal Lab Results - Last 24 Hours (Table) 12/08/21 12/08/21 Range/Units 05:22 05:22 D-Dimer 0.71 H (<0.60) mg/L FEU Sodium 135 L (137-145) mmol/L BUN 24 H (7-17) mg/dL Glucose 122 H (74-99) mg/dL AST 44 H (14-36) U/L ALT 39 H (4-34) U/L Lactate Dehydrogenase 1048 H (313-618) U/L Total Protein 5.3 L (6.3-8.2) g/dL Albumin 2.5 L (3.5-5.0) g/dL Microbiology - Last 24 Hours (Table) 12/05/21 12:53 Blood Culture - Preliminary Blood No Growth after 72 hours 12/06/21 11:47 Blood Culture - Preliminary Blood No Growth after 48 hours
[2021-12-08] MEDS: SODIUM CHLORIDE 0.9% 1,000 ML IV SCH (17:17)
[2021-12-08] MEDS: KETOROLAC 30 MG/ML 1 ML VIAL IVP PRN (17:24)
[2021-12-08] MEDS: FUROSEMIDE 20 MG TAB PO SCH (17:24)
[2021-12-08] MEDS: POTASSIUM CHLORIDE ER 20 MEQ TAB.ER PO SCH (21:17)
[2021-12-08] MEDS: ACETAMINOPHEN TAB 325 MG TAB PO PRN (21:17)
[2021-12-08 22:00] LABS: Appearance,Urine Clear (Clear); Bilirubin,Urine Negative (Negative); Blood,Urine Negative (Negative); Color,Urine Light Yellow; Glucose,Urine (UA) Negative (Negative); Ketones,Urine Negative (Negative); Leukocyte Esterase,Urine Negative (Negative); Nitrite,Urine Negative (Negative); PH, Urine 6.5 (5.0-8.0); Protein,Urine Negative (Negative); Specific Gravity,Urine 1.005 (1.001-1.035); Urobilinogen,Urine <2.0 mg/dL (<2.0)
[2021-12-09] MEDS: dexAMETHasone 2 MG TAB PO SCH (10:09)
[2021-12-09] MEDS: POTASSIUM CHLORIDE ER 20 MEQ TAB.ER PO SCH (10:09)
[2021-12-09] MEDS: FUROSEMIDE 20 MG TAB PO SCH (10:09)
[2021-12-09] MEDS: guaiFENesin 600 MG TABLET.ER PO SCH (10:09)
[2021-12-09] MEDS: CHOLECALCIFEROL 25 MCG (1000 IU) TABLET PO SCH (10:09)
[2021-12-09] MEDS: ONDANSETRON 4 MG/2 ML VIAL IVP SCH (10:10)
[2021-12-09] MEDS: PANTOPRAZOLE 40 MG TABLET PO SCH (10:10)
[2021-12-09] MEDS: NIFEdipine XL 30 MG TAB.ER.24 PO SCH (10:10)
[2021-12-09] MEDS: ENOXAPARIN 100 MG/ML SYRINGE SQ SCH (10:10)
[2021-12-09] MEDS: EZETIMIBE 10 MG TAB PO SCH (10:11)
[2021-12-09 11:27] VITALS: BP 144/81; PULSE 73; RESP 18; TEMP 98.2
--- NOTE | 2021-12-09 12:41 | P.DS ---
Providers Date of admission: 12/05/21 15:15 Expected date of discharge: 12/09/21 Attending physician: Antonia Aviles MD Consults: 12/05/21 15:16 Consult Physician Routine Consulting Provider: Tiesha Maddox Consult Reason/Comments: covid 19, hypoxia Do you want consulting provider notified?: Yes Primary care physician: Jenni Saldana MD Hospital Course: Patient is a 76-year-old female with asthma, hypertension, dyslipidemia, and prior H. pylori who presented to the ER with complaints of weakness, fatigue, and shortness of breath. Patient had an essentially tested positive for: On 11/24/2021. In the ER she underwent an extensive evaluation. She was found to be hypoxic with an O2 sat of 88% on 2 L nasal cannula. Her temperature was elevated at 100.6. Chest x-ray was consistent with COVID pneumonia. Initial laboratory analysis showed mildly elevated d-dimer at 1.04, sodium 1:30, BUN 18, ferritin 762, LDH 1125, and CRP 16.4. Pro-calcitonin was mildly elevated at 0.12. She was admitted started on IV antibiotics and dexamethasone. Pulmonary was consulted. She was not a candidate for REM secondary to being so far out Covid symptom, also was not a candidate for monoclonal antibody as she required inpatient admission. COVID-19 pneumonia Acute hypoxic respiratory failure Pleurisy Elevated d-dimer Treated with Vitamin supplementation, full dose lovenox, dexamethasone. She was not discharged on blood thinner as no evidence of VTE. She was prescribed additional 6 days of dexamethasone to complete course. She will require PCP and pulmonary follow up. She did require home oxygen on ambulation as she was 94% saturation at rest, but desaturated to 82% on ambulation, requiring 3L on ambulation to reach 91% saturation. Hyponatremia secondary to dehydration, reesolved - resumed lasix GERD -Continued with Protonix HTN - continued procardia HLD - continued niacin, zetia I spent 36 minutes coordinating this complex discharge. Assessment: Gen: awake, alert HEENT: normocephalic, atraumatic, good hearing acuity, moist mucous membranes Resp: good air exchange, breathing comfortably with no accessory muscle use CVS: good distal perfusion x 4, GI: soft, NTTP, ND : no SPT, no CVAT, flanagan catheter not present MSK: no pitting edema, no clubbing Neuro: non-focal, moving all extremities Psych: cooperative, euthymic mood Patient Condition at Discharge: Critical Plan - Discharge Summary New Discharge Prescriptions: New dexAMETHasone ORAL [Hexadrol] 6 mg PO DAILY #15 tab Continue Albuterol Sulfate [Proventil Hfa] 2 puff INHALATION RT-QID PRN PRN Reason: Shortness Of Breath Ezetimibe [Zetia] 10 mg PO DAILY Potassium Chloride 20 meq PO BID Cholecalciferol [Vitamin D3 (25 Mcg = 1000 Iu)] 2,000 unit PO DAILY Vitamin B Complex 1 tab PO DAILY Furosemide [Lasix] 20 mg PO DAILY Hydrocortisone Cream [Hydrocortisone 1% Cream] 1 applic TOPICAL BID PRN PRN Reason: Rash Lactobacillus Acidophilus [Florajen Acidophilus] 460 mg PO DAILY Niacin 500 mg PO DAILY PRN PRN Reason: Pain Vitamin E 400 unit PO DAILY NIFEdipine [NIFEdipine ER] 30 mg PO DAILY Famotidine [Pepcid] 40 mg PO BID Ipratropium-Albuterol Nebulize [Duoneb 0.5 mg-3 mg/3 ml Soln] 3 ml INHALATION RT-QID PRN PRN Reason: Shortness Of Breath Discharge Medication List Albuterol Sulfate [Proventil Hfa] 2 puff INHALATION RT-QID PRN 02/17/14 [History] Ezetimibe [Zetia] 10 mg PO DAILY 02/17/14 [History] Potassium Chloride 20 meq PO BID 02/17/14 [History] Cholecalciferol [Vitamin D3 (25 Mcg = 1000 Iu)] 2,000 unit PO DAILY 07/30/15 [History] Vitamin B Complex 1 tab PO DAILY 06/14/19 [History] Furosemide [Lasix] 20 mg PO DAILY 12/09/19 [History] Hydrocortisone Cream [Hydrocortisone 1% Cream] 1 applic TOPICAL BID PRN 12/09/19 [History] Lactobacillus Acidophilus [Florajen Acidophilus] 460 mg PO DAILY 12/09/19 [History] Niacin 500 mg PO DAILY PRN 12/09/19 [History] Vitamin E 400 unit PO DAILY 12/09/19 [History] Famotidine [Pepcid] 40 mg PO BID 12/05/21 [History] Ipratropium-Albuterol Nebulize [Duoneb 0.5 mg-3 mg/3 ml Soln] 3 ml INHALATION RT-QID PRN 12/05/21 [History] NIFEdipine [NIFEdipine ER] 30 mg PO DAILY 12/05/21 [History] dexAMETHasone ORAL [Hexadrol] 6 mg PO DAILY #15 tab 12/09/21 [Rx] Follow up Appointment(s)/Referral(s): [facility] [NON-STAFF] - As Needed (oxygen) Care,[facility] [NON-STAFF] - As Needed Jenni Saldana MD [Primary Care Provider] - 1-2 days (office not answering Please call to schedule appointment ) Discharge Disposition: HOME WITH HOME HEALTH SERVICES
[2021-12-09 13:09] VITALS: BMI 30.4
== END 2021-12-09 13:34 | disposition home health service (06) | DRG 177 ==
LOC: EC 11:34 → 4SSUR 15:15
PROVIDERS: ADMIT Internal Medicine; ATTEND Internal Medicine
DX: U07.1 COVID-19 (principal); J12.82 Pneumonia due to coronavirus disease 2019; J96.01 Acute respiratory failure with hypoxia; E87.1 Hypo-osmolality and hyponatremia; R04.2 Hemoptysis; J45.20 Mild intermittent asthma, uncomplicated; E86.0 Dehydration; E78.5 Hyperlipidemia, unspecified; I10 Essential (primary) hypertension; I65.22 Occlusion and stenosis of left carotid artery; G89.29 Other chronic pain; M51.26 Other intervertebral disc displacement, lumbar region; M51.36 Other intervertebral disc degeneration, lumbar region; K21.9 Gastro-esophageal reflux disease without esophagitis; M25.551 Pain in right hip; M19.90 Unspecified osteoarthritis, unspecified site; E04.2 Nontoxic multinodular goiter; Z79.899 Other long term (current) drug therapy; Z86.19 Personal history of other infectious and parasitic diseases; Z87.11 Personal history of peptic ulcer disease; Z90.49 Acquired absence of other specified parts of digestive tract; Z87.19 Personal history of other diseases of the digestive system; Z98.891 History of uterine scar from previous surgery; Z90.710 Acquired absence of both cervix and uterus; Z87.42 Personal history of other diseases of the female genital tract; Z96.641 Presence of right artificial hip joint; Z86.79 Personal history of other diseases of the circulatory system; Z86.018 Personal history of other benign neoplasm; Z98.42 Cataract extraction status, left eye; Z98.41 Cataract extraction status, right eye; Z98.890 Other specified postprocedural states; W06.XXXA Fall from bed, initial encounter; Y92.003 Bedroom of unspecified non-institutional (private) residence as the place of occurrence of the external cause; Z91.041 Radiographic dye allergy status; Z88.5 Allergy status to narcotic agent; Z88.7 Allergy status to serum and vaccine; Z91.048 Other nonmedicinal substance allergy status; Z82.49 Family history of ischemic heart disease and other diseases of the circulatory system; Z82.5 Family history of asthma and other chronic lower respiratory diseases; Z80.0 Family history of malignant neoplasm of digestive organs; Z80.8 Family history of malignant neoplasm of other organs or systems; Z83.2 Family history of diseases of the blood and blood-forming organs and certain disorders involving the immune mechanism
CPT/HCPCS: 36415; 70450; 71045; 72125; 74176; 80048; 80053; 81001; 81003; 82550; 82728; 83605; 83615; 83735; 83880; 84145; 85025; 85027; 85379; 86140; 87040; 87636; 93005; 94640; 94760; 96374; 96375; 99291

== ENCOUNTER 2022-04-16 21:22 | Emergency (ER) | payer MEDICARE ==
[2022-04-16 21:39] VITALS: RESP 16; TEMP 98.1
[2022-04-16] MEDS ORDERED: cefTRIAXone 1,000 MG VIAL (IM USE) IM STA (22:14)
[2022-04-16] MEDS ORDERED: DIPH,PERTUS(ACELL)TETVAC-LF 0.5 ML VIAL IM ONE (22:14)
--- NOTE | 2022-04-16 22:15 | ED ---
Wound/Laceration HPI - General Chief Complaint: Wound/Laceration Stated Complaint: Left Leg Laceration Time Seen by Provider: 04/16/22 21:53 Source: patient Mode of arrival: ambulatory Limitations: no limitations - History of Present Illness Initial Comments: Patient is a pleasant 76-year-old female who presents to the emergency room after incurring a skin tear to her left lateral leg earlier today approximately 4 PM while utilizing the restroom at the [facility]. She reports that on the [place] [facility] they offered for her to go to the emergency room locally but she declined and wished to come back to the [facility] afterwards she presented to the emergency room. She is unsure if her tetanus shot is up-to-date. She reports that she has problems with H. pylori and is unable to take any oral antibiotics due to severe nausea and vomiting from the medications. In addition to her H. pylori history she has a history significant for hypertension, asthma, hyperlipidemia, CAD, and peptic ulcer disease. She denies any fevers, chills, inability to ambulate, purulent drainage, continued bleeding from wound, redness or surrounding erythema. Overall with the exception of the pain at her skin tear site she is feeling well. - Related Data Home Medications Medication Instructions Recorded Confirmed Albuterol Sulfate [Proventil Hfa] 2 puff INHALATION RT-QID PRN 02/17/14 12/05/21 Ezetimibe [Zetia] 10 mg PO DAILY 02/17/14 12/05/21 Potassium Chloride 20 meq PO BID 02/17/14 12/05/21 Cholecalciferol [Vitamin D3 (25 2,000 unit PO DAILY 07/30/15 12/05/21 Mcg = 1000 Iu)] Vitamin B Complex 1 tab PO DAILY 06/14/19 12/05/21 Furosemide [Lasix] 20 mg PO DAILY 12/09/19 12/05/21 Hydrocortisone Cream 1 applic TOPICAL BID PRN 12/09/19 12/05/21 [Hydrocortisone 1% Cream] Lactobacillus Acidophilus 460 mg PO DAILY 12/09/19 12/05/21 [Florajen Acidophilus] Niacin 500 mg PO DAILY PRN 12/09/19 12/05/21 Vitamin E 400 unit PO DAILY 12/09/19 12/05/21 Famotidine [Pepcid] 40 mg PO BID 12/05/21 12/05/21 Ipratropium-Albuterol Nebulize 3 ml INHALATION RT-QID PRN 12/05/21 12/05/21 [Duoneb 0.5 mg-3 mg/3 ml Soln] NIFEdipine [NIFEdipine ER] 30 mg PO DAILY 12/05/21 12/05/21 Previous Rx's Medication Instructions Recorded dexAMETHasone ORAL [Hexadrol] 6 mg PO DAILY #15 tab 12/09/21 Allergies Allergy/AdvReac Type Severity Reaction Status Date / Time adhesive Allergy skin Verified 04/16/22 21:34 blisters Influenza Virus Vaccines Allergy Unknown Verified 04/16/22 21:34 Iodinated Contrast Media Allergy Anaphylaxis Verified 04/16/22 21:34 [Iodinated Contrast Media - IV Dye] morphine Allergy Unknown Verified 04/16/22 21:34 pneumococcal vaccine Allergy Unknown Verified 04/16/22 21:34 povidone-iodine Allergy Rash/Hives Verified 04/16/22 21:34 [From Betadine] soap [From Betadine] Allergy Rash/Hives Verified 04/16/22 21:34 codeine AdvReac Nausea & Verified 04/16/22 21:34 Vomiting hydromorphone HCl AdvReac Nausea & Verified 04/16/22 21:34 [From Dilaudid] Vomiting antibiotics AdvReac Unknown Uncoded 04/16/22 21:34 Review of Systems ROS Statement: Those systems with pertinent positive or pertinent negative responses have been documented in the HPI. ROS Other: All systems not noted in ROS Statement are negative. Past Medical History Past Medical History: Asthma, Hyperlipidemia, Hypertension Additional Past Medical History / Comment(s): Intermittent bronchial asthma, hypertension, hyperlipidemia, cardiac artery disease with previous endarterectomy on the right, history of peptic ulcer disease, history of thyroid nodules, history of lumbar disc disease with L4-L5 disease with chronic back pain, history of H. pylori positive, questionable history of a cardiac arrhythmia and exact type is not known, osteoarthritis, History of Any Multi-Drug Resistant Organisms: None Reported Past Surgical History: Appendectomy, Breast Surgery, Section, Cholecystectomy, Heart Catheterization, Hysterectomy, Joint Replacement Additional Past Surgical History / Comment(s): right hip surg(HAS SEVERE INFECTION-NOT MRSA-, AFTER FIRST SX) x 3 in last 7 mos.RT CAROTID ENDARTERECTOMY, X 5 BX LT, BREAST BENIGN, RT BREAST X2 LUMPS REMOVED(BENIGN), CATARACTS, BENIGN TUMOR REMOVED RT ELBOW AREA. Past Anesthesia/Blood Transfusion Reactions: Motion Sickness, Postoperative Nausea & Vomiting (PONV) Additional Past Anesthesia/Blood Transfusion Reaction / Comment(s): severe ponv Past Psychological History: No Psychological Hx Reported Smoking Status: Never smoker Past Alcohol Use History: None Reported Past Drug Use History: None Reported - Past Family History Mother Family Medical History: Congestive Heart Failure (CHF), COPD, Deep Vein Thrombosis (DVT), Pulmonary Embolus Sister(s) Family Medical History: Blood Disorder, Cancer Additional Family Medical History / Comment(s): pancreatic cancer,brain cancer. sister states has hemophilia Father Family Medical History: Renal Disease Additional Family Medical History / Comment(s): age 28 from aortic aneurysm General Exam Limitations: no limitations General appearance: alert, in no apparent distress Head exam: Present: atraumatic, normocephalic, normal inspection Eye exam: Present: normal appearance, PERRL, EOMI. Absent: scleral icterus, conjunctival injection, periorbital swelling ENT exam: Present: normal exam, mucous membranes moist Neck exam: Present: normal inspection Respiratory exam: Absent: respiratory distress, accessory muscle use Left Lower Leg exam: Present: laceration (V-shaped skin tear lateral left leg with ecchymosis and tenderness. Remainder of leg without swelling tenderness or erythema.) Neurovascular tendon exam: Present: no vascular compromise Back exam: Present: normal inspection Neurological exam: Present: alert, oriented X3, CN II-XII intact Psychiatric exam: Present: normal affect, normal mood Skin exam: Present: other (Laceration as indicated above with ecchymosis othe rwise skin clean dry and intact.) Course Vital Signs 04/16/22 21:35 Temperature 98.1 F Pulse Rate 69 Respiratory 16 Rate Blood Pressure 159/71 O2 Sat by Pulse 97 Oximetry Medical Decision Making - Medical Decision Making Shearing trauma without blunt force trauma, no indication for diagnostic imaging. No evidence of infection or other etiologies warranting any laboratory studies. Tetanus status unknown. However she has had anaphylactic reaction to tetanus vaccinations in the past will hold tetanus vaccine at this time. She declines oral antibiotics. Will provided localized wound care and give 1 dose of IV push Rocephin for empiric antibiotic coverage in the setting of what large skin tear in a public bathroom setting. Tolerated localized wound care while well with Steri-Strips applied per patient request. Will discharge home. Information regarding Dr. Lainez for a new primary care provider given as she no longer has a local primary care provider and she lives in the [facility]. Case discussed with Dr. Lozano Disposition Clinical Impression: Skin tear of left lower leg without complication Disposition: HOME SELF-CARE Condition: Stable Instructions (If sedation given, give patient instructions): Steristrips (ED), Acute Wound Care (ED) Additional Instructions: Please keep wound clean and dry. Monitor for symptoms of infection such as redness, swelling or drainage. Please follow-up with primary care provider. Please return to the Emergency Department if symptoms worsen or any other concerns. Is patient prescribed a controlled substance at d/c from ED?: No Referrals: None,Stated [Primary Care Provider] - 1-2 days Hans Lainez MD [REFERRING] - 1-2 days Time of Disposition: 22:36
[2022-04-16] MEDS ORDERED: LIDOCAINE 1% INJ 10MG/ML (10 ML MDV) IM STA ×2 (22:21→22:41)
[2022-04-16 22:39] VITALS: BP 159/71; PULSE 69
== END 2022-04-16 23:02 | disposition home or self-care (01) ==
LOC: EC 21:22
DX: S81.812A Laceration without foreign body, left lower leg, initial encounter (principal); I10 Essential (primary) hypertension; J45.909 Unspecified asthma, uncomplicated; Z91.09 Other allergy status, other than to drugs and biological substances; Z88.7 Allergy status to serum and vaccine; Z91.040 Latex allergy status; Z88.5 Allergy status to narcotic agent; Z88.8 Allergy status to other drugs, medicaments and biological substances; Z88.1 Allergy status to other antibiotic agents; Z79.899 Other long term (current) drug therapy; W45.8XXA Other foreign body or object entering through skin, initial encounter; Y92.89 Other specified places as the place of occurrence of the external cause
CPT/HCPCS: 99282; 96372; J0696

== ENCOUNTER 2023-03-04 20:21 | Emergency (ER) | payer MEDICARE ==
[2023-03-04 20:28] VITALS: TEMP 98.2
[2023-03-04] MEDS ORDERED: LIDOCAINE/EPINEPHR/TETRACAINE 5 ML BOTTLE TOPICAL ONE (22:05)
--- NOTE | 2023-03-04 22:05 | ED ---
Skin/Abscess/FB HPI - General Chief complaint: Skin/Abscess/Foreign Body Stated complaint: Fall-left leg injury Time Seen by Provider: 03/04/23 22:02 Source: patient, RN notes reviewed Mode of arrival: ambulatory Limitations: no limitations - History of Present Illness Initial comments: Patient is 77-year-old female presenting to the emergency room with complaints of falling off her luggage last night causing significant abrasion/skin avulsions to her left lower yanes along with small abrasion to her right yanes. She denies any injury to any other extremities. She denies any head trauma or loss of consciousness. She denies any lower extremity range of motion impairment. She has been keeping her larger skin injury covered since the time of the injury. She reports that her daughter is evident narrowing advised her to come to the hospital for further evaluation. She denies any other complaints or concerns at this time. She has a past medical history significant for asthma, hypertension, hyperlipidemia, chronic back pain, carotid artery disease, osteoarthritis, thyroid nodule and peptic ulcer disease. - Related Data Home Medications Medication Instructions Recorded Confirmed Albuterol Sulfate [Proventil Hfa] 2 puff INHALATION RT-QID PRN 02/17/14 12/05/21 Ezetimibe [Zetia] 10 mg PO DAILY 02/17/14 12/05/21 Potassium Chloride 20 meq PO BID 02/17/14 12/05/21 Cholecalciferol [Vitamin D3 (25 2,000 unit PO DAILY 07/30/15 12/05/21 Mcg = 1000 Iu)] Vitamin B Complex 1 tab PO DAILY 06/14/19 12/05/21 Furosemide [Lasix] 20 mg PO DAILY 12/09/19 12/05/21 Hydrocortisone Cream 1 applic TOPICAL BID PRN 12/09/19 12/05/21 [Hydrocortisone 1% Cream] Lactobacillus Acidophilus 460 mg PO DAILY 12/09/19 12/05/21 [Florajen Acidophilus] Niacin 500 mg PO DAILY PRN 12/09/19 12/05/21 Vitamin E 400 unit PO DAILY 12/09/19 12/05/21 Famotidine [Pepcid] 40 mg PO BID 12/05/21 12/05/21 Ipratropium-Albuterol Nebulize 3 ml INHALATION RT-QID PRN 12/05/21 12/05/21 [Duoneb 0.5 mg-3 mg/3 ml Soln] NIFEdipine [Adalat CC] 30 mg PO DAILY 12/05/21 12/05/21 Previous Rx's Medication Instructions Recorded dexAMETHasone ORAL [Hexadrol] 6 mg PO DAILY #15 tab 12/09/21 Bacitracin Zinc/Polymyxin B 1 applic TOPICAL DAILY 7 Days #15 03/04/23 [Bacitracin-Polymyxin Ointment] gm Allergies Allergy/AdvReac Type Severity Reaction Status Date / Time adhesive Allergy skin Verified 03/04/23 20:27 blisters Influenza Virus Vaccines Allergy Unknown Verified 03/04/23 20:27 Iodinated Contrast Media Allergy Anaphylaxis Verified 03/04/23 20:27 [Iodinated Contrast Media - IV Dye] morphine Allergy Unknown Verified 03/04/23 20:27 pneumococcal vaccine Allergy Unknown Verified 03/04/23 20:27 povidone-iodine Allergy Rash/Hives Verified 03/04/23 20:27 [From Betadine] soap [From Betadine] Allergy Rash/Hives Verified 03/04/23 20:27 codeine AdvReac Nausea & Verified 03/04/23 20:27 Vomiting hydromorphone HCl AdvReac Nausea & Verified 03/04/23 20:27 [From Dilaudid] Vomiting antibiotics AdvReac Unknown Uncoded 03/04/23 20:27 Review of Systems ROS Statement: Those systems with pertinent positive or pertinent negative responses have been documented in the HPI. ROS Other: All systems not noted in ROS Statement are negative. Past Medical History Past Medical History: Asthma, Hyperlipidemia, Hypertension Additional Past Medical History / Comment(s): Intermittent bronchial asthma, hypertension, hyperlipidemia, cardiac artery disease with previous endarterectomy on the right, history of peptic ulcer disease, history of thyroid nodules, history of lumbar disc disease with L4-L5 disease with chronic back pain, history of H. pylori positive, questionable history of a cardiac arrhythmia and exact type is not known, osteoarthritis, COVID09/29 History of Any Multi-Drug Resistant Organisms: None Reported Past Surgical History: Appendectomy, Breast Surgery, Section, Cholecystectomy, Heart Catheterization, Hysterectomy, Joint Replacement Additional Past Surgical History / Comment(s): right hip surg(HAS SEVERE INFECTION-NOT MRSA-, AFTER FIRST SX) x 3 in last 7 mos.RT CAROTID ENDARTERECTOMY, X 5 BX LT, BREAST BENIGN, RT BREAST X2 LUMPS REMOVED(BENIGN), CATARACTS, BENIGN TUMOR REMOVED RT ELBOW AREA. Past Anesthesia/Blood Transfusion Reactions: Motion Sickness, Postoperative Nausea & Vomiting (PONV) Additional Past Anesthesia/Blood Transfusion Reaction / Comment(s): severe ponv Past Psychological History: No Psychological Hx Reported Smoking Status: Never smoker Past Alcohol Use History: None Reported Past Drug Use History: None Reported - Past Family History Mother Family Medical History: Congestive Heart Failure (CHF), COPD, Deep Vein Thrombosis (DVT), Pulmonary Embolus Sister(s) Family Medical History: Blood Disorder, Cancer Additional Family Medical History / Comment(s): pancreatic cancer,brain cancer. sister states has hemophilia Father Family Medical History: Renal Disease Additional Family Medical History / Comment(s): age 28 from aortic aneurysm General Exam Limitations: no limitations General appearance: alert, in no apparent distress Head exam: Present: atraumatic, normocephalic, normal inspection Eye exam: Present: normal appearance, PERRL, EOMI. Absent: scleral icterus, conjunctival injection, periorbital swelling ENT exam: Present: normal exam, mucous membranes moist Neck exam: Present: normal inspection, full ROM Respiratory exam: Absent: respiratory distress, accessory muscle use Cardiovascular Exam: Present: regular rate GI/Abdominal exam: Absent: distended Extremities exam: Present: pedal edema (trace bilateral) Left Lower Leg exam: Present: full ROM, tenderness (at abrasion site), abrasion (skin avulsion oval shape 4 cm diameter with skin flap without epithelial vascular and discoloration; flap remove without complication flap base 1.5 cm). Absent: deformity, crepitus, dislocation Neurovascular tendon exam: Absent: no vascular compromise Back exam: Present: normal inspection Neurological exam: Present: alert, oriented X3, CN II-XII intact Psychiatric exam: Present: normal affect, normal mood Skin exam: Present: other (skin avulsion/abrasion as above. Additional abrasion to right yanes healing approximately 1.25 cm in size) Course Vital Signs 03/04/23 03/04/23 20:23 22:19 Temperature 98.2 F Pulse Rate 69 68 Respiratory 20 16 Rate Blood Pressure 204/78 188/75 O2 Sat by Pulse 99 96 Oximetry Procedures - Laceration Laceration #1 Site: lower extremity Description: flap (attachment to skin removed after LET application with sterile scissors base adherence cut 1.5 cm in legnth), avulsion Depth: simple, single layer Patient Tolerated Procedure: well, no complications Medical Decision Making - Medical Decision Making Was pt. sent in by a medical professional or institution (OLGA Guillen, PASSENGER BOOKING CLERK, urgent care, hospital, or senior care...) When possible be specific @ -[No] Did you speak to anyone other than the patient for history (EMS, parent, family, police, friend...)? What history was obtained from this source @ -[No] Did you review nursing and triage notes (agree or disagree)? Why? @ -[I reviewed and agree with nursing and triage notes] Were old charts reviewed (outside hosp., previous admission, EMS record, old EKG, old radiological studies, urgent care reports/EKG's, senior care records)? Report findings @ -[No old charts were reviewed] Differential Diagnosis (chest pain, altered mental status, abdominal pain women, abdominal pain men, vaginal bleeding, weakness, fever, dyspnea, syncope, headache, dizziness, GI bleed, back pain, seizure, CVA, palpatations, mental health, musculoskeletal)? @ -[not applicable] EKG interpreted by me (3pts min.). @ -[None done] X-rays interpreted by me (1pt min.). @ -[None done] CT interpreted by me (1pt min.). @ -[None done] U/S interpreted by me (1pt. min.). @ -[None done] What testing was considered but not performed or refused? (CT, X-rays, U/S, labs)? Why? @ -[None] What meds were considered but not given or refused? Why? @ -Analgesics offered and declined Did you discuss the management of the patient with other professionals (professionals i.e. OLGA Guillen, PASSENGER BOOKING CLERK, lab, RT, psych nurse, social welfare research worker, lining cleaner, teacher, bsa officer, supervisor case loading)? Give summary @ -[No] Was smoking cessation discussed for >3mins.? @ -[No] Was critical care preformed (if so, how long)? @ -[No] Were there social determinants of health that impacted care today? How? (H omelessness, low income, unemployed, alcoholism, drug addiction, transportation, low edu. Level, literacy, decrease access to med. care, half-way, rehab)? @ -[No] Was there de-escalation of care discussed even if they declined (Discuss DNR or withdrawal of care, Hospice)? DNR status @ -[No] What co-morbidities impacted this encounter? (DM, HTN, Smoking, COPD, CAD, Cancer, CVA, ARF, Chemo, Hep., AIDS, mental health diagnosis, sleep apnea, morbid obesity)? @ -[None] Was patient admitted / discharged? Hospital course, mention meds given and route, prescriptions, significant lab abnormalities, going to OR and other pertinent info. @ -77-year-old female presenting to the emergency room with complaints of falling off her luggage last night causing significant abrasion/skin avulsions to her left lower yanes along with small abrasion to her right yanes. She denies any injury to any other extremities. No indication for diagnostic imaging or laboratory studies. Skin avulsion with flap can intact approximate flap diameter 1.5 cm with skin flap tissue deterioration noted. Approximation of skin flap not appropriate due to lack of viable epithelial tissue. But applied to skin flap base and then skin flap removed with sterile scissors without complication. Bacitracin and dressing applied. Wound care discussed at length with patient and spouse at bedside. No indication for oral antibiotic therapy. Will continue topical bacitracin application. Advised dr lorenzo changes daily and as needed. Encouraged to keep wound clean and dry. Advise follow-up with primary care provider. Questions and concerns answered. Return parameters to the emergency room discussed. Will discharge home in stable condition with dressing intact and localized wound care for avulsion of skin to left lower leg advising follow-up with primary care provider. Undiagnosed new problem with uncertain prognosis? @ -[No] Drug Therapy requiring intensive monitoring for toxicity (Heparin, Nitro, Insulin, Cardizem)? @ -[No] Were any procedures done? @ -Yes, skin flap from avulsion removal see procedures for details. Diagnosis/symptom? @ -Avulsion of skin of left lower leg Acute, or Chronic, or Acute on Chronic? @ -Acute Uncomplicated (without systemic symptoms) or Complicated (systemic symptoms)? @ -Uncomplicated Side effects of treatment? @ -[No] Exacerbation, Progression, or Severe Exacerbation? @ -[No] Poses a threat to life or bodily function? How? (Chest pain, [place], GA, pneumonia, PE, COPD, DKA, ARF, appy, cholecystitis, CVA, Diverticulitis, Homicidal, Suicidal, threat to staff... and all critical care pts) @ -[No] Case discussed with Dr. Suarez. Disposition Clinical Impression: Avulsion of skin of left lower leg Disposition: HOME SELF-CARE Condition: Stable Instructions (If sedation given, give patient instructions): Skin Avulsion (ED) Additional Instructions: Keep wound clean and dry. Apply bacitracin to wound daily. Recommend daily dressing changes until told otherwise by her primary care provider. Please follow-up with your primary care provider. Please return to the Emergency Department if symptoms worsen or any other concerns. Prescriptions: Bacitracin Zinc/Polymyxin B [Bacitracin-Polymyxin Ointment] 1 applic TOPICAL DAILY 7 Days #15 gm Is patient prescribed a controlled substance at d/c from ED?: No Referrals: Florina Brock [Primary Care Provider] - 1-2 days Time of Disposition: 22:59
[2023-03-04 22:20] VITALS: BP 188/75; PULSE 68; RESP 16
[2023-03-04] MEDS ORDERED: BACITRACIN OINT 1 EACH PACKET TOPICAL ONE (22:26)
== END 2023-03-04 23:06 | disposition home or self-care (01) ==
LOC: EC 20:21
DX: S81.802A Unspecified open wound, left lower leg, initial encounter (principal); I10 Essential (primary) hypertension; J45.909 Unspecified asthma, uncomplicated; E78.5 Hyperlipidemia, unspecified; Z79.899 Other long term (current) drug therapy; Z88.1 Allergy status to other antibiotic agents; Z88.5 Allergy status to narcotic agent; Z88.7 Allergy status to serum and vaccine; Z91.09 Other allergy status, other than to drugs and biological substances; Z91.041 Radiographic dye allergy status; W18.09XA Striking against other object with subsequent fall, initial encounter
CPT/HCPCS: 99283

== ENCOUNTER 2023-10-22 11:44 | Emergency (ER) | payer MEDICARE ==
--- NOTE | 2023-10-22 11:57 | ED ---
Weakness HPI - General Stated complaint: weakness Time Seen by Provider: 10/22/23 11:56 Source: patient, RN notes reviewed - History of Present Illness Initial comments: Patient is an 78-year-old female presented ER with chief complaint of weakness. Patient states she was at the store earlier today and started to feel extremely weak she believed it was her sugars. Patient got home and stated her sugars were in the 130s. Patient also is stating she tripped and fell while getting into her house. Patient denies any head injury or loss of consciousness. - Related Data Home Medications Medication Instructions Recorded Confirmed Albuterol Sulfate [Proventil Hfa] 2 puff INHALATION RT-QID PRN 02/17/14 12/05/21 Ezetimibe [Zetia] 10 mg PO DAILY 02/17/14 12/05/21 Potassium Chloride 20 meq PO BID 02/17/14 12/05/21 Cholecalciferol [Vitamin D3 (25 2,000 unit PO DAILY 07/30/15 12/05/21 Mcg = 1000 Iu)] Vitamin B Complex 1 tab PO DAILY 06/14/19 12/05/21 Furosemide [Lasix] 20 mg PO DAILY 12/09/19 12/05/21 Hydrocortisone Cream 1 applic TOPICAL BID PRN 12/09/19 12/05/21 [Hydrocortisone 1% Cream] Lactobacillus Acidophilus 460 mg PO DAILY 12/09/19 12/05/21 [Florajen Acidophilus] Niacin 500 mg PO DAILY PRN 12/09/19 12/05/21 Vitamin E 400 unit PO DAILY 12/09/19 12/05/21 Famotidine [Pepcid] 40 mg PO BID 12/05/21 12/05/21 Ipratropium-Albuterol Nebulize 3 ml INHALATION RT-QID PRN 12/05/21 12/05/21 [Duoneb 0.5 mg-3 mg/3 ml Soln] NIFEdipine [Adalat CC] 30 mg PO DAILY 12/05/21 12/05/21 Previous Rx's Medication Instructions Recorded dexAMETHasone ORAL [Hexadrol] 6 mg PO DAILY #15 tab 12/09/21 Bacitracin Zinc/Polymyxin B 1 applic TOPICAL DAILY 7 Days #15 03/04/23 [Bacitracin-Polymyxin Ointment] gm Allergies Allergy/AdvReac Type Severity Reaction Status Date / Time adhesive Allergy skin Verified 10/22/23 11:58 blisters Influenza Virus Vaccines Allergy Unknown Verified 10/22/23 11:58 Iodinated Contrast Media Allergy Anaphylaxis Verified 10/22/23 11:58 [Iodinated Contrast Media - IV Dye] morphine Allergy Unknown Verified 10/22/23 11:58 pneumococcal vaccine Allergy Unknown Verified 10/22/23 11:58 povidone-iodine Allergy Rash/Hives Verified 10/22/23 11:58 [From Betadine] soap [From Betadine] Allergy Rash/Hives Verified 10/22/23 11:58 codeine AdvReac Nausea & Verified 10/22/23 11:58 Vomiting hydromorphone HCl AdvReac Nausea & Verified 10/22/23 11:58 [From Dilaudid] Vomiting antibiotics AdvReac Unknown Uncoded 03/04/23 20:27 Review of Systems ROS Statement: Those systems with pertinent positive or pertinent negative responses have been documented in the HPI. ROS Other: All systems not noted in ROS Statement are negative. Past Medical History Past Medical History: Asthma, Hyperlipidemia, Hypertension Additional Past Medical History / Comment(s): Intermittent bronchial asthma, hypertension, hyperlipidemia, cardiac artery disease with previous endarterectomy on the right, history of peptic ulcer disease, history of thyroid nodules, history of lumbar disc disease with L4-L5 disease with chronic back pain, history of H. pylori positive, questionable history of a cardiac arrhythmia and exact type is not known, osteoarthritis, COVID12/22 History of Any Multi-Drug Resistant Organisms: None Reported Past Surgical History: Appendectomy, Breast Surgery, Section, Cholecystectomy, Heart Catheterization, Hysterectomy, Joint Replacement Additional Past Surgical History / Comment(s): right hip surg(HAS SEVERE INFECTION-NOT MRSA-, AFTER FIRST SX) x 3 in last 7 mos.RT CAROTID ENDARTEREC ROBERT, X 5 BX LT, BREAST BENIGN, RT BREAST X2 LUMPS REMOVED(BENIGN), CATARACTS, BENIGN TUMOR REMOVED RT ELBOW AREA. Past Anesthesia/Blood Transfusion Reactions: Motion Sickness, Postoperative Nausea & Vomiting (PONV) Additional Past Anesthesia/Blood Transfusion Reaction / Comment(s): severe ponv Past Psychological History: No Psychological Hx Reported Smoking Status: Never smoker Past Alcohol Use History: None Reported Past Drug Use History: None Reported - Past Family History Mother Family Medical History: Congestive Heart Failure (CHF), COPD, Deep Vein Thrombosis (DVT), Pulmonary Embolus Sister(s) Family Medical History: Blood Disorder, Cancer Additional Family Medical History / Comment(s): pancreatic cancer,brain cancer. sister states has hemophilia Father Family Medical History: Renal Disease Additional Family Medical History / Comment(s): age 28 from aortic aneurysm General Exam - General Exam Comments Initial Comments: Visual Physical Exam Vital signs reviewed General: Well-appearing, nontoxic, no acute distress. Head: Normocephalic, atraumatic Eyes: PERRLA, EOMI ENT: Airway patent Chest: Nonlabored breathing Skin: No visual rash, normal skin tone Neuro: Alert and oriented 3 Musculoskeletal: No gross abnormalities Course Vital Signs 10/22/23 11:54 Temperature 98.0 F Pulse Rate 74 Respiratory 18 Rate Blood Pressure 139/62 O2 Sat by Pulse 97 Oximetry Medical Decision Making - Medical Decision Making I performed the quick note portion of the exam. Electronically signed by Chance Valderrama PA-C - Lab Data Result diagrams: 10/22/23 12:33 10/22/23 12:33 Lab Results 10/22/23 10/22/23 10/22/23 Range/Units 12:33 12:33 12:33 WBC 6.6 (3.8-10.6) k/uL RBC 5.09 (3.80-5.40) m/uL Hgb 15.2 (11.4-16.0) gm/dL Hct 45.9 (34.0-46.0) % MCV 90.1 (80.0-100.0) fL MCH 29.8 (25.0-35.0) pg MCHC 33.0 (31.0-37.0) g/dL RDW 13.4 (11.5-15.5) % Plt Count 270 (150-450) k/uL MPV 7.8 Neutrophils % 69 % Lymphocytes % 21 % Monocytes % 7 % Eosinophils % 2 % Basophils % 0 % Neutrophils # 4.5 (1.3-7.7) k/uL Lymphocytes # 1.4 (1.0-4.8) k/uL Monocytes # 0.4 (0-1.0) k/uL Eosinophils # 0.1 (0-0.7) k/uL Basophils # 0.0 (0-0.2) k/uL Sodium 141 (137-145) mmol/L Potassium 4.0 (3.5-5.1) mmol/L Chloride 103 (98-107) mmol/L Carbon Dioxide 24 (22-30) mmol/L Anion Gap 14 mmol/L BUN 27 H (7-17) mg/dL Creatinine 0.72 (0.52-1.04) mg/dL Est GFR (CKD-EPI)AfAm >90 (>60 ml/min/1.73 sqM) Est GFR (CKD-EPI)NonAf 80 (>60 ml/min/1.73 sqM) Glucose 96 (74-99) mg/dL POC Glucose (mg/dL) (70-110) mg/dL POC Glu Electronics Assembler ID Plasma Lactic Acid Mark 1.4 (0.7-2.0) mmol/L Calcium 9.7 (8.4-10.2) mg/dL Total Bilirubin 0.4 (0.2-1.3) mg/dL AST 27 (14-36) U/L ALT 20 (4-34) U/L Alkaline Phosphatase 79 (38-126) U/L Troponin I (0.000-0.034) ng/mL Total Protein 7.6 (6.3-8.2) g/dL Albumin 4.4 (3.5-5.0) g/dL Influenza Type A (PCR) (Not Detectd) Influenza Type B (PCR) (Not Detectd) RSV (PCR) (Not Detectd) SARS-CoV-2 (PCR) (Not Detectd) 10/22/23 10/22/23 10/22/23 Range/Units 12:33 12:33 12:35 WBC (3.8-10.6) k/uL RBC (3.80-5.40) m/uL Hgb (11.4-16.0) gm/dL Hct (34.0-46.0) % MCV (80.0-100.0) fL MCH (25.0-35.0) pg MCHC (31.0-37.0) g/dL RDW (11.5-15.5) % Plt Count (150-450) k/uL MPV Neutrophils % % Lymphocytes % % Monocytes % % Eosinophils % % Basophils % % Neutrophils # (1.3-7.7) k/uL Lymphocytes # (1.0-4.8) k/uL Monocytes # (0-1.0) k/uL Eosinophils # (0-0.7) k/uL Basophils # (0-0.2) k/uL Sodium (137-145) mmol/L Potassium (3.5-5.1) mmol/L Chloride (98-107) mmol/L Carbon Dioxide (22-30) mmol/L Anion Gap mmol/L BUN (7-17) mg/dL Creatinine (0.52-1.04) mg/dL Est GFR (CKD-EPI)AfAm (>60 ml/min/1.73 sqM) Est GFR (CKD-EPI)NonAf (>60 ml/min/1.73 sqM) Glucose (74-99) mg/dL POC Glucose (mg/dL) 104 (70-110) mg/dL POC Glu Electronics Assembler ID Aaron Ralph Plasma Lactic Acid Mark (0.7-2.0) mmol/L Calcium (8.4-10.2) mg/dL Total Bilirubin (0.2-1.3) mg/dL AST (14-36) U/L ALT (4-34) U/L Alkaline Phosphatase (38-126) U/L Troponin I <0.012 (0.000-0.034) ng/mL Total Protein (6.3-8.2) g/dL Albumin (3.5-5.0) g/dL Influenza Type A (PCR) Not Detected (Not Detectd) Influenza Type B (PCR) Not Detected (Not Detectd) RSV (PCR) Not Detected (Not Detectd) SARS-CoV-2 (PCR) Not Detected (Not Detectd) Disposition Clinical Impression: Left against medical advice Disposition: LEFT AGAINST MEDICAL ADVICE Condition: Undetermined Referrals: Florina Brock [Primary Care Provider] - 1-2 days Time of Disposition: 18:45
[2023-10-22 12:20] VITALS: BP 139/62; PULSE 74; RESP 18; TEMP 98
--- NOTE | 2023-10-22 12:27 | XR ---
EXAMINATION TYPE: XR chest 2V DATE OF EXAM: 10/22/2023 COMPARISON: 12/08/2021 INDICATION: Weakness, dizziness TECHNIQUE: Frontal and lateral views of the chest are obtained. FINDINGS: The heart size is normal. The pulmonary vasculature is normal. There is a 0.6 cm nodule left lung base, present previously. No suspicious infiltrates evident. IMPRESSION: 1. Stable small nodule left lung base. 2. No acute pulmonary process
[2023-10-22 12:38] LABS: Glucose,Whole Blood 104 mg/dL (70-110)
[2023-10-22 12:52] LABS: Basophils % (A) 0 %; Eosinophils # (A) 0.1 k/uL (0-0.7); Eosinophils % (A) 2 %; HCT 45.9 % (34.0-46.0); HGB 15.2 gm/dL (11.4-16.0); Lymphocytes # (A) 1.4 k/uL (1.0-4.8); Lymphocytes % (A) 21 %; MCH 29.8 pg (25.0-35.0); MCV 90.1 fL (80.0-100.0); Mean Platelet Volume 7.8; Monocytes # (A) 0.4 k/uL (0-1.0); Monocytes % (A) 7 %; Neutrophils # (A) 4.5 k/uL (1.3-7.7); Neutrophils % (A) 69 %; Platelet Count 270 k/uL (150-450); RBC 5.09 m/uL (3.80-5.40); RDW 13.4 % (11.5-15.5); WBC 6.6 k/uL (3.8-10.6)
[2023-10-22 13:11] LABS: ALT 20 U/L (4-34); AST 27 U/L (14-36); African American GFR (CKD) >90 (>60 ml/min/1.73 sqM); Albumin 4.4 g/dL (3.5-5.0); Alkaline Phosphatase 79 U/L (38-126); Anion Gap 14 mmol/L; Blood Urea Nitrogen 27 mg/dL (7-17); Calcium 9.7 mg/dL (8.4-10.2); Carbon Dioxide 24 mmol/L (22-30); Chloride 103 mmol/L (98-107); Glucose 96 mg/dL (74-99); Non-African American GFR(CKD) 80 (>60 ml/min/1.73 sqM); Sodium 141 mmol/L (137-145); Total Bilirubin 0.4 mg/dL (0.2-1.3); Total Protein 7.6 g/dL (6.3-8.2)
== END 2023-10-22 13:30 | disposition left against medical advice (07) ==
LOC: EC 11:44
DX: Z53.29 Procedure and treatment not carried out because of patient's decision for other reasons (principal); I44.7 Left bundle-branch block, unspecified; I10 Essential (primary) hypertension; J45.909 Unspecified asthma, uncomplicated; Z79.899 Other long term (current) drug therapy; Z20.822 Contact with and (suspected) exposure to COVID-19; Z88.5 Allergy status to narcotic agent; Z88.1 Allergy status to other antibiotic agents; Z91.041 Radiographic dye allergy status; Z88.7 Allergy status to serum and vaccine; Z88.8 Allergy status to other drugs, medicaments and biological substances
CPT/HCPCS: 36415; 71046; 80053; 83605; 84484; 85025; 87636; 93005; 99285

== ENCOUNTER 2024-08-30 09:29 | Emergency (ER) | payer MEDICARE ==
[2024-08-30 09:34] VITALS: RESP 20; TEMP 98.1
--- NOTE | 2024-08-30 09:50 | ED ---
General Adult HPI - General Source: patient, RN notes reviewed Mode of arrival: ambulatory Limitations: no limitations <Vanna Abernathy - Last Filed: 08/30/24 09:49> - General Source: patient, RN notes reviewed Mode of arrival: ambulatory Limitations: no limitations <Tariq Suarez - Last Filed: 08/30/24 11:21> - General Chief complaint: Neuro Symptoms/Deficit Stated complaint: vision loss,memory loss Time Seen by Provider: 08/30/24 09:45 - History of Present Illness Initial comments: Quick Note: This is an 79-year-old female who presents to the emergency department for neurological symptoms. States that starting Monday last week she started developing vision loss in the left eye, largely affecting the peripheral vision. Also reports intermittent headaches and confusion. Denies any weakness or other symptoms. Denies any history of strokes. Not taking any blood thinners. (Vanna Abernathy) Patient is an 79-year-old female presenting to the emergency department with concerns with potential neurological problems. Onset of symptoms was around 10 days ago. Patient has mild discomfort behind her left eye. Patient does have some occasional difficulty with vision that she believes is mostly on the left side and is difficult to see that area. Patient has been forgetful, mostly forgetful where she is. That has been coming and going. (Tariq Suarez) - Related Data Home Medications Medication Instructions Recorded Confirmed Albuterol Sulfate [Proventil Hfa] 2 puff INHALATION RT-QID PRN 02/17/14 12/05/21 Ezetimibe [Zetia] 10 mg PO DAILY 02/17/14 12/05/21 Potassium Chloride 20 meq PO BID 02/17/14 12/05/21 Cholecalciferol [Vitamin D3 (25 2,000 unit PO DAILY 07/30/15 12/05/21 Mcg = 1000 Iu)] Vitamin B Complex 1 tab PO DAILY 06/14/19 12/05/21 Furosemide [Lasix] 20 mg PO DAILY 12/09/19 12/05/21 Hydrocortisone Cream 1 applic TOPICAL BID PRN 12/09/19 12/05/21 [Hydrocortisone 1% Cream] Lactobacillus Acidophilus 460 mg PO DAILY 12/09/19 12/05/21 [Florajen Acidophilus] Niacin 500 mg PO DAILY PRN 12/09/19 12/05/21 Vitamin E 400 unit PO DAILY 12/09/19 12/05/21 Famotidine [Pepcid] 40 mg PO BID 12/05/21 12/05/21 Ipratropium-Albuterol Nebulize 3 ml INHALATION RT-QID PRN 12/05/21 12/05/21 [Duoneb 0.5 mg-3 mg/3 ml Soln] NIFEdipine [Adalat CC] 30 mg PO DAILY 12/05/21 12/05/21 Previous Rx's Medication Instructions Recorded dexAMETHasone ORAL [Hexadrol] 6 mg PO DAILY #15 tab 12/09/21 Bacitracin Zinc/Polymyxin B 1 applic TOPICAL DAILY 7 Days #15 03/04/23 [Bacitracin-Polymyxin Ointment] gm Allergies Allergy/AdvReac Type Severity Reaction Status Date / Time adhesive Allergy skin Verified 08/30/24 09:34 blisters Influenza Virus Vaccines Allergy Unknown Verified 08/30/24 09:34 Iodinated Contrast Media Allergy Anaphylaxis Verified 08/30/24 09:34 [Iodinated Contrast Media - IV Dye] morphine Allergy Unknown Verified 08/30/24 09:34 pneumococcal vaccine Allergy Unknown Verified 08/30/24 09:34 povidone-iodine Allergy Rash/Hives Verified 08/30/24 09:34 [From Betadine] soap [From Betadine] Allergy Rash/Hives Verified 08/30/24 09:34 codeine AdvReac Nausea & Verified 08/30/24 09:34 Vomiting hydromorphone HCl AdvReac Nausea & Verified 08/30/24 09:34 [From Dilaudid] Vomiting antibiotics AdvReac Unknown Uncoded 08/30/24 09:34 Review of Systems ROS Other: All systems not noted in ROS Statement are negative. <Vanna Abernathy - Last Filed: 08/30/24 09:49> ROS Other: All systems not noted in ROS Statement are negative. Constitutional: Denies: fever Eyes: Reports: as per HPI, vision change ENT: Denies: ear pain Respiratory: Denies: cough, dyspnea Cardiovascular: Denies: chest pain Endocrine: Denies: fatigue Gastrointestinal: Denies: abdominal pain Neurological: Reports: as per HPI, headache, confusion <Tariq Suarez - Last Filed: 08/30/24 11:21> ROS Statement: Those systems with pertinent positive or pertinent negative responses have been documented in the HPI. Past Medical History Past Medical History: Asthma, Hyperlipidemia, Hypertension Additional Past Medical History / Comment(s): Intermittent bronchial asthma, hypertension, hyperlipidemia, cardiac artery disease with previous endarterectomy on the right, history of peptic ulcer disease, history of thyroid nodules, history of lumbar disc disease with L4-L5 disease with chronic back pain, history of H. pylori positive, questionable history of a cardiac arrhythmia and exact type is not known, osteoarthritis, COVID09/29 History of Any Multi-Drug Resistant Organisms: None Reported Past Surgical History: Appendectomy, Breast Surgery, Section, Cholecystectomy, Heart Catheterization, Hysterectomy, Joint Replacement Additional Past Surgical History / Comment(s): right hip surg(HAS SEVERE INFEC TION-NOT MRSA-, AFTER FIRST SX) x 3 in last 7 mos.RT CAROTID ENDARTERECTOMY, X 5 BX LT, BREAST BENIGN, RT BREAST X2 LUMPS REMOVED(BENIGN), CATARACTS, BENIGN TUMOR REMOVED RT ELBOW AREA. Past Anesthesia/Blood Transfusion Reactions: Motion Sickness, Postoperative Nausea & Vomiting (PONV) Additional Past Anesthesia/Blood Transfusion Reaction / Comment(s): severe ponv Past Psychological History: No Psychological Hx Reported Smoking Status: Never smoker Past Alcohol Use History: None Reported Past Drug Use History: None Reported - Past Family History Mother Family Medical History: Congestive Heart Failure (CHF), COPD, Deep Vein Thrombosis (DVT), Pulmonary Embolus Sister(s) Family Medical History: Blood Disorder, Cancer Additional Family Medical History / Comment(s): pancreatic cancer,brain cancer. sister states has hemophilia Father Family Medical History: Renal Disease Additional Family Medical History / Comment(s): age 28 from aortic aneurysm <Vanna Abernathy - Last Filed: 08/30/24 09:49> General Exam Limitations: no limitations <Vanna Abernathy - Last Filed: 08/30/24 09:49> Limitations: no limitations General appearance: alert, in no apparent distress Head exam: Present: atraumatic, normocephalic, other (No tenderness over the temporal artery) Eye exam: Present: normal appearance, PERRL, EOMI, other (Funduscopic exam within normal limits. Visual testing reveals patient has diffuse nonspecific areas of decreased visualization, not just limited to the left field) Neck exam: Present: normal inspection Respiratory exam: Present: normal lung sounds bilaterally Cardiovascular Exam: Present: regular rate, normal rhythm GI/Abdominal exam: Present: soft. Absent: tenderness Extremities exam: Present: normal inspection Neurological exam: Present: alert, CN II-XII intact. Absent: motor sensory deficit Expanded Neurological exam: Present: protecting the airway Patient oriented to: Present: person, place. Absent: time (Has difficulty with the year however knows that it is August) Speech: Present: fluid speech Cranial nerves: EOM's Intact: Normal, Facial Sensation: Normal Sensory exam: Upper Extremity Light Touch: Normal, Lower Extremity Light Touch: Normal Motor strength exam: RUE: 5, LUE: 5, RLE: 5, LLE: 5 Eye Response: (4) open spontaneously Motor Response: (5) localizes to pain Verbal Response: (4) confused conversation Psychiatric exam: Present: normal affect, normal mood Skin exam: Present: normal color <Tariq Suarez - Last Filed: 08/30/24 11:21> - General Exam Comments Initial Comments: Visual Physical Exam Vital signs reviewed General: Well-appearing, nontoxic, no acute distress. Head: Normocephalic, atraumatic Eyes: PERRLA, EOMI ENT: Airway patent Chest: Nonlabored breathing Skin: No visual rash, normal skin tone Neuro: Alert and oriented 3 Musculoskeletal: No gross abnormalities (Vanna Abernathy) Course Vital Signs 08/30/24 09:31 Temperature 98.1 F Pulse Rate 61 Respiratory 20 Rate Blood Pressure 144/78 O2 Sat by Pulse 99 Oximetry EKG Findings - EKG Results: EKG: interpreted by ERMD, sinus rhythm (Q wave anterior. Left bundle branch block.), normal axis <Tariq Suarez - Last Filed: 08/30/24 11:21> Medical Decision Making <Vanna Abernathy - Last Filed: 08/30/24 09:49> <Tariq Suarez - Last Filed: 08/30/24 11:21> - Medical Decision Making I performed the QuickNote portion of this chart. Signed Vanna Abernathy PA-C. (Vanna Abernathy) Was pt. sent in by a medical professional or institution ([facility], STUDY LEAD, urgent care, hospital, or long-term...) When possible be specific @ -No Did you speak to anyone other than the patient for history (EMS, parent, family, police, friend...)? What history was obtained from this source @ -No Did you review nursing and triage notes (agree or disagree)? Why? @ -I reviewed and agree with nursing and triage notes Were old charts reviewed (outside hosp., previous admission, EMS record, old EKG, old radiological studies, urgent care reports/EKG's, long-term records)? Report findings @ -No old charts were reviewed Differential Diagnosis (chest pain, altered mental status, abdominal pain women, abdominal pain men, vaginal bleeding, weakness, fever, dyspnea, syncope, headache, dizziness, GI bleed, back pain, seizure, CVA, palpatations, mental health, musculoskeletal)? @ -Differential Altered Mental Status: Hypoglycemia, DKA, hypercapnia, ETOH, overdose, CO poisoning, trauma, myxedema coma, HTN encephalopathy, infection, encephalitis, psychosis, intercranial hemorrhage, hepatic encephalopathy, meningitis, CVA, this is not meant to be an all-inclusive list EKG interpreted by me (3pts min.). @ -As above X-rays interpreted by me (1pt min.). @ -None done CT interpreted by me (1pt min.). @ -None done U/S interpreted by me (1pt. min.). @ -None done What testing was considered but not performed or refused? (CT, X-rays, U/S, labs)? Why? @ -Ordered x-ray and blood work however patient refused What meds were considered but not given or refused? Why? @ -None Did you discuss the management of the patient with other professionals (professionals i.e. , PA, STUDY LEAD, lab, RT, psych nurse, high school social studies tutor, internal medicine specialist, teacher, public service officer, corrections caseworker)? Give summary @ -No Was smoking cessation discussed for >3mins.? @ -No Was critical care preformed (if so, how long)? @ -No Were there social determinants of health that impacted care today? How? (Homelessness, low income, unemployed, alcoholism, drug addiction, transportation, low edu. Level, literacy, decrease access to med. care, [place] [facility], rehab)? @ -No Was there de-escalation of care discussed even if they declined (Discuss DNR or withdrawal of care, Hospice)? DNR status @ -Recommended admission and further care however patient refuses and will leave AGAINST MEDICAL ADVICE What co-morbidities impacted this encounter? (DM, HTN, Smoking, COPD, CAD, Cancer, CVA, ARF, Chemo, Hep., AIDS, mental health diagnosis, sleep apnea, morbid obesity)? @ -None Was patient admitted / discharged? Hospital course, mention meds given and route, prescriptions, significant lab abnormalities, going to OR and other pertinent info. @ -Patient presents with some intermittent confusion and visual changes. Symptoms were 10 days ago. I do have concerns for mild stroke and recommendation for patient to have further evaluation and admission and neurology consult. Patient does demonstrate medical decision making and ability to make her own decisions. Family is present. Patient refuses further care and will leave AGAINST MEDICAL ADVICE. Patient is made aware of potential for continued or worsening symptoms. Patient is agreeable for close follow-up with her doctor as well as her eye doctor. Patient also advised to discuss with her doctor regarding neurology evaluation Undiagnosed new problem with uncertain prognosis? @ -No Drug Therapy requiring intensive monitoring for toxicity (Heparin, Nitro, Insulin, Cardizem)? @ -No Were any procedures done? @ -No Diagnosis/symptom? @ -TIA Acute, or Chronic, or Acute on Chronic? @ -Acute Uncomplicated (without systemic symptoms) or Complicated (systemic symptoms)? @ -Default Side effects of treatment? @ -No Exacerbation, Progression, or Severe Exacerbation? @ -No Poses a threat to life or bodily function? How? (Chest pain, [place], [place], pneumonia, PE, COPD, DKA, ARF, appy, cholecystitis, CVA, Diverticulitis, Homicidal, Suicidal, threat to staff... and all critical care pts) @ -Threat to neurological function and visual function (Tariq Suarez) Disposition <Vanna Abernathy - Last Filed: 08/30/24 09:49> Is patient prescribed a controlled substance at d/c from ED?: No Time of Disposition: 11:20 <Tariq Suarez - Last Filed: 08/30/24 11:21> Clinical Impression: Transient cerebral ischemia Disposition: LEFT AGAINST MEDICAL ADVICE Instructions (If sedation given, give patient instructions): Transient Ischemic Attack (ED), Blurred Vision (ED) Additional Instructions: Please do follow-up with your primary care physician within the next 24 hours. Please also follow-up with your eye doctor as soon as possible, within the next couple of days. Discussed with your primary care physician regarding neurology evaluation. You are leaving AGAINST MEDICAL ADVICE. There is potential for continued or worsening symptoms including permanent disability and . Please return to emergency department anytime for continued symptoms, worsening symptoms, worsening vision, worsening weakness or confusion or any other concerns. Referrals: Florina Brock [Primary Care Provider] - 1-2 days
--- NOTE | 2024-08-30 10:08 | CT ---
EXAMINATION TYPE: CT brain wo con CT DLP: 1074.4 mGycm, Automated exposure control for dose reduction was used. DATE OF EXAM: 08/30/2024 10:03 AM COMPARISON: CT brain C-spine 12/05/2021, CT Brain 09/06/2021. CLINICAL INDICATION:Female, 79 years old with history of Vision loss, headaches, confusion, Loss of v ision Lt eye, episode of memory loss TECHNIQUE: Brain: Multiple axial CT images of the brain were obtained without IV contrast. . Coronal and sagitta l reformats reviewed. FINDINGS: Brain: Extra-axial spaces: No abnormal extra-axial fluid collections. Ventricular system: Within normal limits Cerebral parenchyma: Age-appropriate cerebral volume loss. No acute intraparenchymal hemorrhage or ma ss effect. The day-white junction is well differentiated. Scattered hypoattenuating areas are seen within the periventricular white matter. Cerebellum: Unremarkable. Mass effect: No evidence of midline shift. Intracranial vasculature: Atherosclerotic calcifications of the intracranial vessels. Soft tissues: Normal. Calvarium/osseous structures: No depressed skull fracture. Paranasal sinuses and mastoid air cells: Clear Visualized orbits: Bilateral aphakia otherwise unremarkable. IMPRESSION: 1. No acute intracranial process. 2. Nonspecific white matter changes, likely secondary to chronic small vessel ischemic disease. [facility], , 08/30/2024 10:06 AM
[2024-08-30 11:26] VITALS: BP 142/84; PULSE 62
== END 2024-08-30 11:25 | disposition left against medical advice (07) ==
LOC: EC 09:29
DX: G45.9 Transient cerebral ischemic attack, unspecified (principal); Z91.09 Other allergy status, other than to drugs and biological substances; Z88.7 Allergy status to serum and vaccine; Z91.041 Radiographic dye allergy status; Z88.5 Allergy status to narcotic agent; Z88.6 Allergy status to analgesic agent; Z88.8 Allergy status to other drugs, medicaments and biological substances; Z88.1 Allergy status to other antibiotic agents
CPT/HCPCS: 70450; 93005; 99284

== ENCOUNTER 2025-03-23 14:22 | Emergency (ER) | payer MEDICARE, OTHER ==
[2025-03-23 14:30] VITALS: RESP 20
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
[2025-03-23] MEDS: ACETAMINOPHEN TAB 325 MG TAB PO STA (17:21)
[2025-03-23 17:29] VITALS: BP 146/53; PULSE 72; TEMP 97.8
== END 2025-03-23 17:26 | disposition home or self-care (01) ==
LOC: EC 14:22
DX: Z04.1 Encounter for examination and observation following transport accident (principal); Z91.048 Other nonmedicinal substance allergy status; Z88.5 Allergy status to narcotic agent; Z88.7 Allergy status to serum and vaccine; Z88.8 Allergy status to other drugs, medicaments and biological substances; Z91.041 Radiographic dye allergy status; V89.2XXA Person injured in unspecified motor-vehicle accident, traffic, initial encounter; Y92.410 Unspecified street and highway as the place of occurrence of the external cause
CPT/HCPCS: 71046; 72125; 70450; 99284; L0120

== ENCOUNTER 2025-04-13 18:37 | Emergency (ER) | payer MEDICARE ==
[2025-04-13] MEDS: IPRATROPIUM-ALBUTEROL 3 ML NEB INHALATION STA ×2 (19:47→21:30)
[2025-04-13 20:00] LABS: Basophils # (A) 0.04 10*3/uL (0.00-0.10); Basophils % (A) 0.6 %; Eosinophils # (A) 0.03 10*3/uL (0.04-0.35); Eosinophils % (A) 0.5 %; HCT 36.6 % (37.2-46.3); HGB 12.5 g/dL (12.0-15.0); Lymphocytes # (A) 1.17 10*3/uL (0.90-5.00); Lymphocytes % (A) 18.2 %; MCH 30.6 pg (27.0-32.0); MCHC 34.2 g/dL (32.0-37.0); MCV 89.5 fL (80.0-97.0); Monocytes # (A) 0.57 10*3/uL (0.20-1.00); Monocytes % (A) 8.9 %; Neutrophils # (A) 4.60 10*3/uL (1.80-7.70); Neutrophils % (A) 71.5 %; Platelet Count 356 10*3/uL (140-440); RBC 4.09 10*6/uL (4.10-5.20); RDW 12.3 % (11.5-14.5); WBC 6.43 10*3/uL (4.50-10.00)
[2025-04-13 20:21] LABS: INR 1.0 (<1.2); Prothrombin Time 10.6 sec (10.0-12.5)
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
[2025-04-13 20:48] LABS: ALT 18 U/L (4-34); AST 23 U/L (14-36); African American GFR (CKD) >90 (>60 ml/min/1.73 sqM); Albumin 3.9 g/dL (3.5-5.0); Alkaline Phosphatase 74 U/L (38-126); Anion Gap 13 mmol/L; Blood Urea Nitrogen 19 mg/dL (7-17); Calcium 10.2 mg/dL (8.4-10.2); Carbon Dioxide 22 mmol/L (22-30); Chloride 105 mmol/L (98-107); Glucose 107 mg/dL (74-99); Magnesium 2.1 mg/dL (1.6-2.3); Non-African American GFR(CKD) 82 (>60 ml/min/1.73 sqM); Potassium 3.2 mmol/L (3.5-5.1); Sodium 140 mmol/L (137-145); Total Protein 6.5 g/dL (6.3-8.2)
[2025-04-13 20:52] LABS: Partial Thromboplastin Time 21.3 sec (22.0-30.0)
[2025-04-13] MEDS: methylPREDNISolone SOD SUCCI 125 MG/2 ML VIAL IV STA (21:18)
[2025-04-13] MEDS: methylPREDNISolone SOD SUCCI 125 MG/2 ML VIAL IM ONE (21:30)
[2025-04-13] MEDS: POTASSIUM CHLORIDE ER 20 MEQ TAB.ER PO STA (21:30)
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
[2025-04-13 22:09] VITALS: BP 157/62; PULSE 68; RESP 17; TEMP 97.6
== END 2025-04-13 22:10 | disposition home or self-care (01) ==
LOC: EC 18:37
DX: J22 Unspecified acute lower respiratory infection (principal); J40 Bronchitis, not specified as acute or chronic; Z88.8 Allergy status to other drugs, medicaments and biological substances; Z88.5 Allergy status to narcotic agent; Z88.7 Allergy status to serum and vaccine; Z91.041 Radiographic dye allergy status; Z88.1 Allergy status to other antibiotic agents
CPT/HCPCS: 36415; 94640 ×2; 93005; 80053; 83605; 83735; 84484; 85025; 85610; 85730; 71046; 99285; 96372; J2919